=== PATIENT | female | born 1960 | race Caucasian/White ===

== ENCOUNTER 2020-12-27 15:19 | Inpatient (IN) | payer OTHER, SELFPAY ==
--- NOTE | ~2020-12-27 | XR_ITS ---
EXAMINATION: XR UGI water soluble wo kub DATE: 12/29/2020 09:11 INDICATION: Patient status post surgery for perforated gastric ulcer TECHNIQUE: Water-soluble contrast was administered through the nasogastric tube. Conventional supine abdomen radiograph and fluoroscopy of the distal esophagus, stomach, and proximal small bowel were pe rformed. Fluoroscopy exposure time was 2.3 minutes. The DAP for this procedure was 27.77 Gycm2. COMPARISON: None. FINDINGS: The nasogastric tube is in the stomach. No contrast extravasation from the stomach is ident ified. There is a moderate-sized sliding hiatal hernia with associated gastroesophageal reflux. IMPRESSION: 1. No evidence of contrast leak from the stomach. Reviewed, dictated and finalized at location A.
--- NOTE | ~2020-12-27 | CT_ITS ---
EXAMINATION: CT abdomen pelvis w con DATE: 12/27/2020 20:43 INDICATION: Generalized abdominal pain. Vomiting. TECHNIQUE: Computed tomography (CT) of the abdomen and pelvis was performed with 100 mL Omnipaque 350 intravenous contrast. Automated exposure control and iterative reconstruction technique were employe d. The dose-length product was 234.50 mGy-cm. COMPARISON: None. FINDINGS: The visualized portions of the lung bases demonstrate mild atelectasis. No pleural effusion . The heart size is normal. No pericardial effusion. There is a small sliding hiatal hernia. The live r and spleen are normal. The gallbladder is normal in size. There is wall thickening of the body and antrum of the stomach. There is a perforated ulcer of the superior aspect of the gastric antrum. The pancreas, adrenal glands, and kidneys are normal. The appendix is not visualized. There are scattered diverticula in the colon. There are no dilated loops of bowel. There is a moderate volume of ascites . There is a large volume of free intraperitoneal gas in the anterior abdomen. There are changes of a nterior and posterior fusion procedures from L4 to S1. There is moderate lumbar spondylosis. IMPRESSION: 1. Perforated ulcer of the gastric antrum with free intraperitoneal gas and moderate volume of ascite s. I called this result to Dr. Horne. Reviewed, dictated and finalized at location A. IMPRESSION: 1. Perforated ulcer of the gastric antrum with free intraperitoneal gas and mod erate volume of ascites. I called this result to Dr. Horne.
[2020-12-27 15:41] VITALS: BP 121/66; PULSE 102; RESP 20; TEMP 36.5; O2SAT 97
[2020-12-27 16:24] LABS: Basophils Percent Auto 0.3 % (0.2-1.2); Eosinophils Percent Auto 0.1 % (0-4.4); Hematocrit 49.4 % (37.0-47.0); Hemoglobin 16.9 g/dL (12.0-15.0); Immature Granulocyte Absolute 0.06 K/mm3 (0.00-0.031); Immature Granulocyte Percent A 0.5 % (0-0.5); Lymphocytes Absolute Auto 1.94 K/mm3 (0.9-3.2); Lymphocytes Percent Auto 17.1 % (18.3-44.2); Mean Corpuscular HGB Conc 34.2 g/dl (32-36); Mean Corpuscular Hemoglobin 30.7 pg (26-34); Mean Corpuscular Volume 89.7 fl (80-100); Mean Platelet Volume 9.3 fl (7.4-10.4); Monocytes Absolute Auto 0.9 K/mm3 (0.1-0.6); Monocytes Percent Auto 7.5 % (2.6-8.5); Neutrophils Absolute Auto 8.5 K/mm3 (1.3-6.7); Neutrophils Percent Auto 74.5 % (45.5-73.1); Platelet Count Result 383 k/mm3 (150-375); Red Blood Count 5.51 M/mm3 (4.2-5.4); Red Cell Distribution Width 12.2 % (11.5-14.5); White Blood Count 11.4 K/mm3 (4.5-10.0)
[2020-12-27 16:33] LABS: Add Urine Microscopic? YES; Appearance Urine Clear (Clear); Bacteria Urine Trace /hpf; Bilirubin Urine Negative (Negative); Blood Urine 2+ (Negative); Color Urine Yellow (Yellow); Glucose Urine UA Negative (Negative); Ketones Urine 2+ mg/dL (Negative); Leukocyte Esterase Ur 1+ LEU/UL (Negative); Mucus Urine Rare /lpf; Nitrate Urine Negative (Negative); Protein Urine 1+ mg/dL (Negative); Specific Grav Ur 1.026 (1.001-1.035); Squamous Epithelial Cell Urine Few /hpf (Few)
[2020-12-27 16:37] LABS: Potassium 2.6 mmol/L (3.4-5.0)
[2020-12-27 16:38] LABS: Albumin Level 4.9 g/dL (3.5-5.1); Alkaline Phosphatase 119 U/L (38-126); Anion Gap 17 mmol/L (8-16); Aspartate Amino Transferase 45 U/L (14-36); Bilirubin,Total 1.5 mg/dL (0.2-1.3); Blood Urea Nitrogen 29 mg/dL (7-17); Calcium 10.3 mg/dL (8.4-10.2); Carbon Dioxide 25 mmol/L (22-30); Chloride 92 mmol/L (98-107); Estimated CRCL calculation 45 ml/min; Estimated Glomerular Filt Rate > 60; Glucose 176 mg/dL (65-110); Lipase 102 U/L (23-300); Sodium 134 mmol/L (137-145)
[2020-12-27 16:55] LABS: Alanine Aminotransferase 31 U/L (4-35)
[2020-12-27 19:38] VITALS: BP 129/75; PULSE 105; RESP 20; TEMP 36.6; O2SAT 100
--- NOTE | 2020-12-27 19:41 | ED.ABDPAIN ---
HPI - Abdominal Pain General Chief Complaint: Abdominal Pain Stated Complaint: N/V Time Seen by Provider: 12/27/20 19:40 Source: patient Mode of arrival: ambulatory Limitations: no limitations History of Present Illness HPI narrative: Patient is a 58-year-old female complaining abdominal pain, mid abdomen, 8 out of 10, nonradiating, accompanied by nausea that started today. Patient denies any chest pain, shortness of breath, vomiting, diarrhea, fever, chills or urinary symptoms. Related Data Home Medications Medication Instructions Recorded Confirmed acetaminophen 650 mg 650 mg PO BID tablet 09/08/20 09/08/20 tablet,extended release buspirone 7.5 mg tablet 7.5 mg PO BID 09/08/20 09/08/20 dimenhydrinate 50 mg tablet 50 mg PO Q4-6H PRN 09/08/20 09/08/20 diphenhydramine HCl 25 mg capsule 25 mg PO QID PRN 09/08/20 09/08/20 hydroxyzine HCl 50 mg tablet 50 mg PO TID 09/08/20 09/08/20 magnesium 250 mg tablet 250 mg PO DAILY 09/08/20 09/08/20 Allergies Allergy/AdvReac Type Severity Reaction Status Date / Time Penicillins Allergy Mild Unknown Verified 12/27/20 19:44 Sulfa (Sulfonamide Allergy Mild Unknown Verified 12/27/20 19:44 Antibiotics) fluoxetine [From Prozac] Allergy Unknown Unknown Verified 12/27/20 19:44 grapefruit Allergy Unknown Verified 12/27/20 19:44 Review of Systems Review of Systems: All systems reviewed & are unremarkable except as noted in HPI and below Constitutional: Constitutional: Denies body ache(s), Denies chills, Denies excessive sweating, Denies fatigue, Denies fever(s), Denies headache(s), Denies lethargy, Denies malaise, Denies weakness and Denies weight loss Eyes: Eyes: Denies blurry vision, Denies change in vision and Denies loss of vision ENT: Denies dizziness, Denies ear discharge, Denies headache(s), Denies lip swelling, Denies epistaxis, Denies nasal congestion, Denies neck pain, Denies throat swelling and Denies tongue swelling Cardiovascular: Cardiovascular: Denies chest pain, Denies chest pain at rest, Denies chest pain with activity, Denies diaphoresis, Denies rapid heart rate, Denies edema, Denies irregular heart rhythm, Denies lightheadedness, Denies palpitations, Denies dyspnea and Denies dyspnea on exertion Respiratory: Respiratory: Denies chest congestion, Denies cough, Denies hemoptysis, Denies dyspnea and Denies dyspnea on exertion Gastrointestinal: Gastrointestinal: Denies melena, Denies hematochezia, Denies diarrhea, Denies nausea, Denies vomiting and Denies hematemesis Musculoskeletal: Musculoskeletal: Denies abnormal gait, Denies deformity, Denies joint swelling, Denies limited range of motion, Denies neck pain and Denies numbness Neurologic: Denies Abnormal speech present, Denies abnormal gait, Denies confusion, Denies dizziness, Denies headache(s), Denies focal weakness, Denies loss of vision, Denies numbness, Denies Other visual disturbances, Denies Sensory deficit (Neuro) and Denies weakness Psychiatric: Psychiatric: Denies confusion, Denies depression, Denies auditory hallucinations, Denies homicidal ideation and Denies suicidal ideation Endocrine: Endocrine: Denies cold intolerance, Denies excessive sweating, Denies fatigue, Denies heat intolerance and Denies palpitations Hematologic/Lymphatic: Hematologic/Lymphatic: Denies easy bleeding and Denies easy bruising Allergic/Immunologic: Allergic/Immunologic: Denies lip swelling, Denies throat swelling and Denies tongue swelling PMFSH Social History Social History Smoking status: Former smoker Alcohol intake: former Comments Past medical history: Anxiety Family history: Hypertension Social history: Non-smoker no EtOH or drug use Exam Const: General: cooperative, healthy appearing, comfortable, no acute distress, well developed, alert and awake; No confusion Orientation/consciousness: oriented to person, oriented to place, oriented to time, patient oriente
[2020-12-27] MEDS: LACTATED RINGERS 1,000 ML 999 ML IV CONT (20:45)
[2020-12-27] MEDS: MORPHINE SULFATE (*CRX) 2 MG/ML INJ IV PUSH (20:46)
[2020-12-27] MEDS: PROMETHAZINE HCL 25 MG/ML AMPUL 12.5 MG IV PUSH (20:46)
[2020-12-27] MEDS: KCL 20 MEQ/SW 100 ML 100 ML 50 MEQ IVPB (21:28)
--- NOTE | 2020-12-27 21:31 | ECG_ITS ---
Measurements Intervals [place] Rate: 92 P: 77 [place]: 149 QRS: -16 QRSD: 99 T: 68 QT: 383 QTc: 474 Interpretive Statements SINUS RHYTHM RIGHT ATRIAL ENLARGEMENT LEFT ATRIAL ENLARGEMENT INCOMPLETE RIGHT BUNDLE BRANCH BLOCK BORDERLINE ECG Electronically Signed On 12-28-2020 6:28:41 CDT by Drew Gibbs D.O.
--- NOTE | 2020-12-27 21:39 | WPDANESEPP ---
Anes - Eval Pre Procedure Procedure: Exploratory laparotomy with oversewing perfed gastric ulcer Date/Time: 12/27/20 21:39 Surgeon: sarai Preop Diagnosis: perforated gastric ulcer Pre Op Diagnosis: N/V Patient Data Age: 60 Gender: F Height: 1.57 m Weight: 56.7 kg Last Vital Signs Temp 97.9 F 12/27/20 19:38 Pulse 105 H 12/27/20 19:38 Resp 20 12/27/20 19:38 BP 129/75 12/27/20 19:38 Pulse Ox 100 12/27/20 19:38 Allergies Allergy/AdvReac Type Severity Reaction Status Date / Time Penicillins Allergy Mild Unknown Verified 12/27/20 19:44 Sulfa (Sulfonamide Allergy Mild Unknown Verified 12/27/20 19:44 Antibiotics) fluoxetine [From Prozac] Allergy Unknown Unknown Verified 12/27/20 19:44 grapefruit Allergy Unknown Verified 12/27/20 19:44 Home Medications Medication Instructions Recorded Confirmed Type acetaminophen 650 mg 650 mg PO BID tablet 09/08/20 09/08/20 History tablet,extended release buspirone 7.5 mg tablet 7.5 mg PO BID 09/08/20 09/08/20 History dimenhydrinate 50 mg tablet 50 mg PO Q4-6H PRN 09/08/20 09/08/20 History diphenhydramine HCl 25 mg capsule 25 mg PO QID PRN 09/08/20 09/08/20 History hydroxyzine HCl 50 mg tablet 50 mg PO TID 09/08/20 09/08/20 History magnesium 250 mg tablet 250 mg PO DAILY 09/08/20 09/08/20 History sertraline 100 mg tablet See Rx Instructions .ROUTE 09/20/20 Rx .COMPLEX #30 tablet lamotrigine 100 mg tablet See Rx Instructions .ROUTE 10/24/20 Rx .COMPLEX #60 tablet hydrocodone 10 mg-acetaminophen 1 tablet PO Q6H PRN #120 tablet 12/21/20 Rx 325 mg tablet Laboratory Tests 12/27/20 12/27/20 12/27/20 16:07 16:07 16:07 WBC 11.4 K/mm3 H K/mm3 (4.5-10.0) RBC 5.51 M/mm3 H M/mm3 (4.2-5.4) Hgb 16.9 g/dL H g/dL (12.0-15.0) Hct 49.4 % H % (37.0-47.0) MCV 89.7 fl fl (80-100) MCH 30.7 pg pg (26-34) MCHC 34.2 g/dl g/dl (32-36) RDW 12.2 % % (11.5-14.5) Plt Count 383 k/mm3 H k/mm3 (150-375) MPV 9.3 fl fl (7.4-10.4) Immature Gran % (Auto) 0.5 % % (0-0.5) Neut % (Auto) 74.5 % H % (45.5-73.1) Lymph % (Auto) 17.1 % L % (18.3-44.2) Castro % (Auto) 7.5 % % (2.6-8.5) Eos % (Auto) 0.1 % % (0-4.4) Baso % (Auto) 0.3 % % (0.2-1.2) Lymph # (Auto) 1.94 K/mm3 K/mm3 (0.9-3.2) Castro # (Auto) 0.9 K/mm3 H K/mm3 (0.1-0.6) Eos # (Auto) 0.0 K/mm3 K/mm3 (0-0.3) Baso # (Auto) 0.0 K/mm3 K/mm3 (0.0-0.1) Abs Immat Gran (auto) 0.06 K/mm3 H K/mm3 (0.00-0.031) Absolute Neuts (auto) 8.5 K/mm3 H K/mm3 (1.3-6.7) Absolute Nucleated RBC 0.0 K/mm3 K/mm3 (0.0-0.012) Nucleated RBC % 0.0 % % (0.0-0.2) Sodium 134 mmol/L L mmol/L (137-145) Potassium 2.6 mmol/L L* mmol/L (3.4-5.0) Chloride 92 mmol/L L mmol/L (98-107) Carbon Dioxide 25 mmol/L mmol/L (22-30) Anion Gap 17 mmol/L H mmol/L (8-16) BUN 29 mg/dL H mg/dL (7-17) Creatinine 0.90 mg/dL mg/dL (0.7-1.0) Estim Creat Clear Calc 45 ml/min ml/min Estimated GFR > 60 (59 - ) Glucose 176 mg/dL H mg/dL (65-110) Calcium 10.3 mg/dL H mg/dL (8.4-10.2) Total Bilirubin 1.5 mg/dL H mg/dL (0.2-1.3) AST 45 U/L H U/L (14-36) ALT 31 U/L U/L (4-35) Alkaline Phosphatase 119 U/L U/L (38-126) Total Protein 8.0 g/dL g/dL (6.3-8.2) Albumin 4.9 g/dL g/dL (3.5-5.1) Lipase 102 U/L U/L (23-300) Urine Color Yellow (Yellow) Urine Appearance Clear (Clear) Urine pH 6.0 (5.0-9.0) Ur Specific [place] 1.026 (1.001-1.035) Urine Protein 1+ mg/dL H mg/dL (Negative) Urine Glucose (UA) Negative mg/dL mg/dL (Negative) Ur
[2020-12-27] MEDS: ceFAZolin SODIUM 1 GM VIAL 2 GM IV PUSH (22:12)
[2020-12-27] MEDS: HYDROmorphone HCL INJ (*CRX) 1 MG/ML SYR IV PUSH (22:12)
--- NOTE | 2020-12-27 22:13 | PM.IMHP ---
H&P: HPI History of Present Illness Date/Time: 12/27/20 22:13 Chief Complaint: Upper abdominal pain. Narrative: Patient is a 58-year-old White female complaining of abdominal pain, mid abdomen, 8 out of 10, nonradiating, accompanied by nausea that started today after lunch. Patient denies any chest pain, shortness of breath, vomiting, diarrhea, fever, chills or urinary symptoms. Patient states she does not take a lot of NSAIDs. Patient also states she has never heard of H pylori in the past. She states she thinks she has had 1 EGD in the past but can not remember how long ago was and believes that was possibly at [facility] in [place] that it is now called [facility]. Workup in the emergency room revealed fairly normal labs other than low potassium but CT scan showed a large amount of free air and some free fluid in the abdomen. The radiologist states that the wall of the body and pyloric region of the stomach is thick and there was a perforation of the pre-pyloric area of the stomach. Review of Systems Constitutional: Constitutional: Reports as per HPI, Reports anorexia and Denies headache(s) Eyes: Eyes: Denies loss of vision and Denies eye pain ENT: Reports Normal hearing present, Denies change in voice, Denies dizziness and Denies headache(s) Comments: History of a previous tracheostomy at the time of an overdose in her 30s. Cardiovascular: Cardiovascular: Denies chest pain and Denies dyspnea Respiratory: Respiratory: Denies dyspnea and Denies wheezing Comments: Moderate COPD from previous smoking. Gastrointestinal: Gastrointestinal: Reports abdominal pain (Mostly above the umbilical level) Comments: Significant pain in the upper abdomen more left than right. Genitourinary: Genitourinary: Reports no additional female genitourinary complaints Musculoskeletal: Musculoskeletal: Reports no additional musculoskeletal complaints, Denies back pain and Denies arthralgias Comments: History of previous low back surgery with instrumentation in the L1-L2 area. Integumentary/Breasts: Comments: Inspection unremarkable but breast exam not done Neurologic: Reports Normal hearing present, Denies dizziness, Denies headache(s), Denies loss of vision and Denies memory loss Comments: History of seizures currently on Lamictal. Sees Dr. Dr. Casillas for her seizure disorder. Psychiatric: Psychiatric: Denies memory loss and Denies panic attacks Comments: History of depression in the past History of electric shock therapy for depression. Endocrine: Endocrine: Reports no additional endocrine complaints Hematologic/Lymphatic: Hematologic/Lymphatic: Reports no additional hematologic/lymphatic complaints Allergic/Immunologic: Allergic/Immunologic: Denies wheezing PMFSH Past Medical History Medical History (Updated 12/27/20 @ 22:30 by Be Graham MD) Anxiety Anxiety and depression COPD (chronic obstructive pulmonary disease) History of alcoholism History of smoking Perforated gastric ulcer (~12/27/20) Seizures (Unknown) Surgical History Surgical History H/O lumbosacral spine surgery History of appendectomy Hx of tracheostomy Social History Social History Smoking status: Former smoker Alcohol intake: former Meds Home Medications and Allergies Home Medications Medication Instructions Recorded Confirmed Type acetaminophen 650 mg 650 mg PO BID tablet 09/08/20 12/27/20 History tablet,extended release buspirone 7.5 mg tablet 7.5 mg PO BID 09/08/20 12/27/20 History dimenhydrinate 50 mg tablet 50 mg PO Q4-6H PRN 09/08/20 12/27/20 History diphenhydramine HCl 25 mg capsule 25 mg PO QID 09/08/20 12/27/20 History hydroxyzine HCl 50 mg tablet 50 mg PO TID 09/08/20 12/27/20 History magnesium 250 mg tablet 250 mg PO DAILY 09/08/20 12/27/20 History sertraline 100 mg tablet See Rx Instructions .ROUTE 09/20/20 Rx
[2020-12-27 22:19] VITALS: BP 134/81; PULSE 81; RESP 15; O2SAT 95
[2020-12-27] MEDS: LACTATED RINGERS 1,000 ML 30 ML IV CONT ×2 (22:30→23:57)
[2020-12-27 23:57] VITALS: BP 98/38; PULSE 77; RESP 18; TEMP 36.8; O2SAT 100
[2020-12-28] VITALS (23 sets, daily range): BP systolic 90–119; BP diastolic 42–80; PULSE 64–79; RESP 11–20; TEMP 36.4–37.3; O2SAT 94–100; BMI 22.8
--- NOTE | 2020-12-28 00:04 | SUR.OPER ---
all clothing purse phone in belonging bag and with patient in PACU. Dr Graham stated he has number to call when surgery done for person patient informed him to call.
--- NOTE | 2020-12-28 00:18 | W.PM.PROC2 ---
Procedure Note - Detailed Date of Procedure 12/27/20 Pre-op Diagnosis Perforated antral gastric ulcer with peritonitis Post-op Diagnosis same Procedure Performed 1. Exploratory laparotomy with over-sewing of antral gastric ulcer and placement of omental patch. 2. Biopsy of antral gastric ulcer 3. Peritoneal washout (5 L of saline used). Surgeon Be Graham MD Division T[employer] Wire Chief MALLORY Her, OR 1st assist Anesthesia general Indications Patient was worked of the ER for upper abdominal pain. CT scan showed significant free air and free fluid in the abdomen with a Kulwinder suspected antral gastric ulcer perforation. Patient had physical findings suggestive of peritonitis. Findings There was a proximally 8 mm hole in the pre-pyloric stomach anteriorly with lots of brown cloudy fluid in the peritoneum. Description of Procedure Patient was brought from the ED directly to the operating room after evaluation by Anesthesia and obtaining permit from patient. Following this after establishment of general oral endotracheal anesthesia, the patient had a Plascencia catheter and NG tube placed to about 40 cm. Following this the abdomen was prepped and draped in usual sterile fashion. Time-out was performed with the surgery team confirming site of surgery being the abdomen. Following this a standard vertical midline incision was made from just below xiphoid to just above the umbilicus. This was carried down through the subcutaneous tissues to expose the midline fascia. The linea alba was incised and we could see nice normal fat underneath this. I then carefully opened the peritoneum after placing 2 hemostats on the peritoneum close to the fascia on the left side of the incision. We entered the peritoneum under direct vision just to the left of the falciform and then I put my finger in and used cautery to open the peritoneum the length of the incision. We could immediately see the above described hole in the anterior antral stomach there there was cloudy brown fluid within the abdomen and about 8 cc of this was suctioned into a syringe and passed off the field to be sent as fluid for culture and sensitivity and Gram stain. Following this any free intra-abdominal fluid was all suctioned away and I then put my hand in the abdomen and we adjusted the NG tube advancing it to 59 cm and I could feel the NG nicely in the body of the stomach a good 5-6 cm proximal to where the hole was. Following this we carefully explored elsewhere and found no other abnormalities. I did then use four 2-0 silk sutures to close the gastric perforation site vertically after taking an approximate 1 x 2 cm biopsy of the inferior edge of the gastric ulcer including full-thickness of the stomach wall. Once these were all placed I then went back and tied them just to secure the gastric wall together. Prior to placing these I did place a blunt Peon into the stomach proximally and distally confirming that there was a open channel. These sutures were all left long. Following this we carefully irrigated the abdomen in all 4 quadrants with a least a L of fluid. (A total of 5 L of fluid used) After completing this approximately 650 cc more fluid was suctioned out of the abdomen then we had irrigated with. A Pool suction was used to suction all of the fluid away. By the time we finished most of fluid coming out of the abdomen was clear. Following this we came back and carefully mobilized a piece of fatty omentum that was hanging off the inferior edge of the greater curvature of the stomach which was long enough to come up over the ulcer site. One suture was used to tack this to the serosa of the stomach slightly cephalad to the ulcer closure site and then the long ends of the previous 4 sutures were tied over this Ometum to hold it in place. This formed our omental patch. Following this we carefully inspected the rest of the anterior surface of the stomach which appeared normal. There was some generalized reddish h
[2020-12-28] MEDS: fentaNYL CITRATE INJ (*CRX) 100 MCG/2 ML VIAL 25 MCG IV PUSH (00:42)
--- NOTE | 2020-12-28 02:32 | ADMGEN ---
This patient, Gina Gonzalez, was admitted to IMU Room 200-01 at 0124 from pacu. Patient/family oriented to hospital policies and general routines including ID bracelet, bed and alarms, visiting hours, pain management, procedures, bathroom and other care routines, personal items, smoking policy, room service/diet, and visiting hours. Information on how to activate the Rapid Response Team has been discussed. Patient/Family are encouraged to report perceived risks to care and to ask questions if they do not understand what they are told or what they should do.
[2020-12-28] MEDS: SODIUM CHLORIDE 0.9% IV 1,000 ML 100 ML IV CONT ×2 (03:09→15:12)
[2020-12-28 05:18] LABS: Magnesium 1.4 mg/dL (1.6-2.3)
[2020-12-28] MEDS: ceFAZolin 2 GM/D5W 50 ML 2 GM/50 ML BAG IVPB ×3 (05:28→20:37)
[2020-12-28 08:25] LABS: Basophils Percent Auto 1.2 % (0.2-1.2); Hematocrit 49.2 % (37.0-47.0); Immature Granulocyte Absolute 0.01 K/mm3 (0.00-0.031); Immature Granulocyte Percent A 0.3 % (0-0.5); Lymphocytes Absolute Auto 0.37 K/mm3 (0.9-3.2); Lymphocytes Percent Auto 11.5 % (18.3-44.2); Mean Corpuscular HGB Conc 32.5 g/dl (32-36); Mean Corpuscular Hemoglobin 29.8 pg (26-34); Mean Corpuscular Volume 91.6 fl (80-100); Mean Platelet Volume 10.1 fl (7.4-10.4); Monocytes Absolute Auto 0.5 K/mm3 (0.1-0.6); Neutrophils Absolute Auto 2.4 K/mm3 (1.3-6.7); Platelet Count Result 308 k/mm3 (150-375); Red Blood Count 5.37 M/mm3 (4.2-5.4); Red Cell Distribution Width 12.5 % (11.5-14.5); White Blood Count 3.2 K/mm3 (4.5-10.0)
[2020-12-28 08:27] LABS: Prealbumin 17.5 mg/dL (17.6-36.0)
[2020-12-28 09:02] LABS: Anion Gap 8 mmol/L (8-16); Blood Urea Nitrogen 32 mg/dL (7-17); Calcium 8.6 mg/dL (8.4-10.2); Carbon Dioxide 26 mmol/L (22-30); Chloride 99 mmol/L (98-107); Estimated CRCL calculation 57 ml/min; Estimated Glomerular Filt Rate > 60; Glucose 142 mg/dL (65-110); Potassium 2.6 mmol/L (3.4-5.0); Sodium 133 mmol/L (137-145)
[2020-12-28] MEDS: MORPHINE SULFATE (*CRX) 2 MG/ML INJ IV PUSH ×2 (09:55→20:49)
[2020-12-28] MEDS: MAGNESIUM SULFATE 3GM/D5W100ML 3 GM/100 ML BAG IVPB (09:56)
[2020-12-28] MEDS: ENOXAPARIN 40 MG/0.4 ML SYRINGE SUB-Q (09:57)
--- NOTE | 2020-12-28 11:05 | PM.PNGS ---
Progress Note: A&P Assessment and Plan (1) Perforated gastric ulcer: Onset Date: ~12/27/20 Qualifiers: Gastric ulcer chronicity: acute Qualified Code(s): K25.1 - Acute gastric ulcer with perforation Code(s): K25.5 - Chronic or unspecified gastric ulcer with perforation Status: Acute Assessment and Plan: Doing well postop day #1. Will have patient begin using an incentive spirometer and begin to get up with physical therapy and nursing. Will consider possible Gastrografin study through the NG tube tomorrow to check on gastric emptying and whether not there is any residual leak from the repair for her pre-pyloric gastric ulcer. Continue NG suction for now Begin mobilizing Continue IV antibiotics and antifungal until cultures return. (2) Low back pain: Onset Date: Unknown Code(s): M54.5 - Low back pain Status: Acute Assessment and Plan: History of 1 or more surgeries on the low back. Still having some back pain but not complaining of that today. (3) Seizures: Onset Date: Unknown Code(s): R56.9 - Unspecified convulsions Status: Acute Assessment and Plan: Await neurology consult and recommendations. (4) Hypokalemia: Onset Date: ~11/2020 Code(s): E87.6 - Hypokalemia Status: Acute Assessment and Plan: Patient received one rider preop yesterday in the ED and I have ordered another one for now. Appreciate hospitalist's help in deciding how to proceed with replenishment of this per IV fluids. (5) Hypomagnesemia: Onset Date: ~12/28/20 Code(s): E83.42 - Hypomagnesemia Status: Acute Assessment and Plan: Magnesium 1.4 this morning. Will give 1 3 g rider and recheck tomorrow. Subjective Subjective Date/Time Seen: 12/28/20 11:05 Post Op day: 1 ( Making expected progress postop day # 1.) Patient reports: feels better, still having pain ( Including some left lower quadrant discomfort.), no flatus and no bowel movement Interval history: patient made adequate but just barely adequate urine output overnight. She states that she does have some pain with coughing. But pain in general is improved compared to preop. Review of Systems Constitutional: Constitutional: Reports no additional constitutional complaints ENT: Reports other (Mucous Membranes moist.) Cardiovascular: Cardiovascular: Denies palpitations and Denies dyspnea Respiratory: Respiratory: Denies pain on inspiration and Denies dyspnea Gastrointestinal: Gastrointestinal: Reports as per HPI Musculoskeletal: Musculoskeletal: Reports other (No calf swelling or edema) Integumentary/Breasts: Skin/Breast: Reports system reviewed and no additional complaints, except as docu Neurologic: Denies seizure-like activity Psychiatric: Comments: History of depression currently on some meds for that at home. Endocrine: Endocrine: Reports no additional endocrine complaints Exam Const: General: cooperative, no acute distress, alert and awake Orientation/consciousness: patient oriented x3 HENMT: Mouth: Yes moist mucous membranes Teeth and gingiva: poor dentition Neck: Neck: normal visual inspection Other: Transverse scar across the mid neck from previous tracheostomy Chest: Chest palpation & inspection: normal inspection of the chest Resp: Effort & Inspection: normal respiratory effort Auscultation: clear to auscultation bilaterally Cardio: Jugular venous distension: no JVD Rate: regular rate Rhythm: regular rhythm Heart sounds: no murmurs GI: Inspection: incision ( minimal drainage on dressing. Abdominal binder in place.) and scaphoid GI Palp: Yes abdominal tenderness ( appropriate for recent surgery) Auscultation: Hypoactive bowel sounds present Rectal Exam: deferred : OB/external & speculum: Deferred OB/external & speculum exam Urinary Catheter: Urinary Catheter: patent and draining and urine clear Neuro: G
[2020-12-28] MEDS: PANTOPRAZOLE SODIUM IV 40 MG VIAL IV PUSH ×2 (11:47→20:37)
--- NOTE | 2020-12-28 14:57 | PM.IMCN ---
Assessment and Plan Assessment and plan (1) Perforated gastric ulcer: Onset Date: ~12/27/20 Qualifiers: Gastric ulcer chronicity: acute Qualified Code(s): K25.1 - Acute gastric ulcer with perforation Code(s): K25.5 - Chronic or unspecified gastric ulcer with perforation Status: Acute Assessment and Plan: Please see surgical note. Patient has some abdominal dressing that is intact. The patient has NG tube. The patient is NPO at this time. Continue with current pain medication. The patient stated that she is supposed to have an outpatient ultrasound of her abdomen due to a hernia and requested that we do all she is here. I explained that we need to wait until her current surgery is healed before she has an ultrasound. I do not feel that her hernia on ultrasound would be accurate at this time. (2) Hypokalemia: Onset Date: ~11/2020 Code(s): E87.6 - Hypokalemia Status: Acute Assessment and Plan: Supplement as needed (3) Hypomagnesemia: Onset Date: ~12/28/20 Code(s): E83.42 - Hypomagnesemia Status: Acute Assessment and Plan: Supplement as needed (4) Depression: Code(s): F32.9 - Major depressive disorder, single episode, unspecified Status: Chronic Assessment and Plan: The patient is NPO so home medication is on hold at this time. (5) COPD (chronic obstructive pulmonary disease): Code(s): J44.9 - Chronic obstructive pulmonary disease, unspecified Status: Chronic Assessment and Plan: Albuterol HFA. (6) Anxiety and depression: Code(s): F41.9 - Anxiety disorder, unspecified; F32.9 - Major depressive disorder, single episode, unspecified Status: Chronic Assessment and Plan: The patient is NPO at this time. We can do some p.r.n. Ativan (7) History of alcoholism: Code(s): F10.21 - Alcohol dependence, in remission Status: Chronic Assessment and Plan: The patient is a recovering alcoholic. She said she has not drink in 16 years. (8) Seizures: Onset Date: Unknown Code(s): R56.9 - Unspecified convulsions Status: Acute Assessment and Plan: BLANCA POON Data of Consult Consult date: 12/28/20 Requesting Physician: Be Graham MD Primary Care Provider: Chandler Benton MD Consult Narrative Narrative: Gina Gonzalez 12/28/20 14:55 this is a 60-year-old female who came to the emergency room last night with complaints of abdominal pain 8/10 that was nonradiating and was accompanied by nausea. The patient denied any chest pain or shortness of breath or vomiting. Patient stated that she has not taken any NSAIDs. Patient thinks that she has had an EGD in the past her CT scan showed a large amount of free air and some free fluid in the abdomen. The radiologist stated that the wall of the body pyloric region of the stomach is thick and there was perforation of the pre-pyloric area the stomach. Please see operative note procedure performed. Exploratory laparotomy with over-sewing of antral gastric ulcer and placement of omental patch. 2. Biopsy of antral gastric ulcer 3. Peritoneal washout (5 L of saline used) The patient's potassium is found to be 2.6 and magnesium was 1.4. The hospitalist group was consulted for management of electrolyte imbalance. These have been replaced. The patient is being admitted to inpatient services with the surgical team. The date of service for the consult is 12/28/2020. Review of Systems Review of Systems: All systems reviewed & are unremarkable except as noted in HPI and below Constitutional: Constitutional: Reports as per HPI and Reports no additional constitutional complaints Eyes: Eyes: Reports as per HPI and Reports no additional eye complaints ENT: Reports system reviewed and no additional complaints, except as documented and Reports Normal hearing present Cardiovascular: Cardiovascular: Re
[2020-12-28] MEDS: MICAFUNGIN SODIUM 100 MG in SODIUM CHLORIDE 0.9% IV 100 ML IVPB (15:03)
[2020-12-28] MEDS: levETIRAcetam 500MG/NACL 100ML 500 MG/100 ML BAG 400 MG IVPB ×2 (15:59→20:35)
--- NOTE | 2020-12-28 16:33 | WPDNEURCNPN ---
Assessment and Plan Additional Plan considering the history of seizure disorder and considering that she is unable to take the p.o. medication Lamictal has been changed to Keppra 500 mg IV push q.12 hours with seizure precautions Consult date: 12/28/20 Time Seen: 11:30 HPI: Gina Gonzalez is a 60 year old female admitted to the hospital for the complaints of upper abdominal pain 8/10 radiating and accompanied by nausea without associated chest discomfort or difficulties in breathing initial evaluation in the emergency room was negative except the low potassium and CT scan of the abdomen documented large amount of free air and fluid in the abdomen neuro consultation has been obtained because patient carries the diagnosis of seizures. The past she has undergone lumbosacral spine surgery and appendectomy and tracheostomy and she has ongoing history of anxiety with COPD alcoholism smoking perforated gastric ulcer and seizure as mentioned above evaluation up until now included the CT scan of the abdomen pelvis with contrast which documented perforated ulcer of the gastric antrum with free intraperitoneal gas and moderate volume of ascites medications particularly include the lamotrigine 100 mg b.i.d. which they are trying to keep her NPO needs to be changed to different medication Review of Systems Review of Systems: All systems reviewed & are unremarkable except as noted in HPI and below PMFSH Past Medical History Medical History Anxiety Anxiety and depression COPD (chronic obstructive pulmonary disease) Depression History of alcoholism History of smoking Perforated gastric ulcer (~12/27/20) Seizures (Unknown) Surgical History Surgical History H/O lumbosacral spine surgery History of appendectomy Hx of tracheostomy Family History Family History Mother Heart disease Cerebrovascular accident Father Heart disease Other Unknown family medical history Social History Social History Social History: The patient stated that she had 5 children and 1 at . The patient is and she is considered disabled. The patient stated that she is 16 years clean with alcohol and she is recovering alcoholic. The patient stated that she smoked many years ago and no longer smokes. The patient is listed as a full code. And she stated that she does not want any CPR if she has spinal surgery. The patient desires to be a DNR. The patient does not have a durable power helicopter specialist for healthcare. The patient denies any marijuana or illicit drugs. Smoking status: Former smoker Alcohol intake: former Substance use: never Spiritual care concerns: No Meds Home Medications and Allergies Home Medications Medication Instructions Recorded Confirmed Type acetaminophen 650 mg 650 mg PO BID tablet 09/08/20 12/27/20 History tablet,extended release buspirone 7.5 mg tablet 7.5 mg PO BID 09/08/20 12/27/20 History diphenhydramine HCl 25 mg capsule 25 mg PO QID 09/08/20 12/27/20 History magnesium 250 mg tablet 250 mg PO DAILY 09/08/20 12/27/20 History hydrocodone 10 mg-acetaminophen 1 tablet PO Q6H PRN #120 tablet 12/21/20 12/27/20 Rx 325 mg tablet lamotrigine 100 mg PO BID 12/28/20 12/28/20 History Allergies Allergy/AdvReac Type Severity Reaction Status Date / Time Penicillins Allergy Mild Unknown Verified 12/27/20 19:44 Sulfa (Sulfonamide Allergy Mild Unknown Verified 12/27/20 19:44 Antibiotics) fluoxetine [From Prozac] Allergy Unknown Unknown Verified 12/27/20 19:44 grapefruit Allergy Unknown Verified 12/27/20 19:44 Vital Signs Vital Signs - 24 hr 12/27/20 19:38 12/27/20 22:19 12/27/20 23:57 Temperature 36.6 C 36.8 C Pulse Rate 105 H 81 77 Respiratory Rate 20 15 18 Blood Pressure 129/75 134/81 98/38 L
[2020-12-28 16:34] LABS: Anion Gap 5 mmol/L (8-16); Blood Urea Nitrogen 29 mg/dL (7-17); Calcium 8.2 mg/dL (8.4-10.2); Carbon Dioxide 30 mmol/L (22-30); Chloride 99 mmol/L (98-107); Estimated CRCL calculation 57 ml/min; Estimated Glomerular Filt Rate > 60; Glucose 134 mg/dL (65-110); Magnesium 2.7 mg/dL (1.6-2.3); Potassium 3.3 mmol/L (3.4-5.0); Sodium 134 mmol/L (137-145)
[2020-12-28] MEDS: MAG HYDROX/AL HYDROX/SIMETH 30 ML UDC FEED TUBE ×2 (20:35→23:19)
[2020-12-29] VITALS (17 sets, daily range): BP systolic 91–132; BP diastolic 50–70; PULSE 62–83; RESP 16–20; TEMP 36.4–37.1; O2SAT 94–100
[2020-12-29] MEDS: SODIUM CHLORIDE 0.9% IV 1,000 ML 100 ML IV CONT ×2 (01:46→18:45)
[2020-12-29] MEDS: MORPHINE SULFATE (*CRX) 2 MG/ML INJ IV PUSH ×3 (05:16→17:27)
[2020-12-29] MEDS: ceFAZolin 2 GM/D5W 50 ML 2 GM/50 ML BAG IVPB (05:17)
[2020-12-29] MEDS: MAG HYDROX/AL HYDROX/SIMETH 30 ML UDC FEED TUBE ×2 (05:17→11:18)
[2020-12-29 05:29] LABS: Hematocrit 41.4 % (37.0-47.0); Hemoglobin 13.1 g/dL (12.0-15.0); Mean Corpuscular HGB Conc 31.6 g/dl (32-36); Mean Corpuscular Hemoglobin 30.5 pg (26-34); Mean Corpuscular Volume 96.3 fl (80-100); Mean Platelet Volume 10.2 fl (7.4-10.4); Platelet Count Result 192 k/mm3 (150-375); Red Cell Distribution Width 12.8 % (11.5-14.5); White Blood Count 8.1 K/mm3 (4.5-10.0)
[2020-12-29 05:44] LABS: Anion Gap 8 mmol/L (8-16); Blood Urea Nitrogen 18 mg/dL (7-17); Calcium 8.1 mg/dL (8.4-10.2); Carbon Dioxide 27 mmol/L (22-30); Chloride 101 mmol/L (98-107); Estimated CRCL calculation 57 ml/min; Estimated Glomerular Filt Rate > 60; Glucose 83 mg/dL (65-110); Magnesium 3.2 mg/dL (1.6-2.3); Potassium 3.5 mmol/L (3.4-5.0); Sodium 136 mmol/L (137-145)
[2020-12-29] MEDS: MICAFUNGIN SODIUM 100 MG in SODIUM CHLORIDE 0.9% IV 100 ML IVPB (10:55)
[2020-12-29] MEDS: levETIRAcetam 500MG/NACL 100ML 500 MG/100 ML BAG 100 MG IVPB ×2 (11:04→20:35)
[2020-12-29] MEDS: PANTOPRAZOLE SODIUM IV 40 MG VIAL IV PUSH ×2 (11:04→20:35)
[2020-12-29] MEDS: ENOXAPARIN 40 MG/0.4 ML SYRINGE SUB-Q (11:04)
--- NOTE | 2020-12-29 11:24 | PM.IMPN ---
Progress Note: A&P Assessment and Plan (1) Perforated gastric ulcer: Onset Date: ~12/27/20 Qualifiers: Gastric ulcer chronicity: acute Qualified Code(s): K25.1 - Acute gastric ulcer with perforation Code(s): K25.5 - Chronic or unspecified gastric ulcer with perforation Status: Acute Assessment and Plan: She is s/p exploratory laparotomy with over-sewing of antral gastric ulcer and omental patch placement performed by Dr. Graham on 12/28/2020. She tolerated the procedure well and her pain is well controlled at this time. Management per General surgery Continue with NG tube and NPO diet at this time. (2) Hypokalemia: Onset Date: ~11/2020 Code(s): E87.6 - Hypokalemia Status: Acute Assessment and Plan: Likely related to NPO status. Potassium improved today with supplementation. 3.5 this morning Monitor BMP (3) Hypomagnesemia: Onset Date: ~12/28/20 Code(s): E83.42 - Hypomagnesemia Status: Acute Assessment and Plan: Mag was low on presentation and she received 3 g IV Mag sulfate. Magnesium now slightly elevated at 3.2. Avoid further magnesium supplementation Will stop scheduled Mylanta. Discussed with [facility] general surgery H[employer] BRA[employer]ER. Recheck mag levels tomorrow (4) Depression: Code(s): F32.9 - Major depressive disorder, single episode, unspecified Status: Chronic Assessment and Plan: Mood is stable at this time Resume Buspar when no longer NPO (5) COPD (chronic obstructive pulmonary disease): Code(s): J44.9 - Chronic obstructive pulmonary disease, unspecified Status: Chronic Assessment and Plan: Not in acute exacerbation. She reports she is on 2 L supplemental O2 at night related to her COPD but is not established with pulmonology. Currently requiring 2 L supplemental O2, though sats are 98% and this can be weaned. No wheezing on exam. Albuterol inhaler p.r.n. Wean supplemental O2 during the daytime. Goal saturation 90% or above. Continue with home regimen of 2 L oxygen at night (6) Seizures: Onset Date: Unknown Code(s): R56.9 - Unspecified convulsions Status: Acute Assessment and Plan: Reports last seizure was over 1 year ago. She is established with neurologist Dr. Casillas. Continue with IV Keppra while NPO Lamotrigine on hold due to NPO status Appreciate Neurology recommendations Subjective Date/time seen: 12/29/20 11:24 Interval history: Date of service: 12/29/2020 Gina Gonzalez is a 60-year-old female with history of COPD on 2 L supplemental O2 at night, tobacco abuse, alcohol abuse, anxiety, depression, and seizure disorder who is hospitalized for a perforated gastric ulcer now s/p exploratory laparotomy with over-sewing of antral gastric ulcer with omental patch who is being seen in consultation for medical management. She is feeling much better today. She still endorses epigastric discomfort that she describes as a stretching sensation. Denies gnawing, sharp or stabbing pain. She has been belching today. She feels very thirsty in her mouth is dry. She wants to have some coffee as soon as possible. She is not passing any flatus today and has not had a bowel movement. No issues with her Plascencia catheter. Denies nausea, vomiting, fever, or chills. She felt just slightly lightheaded today upon standing. Denies dizziness or weakness. Denies shortness breath, cough, or chest pain. She has no additional concerns at this time. At the patient's request, I spoke with her daughter, Flor, via phone to provide updates and answer questions. Review of Systems Review of Systems: All systems reviewed & are unremarkable except as noted in HPI and below Exam Narrative: Ms. Gonzalez is a thin, well-appearing 60-year-old female who is lying supine in bed. She appears comfortable and is in NARD. Neuro: awake, alert and oriented x4,
--- NOTE | 2020-12-29 14:13 | PC.NURSE ---
On 12/29/20, the student, [Vanessa ], provided care and completed [facility] documentation on this patient. I have reviewed the student's documentation and agree with the findings.
--- NOTE | 2020-12-29 14:19 | PC.NURSE ---
On 12/29/20, the student, [Lynette], provided care and completed [facility] documentation on this patient. I have reviewed the student's documentation and agree with the findings.
--- NOTE | 2020-12-29 16:55 | PM.PNGS ---
Progress Note: A&P Assessment and Plan (1) Perforated gastric ulcer: Onset Date: ~12/27/20 Qualifiers: Gastric ulcer chronicity: acute Qualified Code(s): K25.1 - Acute gastric ulcer with perforation Code(s): K25.5 - Chronic or unspecified gastric ulcer with perforation Status: Acute Assessment and Plan: Doing well postop day #2. Will have patient continue using an incentive spirometer and begin to get up with physical therapy and nursing. the Gastrografin study through the NG tube today showed that there perhaps was some narrowing at the pylorus but otherwise no leak and good flow of liquid dye into the duodenum without significant delay. Therefore, we will pull her NG and start her on clear liquids today. Begin mobilizing more with nursing and PT Continue IV antibiotics and antifungal until cultures return. (preliminary report reports coagulase-negative staph. They will not do sensitivities on this. So on Jesus Alberto's antibiogram this is usually covered 100% of the time by either Vanco or Levaquin. I would want to avoid vanco in view of her kidneys and some dehydration therefore will start her on once a day 500 mg of Levaquin. (2) Low back pain: Onset Date: Unknown Code(s): M54.5 - Low back pain Status: Acute Assessment and Plan: History of 1 or more surgeries on the low back. Still having some back pain but not complaining of that today. (3) Seizures: Onset Date: Unknown Code(s): R56.9 - Unspecified convulsions Status: Acute Assessment and Plan: Appreciate neurology consult and recommendations. Would continue to give the patient's IV seizure medication for least another 24 hours but then if tolerating full liquids tomorrow this could be changed to p.o.. (4) Hypokalemia: Onset Date: ~11/2020 Code(s): E87.6 - Hypokalemia Status: Acute Assessment and Plan: potassium of to the normal range now. Appreciate hospitalist's help in deciding how to proceed with replenishment of this per IV fluids. (5) Hypomagnesemia: Onset Date: ~12/28/20 Code(s): E83.42 - Hypomagnesemia Status: Acute Assessment and Plan: Magnesium actually high this morning. I agree with plan by the hospitalist service. Subjective Subjective Date/Time Seen: 12/29/20 16:55 Post Op day: 2 ( Improving postop day #2) Patient reports: no new complaints, no flatus, bowel movement ( starting at about noon today has had several loose stools.) and afebrile Interval history: The patient still has some oxygen on. She states she still has some pain at the incision site if she tries to cough or move significantly but she is sitting up and getting to the bathroom with help. Review of Systems Constitutional: Constitutional: Reports as per HPI, Reports no additional constitutional complaints, Reports anorexia and Denies headache(s) Eyes: Eyes: Denies loss of vision and Denies eye pain ENT: Reports Normal hearing present, Denies change in voice, Denies dizziness, Denies headache(s) and Reports other (Mucous Membranes moist.) Cardiovascular: Cardiovascular: Denies chest pain, Denies palpitations and Denies dyspnea Respiratory: Respiratory: Denies pain on inspiration, Denies dyspnea and Denies wheezing Gastrointestinal: Gastrointestinal: Reports as per HPI and Reports abdominal pain (Mostly above the umbilical level) Genitourinary: Genitourinary: Reports no additional female genitourinary complaints Musculoskeletal: Musculoskeletal: Reports no additional musculoskeletal complaints, Denies back pain, Denies arthralgias and Reports other (No calf swelling or edema) Integumentary/Breasts: Skin/Breast: Reports system reviewed and no additional complaints, except as docu Neurologic: Reports Normal hearing present, Denies dizziness, Denies headache(s), Denies loss of vision, Denies memory loss and Denies seizu
[2020-12-29] MEDS: levoFLOXacin 500 MG/D5W 100 ML 500 MG/100 ML BAG 100 MG IVPB (17:32)
[2020-12-29] MEDS: HYDROcodone/acetaminophen (*CRX) 5-325 MG TABLET 1 TAB PO (20:35)
--- NOTE | 2020-12-29 22:33 | PC.NURSE ---
This patient, Gina Gonzalez, was transferred to [facility] on 12/29/20 at 2230. Personal belongings sent with patient. Report given to Vanessa TEJADA. Appropriate documentation sent with patient.
[2020-12-29] MEDS: LORazepam INJ (*CRX) 2 MG/ML VIAL 0.5 MG IV PUSH (22:43)
[2020-12-30] VITALS (10 sets, daily range): BP systolic 109–131; BP diastolic 52–69; PULSE 65–85; RESP 14–19; TEMP 36.1–37.1; O2SAT 91–100
[2020-12-30 06:05] LABS: Hematocrit 35.8 % (37.0-47.0); Hemoglobin 11.5 g/dL (12.0-15.0); Mean Corpuscular HGB Conc 32.1 g/dl (32-36); Mean Corpuscular Hemoglobin 30.8 pg (26-34); Mean Platelet Volume 9.7 fl (7.4-10.4); Platelet Count Result 216 k/mm3 (150-375); Red Blood Count 3.73 M/mm3 (4.2-5.4); Red Cell Distribution Width 12.5 % (11.5-14.5); White Blood Count 7.6 K/mm3 (4.5-10.0)
[2020-12-30 06:30] LABS: Anion Gap 6 mmol/L (8-16); Blood Urea Nitrogen 11 mg/dL (7-17); Calcium 8.1 mg/dL (8.4-10.2); Carbon Dioxide 26 mmol/L (22-30); Chloride 103 mmol/L (98-107); Estimated CRCL calculation 65 ml/min; Estimated Glomerular Filt Rate > 60; Glucose 71 mg/dL (65-110); Magnesium 2.2 mg/dL (1.6-2.3); Potassium 2.6 mmol/L (3.4-5.0); Sodium 135 mmol/L (137-145)
[2020-12-30] MEDS: levETIRAcetam 500MG/NACL 100ML 500 MG/100 ML BAG 100 MG IVPB (08:05)
[2020-12-30] MEDS: PANTOPRAZOLE SODIUM IV 40 MG VIAL IV PUSH (08:10)
[2020-12-30] MEDS: ENOXAPARIN 40 MG/0.4 ML SYRINGE SUB-Q (08:10)
--- NOTE | 2020-12-30 08:51 | PM.PNGS ---
Progress Note: A&P Assessment and Plan (1) Perforated gastric ulcer: Onset Date: ~12/27/20 Qualifiers: Gastric ulcer chronicity: acute Qualified Code(s): K25.1 - Acute gastric ulcer with perforation Code(s): K25.5 - Chronic or unspecified gastric ulcer with perforation Status: Acute Assessment and Plan: Doing well postop day #3. Will have patient continue using an incentive spirometer and begin to get up with physical therapy and nursing. The Gastrografin study through the NG tube on 12/29 showed that there was perhaps was some narrowing at the pylorus but otherwise no leak and good flow of liquid dye into the duodenum without significant delay. Therefore, her NG is out and she is tolerating a liquid diet today. Begin mobilizing more with nursing and PT Continue IV antibiotics and antifungal until cultures return. (preliminary report reports coagulase-negative staph. They will not do sensitivities on this. So on Jesus Alberto's antibiogram this is usually is covered 100% of the time by either Vanco or Levaquin. I would want to avoid Vanco in view of her kidneys and some dehydration therefore will start her on once a day 500 mg of Levaquin. No yeast showing up on the culture but once its final will stop the antifungal altogether or if there is use consider sending her home on several days more of a oral antifungal. (2) Low back pain: Onset Date: Unknown Code(s): M54.5 - Low back pain Status: Acute Assessment and Plan: History of 1 or more surgeries on the low back. Still having some back pain but not complaining of that today. (3) Seizures: Onset Date: Unknown Code(s): R56.9 - Unspecified convulsions Status: Acute Assessment and Plan: Appreciate neurology consult and recommendations. Would continue to give the patient's IV seizure medication until neurology is comfortable changing her to p.o.. (4) Hypokalemia: Onset Date: ~11/2020 Code(s): E87.6 - Hypokalemia Status: Acute Assessment and Plan: The potassium down again now. Appreciate hospitalist's help in deciding how to proceed with replenishment of this per IV fluids or po. (5) Hypomagnesemia: Onset Date: ~12/28/20 Code(s): E83.42 - Hypomagnesemia Status: Acute Assessment and Plan: Magnesium actually normal again this morning. I agree with plan by the hospitalist service. (6) GERD without esophagitis: Code(s): K21.9 - Gastro-esophageal reflux disease without esophagitis Status: Acute Assessment and Plan: The Gastrografin study on 2020 did show reflux during the study which improved with putting the patient in the standing position. Therefore, would recommend long-term PPI just once a day after she has had a follow-up EGD for evaluation of the stomach and duodenum about 6 weeks after the surgery. Subjective Subjective Date/Time Seen: 12/30/20 08:51 Post Op day: 3 (Continuing to improve postop day # 3.) Patient reports: no new complaints, bowel movement ( Several loose ones last 24 hours.) and afebrile Interval history: patient is sitting up in bed trying a full liquid diet when I walked in the room. Reports several loose stools. States that the pain is controlled at this time. Review of Systems Constitutional: Constitutional: Reports as per HPI, Reports no additional constitutional complaints, Reports anorexia and Denies headache(s) Eyes: Eyes: Denies loss of vision and Denies eye pain ENT: Reports Normal hearing present, Denies change in voice, Denies dizziness, Denies headache(s) and Reports other (Mucous Membranes moist.) Cardiovascular: Cardiovascular: Denies chest pain, Denies palpitations and Denies dyspnea Respiratory: Respiratory: Denies pain on inspiration, Denies dyspnea and Denies wheezing Gastrointestinal: Gastrointestinal: Reports as per HPI and Reports abdomina
[2020-12-30] MEDS: POTASSIUM CHLORIDE 20 MEQ TABLET PO (10:14)
[2020-12-30] MEDS: HYDROcodone/acetaminophen (*CRX) 5-325 MG TABLET 1 TAB PO ×3 (10:15→23:26)
--- NOTE | 2020-12-30 10:55 | PM.IMPN ---
Progress Note: A&P Assessment and Plan (1) Perforated gastric ulcer: Onset Date: ~12/27/20 Qualifiers: Gastric ulcer chronicity: acute Qualified Code(s): K25.1 - Acute gastric ulcer with perforation Code(s): K25.5 - Chronic or unspecified gastric ulcer with perforation Status: Acute Assessment and Plan: She is s/p exploratory laparotomy with over-sewing of antral gastric ulcer and omental patch placement performed by Dr. Graham on 12/28/2020. She tolerated the procedure well and her pain is well controlled at this time. Management per General surgery Diet has been advanced to full liquids Continue with micafungin and Levaquin per General surgery (2) Hypokalemia: Onset Date: ~11/2020 Code(s): E87.6 - Hypokalemia Status: Acute Assessment and Plan: Likely related to NPO status as well as loose stools. Potassium 2.6 today. Administer 40 mEq IV KCl and additional 20 mEq p.o. KCl Recheck potassium this evening and further supplemented as needed (3) Hypomagnesemia: Onset Date: ~12/28/20 Code(s): E83.42 - Hypomagnesemia Status: Acute Assessment and Plan: Mag was low on presentation and she received 3 g IV Mag sulfate. Magnesium increased up to 3.2, therefore scheduled Mylanta was discontinued. Potassium is 2.2 today. Monitor magnesium levels Will plan to likely resume her home magnesium supplement 250 mg daily tomorrow after reviewing morning labs (4) Depression: Code(s): F32.9 - Major depressive disorder, single episode, unspecified Status: Chronic Assessment and Plan: Mood is stable at this time Resume Buspar (5) COPD (chronic obstructive pulmonary disease): Code(s): J44.9 - Chronic obstructive pulmonary disease, unspecified Status: Chronic Assessment and Plan: Not in acute exacerbation, no wheezing on exam. She reports she is on 2 L supplemental O2 at night related to her COPD but is not established with pulmonology. She is maintaining adequate oxygenation on room air at this time. Albuterol inhaler p.r.n. Continue with home regimen of 2 L oxygen at night (6) Seizures: Onset Date: Unknown Code(s): R56.9 - Unspecified convulsions Status: Acute Assessment and Plan: Reports last seizure was over 1 year ago. She is established with neurologist Dr. Casillas. She has been on IV Keppra while NPO. Received a dose this morning Will resume her lamotrigine for this evening. Continue with 100 mg b.i.d. Appreciate Neurology recommendations Subjective Date/time seen: 12/30/20 10:55 Interval history: Date of service: 12/30/2020 Gina Gonzalez is a 60-year-old female with history of COPD on 2 L supplemental O2 at night, tobacco abuse, alcohol abuse, anxiety, depression, and seizure disorder who is hospitalized for a perforated gastric ulcer now s/p exploratory laparotomy with over-sewing of antral gastric ulcer with omental patch who is being seen in consultation for medical management. She is feeling okay today. She is having a bit more nausea today after eating her breakfast which consisted of Jello and oatmeal. She says though meal just did not go down well and has had more nausea since. No vomiting. She rates her epigastric pain as 6.5/10, which is improved from yesterday. She had 2 incontinent watery stools last night, but today she was able to make it to the bathroom. Stool was loose this morning. She denies urinary symptoms. She is able to get up and walk to the bathroom, though admits she feels somewhat unsteady on her feet. She denies dizziness or lightheadedness. Denies shortness breath, cough, chest pain, or palpitations. Review of Systems Review of Systems: All systems reviewed & are unremarkable except as noted in HPI and below Exam Narrative: Ms. Gonzalez is a thin, well-appearing 60-year-old female who is lying supine in
--- NOTE | 2020-12-30 11:31 | WPDNEUROPN ---
Progress Note: A&P Additional Plan Neurologically treatment will be continued as such patient has no evidence of any recurrence of seizure or any neurological deficit. Review of Systems Review of Systems: All systems reviewed & are unremarkable except as noted in HPI and below Exam Narrative: remains awake alert cooperative in no obvious acute distress, head normocephalic with no cranial bruit, ear nose throat examination normal, neck is supple with no cervical bruit no thyromegaly no lymphadenopathy, heart regular with no murmur, lungs clear to auscultation with no rhonchi or crepitations, abdomen soft post surgical, neurological examination revealed her to be awake alert oriented x3, his speech nor dysphasic no dysarthric no dysphonic, the cranial nerve examination normal, motor and sensory examination normal and nonfocal, reflexes symmetrical, plantars are downgoing, there is no evidence of cerebellar dysfunction. Objective Data Vital Signs Vital Signs: Vital Signs - 24 hr 12/29/20 11:45 12/29/20 12:00 12/29/20 14:00 Temperature 37.1 C Pulse Rate 78 70 75 Respiratory Rate 18 18 Blood Pressure 132/70 Pulse Oximetry 98 98 12/29/20 16:00 12/29/20 18:00 12/29/20 19:57 Temperature 37.0 C 36.8 C Pulse Rate 78 81 83 Respiratory Rate 18 20 Blood Pressure 128/62 114/61 Pulse Oximetry 99 94 12/29/20 20:00 12/29/20 22:00 12/30/20 00:00 Temperature 36.6 C Pulse Rate 83 79 81 Respiratory Rate 16 Blood Pressure 109/52 L Pulse Oximetry 94 91 12/30/20 04:00 12/30/20 06:00 12/30/20 10:11 Temperature 36.5 C 36.5 C 36.4 C Pulse Rate 74 74 68 Respiratory Rate 19 19 14 Blood Pressure 113/59 L 113/59 L 127/67 Pulse Oximetry 97 97 98 Intake/Output Intake/Output: Intake & Output 12/27/20 12/28/20 12/29/20 12/30/20 23:59 23:59 23:59 23:59 Intake Total 1100 2900 3940 360 Output Total 350 1725 500 Balance 1100 2550 2215 -140 Meds/Results Medications: Active Medications Generic Name Dose Route Start Last Admin Trade Name Freq PRN Reason Stop Dose Admin Hydrocodone Bitart/Acetaminophen 1 tab 12/28/20 01:20 12/30/20 10:15 Hydrocodone/Acetaminophen (*Crx) 5-325 Mg Tablet PO 1 tab Q6H PRN Administration Pain Rated 4-6 Albuterol 2 puff 12/28/20 15:12 Albuterol Sulfate (*Sp) Aerosol 1 Puff INHALATION Q6HRT PRN Shortness Of Breath Buspirone HCl 2.5 mg 12/30/20 21:00 Buspirone Hcl 2.5 Mg Tablet PO Q12HR UBALDO Buspirone HCl 5 mg 12/30/20 21:00 Buspirone Hcl 5 Mg Tablet PO Q12HR UBALDO Enoxaparin Sodium 40 mg 12/28/20 09:00 12/30/20 08:10 Enoxaparin 40 Mg/0.4 Ml Syringe SUB-Q 40 mg DAILY UBALDO Administration Micafungin Sodium 100 mg/ 100 mls @ 100 mls/hr 12/28/20 09:00 12/29/20 10:55 Sodium Chloride IVPB 100 mls/hr DAILY UBALDO Administration Levofloxacin/Dextrose 500 mg in 100 mls @ 100 mls/hr 12/29/20 18:00 12/29/20 22:40 Levaquin 500 Mg/D5w 100 Ml IVPB Infused QPM UBALDO Infusion Lamotrigine 100 mg 12/30/20 17:00 Lamotrigine 100 Mg Tablet PO BID UBALDO Lorazepam 0.5 mg 12/28/20 15:11 12/29/20 22:43 Lorazepam Inj (*Crx) 2 Mg/Ml Vial IV PUSH 0.5 mg Q6H PRN Administration Anxiety Naloxone HCl 0.1 mg 12/28/20 01:20 Naloxone Hcl 0.4 Mg/Ml Vial IV PUSH Q2M PRN Opiate Reversal Pantoprazole Sodium 40 mg 12/30/20 21:00 Pantoprazole 40 Mg Tablet PO Q12HR UBALDO Prochlorperazine 25 mg 12/29/20 17:09 Prochlorperazine 25 Mg Supp.Rect RECTAL Q12H PRN Nausea Radiology Results: ITS Impressions Abdomen/Pelvis CT 12/27/20 20:46 IMPRESSION: 1. Perforated ulcer of the gastric antrum with free intraperitoneal gas and moderate volume of ascites. I called this result to Dr. Horne. Upper GI Series 12/29/20 09:41 IMPRESSION: 1. No evidence of contrast leak from the stomach. Labs Labs: Laboratory Results - last 24 hr 12/30/20 12/30/20
[2020-12-30] MEDS: MICAFUNGIN SODIUM 100 MG in SODIUM CHLORIDE 0.9% IV 100 ML IVPB (13:05)
[2020-12-30 14:20] LABS: Potassium 3.7 mmol/L (3.4-5.0)
[2020-12-30] MEDS: levoFLOXacin 500 MG/D5W 100 ML 500 MG/100 ML BAG 100 MG IVPB (16:58)
[2020-12-30] MEDS: lamoTRIgine 100 MG TABLET PO (16:58)
[2020-12-30] MEDS: LORazepam INJ (*CRX) 2 MG/ML VIAL 0.5 MG IV PUSH (19:55)
[2020-12-30] MEDS: busPIRone HCL 5 MG TABLET PO (19:59)
[2020-12-30] MEDS: PANTOPRAZOLE 40 MG TABLET PO (19:59)
[2020-12-30] MEDS: busPIRone HCL 2.5 MG TABLET PO (19:59)
[2020-12-31 00:03] VITALS: BP 132/64; PULSE 77; RESP 20; TEMP 36.3; O2SAT 93
[2020-12-31 04:57] VITALS: BP 137/67; PULSE 69; RESP 20; TEMP 36.3; O2SAT 94
[2020-12-31 06:48] LABS: Hematocrit 34.7 % (37.0-47.0); Hemoglobin 11.3 g/dL (12.0-15.0); Mean Corpuscular HGB Conc 32.6 g/dl (32-36); Mean Corpuscular Hemoglobin 30.1 pg (26-34); Mean Corpuscular Volume 92.3 fl (80-100); Mean Platelet Volume 9.4 fl (7.4-10.4); Platelet Count Result 255 k/mm3 (150-375); Red Blood Count 3.76 M/mm3 (4.2-5.4); Red Cell Distribution Width 12.4 % (11.5-14.5); White Blood Count 5.4 K/mm3 (4.5-10.0)
[2020-12-31 06:52] LABS: Mean Platelet Volume 9.6 fl (7.4-10.4); Platelet Count Result 246 k/mm3 (150-375)
[2020-12-31 07:13] LABS: Anion Gap 4 mmol/L (8-16); Blood Urea Nitrogen 7 mg/dL (7-17); Calcium 8.6 mg/dL (8.4-10.2); Carbon Dioxide 27 mmol/L (22-30); Chloride 104 mmol/L (98-107); Estimated CRCL calculation 77 ml/min; Estimated Glomerular Filt Rate > 60; Glucose 93 mg/dL (65-110); Potassium 2.9 mmol/L (3.4-5.0); Sodium 135 mmol/L (137-145)
[2020-12-31 07:16] LABS: Magnesium 1.8 mg/dL (1.6-2.3)
[2020-12-31] MEDS: busPIRone HCL 2.5 MG TABLET PO ×2 (08:38→20:18)
[2020-12-31] MEDS: ENOXAPARIN 40 MG/0.4 ML SYRINGE SUB-Q (08:38)
[2020-12-31] MEDS: busPIRone HCL 5 MG TABLET PO ×2 (08:38→20:18)
[2020-12-31] MEDS: lamoTRIgine 100 MG TABLET PO ×2 (08:38→17:26)
[2020-12-31] MEDS: PANTOPRAZOLE 40 MG TABLET PO ×2 (08:38→20:18)
[2020-12-31] MEDS: MICAFUNGIN SODIUM 100 MG in SODIUM CHLORIDE 0.9% IV 100 ML IVPB (08:38)
[2020-12-31] MEDS: HYDROcodone/acetaminophen (*CRX) 5-325 MG TABLET 1 TAB PO ×2 (09:01→20:17)
[2020-12-31 10:00] VITALS: BP 133/72; PULSE 58; RESP 20; TEMP 37.2; O2SAT 100
--- NOTE | 2020-12-31 10:38 | PM.PNGS ---
Progress Note: A&P Assessment and Plan (1) Perforated gastric ulcer: Onset Date: ~12/27/20 Qualifiers: Gastric ulcer chronicity: acute Qualified Code(s): K25.1 - Acute gastric ulcer with perforation Code(s): K25.5 - Chronic or unspecified gastric ulcer with perforation Status: Acute Assessment and Plan: Advance to soft regular diet today Increase activity Possibly home tomorrow if continuing to improve (2) Hypokalemia: Onset Date: ~11/2020 Code(s): E87.6 - Hypokalemia Status: Acute Assessment and Plan: Replaced by Hospitalist (3) COPD (chronic obstructive pulmonary disease): Code(s): J44.9 - Chronic obstructive pulmonary disease, unspecified Status: Chronic Subjective Subjective Date/Time Seen: 12/31/20 10:38 Interval history: Pain controlled. No nausea or vomiting. Hasn't tried solid food yet. Exam GI: Inspection: incision (intact with luis) GI Palp: Yes Tenderness to palpation present (GI) (incisional) and No Guarding due to palpation present (GI) Auscultation: normal bowel sounds Objective Data Vital Signs Vital Signs: Vital Signs - 24 hr 12/30/20 12:00 12/30/20 14:11 12/30/20 16:00 Temperature 37.1 C Pulse Rate 66 74 67 Respiratory Rate 16 Blood Pressure 115/66 Pulse Oximetry 98 12/30/20 17:56 12/30/20 20:47 12/31/20 00:03 Temperature 36.4 C 36.1 C L 36.3 C L Pulse Rate 69 65 77 Respiratory Rate 14 18 20 Blood Pressure 126/68 131/69 132/64 Pulse Oximetry 100 96 93 12/31/20 04:57 12/31/20 10:00 Temperature 36.3 C L 37.2 C Pulse Rate 69 58 L Respiratory Rate 20 20 Blood Pressure 137/67 133/72 Pulse Oximetry 94 100 Intake/Output Intake/Output: Intake & Output 12/28/20 12/29/20 12/30/20 12/31/20 23:59 23:59 23:59 23:59 Intake Total 2900 4040 2780 730 Output Total 350 1725 1250 Balance 2550 2315 1530 730 Meds/Results Medications: Active Medications Generic Name Dose Route Start Last Admin Trade Name Freq PRN Reason Stop Dose Admin Hydrocodone Bitart/Acetaminophen 1 tab 12/28/20 01:20 12/31/20 09:01 Hydrocodone/Acetaminophen (*Crx) 5-325 Mg Tablet PO 1 tab Q6H PRN Administration Pain Rated 4-6 Albuterol 2 puff 12/28/20 15:12 Albuterol Sulfate (*Sp) Aerosol 1 Puff INHALATION Q6HRT PRN Shortness Of Breath Buspirone HCl 2.5 mg 12/30/20 21:00 12/31/20 08:38 Buspirone Hcl 2.5 Mg Tablet PO 2.5 mg Q12HR UBALDO Administration Buspirone HCl 5 mg 12/30/20 21:00 12/31/20 08:38 Buspirone Hcl 5 Mg Tablet PO 5 mg Q12HR UBALDO Administration Enoxaparin Sodium 40 mg 12/28/20 09:00 12/31/20 08:38 Enoxaparin 40 Mg/0.4 Ml Syringe SUB-Q 40 mg DAILY UBALDO Administration Micafungin Sodium 100 mg/ 100 mls @ 100 mls/hr 12/28/20 09:00 12/31/20 08:38 Sodium Chloride IVPB 100 mls/hr DAILY UBALDO Administration Potassium Chloride 500 mls @ 125 mls/hr 12/31/20 09:06 Kcl 40 Meq/D5w 500 Ml Peripheral IVPB 12/31/20 13:05 ONCE ONE Lamotrigine 100 mg 12/30/20 17:00 12/31/20 08:38 Lamotrigine 100 Mg Tablet PO 100 mg BID UBALDO Administration Levofloxacin 500 mg 12/31/20 15:00 Levofloxacin 500 Mg Tablet PO DAILY UBALDO Lorazepam 0.5 mg 12/28/20 15:11 12/30/20 19:55 Lorazepam Inj (*Crx) 2 Mg/Ml Vial IV PUSH 0.5 mg Q6H PRN Administration Anxiety Magnesium Oxide 200 mg 12/31/20 12:00 Magnesium Oxide 200 Mg Tablet PO DAILY@1200 UBALDO Naloxone HCl 0.1 mg 12/28/20 01:20 Naloxone Hcl 0.4 Mg/Ml Vial IV PUSH Q2M PRN Opiate Reversal Pantoprazole Sodium 40 mg 12/30/20 21:00 12/31/20 08:38 Pantoprazole 40 Mg Tablet PO 40 mg Q12HR UBALDO Administration Potassium Chloride 20 meq 12/31/20 17:00 Potassium Chloride 20 Meq Tablet.Er PO BIDWM UBALDO Prochlorperazine 25 mg 12/29/20 17:09 Prochlorperazine 25 Mg Supp.Rect RECTAL Q12H PRN Nausea Radio
[2020-12-31] MEDS: MAGNESIUM OXIDE 200 MG TABLET PO (10:46)
[2020-12-31] MEDS: LORazepam INJ (*CRX) 2 MG/ML VIAL 0.5 MG IV PUSH (11:03)
--- NOTE | 2020-12-31 12:22 | PM.IMPN ---
Progress Note: A&P Assessment and Plan (1) Perforated gastric ulcer: Onset Date: ~12/27/20 Qualifiers: Gastric ulcer chronicity: acute Qualified Code(s): K25.1 - Acute gastric ulcer with perforation Code(s): K25.5 - Chronic or unspecified gastric ulcer with perforation Status: Acute Assessment and Plan: She is s/p exploratory laparotomy with over-sewing of antral gastric ulcer and omental patch placement performed by Dr. Graham on 12/28/2020. She tolerated the procedure well and her pain is well controlled at this time. Management per General surgery Diet has been advanced to low-fiber Continue with micafungin and Levaquin per General surgery (2) Hypokalemia: Onset Date: ~11/2020 Code(s): E87.6 - Hypokalemia Status: Acute Assessment and Plan: Likely related to loose stools. Potassium 2.9 today. Administer 40 mEq IV KCl Will proceed with scheduled p.o. KCL 20 mEq b.i.d. Continue to monitor potassium levels (3) Hypomagnesemia: Onset Date: ~12/28/20 Code(s): E83.42 - Hypomagnesemia Status: Acute Assessment and Plan: Mag was low on presentation and she received 3 g IV Mag sulfate. Magnesium increased up to 3.2, therefore scheduled Mylanta was discontinued and her home magnesium supplement was held. Potassium levels normalized and now is 1.8. Continue with magnesium oxide 200 mg daily Monitor magnesium levels (4) Depression: Code(s): F32.9 - Major depressive disorder, single episode, unspecified Status: Chronic Assessment and Plan: Mood is stable at this time Continue Buspar (5) COPD (chronic obstructive pulmonary disease): Code(s): J44.9 - Chronic obstructive pulmonary disease, unspecified Status: Chronic Assessment and Plan: Not in acute exacerbation, no wheezing on exam. She reports she is on 2 L supplemental O2 at night related to her COPD but is not established with pulmonology. She is maintaining adequate oxygenation on room air at this time. Albuterol inhaler p.r.n. Continue with home regimen of 2 L oxygen at night (6) Seizures: Onset Date: Unknown Code(s): R56.9 - Unspecified convulsions Status: Acute Assessment and Plan: Reports last seizure was over 1 year ago. She is established with neurologist Dr. Casillas. Continue home lamotrigine Subjective Date/time seen: 12/31/20 12:22 Interval history: Date of service: 12/31/2020 Gina Gonzalez is a 60-year-old female with history of COPD on 2 L supplemental O2 at night, tobacco abuse, alcohol abuse, anxiety, depression, and seizure disorder who is hospitalized for a perforated gastric ulcer now s/p exploratory laparotomy with over-sewing of antral gastric ulcer with omental patch who is being seen in consultation for medical management. She is doing pretty well today. Her pain has been better controlled ranging from 3-5/10. She describes her pain as a stretching sensation and is worse when she coughs or leans forward. She tolerated full liquids today without any issues. Denies nausea or vomiting. She does complain of belching and feels that she has maybe the sensation of acid reflux. She had a liquid stool this morning. She is passing flatus. She endorses mild lightheadedness upon standing and feels a bit unsteady when walking but is able to ambulate independently. She denies shortness of breath, chest pain, or palpitations. Reports occasional dry cough. No urinary symptoms. No headaches, body aches, fevers, or chills. She has no additional concerns and is in good spirits. Review of Systems Review of Systems: All systems reviewed & are unremarkable except as noted in HPI and below Exam Narrative: Ms. Gonzalez is a thin, well-appearing 60-year-old female who is lying supine in bed. She appears comfortable and is in NARD. Neuro: awake, alert and oriented x4, speec
[2020-12-31 14:00] VITALS: BP 128/68; PULSE 63; RESP 20; TEMP 37.2; O2SAT 96
[2020-12-31] MEDS: levoFLOXacin 500 MG TABLET PO (15:50)
[2020-12-31] MEDS: POTASSIUM CHLORIDE 20 MEQ TABLET.ER PO (17:26)
[2020-12-31 18:00] VITALS: BP 130/64; PULSE 62; RESP 20; TEMP 37; O2SAT 100
[2020-12-31 20:51] VITALS: BP 141/79; PULSE 72; RESP 22; TEMP 36.1; O2SAT 99
[2021-01-01 01:02] VITALS: BP 127/73; PULSE 97; RESP 18; TEMP 36.1; O2SAT 97
[2021-01-01] MEDS: HYDROcodone/acetaminophen (*CRX) 5-325 MG TABLET 1 TAB PO ×3 (01:51→15:16)
[2021-01-01 05:29] VITALS: BP 121/75; PULSE 66; RESP 16; TEMP 36.4; O2SAT 97
[2021-01-01 05:56] LABS: Hematocrit 35.5 % (37.0-47.0); Hemoglobin 11.7 g/dL (12.0-15.0)
[2021-01-01 06:13] LABS: Anion Gap 2 mmol/L (8-16); Blood Urea Nitrogen 5 mg/dL (7-17); Calcium 8.9 mg/dL (8.4-10.2); Carbon Dioxide 28 mmol/L (22-30); Chloride 104 mmol/L (98-107); Estimated CRCL calculation 86 ml/min; Estimated Glomerular Filt Rate > 60; Glucose 95 mg/dL (65-110); Magnesium 1.8 mg/dL (1.6-2.3); Potassium 4.1 mmol/L (3.4-5.0); Sodium 134 mmol/L (137-145)
[2021-01-01] MEDS: POTASSIUM CHLORIDE 20 MEQ TABLET.ER PO (08:57)
[2021-01-01] MEDS: busPIRone HCL 5 MG TABLET PO ×2 (08:57→20:34)
[2021-01-01] MEDS: busPIRone HCL 2.5 MG TABLET PO ×2 (08:58→20:34)
[2021-01-01] MEDS: levoFLOXacin 500 MG TABLET PO (08:58)
[2021-01-01] MEDS: lamoTRIgine 100 MG TABLET PO ×2 (08:58→18:33)
[2021-01-01] MEDS: PANTOPRAZOLE 40 MG TABLET PO ×2 (08:58→20:34)
[2021-01-01] MEDS: ENOXAPARIN 40 MG/0.4 ML SYRINGE SUB-Q (08:58)
[2021-01-01] MEDS: MICAFUNGIN SODIUM 100 MG in SODIUM CHLORIDE 0.9% IV 100 ML IVPB (09:05)
--- NOTE | 2021-01-01 09:22 | PM.PNGS ---
Progress Note: A&P Assessment and Plan (1) Perforated gastric ulcer: Onset Date: ~12/27/20 Qualifiers: Gastric ulcer chronicity: acute Qualified Code(s): K25.1 - Acute gastric ulcer with perforation Code(s): K25.5 - Chronic or unspecified gastric ulcer with perforation Status: Acute Assessment and Plan: Continue Protonix BID and antibiotics Pain was a little worse when diet advanced, will continue to monitor patient today, probably able to be discharged tomorrow. (2) Hypokalemia: Onset Date: ~11/2020 Code(s): E87.6 - Hypokalemia Status: Acute Assessment and Plan: Replaced by Hospitalist (3) COPD (chronic obstructive pulmonary disease): Code(s): J44.9 - Chronic obstructive pulmonary disease, unspecified Status: Chronic Subjective Subjective Date/Time Seen: 01/01/21 09:22 Interval history: Had worsening pain with eating. Feeling a little better this AM. +Flatus. No more diarrhea. No fevers. Exam GI: Inspection: incision (intact with luis) GI Palp: Yes Tenderness to palpation present (GI) (incisional) and No Guarding due to palpation present (GI) Auscultation: normal bowel sounds Objective Data Vital Signs Vital Signs: Vital Signs - 24 hr 12/31/20 10:00 12/31/20 14:00 12/31/20 18:00 Temperature 37.2 C 37.2 C 37.0 C Pulse Rate 58 L 63 62 Respiratory Rate 20 20 20 Blood Pressure 133/72 128/68 130/64 Pulse Oximetry 100 96 100 12/31/20 20:51 01/01/21 01:02 01/01/21 05:29 Temperature 36.1 C L 36.1 C L 36.4 C Pulse Rate 72 97 66 Respiratory Rate 22 H 18 16 Blood Pressure 141/79 H 127/73 121/75 Pulse Oximetry 99 97 97 Intake/Output Intake/Output: Intake & Output 12/29/20 12/30/20 12/31/20 01/01/21 23:59 23:59 23:59 23:59 Intake Total 4040 2780 2000 600 Output Total 1725 1250 1700 1600 Balance 2315 1530 300 -1000 Meds/Results Medications: Active Medications Generic Name Dose Route Start Last Admin Trade Name Freq PRN Reason Stop Dose Admin Hydrocodone Bitart/Acetaminophen 1 tab 12/28/20 01:20 01/01/21 08:56 Hydrocodone/Acetaminophen (*Crx) 5-325 Mg Tablet PO 1 tab Q6H PRN Administration Pain Rated 4-6 Albuterol 2 puff 12/28/20 15:12 Albuterol Sulfate (*Sp) Aerosol 1 Puff INHALATION Q6HRT PRN Shortness Of Breath Buspirone HCl 2.5 mg 12/30/20 21:00 01/01/21 08:58 Buspirone Hcl 2.5 Mg Tablet PO 2.5 mg Q12HR UBALDO Administration Buspirone HCl 5 mg 12/30/20 21:00 01/01/21 08:57 Buspirone Hcl 5 Mg Tablet PO 5 mg Q12HR UBALDO Administration Enoxaparin Sodium 40 mg 12/28/20 09:00 01/01/21 08:58 Enoxaparin 40 Mg/0.4 Ml Syringe SUB-Q 40 mg DAILY UBALDO Administration Micafungin Sodium 100 mg/ 100 mls @ 100 mls/hr 12/28/20 09:00 01/01/21 09:05 Sodium Chloride IVPB 100 mls/hr DAILY UBALDO Administration Lamotrigine 100 mg 12/30/20 17:00 01/01/21 08:58 Lamotrigine 100 Mg Tablet PO 100 mg BID UBALDO Administration Levofloxacin 500 mg 12/31/20 15:00 01/01/21 08:58 Levofloxacin 500 Mg Tablet PO 500 mg DAILY UBALDO Administration Lorazepam 0.5 mg 12/28/20 15:11 12/31/20 11:03 Lorazepam Inj (*Crx) 2 Mg/Ml Vial IV PUSH 0.5 mg Q6H PRN Administration Anxiety Magnesium Oxide 200 mg 12/31/20 12:00 12/31/20 10:46 Magnesium Oxide 200 Mg Tablet PO 200 mg DAILY@1200 UBALDO Administration Naloxone HCl 0.1 mg 12/28/20 01:20 Naloxone Hcl 0.4 Mg/Ml Vial IV PUSH Q2M PRN Opiate Reversal Pantoprazole Sodium 40 mg 12/30/20 21:00 01/01/21 08:58 Pantoprazole 40 Mg Tablet PO 40 mg Q12HR UBALDO Administration Potassium Chloride 20 meq 12/31/20 17:00 01/01/21 08:57 Potassium Chloride 20 Meq Tablet.Er PO 20 meq BIDWM UBALDO Administration Prochlorperazine 25 mg 12/29/20 17:09 Prochlorperazine 25 Mg Supp.Rect RECTAL Q12H PRN Nausea Radiology Results: ITS Impressions Abdomen/Pelv
[2021-01-01 10:00] VITALS: BP 128/52; PULSE 67; RESP 16; TEMP 36.3; O2SAT 98
[2021-01-01] MEDS: MAGNESIUM OXIDE 200 MG TABLET PO (13:45)
--- NOTE | 2021-01-01 13:53 | PM.IMPN ---
Progress Note: A&P Assessment and Plan (1) Perforated gastric ulcer: Onset Date: ~12/27/20 Qualifiers: Gastric ulcer chronicity: acute Qualified Code(s): K25.1 - Acute gastric ulcer with perforation Code(s): K25.5 - Chronic or unspecified gastric ulcer with perforation Status: Acute Assessment and Plan: She is s/p exploratory laparotomy with over-sewing of antral gastric ulcer and omental patch placement performed by Dr. Graham on 12/28/2020. She tolerated the procedure well and her pain is well controlled at this time. Management per General surgery Diet has been advanced to low-fiber Continue with micafungin and Levaquin per General surgery (2) Hypokalemia: Onset Date: ~11/2020 Code(s): E87.6 - Hypokalemia Status: Acute Assessment and Plan: Likely related to loose stools. Improved, potassium 4.1 today Continue with scheduled p.o. KCL 20 mEq daily Continue to monitor potassium levels (3) Hypomagnesemia: Onset Date: ~12/28/20 Code(s): E83.42 - Hypomagnesemia Status: Acute Assessment and Plan: Mag was low on presentation and she received 3 g IV Mag sulfate. Magnesium increased up to 3.2, therefore scheduled Mylanta was discontinued and her home magnesium supplement was held. Potassium levels normalized and now is 1.8. Continue with magnesium oxide 200 mg daily Monitor magnesium levels (4) Depression: Code(s): F32.9 - Major depressive disorder, single episode, unspecified Status: Chronic Assessment and Plan: Mood is stable at this time Continue Buspar (5) COPD (chronic obstructive pulmonary disease): Code(s): J44.9 - Chronic obstructive pulmonary disease, unspecified Status: Chronic Assessment and Plan: Not in acute exacerbation, no wheezing on exam. She reports she is on 2 L supplemental O2 at night related to her COPD but is not established with pulmonology. She is maintaining adequate oxygenation on room air at this time. Albuterol inhaler p.r.n. Continue with home regimen of 2 L oxygen at night (6) Seizures: Onset Date: Unknown Code(s): R56.9 - Unspecified convulsions Status: Acute Assessment and Plan: Reports last seizure was over 1 year ago. She is established with neurologist Dr. Naseer. Continue home lamotrigine Subjective Date/time seen: 01/01/21 13:53 Interval history: Date of service: 01/01/2021 Gina Gonzalez is a 60-year-old female with history of COPD on 2 L supplemental O2 at night, tobacco abuse, alcohol abuse, anxiety, depression, and seizure disorder who is hospitalized for a perforated gastric ulcer now s/p exploratory laparotomy with over-sewing of antral gastric ulcer with omental patch who is being seen in consultation for medical management. She is doing well today. Her pain is well controlled at this time. She has been tolerating her diet. No nausea or vomiting today. Reports no bowel movements today but is passing flatus. Also notes belching. No shortness breath or chest pain. She has occasional cough and notes that this causes abdominal discomfort. Otherwise doing well and hoping to go home tomorrow. Review of Systems Review of Systems: All systems reviewed & are unremarkable except as noted in HPI and below Exam Narrative: Ms. Gonzalez is a thin, well-appearing 60-year-old female who is lying supine in bed. She appears comfortable and is in NARD. Neuro: awake, alert and oriented x4, speech clear, no focal neuro deficits noted HEENMT: normocephalic, atraumatic, EOMI, sclerae anicteric, moist oral mucosa Neck: supple, no lymphadenopathy Respiratory: clear to auscultation bilaterally, nonlabored breathing Cardio: regular rate, regular rhythm with S1-S2 Abdomen: wearing abdominal binder, nondistended, normoactive bowel sounds, soft, tender to palpation in epigastric region, no rigidity or g
[2021-01-01 14:00] VITALS: BP 130/73; PULSE 62; RESP 16; TEMP 36.2; O2SAT 99
[2021-01-01 18:00] VITALS: BP 130/70; PULSE 63; RESP 16; TEMP 36.3; O2SAT 98
[2021-01-01] MEDS: LORazepam INJ (*CRX) 2 MG/ML VIAL 0.5 MG IV PUSH (20:33)
[2021-01-01 21:59] VITALS: BP 136/71; PULSE 64; RESP 16; TEMP 36.4; O2SAT 99
[2021-01-02] MEDS: HYDROcodone/acetaminophen (*CRX) 5-325 MG TABLET 1 TAB PO ×2 (00:53→08:03)
[2021-01-02 01:37] VITALS: BP 150/75; PULSE 72; RESP 20; TEMP 37.1; O2SAT 99
[2021-01-02 05:28] VITALS: BP 135/61; PULSE 69; RESP 18; TEMP 36.6; O2SAT 97
[2021-01-02 06:05] LABS: Hematocrit 36.1 % (37.0-47.0); Hemoglobin 11.9 g/dL (12.0-15.0)
[2021-01-02 06:23] LABS: Anion Gap 5 mmol/L (8-16); Blood Urea Nitrogen 8 mg/dL (7-17); Carbon Dioxide 26 mmol/L (22-30); Chloride 104 mmol/L (98-107); Estimated CRCL calculation 77 ml/min; Estimated Glomerular Filt Rate > 60; Glucose 105 mg/dL (65-110); Potassium 3.7 mmol/L (3.4-5.0); Sodium 135 mmol/L (137-145)
[2021-01-02 07:21] LABS: Mean Platelet Volume 9.5 fl (7.4-10.4); Platelet Count Result 325 k/mm3 (150-375)
[2021-01-02] MEDS: busPIRone HCL 5 MG TABLET PO (08:04)
[2021-01-02] MEDS: POTASSIUM CHLORIDE 20 MEQ TABLET.ER PO (08:04)
[2021-01-02] MEDS: PANTOPRAZOLE 40 MG TABLET PO (08:05)
[2021-01-02] MEDS: lamoTRIgine 100 MG TABLET PO (08:05)
[2021-01-02] MEDS: levoFLOXacin 500 MG TABLET PO (08:05)
[2021-01-02] MEDS: ENOXAPARIN 40 MG/0.4 ML SYRINGE SUB-Q (08:06)
--- NOTE | 2021-01-02 09:34 | PM.IMPN ---
Progress Note: A&P Assessment and Plan (1) Perforated gastric ulcer: Onset Date: ~12/27/20 Qualifiers: Gastric ulcer chronicity: acute Qualified Code(s): K25.1 - Acute gastric ulcer with perforation Code(s): K25.5 - Chronic or unspecified gastric ulcer with perforation Status: Acute Assessment and Plan: She is s/p exploratory laparotomy with over-sewing of antral gastric ulcer and omental patch placement performed by Dr. Graham on 12/28/2020. She tolerated the procedure well and her pain is well controlled at this time. Management per General surgery Diet has been advanced to low-fiber Continue with micafungin and Levaquin per General surgery (2) Hypokalemia: Onset Date: ~11/2020 Code(s): E87.6 - Hypokalemia Status: Acute Assessment and Plan: Improved, potassium 3.7 today (3) Hypomagnesemia: Onset Date: ~12/28/20 Code(s): E83.42 - Hypomagnesemia Status: Acute Assessment and Plan: Mag was low on presentation and she received 3 g IV Mag sulfate. Magnesium increased up to 3.2, therefore scheduled Mylanta was discontinued and her home magnesium supplement was held. Potassium levels normalized and now is 2.0. Continue with magnesium oxide 200 mg daily Monitor magnesium levels (4) Depression: Code(s): F32.9 - Major depressive disorder, single episode, unspecified Status: Chronic Assessment and Plan: Mood is stable at this time Continue Buspar (5) COPD (chronic obstructive pulmonary disease): Code(s): J44.9 - Chronic obstructive pulmonary disease, unspecified Status: Chronic Assessment and Plan: Not in acute exacerbation, no wheezing on exam. She reports she is on 2 L supplemental O2 at night related to her COPD but is not established with pulmonology. She is maintaining adequate oxygenation on room air at this time. Albuterol inhaler p.r.n. Continue with home regimen of 2 L oxygen at night (6) Seizures: Onset Date: Unknown Code(s): R56.9 - Unspecified convulsions Status: Acute Assessment and Plan: Reports last seizure was over 1 year ago. She is established with neurologist Dr. Casillas. Continue home lamotrigine Additional Plan Planning for discharge home today. Thank you for allowing me to participate in this patients care. Subjective Date/time seen: 01/02/21 09:34 Interval history: Date of service: 01/02/2021 Gina Gonzalez is a 60-year-old female with history of COPD on 2 L supplemental O2 at night, tobacco abuse, alcohol abuse, anxiety, depression, and seizure disorder who is hospitalized for a perforated gastric ulcer now s/p exploratory laparotomy with over-sewing of antral gastric ulcer with omental patch who is being seen in consultation for medical management. She is doing well today. Her pain is well controlled and she currently rates her epigastric pain at 3/10. Denies nausea or vomiting. She is tolerating her diet. No BM today but she is passing flatus. She is ambulating independently. She denies chest pain, shortness of breath, or cough. She denies urinary symptoms. No fevers, chills, dizziness, lightheadedness. Review of Systems Review of Systems: All systems reviewed & are unremarkable except as noted in HPI and below Exam Narrative: Ms. Gonzalez is a thin, well-appearing 60-year-old female who is lying supine in bed. She appears comfortable and is in NARD. Neuro: awake, alert and oriented x4, speech clear, no focal neuro deficits noted HEENMT: normocephalic, atraumatic, EOMI, sclerae anicteric, moist oral mucosa Neck: supple, no lymphadenopathy Respiratory: clear to auscultation bilaterally, nonlabored breathing Cardio: regular rate, regular rhythm with S1-S2 Abdomen: wearing abdominal binder, nondistended, normoactive bowel sounds, soft, tender to palpation in epigastric region, no rigidity or guarding Extr
[2021-01-02] MEDS: MICAFUNGIN SODIUM 100 MG in SODIUM CHLORIDE 0.9% IV 100 ML IVPB (09:58)
[2021-01-02 10:00] VITALS: BP 153/67; PULSE 61; RESP 16; TEMP 36.6; O2SAT 100
[2021-01-02] MEDS: busPIRone HCL 2.5 MG TABLET PO (10:42)
[2021-01-02] MEDS: MAGNESIUM OXIDE 200 MG TABLET PO (11:53)
--- NOTE | 2021-01-02 12:28 | PM.DS ---
DS: Admitting Diagnosis Admitting Diagnosis Perforated gastric ulcer DS: Discharge Diagnosis Discharge Diagnosis (1) Perforated gastric ulcer: Onset Date: ~12/27/20 Qualifiers: Gastric ulcer chronicity: acute Qualified Code(s): K25.1 - Acute gastric ulcer with perforation Code(s): K25.5 - Chronic or unspecified gastric ulcer with perforation Status: Acute (2) GERD without esophagitis: Code(s): K21.9 - Gastro-esophageal reflux disease without esophagitis Status: Acute (3) History of alcoholism: Code(s): F10.21 - Alcohol dependence, in remission Status: Chronic (4) Low back pain: Onset Date: Unknown Code(s): M54.5 - Low back pain Status: Acute (5) Seizures: Onset Date: Unknown Code(s): R56.9 - Unspecified convulsions Status: Acute DS: Summary Hospital Course Reason for hospitalization: perforated gastric ulcer Hospital Course: this is a 60-year-old woman who presented to the emergency department on 12/27/2020 with complaints of upper abdominal pain. She was found to have evidence of a perforated gastric ulcer and was taken emergently for surgery. Repair of the perforated gastric ulcer with omental Nicholas patch was performed by Dr. Graham. She was admitted to the IMU postoperatively and hospitalist was consulted for medical management. She was placed on Protonix 40 mg IV b.i.d.. A Gastrografin upper GI was performed on postop day 2 and this showed no evidence of contrast extravasation. Her NG tube was removed and she was placed on clear liquid diet. IV antibiotics were continued and physical therapy was ordered to help with activity. Her diet was gradually advanced over the next couple days. She remained hemodynamically stable and afebrile. She was advanced to a solid diet on 12/31/2020. She was still having some pain issues and was slowly increasing her oral intake on 01/01/2021. She was also hypokalemic and required IV and oral supplementation. On 01/02/2021 she was tolerating her regular diet and her potassium levels were remaining stable. She was discharged on 01/02/2021. Status at Discharge Overall status at discharge: patient is progressing back to baseline Time Spent with Patient Time attestation: Total time spent providing and/or coordinating discharge services: Time spent: Less than 30 minutes Exam Const: General: cooperative and no acute distress Orientation/consciousness: patient oriented x3 Resp: Effort & Inspection: normal respiratory effort Auscultation: clear to auscultation bilaterally Cardio: Rate: regular rate Rhythm: regular rhythm Heart sounds: S1 normal heart sound present and S2 normal heart sound present GI: Inspection: normal to inspection and incision ( Intact with luis) GI Palp: Yes Soft to palpation, No Tenderness to palpation present (GI) and No Guarding due to palpation present (GI) DS: Data Data Completed and Pending Completed studies during hospitalization: Pending at discharge 12/27/20 23:09 Surgical [PTH] Routine Labs on day of discharge: Labs from last 24 hours 01/02/21 01/02/21 01/02/21 05:26 05:26 05:26 Hgb 11.9 L Hct 36.1 L Plt Count 325 MPV 9.5 Sodium 135 L Potassium 3.7 Chloride 104 Carbon Dioxide 26 Anion Gap 5 L BUN 8 Creatinine 0.50 L Estim Creat Clear Calc 77 Estimated GFR > 60 Glucose 105 Calcium 9.0 Magnesium 2.0 Preliminary micro results at discharge 12/27/20 23:04 Anaerobic Culture - Preliminary Abdominal Fluid Discharge Plan Discharge Attending physician on discharge: Be Graham Consulting providers: Christine Rendon ; Donovan Casillas Christophe Discharging Clinician: Doni Lovett Anticipated Discharge Date/Time: 01/01/21 12:50 Patient Disposition: Home, Self-Care Activity: may shower Diet: other - see discharge instructions Discharge
[2021-01-02 14:00] VITALS: BP 143/79; PULSE 65; RESP 16; TEMP 36.3; O2SAT 97
== END 2021-01-02 16:09 | disposition home or self-care (01) | DRG 222 ==
LOC: ANHED 21:34 → ANHSURGERY 21:42 → ANHIMU 12-29 07:13 → ANH2MED 12-30 13:06 → ANHIMU 01-05 12:40
PROVIDERS: Emergency Medicine; Nurse Practitioner; Physician Assistant; Admitting Provider Surgery; Emergency Provider Emergency Medicine; PCP Family Medicine; Visit Provider Surgery
PROC: 0DQ70ZZ Repair Stomach, Pylorus, Open Approach (ICD-10-PCS; CPT 49000; principal; 2020-12-27 22:45)
DX: K25.1 Acute gastric ulcer with perforation (principal); G40.909 Epilepsy, unspecified, not intractable, without status epilepticus; K21.9 Gastro-esophageal reflux disease without esophagitis; M54.5 Low back pain; E87.6 Hypokalemia; E83.42 Hypomagnesemia; J44.9 Chronic obstructive pulmonary disease, unspecified; F10.21 Alcohol dependence, in remission; F32.9 Major depressive disorder, single episode, unspecified; F41.9 Anxiety disorder, unspecified; Z66 Do not resuscitate; Z79.899 Other long term (current) drug therapy; Z87.891 Personal history of nicotine dependence; Z88.0 Allergy status to penicillin; Z88.2 Allergy status to sulfonamides
CPT/HCPCS: 36415; 74177; 74240; 80048; 80053; 81001; 83690; 83735; 84132; 84134; 85014; 85018; 85025; 85027; 85049; 87070; 87075; 87077; 87086; 87088; 87205; 88305; 88342; 93005; 96361; 96365; 96366; 96374; 96375; 97110; 97116; 97161; 97530; 99285; A9270; C9113; J0131; J0690; J1100; J1170; J1650; J1953; J1956; J2060; J2248; J2270; J2405; J2550; J2704; J2710; J3010; J3475; J3480; J7030; J7060; J7120; Q9967

== ENCOUNTER 2021-02-14 13:39 | Outpatient (CLI) | payer OTHER, SELFPAY ==
[2021-02-19 20:24] LABS: H pylori Ag Stool Not Detected (Not Detected)
== END 2021-02-14 13:40 | disposition home or self-care (01) ==
LOC: ANHLAB 13:41
PROVIDERS: PCP Family Medicine; Visit Provider Surgery
DX: K25.1 Acute gastric ulcer with perforation (principal)
CPT/HCPCS: 87338

== ENCOUNTER → 2021-02-18 02:02 | Outpatient (CLI) | payer OTHER, SELFPAY ==
[2021-02-18 18:07] LABS: SARS-CoV-2 RNA PCR Negative
== END ==
PROVIDERS: PCP Family Medicine; Visit Provider Surgery
DX: Z01.812 Encounter for preprocedural laboratory examination (principal); Z20.822 Contact with and (suspected) exposure to COVID-19
CPT/HCPCS: C9803; U0003; U0005

== ENCOUNTER 2021-02-21 00:11 | Day surgery (SDC) | payer OTHER, SELFPAY ==
[2021-02-02 12:07] VITALS: BMI 22.3
[2021-02-21 12:01] VITALS: BP 137/68; PULSE 67; RESP 16; TEMP 36.2; O2SAT 98
[2021-02-21] MEDS: LACTATED RINGERS 1,000 ML 150 ML IV CONT (12:08)
--- NOTE | 2021-02-21 12:12 | PM.HPGS ---
History of Present Illness History of Present Illness Consent: Risks, benefits, and alternatives of an EGD for evaluation stomach lining have been discussed and questions answered. Patient agrees to proceed with procedure. Chief complaint: gastric ulcer Narrative: Gina Gonzalez is a 60 year old female who returned to the office after recent exploratory laparotomy with over-sewing of antral gastric ulcer and placement of omental patch, biopsy of antral gastric ulcer, peritoneal washout on 12/27/20. Pathology showed benign acute ulcer consistent with peptic ulcer. INC stain for h pylori equivocal for organisms. Patient reports she is feeling well post operatively. She reports she is wobbly and is using a cane now, she reports she was not using this prior to surgery. She reports she did vomit last week after eating a big spinach salad. She denies having fevers. Reports she is having on average one BM daily. Review of Systems Constitutional: Constitutional: Reports increased appetite Eyes: Eyes: Denies change in vision and Denies loss of vision ENT: Reports Normal hearing present, Denies change in voice, Denies dizziness, Denies hoarseness and Denies sore throat Cardiovascular: Cardiovascular: Denies chest pain, Denies leg edema and Denies dyspnea Respiratory: Respiratory: Denies cough, Denies dyspnea and Denies wheezing Gastrointestinal: Gastrointestinal: Denies hematochezia, Denies change in bowel habits and Denies heartburn Comments: history of recent perforation of the stomach status post Nicholas patch and over-sewing Genitourinary: Genitourinary: Denies urinary frequency and Denies urinary incontinence Neurologic: Reports Normal hearing present, Denies confusion, Denies dizziness, Denies loss of vision, Denies memory loss and Denies seizure-like activity Psychiatric: Psychiatric: Denies confusion, Denies depression and Denies memory loss Endocrine: Endocrine: Denies cold intolerance and Reports fatigue Hematologic/Lymphatic: Hematologic/Lymphatic: Denies easy bleeding and Denies easy bruising Allergic/Immunologic: Allergic/Immunologic: Denies wheezing PMFSH Past Medical History Medical History Anxiety Anxiety and depression COPD (chronic obstructive pulmonary disease) Depression GERD without esophagitis History of alcoholism History of smoking Perforated gastric ulcer (~12/27/20) Seizures (Unknown) Surgical History Surgical History H/O lumbosacral spine surgery History of appendectomy History of gastric ulcer Exploratory laparotomy with over-sewing of antral gastric ulcer and placement of omental patch, biopsy of antral gastric ulcer, peritoneal washout - 12/28/2020 Hx of tracheostomy Family History Family History Mother Heart disease Cerebrovascular accident Father Heart disease Other Unknown family medical history Social History Social History Social History: The patient stated that she had 5 children and 1 at . The patient is and she is considered disabled. The patient stated that she is 16 years clean with alcohol and she is recovering alcoholic. The patient stated that she smoked many years ago and no longer smokes. The patient is listed as a full code. And she stated that she does not want any CPR if she has spinal surgery. The patient desires to be a DNR. The patient does not have a durable power research attorney for healthcare. The patient denies any marijuana or illicit drugs. Smoking packs per day: 1.5 Smoking cigarettes per day: 30.0 Smoking status: Former smoker Tobacco type: cigarettes Alcohol intake: former Alcohol use details: RECOVERING , NONE 15 YRS Substance use: never Substance use type: does not use Living arrangements: with f
--- NOTE | 2021-02-21 12:32 | WPDANESEPPF ---
Anes - Initial Pre Proc Eval Procedure: Operation Date: 02/21/21 13:30 Proposed Procedures p Esophagogastroduodenoscopy - Be Graham MD Date/Time: 02/21/21 12:32 Surgeon: Be Graham MD Pre Op Diagnosis: gastric ulcer Patient Data Age: 60 Gender: F Height: 1.57 m Weight: 56.2 kg Last Vital Signs Temp 36.2 C L 02/21/21 12:01 Pulse 67 02/21/21 12:01 Resp 16 02/21/21 12:01 BP 137/68 02/21/21 12:01 Pulse Ox 98 02/21/21 12:01 Allergies Allergy/AdvReac Type Severity Reaction Status Date / Time Penicillins Allergy Mild Unknown Verified 02/21/21 12:00 Sulfa (Sulfonamide Allergy Mild Unknown Verified 02/21/21 12:00 Antibiotics) grapefruit Allergy Unknown Verified 02/21/21 12:00 Home Medications Medication Instructions Recorded Confirmed Type acetaminophen 650 mg 650 mg PO BID tablet 09/08/20 02/02/21 History tablet,extended release buspirone 7.5 mg tablet 7.5 mg PO BID 09/08/20 02/02/21 History diphenhydramine HCl 25 mg capsule 25 mg PO BID 09/08/20 02/02/21 History magnesium 250 mg tablet 250 mg PO DAILY 09/08/20 02/02/21 History lamotrigine 100 mg PO BID 12/28/20 02/02/21 History albuterol sulfate 1 inh INHALATION QID PRN #6.7 g 01/02/21 02/02/21 Rx pantoprazole 40 mg tablet,delayed 40 mg PO QAM #30 tablet 01/16/21 02/02/21 Rx release hydrocodone 10 mg-acetaminophen 1 tablet PO Q6H PRN #120 tablet 02/17/21 02/21/21 Rx 325 mg tablet Patient hx anesthesia problems: none Family hx anesthesia problems: none Results Review: All pre-operative results and documents have been reviewed as part of the pre-operative evaluation. [facility] Past Medical History Medical History Anxiety Anxiety and depression COPD (chronic obstructive pulmonary disease) Depression GERD without esophagitis History of alcoholism History of smoking Perforated gastric ulcer (~12/27/20) Seizures (Unknown) Surgical History Surgical History H/O lumbosacral spine surgery History of appendectomy History of gastric ulcer Exploratory laparotomy with over-sewing of antral gastric ulcer and placement of omental patch, biopsy of antral gastric ulcer, peritoneal washout - 12/28/2020 Hx of tracheostomy Family History Family History Mother Heart disease Cerebrovascular accident Father Heart disease Other Unknown family medical history Social History Social History Social History: The patient stated that she had 5 children and 1 at . The patient is and she is considered disabled. The patient stated that she is 16 years clean with alcohol and she is recovering alcoholic. The patient stated that she smoked many years ago and no longer smokes. The patient is listed as a full code. And she stated that she does not want any CPR if she has spinal surgery. The patient desires to be a DNR. The patient does not have a durable power transactional attorney for healthcare. The patient denies any marijuana or illicit drugs. Smoking packs per day: 1.5 Smoking cigarettes per day: 30.0 Smoking status: Former smoker Tobacco type: cigarettes Alcohol intake: former Alcohol use details: RECOVERING , NONE 15 YRS Substance use: never Substance use type: does not use Living arrangements: with family Additional living arrangements comments: LIVES WITH DAUGHTER JOJO Spiritual care concerns: No Anes - Eval Final PreProcedure Day of Procedure 02/21/21 12:32 Patient weight: normal Heart: regular rate and rhythm Lungs: clear to auscultation and normal air movement Airway: Mallampati scale class II Neurological: alert and oriented Last oral intake: >/= 8 hours ASA classification: III Emergent: no Anesthetic plan: proceed Anesthesia type and mo
[2021-02-21] MEDS: BENZOCAINE (*SP) 60 ML SPRAY CAN (HURRICAINE) 1 SPRAY MUCOUS MEM (12:54)
[2021-02-21 13:18] VITALS: BP 130/72; PULSE 72; RESP 19; O2SAT 94
[2021-02-21 13:28] VITALS: BP 131/84; PULSE 71; RESP 20; O2SAT 94
[2021-02-21 13:38] VITALS: BP 130/72; PULSE 72; RESP 19; O2SAT 94
== END 2021-02-21 13:58 | disposition home or self-care (01) ==
PROVIDERS: PCP Family Medicine; Visit Provider Surgery
PROC: 0DJ08ZZ Inspection of Upper Intestinal Tract, Via Natural or Artificial Opening Endoscopic (ICD-10-PCS; CPT 43235; principal; 2021-02-21 13:30)
DX: Z09 Encounter for follow-up examination after completed treatment for conditions other than malignant neoplasm (principal); K21.9 Gastro-esophageal reflux disease without esophagitis; Z87.11 Personal history of peptic ulcer disease; Z98.84 Bariatric surgery status; F10.21 Alcohol dependence, in remission; J44.9 Chronic obstructive pulmonary disease, unspecified; F41.8 Other specified anxiety disorders; Z87.891 Personal history of nicotine dependence; Z79.51 Long term (current) use of inhaled steroids
CPT/HCPCS: 43239; 87081; J2704; J7120

== ENCOUNTER 2021-05-12 09:06 | Outpatient (CLI) | payer OTHER, SELFPAY ==
--- NOTE | ~2021-05-12 | XR_ITS ---
EXAMINATION: XR hip RT min 2V DATE: 05/12/2021 09:46 INDICATION: Right hip pain. TECHNIQUE: 2 views of right hip were obtained. COMPARISON: None. FINDINGS: Bone alignment is normal. No fracture. There is severe right hip osteoarthritis. Osteitis p ubis is noted. There are changes of posterior fusion procedure in lumbosacral spine. IMPRESSION: 1. Severe right hip osteoarthritis. Reviewed, dictated and finalized at location B. WINDER MACHINE OPERATOR
--- NOTE | ~2021-05-12 | XR_ITS ---
EXAMINATION: XR femur RT min 2V DATE: 05/12/2021 09:46 INDICATION: Right leg and hip pain. TECHNIQUE: 2 views of right femur on 4 radiographs were obtained. COMPARISON: None. FINDINGS: Bone alignment is normal. No fracture. There is severe right hip osteoarthritis. Right knee joint spaces are normal. No knee joint effusion. IMPRESSION: 1. Severe right hip osteoarthritis. Reviewed, dictated and finalized at location B. BAG ASSEMBLER
[2021-05-12 10:06] LABS: Basophils Absolute Auto 0.1 K/mm3 (0.0-0.1); Basophils Percent Auto 1.8 % (0.2-1.2); Eosinophils Absolute Auto 0.2 K/mm3 (0-0.3); Eosinophils Percent Auto 4.1 % (0-4.4); Hematocrit 42.7 % (37.0-47.0); Hemoglobin 13.7 g/dL (12.0-15.0); Lymphocytes Absolute Auto 1.65 K/mm3 (0.9-3.2); Lymphocytes Percent Auto 41.9 % (18.3-44.2); Mean Corpuscular HGB Conc 32.1 g/dl (32-36); Mean Corpuscular Hemoglobin 30.5 pg (26-34); Mean Corpuscular Volume 95.1 fl (80-100); Monocytes Absolute Auto 0.3 K/mm3 (0.1-0.6); Monocytes Percent Auto 8.6 % (2.6-8.5); Neutrophils Absolute Auto 1.7 K/mm3 (1.3-6.7); Neutrophils Percent Auto 43.6 % (45.5-73.1); Platelet Count Result 278 k/mm3 (150-375); Red Blood Count 4.49 M/mm3 (4.2-5.4); Red Cell Distribution Width 13.8 % (11.5-14.5); White Blood Count 3.9 K/mm3 (4.5-10.0)
[2021-05-12 11:01] LABS: Creatinine Urine 195.7 mg/dL
[2021-05-12 11:02] LABS: Free T4 Free Thyroxine 1.04 ng/mL (0.78-2.19); Vitamin D 25 Hydroxy 23.2 ng/mL
[2021-05-12 11:05] LABS: MALB Creatinine Ratio 7.9 mg/g (0-30); Microalbumin Urine Random 15.4 mg/L (0-16.7)
[2021-05-12 12:51] LABS: Alanine Aminotransferase 16 U/L (4-35); Albumin Level 4.6 g/dL (3.5-5.1); Alkaline Phosphatase 85 U/L (38-126); Anion Gap 11 mmol/L (8-16); Aspartate Amino Transferase 31 U/L (14-36); Bilirubin,Total 0.6 mg/dL (0.2-1.3); Blood Urea Nitrogen 14 mg/dL (7-17); Calcium 9.4 mg/dL (8.4-10.2); Carbon Dioxide 23 mmol/L (22-30); Chloride 106 mmol/L (98-107); Cholesterol 228 mg/dL (0-200); Estimated Glomerular Filt Rate > 60; Glucose 97 mg/dL (65-110); HDL Direct 92 mg/dL; Potassium 3.8 mmol/L (3.4-5.0); Sodium 140 mmol/L (137-145); Triglycerides 56 mg/dL (<150)
[2021-05-12 13:00] LABS: LDL Cholesterol Direct 104 mg/dL
[2021-05-12 13:22] LABS: Total Triiodothyronine (T3) 1.09 NG/ML (0.97-1.69)
== END 2021-05-12 09:07 | disposition home or self-care (01) ==
PROVIDERS: PCP Family Medicine; Visit Provider Nurse Practitioner Family
DX: E55.9 Vitamin D deficiency, unspecified (principal); R80.9 Proteinuria, unspecified; Z13.0 Encounter for screening for diseases of the blood and blood-forming organs and certain disorders involving the immune mechanism; Z13.6 Encounter for screening for cardiovascular disorders; Z13.220 Encounter for screening for lipoid disorders; Z13.29 Encounter for screening for other suspected endocrine disorder; M16.11 Unilateral primary osteoarthritis, right hip
CPT/HCPCS: 36415; 73502; 73552; 80053; 80061; 82043; 82306; 84439; 84443; 84480; 85025

== ENCOUNTER 2021-05-25 10:09 | Outpatient (CLI) | payer OTHER, SELFPAY ==
--- NOTE | ~2021-05-25 | MM_ITS ---
EXAMINATION: MM screening elissa BI w letty HISTORY: Screening mammogram TECHNIQUE: Craniocaudal and mediolateral oblique 3-D tomosynthesis images were obtained and synthetic 2-D images were generated. CAD analysis was submitted and interpreted. COMPARISON: No prior mammogram is available for comparison at this institution. BREAST PARENCHYMAL COMPOSITION: There are scattered areas of fibroglandular density. FINDINGS: RIGHT BREAST: A 4 mm mass is present in the posterior third of the outer breast best appreciated 8 cm from the nipple on the craniocaudal view. LEFT BREAST: There are asymmetries in the subareolar aspect of the breast on the craniocaudal view an d in the middle third of the slightly lower breast on the mediolateral oblique view. IMPRESSION: 1. Bilateral breast findings as described above which may represent the patient's baseline however no comparison is currently available. 2. Comparison with prior mammograms is necessary. BI-RADS Category 0: Incomplete: Needs comparison with prior mammograms. Reviewed, dictated and finalized at location A. MAKER IMPRESSION: 1. Bilateral breast findings as described above which may represent the patient 's baseline however no comparison is currently available. 2. Comparison with prior mammograms is necessary. BI-RADS Category 0: Incomplete: Needs comparison with prior mammograms.
== END 2021-05-25 10:10 | disposition home or self-care (01) ==
LOC: ANHIMG 10:12
PROVIDERS: PCP Family Medicine; Visit Provider Nurse Practitioner Family
DX: Z12.31 Encounter for screening mammogram for malignant neoplasm of breast (principal); R92.8 Other abnormal and inconclusive findings on diagnostic imaging of breast
CPT/HCPCS: 77063; 77067

== ENCOUNTER 2022-05-18 11:48 | Outpatient (CLI) | payer OTHER, SELFPAY ==
--- NOTE | ~2022-05-18 | MR_ITS ---
EXAMINATION: MR cervical spine wo con DATE: 05/18/2022 13:05 INDICATION: Weakness and neck pain radiating to the left shoulder. Frequent falls. TECHNIQUE: Magnetic resonance imaging (MRI) of the cervical spine was performed without intravenous c ontrast. Sequences included sagittal T2-weighted FSE, sagittal T2-weighted FS FSE, sagittal T1-weight ed FSE, axial MERGE and axial T2-weighted FSE. COMPARISON: None FINDINGS: 1-2 mm anterolisthesis C4 on C5 and C7 on T1. Vertebral body heights are normal. Bone marrow signal intensity is normal. Moderate to severe disc height loss at C6-C7, moderate disc height loss at C5-C6 and mild disc height loss at C3-C4 and C4-C5. Cord signal intensity is normal. Cervical soft tissues are unremarkable. The following disc levels are specifically discussed: C2-C3: Disc is bulging. There is mild left and moderate right uncovertebral joint osteoarthritis. The re is moderate to severe bilateral facet joint osteoarthritis. There is mild bilateral neural foramin al stenosis. There is mild central canal stenosis. C3-C4: Disc is bulging. There is severe bilateral right uncovertebral joint osteoarthritis. There is moderate left and severe right facet joint osteoarthritis. There is mild to moderate bilateral neural foraminal stenosis. There is mild central canal stenosis with mild flattening of the ventral surface of the cord. C4-C5: Disc is mildly bulging. There is mild right and moderate left uncovertebral joint osteoarthrit is. There is severe bilateral facet joint osteoarthritis. There is moderate bilateral neural foramina l stenosis. There is mild central canal stenosis with mild flattening of the ventral surface of the c ord. C5-C6: Disc is bulging. There is severe bilateral uncovertebral joint osteoarthritis. There is severe bilateral facet joint osteoarthritis. There is moderate bilateral neural foraminal stenosis. There i s mild central canal stenosis with flattening of the ventral surface of the cord. C6-C7: Disc is bulging. There is severe bilateral uncovertebral joint osteoarthritis. There is modera te right and severe left facet joint osteoarthritis. There is mild to moderate left neural foraminal stenosis. There is mild central canal stenosis. C7-T1: Disc is mildly bulging. There is mild bilateral uncovertebral joint osteoarthritis. There is m oderate bilateral facet joint osteoarthritis. There is mild bilateral neural foraminal stenosis. Ther e is no central canal stenosis. IMPRESSION: 1. Moderate to severe cervical spondylosis. Reviewed, dictated and finalized at location A. R BAG MAKING MACHINIST
== END 2022-05-18 11:49 | disposition home or self-care (01) ==
PROVIDERS: PCP Family Medicine; Visit Provider Psychiatry & Neurology Neurology
DX: M47.892 Other spondylosis, cervical region (principal)
CPT/HCPCS: 72141

== ENCOUNTER 2022-09-07 09:48 | Outpatient (CLI) | payer OTHER, SELFPAY ==
--- NOTE | 2022-09-07 11:00 | NEURO_ITS ---
Impression: Patient reports a history of pain from lower back to both extremities, more on the right. # Normal nerve conduction study of upper and lower extremities. # Chronic neurogenic changes in right anterior tibialis, right fibularis longus and right extensor digitorum brevis. # This finding could be seen in the setting of right lower lumbosacral radiculopathy. # Clinical correlation recommended. Nerve Conduction Studies Anti Sensory Summary Table Stim Site NR Peak (ms) P-T Amp (?V) Site1 Site2 Delta-P (ms) Dist (cm) Froilan (m/s) Left Median Anti Sensory (2-3nd Digit) Wrist 3.6 32.5 Wrist 2-3nd Digit 3.6 14.0 39 Wrist 3.5 57.1 Wrist 2-3nd Digit 3.6 14.0 39 Right Median Anti Sensory (2-3nd Digit) Wrist 3.3 31.4 Wrist 2-3nd Digit 3.3 14.0 42 Wrist 3.3 34.4 Wrist 2-3nd Digit 3.3 14.0 42 Left Radial Anti Sensory (Base 1st Digit) Wrist 2.1 28.1 Wrist Base 1st Digit 2.1 0.0 Right Radial Anti Sensory (Base 1st Digit) Wrist 2.2 11.9 Wrist Base 1st Digit 2.2 0.0 Left Sup Fibular Anti Sensory (Ant Lat Mall) 14 cm 3.3 9.0 14 cm Ant Lat Mall 3.3 16.0 48 Right Sup Fibular Anti Sensory (Ant Lat Mall) 14 cm 3.3 11.4 14 cm Ant Lat Mall 3.3 16.0 48 Left Sural Anti Sensory (Lat Mall) Calf 3.6 9.7 Calf Lat Mall 3.6 16.0 44 Right Sural Anti Sensory (Lat Mall) Calf 3.4 12.5 Calf Lat Mall 3.4 16.0 47 Left Ulnar Anti Sensory (5th Digit) Wrist 3.0 65.3 Wrist 5th Digit 3.0 14.0 47 Right Ulnar Anti Sensory (5th Digit) Wrist 3.1 45.7 Wrist 5th Digit 3.1 14.0 45 Motor Summary Table Stim Site NR Onset (ms) O-P Amp (mV) Site1 Site2 Delta-0 (ms) Dist (cm) Froilan (m/s) Left Median Motor (Abd Poll Brev) Wrist 3.0 7.4 Elbow Wrist 4.0 20.0 50 Elbow 7.0 5.6 Right Median Motor (Abd Poll Brev) Wrist 3.0 6.4 Elbow Wrist 4.1 23.0 56 Elbow 7.1 4.3 Left Peroneal Motor (Vastus Med) Ankle 4.1 1.9 Popit Ankle 9.9 44.0 44 Popit 14.0 2.1 B Fib Ankle 7.4 34.0 46 B Fib 11.5 1.4 Right Peroneal Motor (Vastus Med) Ankle 4.2 2.4 Popit Ankle 9.1 43.0 47 Popit 13.3 2.5 B Fib Ankle 6.5 31.0 48 B Fib 10.7 2.1 Left Tibial Motor (Abd Jorgensen Brev) Ankle 4.2 10.2 Knee Ankle 9.0 42.0 47 Knee 13.2 5.3 Right Tibial Motor (Abd Jorgensen Brev) Ankle 4.0 10.2 Knee Ankle 8.1 39.0 48 Knee 12.1 6.1 Left Ulnar Motor (Abd Dig Minimi) Wrist 2.9 5.3 A Elbow Wrist 5.1 27.0 53 A Elbow 8.0 5.4 B Elbow Wrist 3.5 18.0 51 B Elbow 6.4 5.4 Right Ulnar Motor (Abd Dig Minimi) Wrist 2.8 6.3 A Elbow Wrist 5.4 28.0 52 A Elbow 8.2 5.1 B Elbow Wrist 3.9 18.0 46 B Elbow 6.7 4.9 F Wave Studies NR F-Lat (ms) L-R F-Lat (ms) Left Median (Mrkrs) (Abd Poll Brev) 26.38 0.99 Right Median (Mrkrs) (Abd Poll Brev) 25.38 0.99 Left Peroneal (Mrkrs) (EDB) 48.86 0.26 Right Peroneal (Mrkrs) (EDB) 48.59 0.26 Left Tibial (Mrkrs) (Abd Hallucis) 48.33 0.39 Right Tibial (Mrkrs) (Abd Hallucis) 48.72 0.39 Left Ulnar (Mrkrs) (Abd Dig Min) 26.14 1.05 Right Ulnar (Mrkrs) (Abd Dig Min) 25.09 1.05 EMG Side Muscle Nerve Root Ins Act Fibs Amp Dur Recrt Comment Right 1stDorInt Ulnar C8-T1 Nml Nml Nml Nml Nml
== END 2022-09-07 09:49 | disposition home or self-care (01) ==
LOC: ANHNEURO 09:49
PROVIDERS: PCP Family Medicine; Visit Provider Psychiatry & Neurology Neurology
DX: G95.9 Disease of spinal cord, unspecified (principal)
CPT/HCPCS: 95886; 95913

== ENCOUNTER 2022-09-28 13:47 | Outpatient (CLI) | payer OTHER, SELFPAY ==
--- NOTE | ~2022-09-28 | MM_ITS ---
EXAMINATION: MM screening elissa BI w letty HISTORY: Screening mammogram TECHNIQUE: Craniocaudal and mediolateral oblique 3-D tomosynthesis images were obtained and synthetic 2-D images were generated. CAD analysis was submitted and interpreted. COMPARISON: Serial screening mammograms dating back to 10/21/2017 BREAST PARENCHYMAL COMPOSITION: The breasts are heterogeneously dense, which may obscure small masses . FINDINGS: Several benign calcifications are noted, including small probable calcified fibroadenoma up per mid left breast lateral to mid sagittal plane.. There is an approximately 3.5 mm opacity at the very posterior margin of the inner right breast on CC projection. Diagnostic right mammogram and right breast ultrasound examination are recommended for f urther evaluation. Otherwise there is no evidence of suspicious mass, calcification, or architectural distortion to sugg est malignancy in either breast. There has been no other suspicious interval change. IMPRESSION: 1. 3.5 mm mass at posterior inner right breast on CC projection 2. Diagnostic right mammogram and right breast ultrasound are recommended BI-RADS Category 0: Incomplete: Needs additional imaging evaluation. Reviewed, dictated and finalized at location A.
== END 2022-09-28 13:48 | disposition home or self-care (01) ==
LOC: ANHIMG 13:49
PROVIDERS: PCP Family Medicine; Visit Provider Family Medicine
DX: Z12.31 Encounter for screening mammogram for malignant neoplasm of breast (principal); R92.8 Other abnormal and inconclusive findings on diagnostic imaging of breast
CPT/HCPCS: 77063; 77067

== ENCOUNTER 2022-11-02 11:46 | Outpatient (CLI) | payer OTHER, SELFPAY ==
--- NOTE | ~2022-11-02 | MMUS_ITS ---
EXAMINATION: MM diagnostic elissa RT w letty, US breast RT limited HISTORY: Right breast asymmetry on screening mammogram TECHNIQUE: Additional 3-D tomosynthesis images of the right breast were performed and synthetic 2-D i mages were generated. CAD analysis was submitted and interpreted. High resolution limited right breas t ultrasound was performed. COMPARISON: 09/28/2022, 05/25/2021, 10/21/2017 BREAST PARENCHYMAL COMPOSITION: There are scattered areas of fibroglandular density. FINDINGS: MAMMOGRAPHIC FINDINGS: There is a 5 mm x 2 mm irregular, equal density asymmetry projecting in the far posterior third of th e lower inner breast on the craniocaudal view 9 cm from the nipple. Finding projects in the first few slices of the tomosynthesis stack although no skin lesion is reportedly identified. ULTRASOUND: There is an 11 mm x 4 mm oval, circumscribed, parallel, hypoechoic mass at the 6:00 location 1 cm fro m the nipple with no posterior features or internal vascularity. IMPRESSION: 1. Probably benign right breast asymmetry and right breast mass. 2. Recommend 6 month follow-up right diagnostic mammogram and ultrasound. BI-RADS category 3, probably benign findings. Reviewed, dictated and finalized at location A. IMPRESSION: 1. Probably benign right breast asymmetry and right breast mass. 2. Recommend 6 month follow-up right diagnostic mammogram and ultrasound. BI-RADS category 3, probably benign findings.
== END 2022-11-02 11:47 | disposition home or self-care (01) ==
PROVIDERS: PCP Family Medicine; Visit Provider Nurse Practitioner Adult Health
DX: R92.8 Other abnormal and inconclusive findings on diagnostic imaging of breast (principal); N63.10 Unspecified lump in the right breast, unspecified quadrant
CPT/HCPCS: 76642; 77061; 77065; G0279

== ENCOUNTER 2023-01-10 09:52 | Outpatient (CLI) | payer OTHER, SELFPAY ==
--- NOTE | ~2023-01-10 | XR_ITS ---
EXAMINATION: XR lumbar spine 6V w bending DATE: 01/10/2023 10:26 INDICATION: Postlaminectomy syndrome TECHNIQUE: Anteroposterior, lateral in neutral, flexion and extension, and bilateral oblique views of the lumbar spine were obtained. COMPARISON: CT, 12/27/2020 FINDINGS: There are changes of anterior and posterior fusion and laminectomy from L4 through S1. Ther e are 5 mm of anterolisthesis of L4 on L5, new since the comparison examination. No hypermobility is present with flexion or extension. Vertebral body alignment is otherwise normal. The vertebral body h eights are maintained. There is moderate loss of intervertebral disc space height at L2-3 and L3-4. T here is no lumbar spine fracture. There has been interval development of a T12 compression fracture s jose the comparison CT. There is moderate osteoarthritis of the hips. IMPRESSION: 1. Surgical changes from L4 through S1 with interval development of grade 1 anterolisthesis of L4 on L5. 2. Interval T12 compression fracture. 3. Moderate lumbar spondylosis. Reviewed, dictated and finalized at location F. IMPRESSION: 1. Surgical changes from L4 through S1 with interval development of grade 1 ant erolisthesis of L4 on L5. 2. Interval T12 compression fracture. 3. Moderate lumbar spondylosis.
--- NOTE | ~2023-01-10 | XR_ITS ---
AP and oblique views of the bilateral SI joints CLINICAL HISTORY: Sacroiliitis FINDINGS: Bilateral SI joints are unremarkable. No erosive, sclerotic, or degenerative change seen. T here is moderate osteoporosis arthritis of the right hip joint, with joint space narrowing and osteop hyte formation. Left hip joint space is preserved. There is lumbosacral spinal fixation hardware exte nding from L4 to L5. Soft tissues are unremarkable. IMPRESSION: Unremarkable SI joints. Moderate right hip joint osteophytosis. Lumbosacral spinal fixation hardware. Reviewed, dictated and finalized at location M.
--- NOTE | ~2023-01-10 | XR_ITS ---
AP view of the pelvis and AP and lateral views of the bilateral hips Clinical history: Pain Findings: No acute fracture or dislocation is seen. Osseous alignment is anatomic. There is moderate right hip joint osteoarthritis, joint space narrowing and osteophyte formation. Left hip joint space is intact. Lumbosacral spinal fixation hardware is present. Soft tissues are unremarkable. Impression: Moderate right hip joint osteoarthritis. Left hip joint unremarkable. Reviewed, dictated and finalized at location M. Impression: Moderate right hip joint osteoarthritis. Left hip joint unremarkable.
== END 2023-01-10 09:53 | disposition home or self-care (01) ==
PROVIDERS: PCP Family Medicine; Visit Provider Anesthesiology Pain Medicine
DX: M46.1 Sacroiliitis, not elsewhere classified (principal); M96.1 Postlaminectomy syndrome, not elsewhere classified; M47.896 Other spondylosis, lumbar region; M16.11 Unilateral primary osteoarthritis, right hip
CPT/HCPCS: 72114; 72202; 73521

== ENCOUNTER 2023-01-28 14:00 | Outpatient (RCR) | payer OTHER, SELFPAY ==
--- NOTE | 2023-01-15 14:53 | PTOPEVAL1 ---
Assessment and note entered by Debbie Valle, PT, DPT Evaluation Information Assessment Status Evaluation Diagnosis chronic pain, R hip OA, dorsalgia Onset chronic Subjective Information Pt states she has arthritis in her R hip and has had multiple back surgeries. She states her whole R side is all F'ed up and now her chest, shoulder, neck, head, and hands all hurt all the time. She states 24/7 her L foot is asleep. She states the gets a stabbing pain in her back, she states she does not now if it is actually there, or if its in her head from her prior surgeries, or in her head from prior shock treatments . Pt reports her current pain as a 7/10 and a 20/10 at the worst in the last week. Pt states 100% of activity makes her pain worse. Reported Pain Level Pain Score 7: Self Report Assessment PT Clinical Summary Gina presents to therapy today for her initial evaluation with a diagnosis of R hip pain with a history complicated by multiple lumbar surgeries. Today she demonstrates significant R hip ROM when compared to her L hip. She demonstrates decreased hip strength globally with decreased functional mobility as well. Her 5xSTS and [address] her at an increased risk for falls. Skilled therapy services are indicated to improve ROM and strength, to improve gait, to manage pain, to improve safety, and to return to PLOF. Plan of Care Interventions Electrical Stimulation,Gait Training,Hot Pack/Cold Pack,Manual Therapy,Neuro Re-education,Patient/ Caregiver Educati,Therapeutic Activities, Therapeutic Exercise PT Services Indicated Yes Treatment Frequency and 2x/wk for 8 visits Duration These treatments will address the objective and functional deficits as defined above. The patient will be advanced safely and appropriately in order for the patient to progress towards his/her prior level of function. Additional exercises will be introduced and as well as a comprehensive home exercise program upon discharge, if needed, ?to ensure carryover of functional gains achieved in the clinic. This treatment plan has been reviewed and agreement upon by the patient.
--- NOTE | 2023-01-15 14:58 | OPREHPOC ---
Outpatient Therapy Plan of Care This is a Multidisciplinary Plan of Care that may contain components documented by all disciplines (PT, OT, and ST.) PT Problem 1 PT Problem #1 Knowledge Deficit PT Goal 1 Goal Pt to be IND with issued HEP Target Visit 8 PT Problem 2 PT Problem #2 Pain PT Goal 1 Goal Pt to report R hip pain no greater than 5/10 in the last week Target Visit 8 PT Goal 2 Goal Pt to report 75% improvement in overall symptoms Target Visit 8 PT Problem 3 PT Problem #3 Impaired Range of Motion PT Goal 1 Goal Pt to improve passive hip flexion to 110 deg Target Visit 8 PT Goal 2 Goal pt to improve passive hip extension to 0 deg PT Problem 4 PT Problem #4 Impaired Gait PT Goal 1 Goal Pt to ambulate 100ft without deviations and without stepping outside her TYRONE Target Visit 8 PT Goal 2 Goal pt to improve her 2min walk distance from 215ft to 300ft PT Problem 5 PT Problem #5 Impaired Strength PT Goal 1 Goal Pt to improve her R hip strength to grossly 4/5 Target Visit 8 PT Goal 2 Goal Pt to be able to lift and carry 20lb from ground level Target Visit 8
--- NOTE | 2023-01-24 12:36 | PCPTNOTE ---
Patient called and cancelled appointment today. Pt. reported she was unable to make it to appointment due to construction.
--- NOTE | 2023-02-01 14:57 | PCPTNOTE ---
Pt. cancelled today's appointment reporting she was unable to make it to the appointment due to construction.
--- NOTE | 2023-02-06 14:38 | PCPTNOTE ---
Pt. did not show for 02/06/23 appointment.
--- NOTE | 2023-02-11 13:23 | PTOPDC ---
Assessment and note entered by Adams Reynoso, PT Discharge Information Assessment Status Discharge - Pt Not Presen Diagnosis chronic pain, R hip OA, dorsalgia Onset chronic Subjective Information Pt states she has arthritis in her R hip and has had multiple back surgeries. She states her whole R side is all F'ed up and now her chest, shoulder, neck, head, and hands all hurt all the time. She states 24/7 her L foot is asleep. She states the gets a stabbing pain in her back, she states she does not now if it is actually there, or if its in her head from her prior surgeries, or in her head from prior shock treatments . Pt reports her current pain as a 7/10 and a 20/10 at the worst in the last week. Pt states 100% of activity makes her pain worse. Assessment PT Clinical Summary Patient was No Show for today's appointment. Patient has at least 4 consecutive cancellations or No Shows at this time and will be discharged per policy. Please refer to last treatment note for discharge status. Plan of Care PT Services Indicated Yes
== END 2023-02-11 14:07 | disposition home or self-care (01) ==
LOC: ANHPT 14:00
PROVIDERS: PCP Family Medicine; Visit Provider Anesthesiology Pain Medicine
DX: M16.9 Osteoarthritis of hip, unspecified (principal); G89.4 Chronic pain syndrome; M54.9 Dorsalgia, unspecified; M46.1 Sacroiliitis, not elsewhere classified; Z98.1 Arthrodesis status
CPT/HCPCS: 97110; 97161; 99199

== ENCOUNTER 2023-04-16 01:33 | Day surgery (SDC) | payer OTHER, SELFPAY ==
--- NOTE | 2023-04-11 09:53 | PC.NURSE ---
Report to the Outpatient Waiting Room, entrance under the green pavilion located off [facility], at time ____1130_(per patient states planning to come 15 min early) on date ___04/16____. Planned Procedure Time: ___1245 . Time changes happen often and if your time is changed the preop area will call you the afternoon before. - You and your visitor will be asked to self-screen and do not enter if you have any COVID symptoms. - A mask is optional within the hospital at this time. - No food as of 1045am light breakfas ok Take the following medications with a SIP of water the morning of surgery: take all medicine as normal DO NOT STOP ANY OF YOUR OTHER PRESCRIPTION MEDICATIONS PRIOR TO SURGERY ?EXCEPT THE FOLLOWING Medications to discontinue per physician per patient office instructions do not include stopping anything prior Date to take last dose___NA__ Please no make-up, nail welsh, hairspray, perfume, deodorant, or body powder the day of surgery. No jewelry (including any body piercings) or valuables the day of surgery, leave them at home. Please take a shower or bath the night before, or the morning of, surgery with an antibacterial soap. Wear comfortable, loose fitting clothing. Children are encouraged to wear pajamas. - Jewelry must be removed prior to entering the operating room. Rings and piercings that are not removed may be cut off. - The hospital will not accept responsibility for valuables. - Please leave all valuables, including medications, at home the day of surgery. - You can drive after procedure- per patient plans to have a coach tour driver Follow any additional instructions given to you from your surgeon. If you or anyone in your household have experienced Covid symptoms in the past week, please notify your surgeon or the nurse liaison at the phone number below for possible testing. Telephone instructions given to Gina and asked if any additional questions and then verbalized understanding. Patient advised to call Dr Kuo office or pre surgery nurse liaison [phone] if any additional questions.
[2023-04-11 10:15] VITALS: BMI 20.1
--- NOTE | ~2023-04-16 | XR_ITS ---
EXAMINATION: XR fluoroscopy no charge INDICATION: Sacroiliac joint injection TECHNIQUE: A single intraoperative fluoroscopic image is submitted for review. Total fluoroscopic azeem e was 42.7 seconds. COMPARISON: None available FINDINGS: Fluoroscopic image demonstrates sacroiliac joint injection. Please refer to procedure note for full details. IMPRESSION: 1. Please refer to procedure note for full details. Reviewed, dictated and finalized at location L. LOPMENT ARCHITECT
--- NOTE | 2023-04-16 06:29 | PM.HPGS ---
History of Present Illness History of Present Illness Consent: Risks, benefits, and alternatives have been discussed and questions answered. Patient agrees to proceed with procedure. Chief complaint: sacroiliitis, dorsalgia Narrative: Gina Gonzalez is a 63 year old female with chronic pain and depression who presents for left sacroiliac joint steroid injection under fluoroscopy and local anesthesia for treatment of chronic, recalcitrant and disabling right low back/buttock pain secondary to sacroiliitis. Review of Systems Review of Systems: All systems reviewed & are unremarkable except as noted in HPI and below PMFSH Past Medical History Medical History Anxiety Anxiety and depression COPD (chronic obstructive pulmonary disease) Depression GERD without esophagitis History of alcoholism History of smoking Perforated gastric ulcer (~12/27/20) Seizures (Unknown) Surgical History Surgical History H/O lumbosacral spine surgery History of appendectomy History of gastric ulcer Exploratory laparotomy with over-sewing of antral gastric ulcer and placement of omental patch, biopsy of antral gastric ulcer, peritoneal washout - 12/28/2020 Hx of tracheostomy Family History Family History Mother Heart disease Cerebrovascular accident Father Heart disease Other Unknown family medical history Social History Social History (Updated 08/22/22 @ 14:28 by Luz Stovall MA) Social History: The patient stated that she had 5 children and 1 at . The patient is and she is considered disabled. The patient stated that she is 16 years clean with alcohol and she is recovering alcoholic. The patient stated that she smoked many years ago and no longer smokes. The patient is listed as a full code. And she stated that she does not want any CPR if she has spinal surgery. The patient desires to be a DNR. The patient does not have a durable power spray gun sizer for healthcare. Smoking status: Never smoker Tobacco type: cigarettes Alcohol intake: former Alcohol use details: RECOVERING , NONE 15 YRS Substance use: never Substance use type: does not use Other substance usage details: edibles - Marijuana Lack of Transportation: No Lack of Food: Never True Current Housing: I Have Housing Concerned About Future Housing: Decline to Answer Difficulty Paying Gas/Electric Bills: No Difficulty Paying for Meds: No Currently Unemployed: No Education: Grade School Difficulty w/ Childcare or Family Care: No Living arrangements: with family Additional living arrangements comments: LIVES WITH DAUGHTER JOJO Occupation/Education: retired Gender identity (if verbalized by the patient): Female Sexual Orientation (if Verbalized by the Patient): Straight or Heterosexual Spiritual care concerns: No Agree to blood products: Yes Meds Home Medications and Allergies Home Medications Medication Instructions Recorded Confirmed Type acetaminophen 650 mg 650 mg PO BID 09/08/20 04/11/23 History tablet,extended release (Arthritis Pain Relief (acetaminophen) ER) buspirone 7.5 mg tablet 7.5 mg PO BID 09/08/20 04/11/23 History diphenhydramine HCl 25 mg capsule 25 mg PO BID 09/08/20 04/11/23 History (Allergy Relief (diphenhydramine)) albuterol sulfate 90 mcg/actuation 1 inh inhalation QID PRN shortness 01/02/21 04/11/23 Rx aerosol inhaler of breath or wheezing #6.7 grams pantoprazole 40 mg tablet,delayed 40 mg PO QAM #30 tabs 01/16/21 04/11/23 Rx release hydrocodone 10 mg-acetaminophen 1 tablet PO Q6H PRN pain (scale 03/15/21 04/11/23 Rx 325 mg tablet score 7-10) #120 tabs lamotrigine 200 mg tablet 200 mg PO BID #60 tabs 07/17/22 04/11/23 Rx Allergies Allergy/AdvReac Type Severity Reaction Status Date / Time Penicillin
--- NOTE | 2023-04-16 06:35 | WPDHPUPDATE1 ---
History and Physical Update Update Date/Time: 04/16/23 06:35 History and Physical has been reviewed, including an updated exam of the patient. There are NO changes in the patient's condition. Risks, benefits, and alternatives have been discussed and questions answered. Patient agrees to proceed with procedure.
[2023-04-16 12:10] VITALS: BP 110/73; PULSE 57; RESP 16; TEMP 37.1; O2SAT 100
[2023-04-16 12:16] VITALS: BP 110/73; PULSE 57; RESP 16; TEMP 37.1; O2SAT 100
[2023-04-16 12:26] VITALS: BP 130/62; PULSE 61; RESP 18; O2SAT 99
[2023-04-16 12:36] VITALS: BP 122/61; PULSE 59; RESP 18; O2SAT 99
[2023-04-16] MEDS: LIDOCAINE HCL 2% PF INJ 5 ML VIAL 4 ML INFILTRATE (12:40)
[2023-04-16] MEDS: TRIAMCINOLONE ACET INJ 40 MG/ML VIAL IM (12:42)
[2023-04-16 12:43] VITALS: BP 127/73; PULSE 62; RESP 18; O2SAT 98
[2023-04-16 12:53] VITALS: BP 132/61; PULSE 55; RESP 16; O2SAT 100
--- NOTE | 2023-04-16 12:54 | W.PM.PROC2 ---
Procedure Note - Detailed Date of Procedure 04/16/23 Pre-op Diagnosis sacroiliitis, dorsalgia Post-op Diagnosis Same Procedure Performed Left intra-articular SI joint steroid injection under fluoroscopic guidance. Surgeon Duran Kuo MD Anesthesia Local Description of Procedure INFORMED CONSENT: Risks, benefits and alternatives to the procedure were discussed in detail with the patient who expressed explicit understanding and consent to proceed. Patient was informed verbally and in written form regarding the risks associated with the procedure including the low risk of serious infection, bleeding/bruising, allergic reaction, nerve or organ injury, paralysis, procedural site pain or discomfort, worsening pain and/or mobility, failure to treat and/or disfigurement. The patient expressed explicit understanding and consent to proceed. All materials required for the procedure were available prior to procedure start. Site and side were marked prior to procedure and confirmed in the presence of the patient. PROCEDURE IN DETAIL: The patient was brought to the procedural suite and placed in the prone position. Patient was made comfortable with use of pillows under the head/chest, hips and ankles. Skin overlying the injection site on the affected side(s) was prepared broadly with ChloraPrep applicator and draped in a sterile manner. Aseptic technique was used throughout. The SI joint was identified in the AP view and contralateral oblique angulation with caudal tilt was utilized to optimize visualization of the inferior and medial joint line representing the posterior portion of the joint. Local anesthesia was established by infiltration with approximately 5 mL of 2% lidocaine via a 1-1/2 inch 27-gauge needle. A 22-gauge 3.5 inch Quincke spinal needle was advanced until the needle entered the inferior third of the joint space approximately 1cm cephalad from its most inferior point. In the AP view, 0.5 mL of Omnipaque 300 contrast medium was injected after negative aspiration for CSF, blood or other bodily fluid, showing appropriate intra-articular spread of contrast without evidence of intravascular, perineural or intrathecal placement. A 2.0 mL solution containing 40 mg of triamcinolone in to% preservative-free lidocaine was injected after repeat negative aspiration. Appropriate spread of the injectate was confirmed with washout of previous injected contrast. No parasthesias were elicited. Needle was removed completely intact without difficulty. Images were saved and documented in the patient chart. Patient's skin was cleansed and sterile bandage applied. The patient tolerated the procedure well. The patient was transported to the recovery area in stable condition where they were observed for an appropriate amount of time prior to discharge, without evidence of complication. The patient was instructed to avoid excessive activity for the next 48 hours, including climbing and frequent use of stairs. Showers only for 48 hours. They were instructed not to drive or operate heavy machinery for 24 hours. They are to monitor for severe headaches, fevers, chills, night sweats, erythema/swelling at the site or any other signs of infection, bleeding/bruising, bowel or bladder changes as well as new pain, weakness or numbness in the upper or lower extremity. Should they notice these changes, they are instructed to call our office immediately or report directly to the nearest Emergency Department if no answer or if after posted office hours. COMPLICATIONS: None COMMENTS: None CONTRAST WASTED: 29.5mL Omnipaque 300. Complications None Condition Stable Disposition Same day [facility] Billing Surgery - Charge Forward: Surgery Billing
== END 2023-04-16 13:14 | disposition home or self-care (01) ==
PROVIDERS: PCP Family Medicine; Visit Provider Anesthesiology Pain Medicine
PROC: (CPT 27096; principal; 2023-04-16 12:45)
DX: M46.1 Sacroiliitis, not elsewhere classified (principal); G89.29 Other chronic pain; F41.8 Other specified anxiety disorders; J44.9 Chronic obstructive pulmonary disease, unspecified; K21.9 Gastro-esophageal reflux disease without esophagitis; G40.909 Epilepsy, unspecified, not intractable, without status epilepticus; F10.21 Alcohol dependence, in remission; Z87.11 Personal history of peptic ulcer disease; Z79.51 Long term (current) use of inhaled steroids; Z79.891 Long term (current) use of opiate analgesic
CPT/HCPCS: 27096; 99199; J3301

== ENCOUNTER 2023-05-09 12:47 | Outpatient (CLI) | payer OTHER, SELFPAY ==
[2023-05-09 17:28] LABS: Basophils Absolute Auto 0.1 K/mm3 (0.0-0.1); Basophils Percent Auto 1.3 % (0.2-1.2); Eosinophils Absolute Auto 0.2 K/mm3 (0-0.3); Eosinophils Percent Auto 2.9 % (0-4.4); Hematocrit 43.1 % (37.0-47.0); Hemoglobin 13.9 g/dL (12.0-15.0); Immature Granulocyte Absolute 0.01 K/mm3 (0.00-0.031); Immature Granulocyte Percent A 0.2 % (0-0.5); Lymphocytes Absolute Auto 1.98 K/mm3 (0.9-3.2); Lymphocytes Percent Auto 31.4 % (18.3-44.2); Mean Corpuscular HGB Conc 32.3 g/dl (32-36); Mean Corpuscular Hemoglobin 30.9 pg (26-34); Mean Corpuscular Volume 95.8 fl (80-100); Mean Platelet Volume 9.7 fl (7.4-10.4); Monocytes Absolute Auto 0.5 K/mm3 (0.1-0.6); Monocytes Percent Auto 7.1 % (2.6-8.5); Neutrophils Absolute Auto 3.6 K/mm3 (1.3-6.7); Neutrophils Percent Auto 57.1 % (45.5-73.1); Platelet Count Result 276 k/mm3 (150-375); Red Cell Distribution Width 11.9 % (11.5-14.5); White Blood Count 6.3 K/mm3 (4.5-10.0)
[2023-05-09 17:45] LABS: Alanine Aminotransferase 30 U/L (6-35); Albumin Level 4.5 g/dL (3.5-5.1); Alkaline Phosphatase 109 U/L (38-126); Anion Gap 6 mmol/L (8-16); Aspartate Amino Transferase 75 U/L (14-36); Bilirubin,Total 0.8 mg/dL (0.2-1.3); Blood Urea Nitrogen 20 mg/dL (7-17); Calcium 9.8 mg/dL (8.4-10.2); Carbon Dioxide 33 mmol/L (22-30); Chloride 98 mmol/L (98-107); Cholesterol 175 mg/dL (0-200); Estimated Glomerular Filt Rate > 60; Glucose 81 mg/dL (65-110); HDL Direct 101 mg/dL; Potassium 4.3 mmol/L (3.4-5.0); Sodium 137 mmol/L (137-145); Triglycerides 52 mg/dL (<150)
[2023-05-09 17:56] LABS: LDL Cholesterol Direct 54 mg/dL
[2023-05-11 19:52] LABS: Amphetamines NEGATIVE ng/mL (<500); Barbiturates NEGATIVE ng/mL (<300); Benzodiazepines POSITIVE ng/mL (<100); Cocaine Metabolite NEGATIVE ng/mL (<150); Marijuana Metabolite POSITIVE ng/mL (<20); Methadone Metabolite NEGATIVE ng/mL (<100); Opiates POSITIVE ng/mL (<100); Oxidant NEGATIVE mcg/mL (<200); pH 6.2 (4.5-9.0)
== END 2023-05-09 12:48 | disposition home or self-care (01) ==
LOC: ANHWCLAB 12:55
PROVIDERS: PCP Family Medicine
DX: E78.5 Hyperlipidemia, unspecified (principal); Z02.83 Encounter for blood-alcohol and blood-drug test
CPT/HCPCS: 36415; 80053; 80061; 80307; 85025

== ENCOUNTER 2023-05-09 13:30 | Outpatient (RCR) | payer OTHER, SELFPAY ==
--- NOTE | 2023-03-13 14:29 | OPREHPOC ---
Outpatient Therapy Plan of Care This is a Multidisciplinary Plan of Care that may contain components documented by all disciplines (PT, OT, and ST.) PT Problem 1 PT Problem #1 Knowledge Deficit PT Goal 1 Goal 1* indep with HEP PT Problem 2 PT Problem #2 Pain PT Goal 1 Goal 1* pt report pain in back, worst rating of 8/10 2* self assessment Oswestry score of 42% limitation in activity level 3* radicular pain to R and L lateral hips at worst PT Problem 3 PT Problem #3 Impaired Strength PT Goal 1 Goal 1* pt perform supine R LE exercises x 20 reps 2* pt perform supine L LE exercises x 20 reps 3* 2 minute walking test distance of 225' 4* pt static stand, stable position x 60 seconds
--- NOTE | 2023-03-13 14:29 | PTOPEVAL1 ---
Assessment and note entered by Anitha Quigley, PT Evaluation Information Assessment Status Evaluation Diagnosis neck pain, back pain, unspecified OA Onset over 1 year Subjective Information gradual increase in pain, no recent injury or trauma to neck or back. Back bothers her more-- wants treatment for her back; saw pain management dr--going to get back injections, not scheduled yet x ray of back: T 12 compression fracture, moderate lumbar spondylosis, L 4-5 and L 5-S1 fusion Had 1 PT session for eval only in Dec, then had transportation issues, so stopped therapy. 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 Her history includes back surgery and extensive abdominal surgery for perforated hernia. She reports decreased walking standing and activity due to pain in back and weakness. Self assessment Oswestry score of 50% limitation; With the evaluation: she chino
--- NOTE | 2023-04-09 14:29 | PCPTNOTE ---
Patient no show for today's appointment.
--- NOTE | 2023-04-17 12:42 | PCPTNOTE ---
Ed Carlos contacted the clinic to reschedule her appointment on this date.
--- NOTE | 2023-05-09 14:48 | PTOPDC ---
Assessment and note entered by Adams Reynoso, PT Evaluation Information Assessment Status Discharge Diagnosis neck pain, back pain, unspecified OA Onset over 1 year Subjective Information Reports that she had a lumbar injection but unsure of the date. Reports that she feels that helped a lot. Reports that a lot of her issue right now is between her shoulder blades and lower neck. Does not feel she needs therapy on her low back right now because she is doing so well. Wants to work on upper back and neck. She has been using heat to help with pain. Reported Pain Level Pain Score 7: Self Report Assessment PT Clinical Summary Patient has met majority of goals for therapy at this time in relation to her low back. Having some pain in upper back and cervical spine. She has had trouble making therapy appointments with multiple cancellations and reschedules. Was instructed in HEP to perform at home and will be discharged at this time. Plan of Care PT Services Indicated D/C to HEP
--- NOTE | 2023-05-09 14:49 | OPREHPOC ---
Outpatient Therapy Plan of Care This is a Multidisciplinary Plan of Care that may contain components documented by all disciplines (PT, OT, and ST.) PT Problem 1 PT Problem #1 Knowledge Deficit PT Goal 1 Goal 1* indep with HEP Progress Met PT Problem 2 PT Problem #2 Pain PT Goal 1 Goal 1* pt report pain in back, worst rating of 8/10 2* self assessment Oswestry score of 42% limitation in activity level 3* radicular pain to R and L lateral hips at worst Progress Met PT Problem 3 PT Problem #3 Impaired Strength PT Goal 1 Goal 1* pt perform supine R LE exercises x 20 reps 2* pt perform supine L LE exercises x 20 reps 3* 2 minute walking test distance of 225' 4* pt static stand, stable position x 60 seconds Progress Met
== END 2023-05-27 09:26 | disposition home or self-care (01) ==
LOC: ANHPT 13:30
PROVIDERS: PCP Family Medicine; Visit Provider Nurse Practitioner Adult Health
DX: M47.22 Other spondylosis with radiculopathy, cervical region (principal); M54.50 Low back pain, unspecified; M19.90 Unspecified osteoarthritis, unspecified site
CPT/HCPCS: 36415; 80053; 80061; 80307; 85025; 97014; 97110; 97140; 97161; 99199; G0283

== ENCOUNTER 2023-06-11 10:51 | Outpatient (CLI) | payer OTHER, SELFPAY ==
--- NOTE | ~2023-06-11 | MMUS_ITS ---
EXAMINATION: MM diagnostic elissa RT w letty, US breast RT limited HISTORY: Six-month follow-up for probably benign right breast asymmetry and right breast mass TECHNIQUE: Craniocaudal, mediolateral, and mediolateral oblique 3-D tomosynthesis images of the right breast were performed and synthetic 2-D images were generated. CAD analysis was submitted and interp reted. High resolution limited right breast ultrasound was performed. COMPARISON: 11/02/2022, 09/28/2022, 05/25/2021, 10/21/2017 BREAST PARENCHYMAL COMPOSITION: There are scattered areas of fibroglandular density. FINDINGS: MAMMOGRAPHIC FINDINGS: Again seen is a stable there has been no suspicious interval change. Approximately 5 mm x 2 mm focal asymmetry in the far posterior third of the lower inner breast approximately 9 cm from the nipple. ULTRASOUND: There is a 1.3 x 0.4 cm oval, circumscribed, parallel, hypoechoic mass with no posterior features or internal vascularity at the 6:00 location near the nipple which is not significantly changed. No sono graphic correlate is identified for the focal asymmetry of the lower inner breast. IMPRESSION: 1. Probably benign right breast mass and focal asymmetry. 2. Recommend 6 month follow-up bilateral diagnostic mammogram and right breast ultrasound. BI-RADS category 3, probably benign findings. Reviewed, dictated and finalized at location A. YSIS NURSE IMPRESSION: 1. Probably benign right breast mass and focal asymmetry. 2. Recommend 6 month follow-up bilateral diagnostic mammogram and right breast ultrasound. BI-RADS category 3, probably benign findings.
== END 2023-06-11 10:52 | disposition home or self-care (01) ==
PROVIDERS: PCP Family Medicine; Visit Provider Nurse Practitioner Adult Health
DX: N63.10 Unspecified lump in the right breast, unspecified quadrant (principal); R92.8 Other abnormal and inconclusive findings on diagnostic imaging of breast
CPT/HCPCS: 76642; 77061; 77065; G0279

== ENCOUNTER 2023-12-10 10:56 | Outpatient (CLI) | payer OTHER, SELFPAY ==
--- NOTE | ~2023-12-10 | MMUS_ITS ---
EXAMINATION: MM diagnostic elissa BI w letty, US breast RT limited HISTORY: Follow-up breast mass TECHNIQUE: Additional 3-D tomosynthesis images of the breasts were performed and synthetic 2-D images were generated. CAD analysis was submitted and interpreted. High resolution Limited right breast ult rasound was performed. COMPARISON: Comparison to multiple prior studies sequentially, with oldest reviewed study dated 01/09. BREAST PARENCHYMAL COMPOSITION: Not dense: There are scattered areas of fibroglandular density. FINDINGS: MAMMOGRAPHIC FINDINGS: There are no suspicious masses, calcifications or architectural distortion in either breast to sugges t malignancy. The breasts are stable. ULTRASOUND: Limited right breast ultrasound: At 6:00, 1 cm from the nipple there is an oval hypoechoic mass witho ut internal vascularity or posterior features measuring 11 x 9 x 4 mm without significant change dati ng back to 11/02/2022, likely benign. IMPRESSION: 1. Stable likely benign right breast mass. 2. Given one year of interval stability, recommend 12 month followup Limited right breast ultrasound and bilateral screening mammogram. BI-RADS category 3, probably benign findings. Reviewed, dictated and finalized at location B. IMPRESSION: 1. Stable likely benign right breast mass. 2. Given one year of interval stability, recommend 12 month followup Limited ri ght breast ultrasound and bilateral screening mammogram. BI-RADS category 3, probably benign findings.
== END 2023-12-10 10:57 | disposition home or self-care (01) ==
LOC: ANHIMG 10:57
PROVIDERS: PCP Family Medicine; Visit Provider Registered Nurse
DX: N63.10 Unspecified lump in the right breast, unspecified quadrant (principal); R92.8 Other abnormal and inconclusive findings on diagnostic imaging of breast
CPT/HCPCS: 76642; 77062; 77066; G0279

== ENCOUNTER 2024-01-30 19:58 | Inpatient (IN) | payer OTHER, SELFPAY ==
--- NOTE | ~2024-01-30 | MR_ITS ---
EXAMINATION: MR lumbar spine wo con DATE: 02/02/2024 13:24 INDICATION: Heaviness in the legs TECHNIQUE: Magnetic resonance imaging (MRI) of the lumbar spine was performed without intravenous con trast. Sequences included sagittal T2-weighted FSE, sagittal T2-weighted FS FSE, sagittal T1-weighted FSE, and axial T2-weighted FSE. COMPARISON: None FINDINGS: L4-S1 anterior and posterior spinal fusion with bilateral vertical jessica and pedicle screw fixation. L5 is fused to S1 with approximately 5 mm anterolisthesis. There are L4 and L5 laminectomies. 2 mm retr olisthesis L1 on L2 and L3 on L4, 3 mm retrolisthesis L2 on L3. Lumbar vertebral body heights are nor mal with Schmorl's node along the superior endplates of L1 and L3. Chronic T12 burst fracture with 60 % anterior vertebral body height loss and 3 mm retropulsion which along the remainder of the thoracic spine is discussed in further detail on separate thoracic spine MRI performed at the same time. Nor mal marrow signal. Mild disc height loss at L2-L3 and L3-L4. The conus medullaris terminates at L1-L2 . There is normal signal in the caudal spinal cord. There is fatty atrophy of the posterior paraspina l musculature at the lower lumbar spine. The following disc levels are specifically discussed: T12-L1: Disc is bulging. There is mild right and moderate left facet joint osteoarthritis. There is m ild left neural foraminal stenosis. There is mild central canal stenosis. L1-L2: Disc is mildly bulging. There is mild bilateral facet joint osteoarthritis. There is minimal b ilateral neural foraminal stenosis. There is minimal central canal stenosis. L2-L3: Disc is bulging. There is moderate bilateral facet joint osteoarthritis. There is mild to mode rate bilateral neural foraminal stenosis. There is mild central canal stenosis. L3-L4: Disc is mildly bulging. There is severe bilateral facet joint osteoarthritis. There is moderat e right and mild left neural foraminal stenosis. There is minimal central canal stenosis. L4-L5: Anterior and posterior spinal fusion procedure with posterior decompression. There is no neura l foraminal stenosis. There is no central canal stenosis. L5-S1: Anterior and posterior spinal fusion procedure with posterior decompression. There is no neura l foraminal stenosis. There is no central canal stenosis. IMPRESSION: 1. Mild lumbar spondylosis with 4 and L5 laminectomies and L4-S1 anterior and instrumented posterior spinal fusion. 2. Chronic T12 burst fracture. Reviewed, dictated and finalized at location A. IMPRESSION: 1. Mild lumbar spondylosis with 4 and L5 laminectomies and L4-S1 anterior and i nstrumented posterior spinal fusion. 2. Chronic T12 burst fracture.
--- NOTE | ~2024-01-30 | CT_ITS ---
EXAMINATION: CT brain wo con DATE: 02/02/2024 11:34 INDICATION: Weakness TECHNIQUE: Computed tomography (CT) of the head was performed without intravenous contrast. Sagittal and coronal reconstructions were performed. The mA was adjusted according to patient size. Iterative reconstruction technique was employed. The dose-length product was 605.33 mGy-cm. COMPARISON: head CT dated 01/30/2024 FINDINGS: No acute intracranial hemorrhage, acute infarction or abnormal extra axial fluid collection. Ventricl es are normal and symmetric. No mass/mass effect. Changes of bilateral intraocular lens replacement. The orbits, paranasal sinuses and mastoid air cells are normal. IMPRESSION: 1. Normal head CT. Reviewed, dictated and finalized at location A. IMPRESSION: 1. Normal head CT.
--- NOTE | ~2024-01-30 | MR_ITS ---
EXAMINATION: MR thoracic spine wo con DATE: 02/02/2024 13:24 INDICATION: Weakness. The venous in the legs. TECHNIQUE: Magnetic resonance imaging (MRI) of the thoracic spine was performed without intravenous c ontrast. Sagittal localizer T1-weighted FSE of the cervicothoracic spine was obtained. Thoracic spine sequences included sagittal T2-weighted FSE, sagittal T1-weighted SE, Sagittal T2-weighted FS FSE, a nd axial T2-weighted FSE. COMPARISON: None FINDINGS: 11 degree thoracic dextroscoliosis. There is focal kyphosis associated with a chronic T12 burst fract ure with 60% anterior vertebral body height loss and 3 mm retropulsion. 9 mm T1 hypointense lesion i n the T9 vertebral body. Marrow signal is otherwise unremarkable.Mild left-sided predominant disc hei ght loss at T5-T6and T6-T7. There is mild central canal stenosis resulting from the retropulsion at t he superior posterior endplate of T12. Mild disc bulge at T12-L1 additional mild central canal stenos is. No other central canal stenosis. There is linear fluid signal intensity measuring up to <1.5 mm i n maximal diameter the central aspect of the cord extending 4 cm cranial caudally from T5 to C7 which remains within normal limits for a normal central canal. Otherwise normal spinal cord signal. The co nus terminates at L1-L2. There is multilevel mild thoracic facet osteoarthritis. No significant neura l foraminal stenosis. IMPRESSION: 1. 11 degrees thoracic dextroscoliosis with mild spondylosis. 2. Chronic T12 compression fracture with 60% anterior vertebral body height loss and 3 mm retropulsio n resulting in mild central canal stenosis. 3. 9 mm T1 hyperintense lesion in the T9 vertebral body which is nonspecific with differential includ ing benign etiology such as red marrow expansion or atypical hemangioma but could not exclude a malig nant/metastatic lesion. Consider further evaluation with either bone scan or pre and postcontrast MRI . Reviewed, dictated and finalized at location A. IMPRESSION: 1. 11 degrees thoracic dextroscoliosis with mild spondylosis. 2. Chronic T12 compression fracture with 60% anterior vertebral body height los s and 3 mm retropulsion resulting in mild central canal stenosis. 3. 9 mm T1 hyperintense lesion in the T9 vertebral body which is nonspecific wi th differential including benign etiology such as red marrow expansion or atypi barby hemangioma but could not exclude a malignant/metastatic lesion. Consider fu rther evaluation with either bone scan or pre and postcontrast MRI.
--- NOTE | ~2024-01-30 | XR_ITS ---
EXAMINATION: XR hip BI 2V w AP pelvis DATE: 01/30/2024 22:02 INDICATION: Bilateral hip pain. Fall. TECHNIQUE: An anteroposterior view of the pelvis and 2 views of each hip were obtained. COMPARISON: Pelvis and hip radiographs 01/10/2023 FINDINGS: Alignment is normal. No fracture. There are changes of posterior fusion procedure in the magaly mbosacral spine. There is severe right hip osteoarthritis and moderate left hip osteoarthritis. Ostei tis pubis is noted. IMPRESSION: 1. Severe right hip osteoarthritis and moderate left hip osteoarthritis. Reviewed, dictated and finalized at location A.
--- NOTE | ~2024-01-30 | CT_ITS ---
CT hip RT wo con Ordering provider: Louie Toledo MD History: . trauma, right hip pain . Comparison: December 092020 Technique: CT pelvis without oral and IV contrast. . Automated exposure control and iterative recons truction technique were employed. The dose-length product was 131.78 mGy-cm. Findings: BONES: No hip dislocation. Fracture of the right sacral alar is noted.. . Severe osteoarthritic neal es of the right hip are noted. Cystic area seen in the anterior acetabulum most likely degenerative. Lucency is is also seen in the right iliac bone which may be degenerative and appear unchanged from p revious examination. Postoperative changes in the spine. SUPERFICIAL SOFT TISSUES: Normal. PELVIC ORGANS: The bladder shows markedly thickened wall. Evaluation for cystitis or infiltrative pro cess is advised. VISUALIZED BOWEL AND MESENTERY: Normal. No free air or free fluid. No lymphadenopathy. RETROPERITONEUM: Mild atheromatous disease. IMPRESSION: Fracture of the right sacral alar. No other definite fractures seen. Severe osteoarthritic changes of the right hip. Markedly thickened wall of the urinary bladder. Further evaluation advised. Reviewed, dictated and finalized at location A.
--- NOTE | ~2024-01-30 | CT_ITS ---
EXAMINATION: CT brain wo con DATE: 01/30/2024 20:27 INDICATION: Loss of consciousness. Fall. TECHNIQUE: Computed tomography (CT) of the head was performed without intravenous contrast. The mA wa s adjusted according to patient size. Iterative reconstruction technique was employed. The dose-lengt h product was 681.00 mGy-cm. COMPARISON: Head CT 04/10/2010 FINDINGS: There are scattered areas of low attenuation in the cerebral white matter, which is within normal limits for the patient's age. There is no intracranial hemorrhage, acute infarction, or abnorm al intracranial mass lesion. The ventricles are normal in size. There is mild mucosal thickening in t he paranasal sinuses. There are likely changes of ocular lens replacement surgeries. The mastoid air cells are normal. IMPRESSION: 1. Normal aging brain. Reviewed, dictated and finalized at location A. IMPRESSION: 1. Normal aging brain.
--- NOTE | ~2024-01-30 | XR_ITS ---
EXAMINATION: XR elbow LT min 3V DATE: 01/31/2024 13:59 INDICATION: Left elbow pain. Fall. TECHNIQUE: 4 views of left elbow were obtained. COMPARISON: None. FINDINGS: Alignment is normal. No fracture. There is mild elbow joint osteoarthritis. There is an elb ow joint effusion. IMPRESSION: 1. Elbow joint effusion. No fracture identified. 2. Mild elbow joint osteoarthritis. Reviewed, dictated and finalized at location A.
--- NOTE | ~2024-01-30 | US_ITS ---
EXAMINATION: US carotid duplex BI DATE: 01/31/2024 14:01 INDICATION: Syncope TECHNIQUE: Grayscale, color Doppler, and pulsed Doppler images of the cervical carotid arteries were obtained. The degree of vessel stenosis is placed in one of the following categories: normal, <50%, 5 0-69%, >=70% but less than near-occlusion, near-occlusion, or total occlusion. Note that percent sten osis relative to normal distal artery lumen diameter is indirectly measured from velocity measurement s as described by Woody, et al. Radiology 2003; 229:340-346. Notes: Normal: Peak systolic velocity <125 centimeters/sec and no plaque <50%. Peak systolic velocity <125 ( EDV <40; ICA/CCA PSV ratio <2.0; used these factors only a tandem lesions or low cardiac output or co ntralateral disease) 50-69 %: PSV 125-230 (EDV 40-100; ratio 2-4) >= 70% but less than near occlusion: PSV greater than 230 (EDV > 100; ratio> 4.0) Near Occlusion: PSV that is variable; markedly narrowed lumen Occlusion: Absent flow on color/spectral Doppler and no lumen on mackay scale. COMPARISON: None. FINDINGS: RIGHT: The right common carotid artery (CCA) peak systolic velocity (PSV) is 96 cm/s. The right internal car otid artery (ICA) PSV is 148 cm/s. The right ICA end-diastolic velocity (EDV) is 45 cm/s. The right I CA/CCA PSV ratio is 1.5. The external carotid artery (ECA) PSV is 111 cm/s. There is antegrade flow i n the right vertebral artery. LEFT: The left CCA PSV is 118 cm/s. The left ICA PSV is 99 cm/s. The left ICA EDV is 35 cm/s. The left ICA/ CCA PSV ratio is 0.8. The ECA PSV is 116 cm/s. There is antegrade flow in the left vertebral artery. IMPRESSION: 1. 50-69% stenosis in the right internal carotid artery by sonographic criteria. 2. Less than 50% stenosis in the left internal carotid artery by sonographic criteria. Reviewed, dictated and finalized at location B. IMPRESSION: 1. 50-69% stenosis in the right internal carotid artery by sonographic criteria . 2. Less than 50% stenosis in the left internal carotid artery by sonographic cr iteria.
--- NOTE | ~2024-01-30 | CT_ITS ---
EXAMINATION: CT lumbar spine wo con DATE: 01/30/2024 22:07 INDICATION: Low back pain. Fall. TECHNIQUE: Computed tomography (CT) of the lumbar spine was performed without intravenous contrast. A utomated exposure control and iterative reconstruction technique were employed. The dose-length produ ct was 198.97 mGy-cm. COMPARISON: None FINDINGS: There is 3 degrees dextrocurvature of thoracolumbar spine. There are changes of anterior po sterior fusion procedures from L4 to S1 with healed interbody bone graft and pedicle screws. There is a chronic burst fracture of T12 with 3/5 loss of height, retropulsion of bone 3 mm into central spin al canal, and focal kyphosis. There is severely decreased disc height at L2-L3 and L3-L4. There are a cute fractures of the bilateral sacral ala and S2 body. The following disc levels are specifically di scussed: L1-L2: The disc does not extend beyond the endplate margin. There is mild bilateral facet joint osteo arthritis. There is no neural foraminal stenosis. There is no central canal stenosis. L2-L3: The disc is bulging. There is mild bilateral facet joint osteoarthritis. There is mild bilater al neural foraminal stenosis. There is mild central canal stenosis. L3-L4: The disc is bulging. There is severe bilateral facet joint osteoarthritis. There is mild bilat eral neural foraminal stenosis. There is mild central canal stenosis. L4-L5: There is no facet joint hypertrophy. There is no neural foraminal stenosis. There is no centra l canal stenosis. There is posterior decompression. L5-S1: There is no facet joint hypertrophy. There is no neural foraminal stenosis. There is no centra l canal stenosis. There is posterior decompression. IMPRESSION: 1. Acute sacral insufficiency fractures. 2. Severe lumbar spondylosis. 3. Anterior and posterior fusion procedures from L4 to S1. Reviewed, dictated and finalized at location A.
[2024-01-30 19:59] VITALS: BP 136/74; PULSE 74; RESP 15; TEMP 36.6; O2SAT 97
--- NOTE | 2024-01-30 20:09 | ECG_ITS ---
Test Date: 2024-01-30 20:46:57 Measurements Intervals Mobile Rate: 69 P: 73 FL: 175 QRS: 37 QRSD: 89 T: 82 QT: 410 QTc: 439 Interpretive Statements SINUS RHYTHM POSSIBLE LEFT ATRIAL ENLARGEMENT [-0.1mV P WAVE IN V1/V2] POSSIBLE RIGHT VENTRICULAR CONDUCTION DELAY [RSR (QR) IN V1/V2] No previous ECG available for comparison Electronically Signed On 01-31-2024 10:38:23 CDT by Ernesto Andrews M.D.
--- NOTE | 2024-01-30 20:31 | ED_ITS ---
HPI - Fall General Chief Complaint: Fall Stated Complaint: fall Time Seen by Provider: 01/30/24 20:06 Source: patient Mode of arrival: ambulatory Limitations: no limitations History of Present Illness HPI Narrative: This is a 63-year-old female with PMH of anxiety, COPD, alcoholism who presents to the ED via EMS for chief complaint ground level fall that occurred while at home. Patient reports that she was walking through the hallway after using the bathroom when she suddenly dropped to the ground. She is unsure of what caused this fall. She does not feel that she loss consciousness but cannot tell me why she fell. She is complaining of bilateral lower extremity pain. Denies head injury. States that she has been taking her seizure medication but she is not sure what it is called. Per EMS, patient was face down on the carpeted floor when they arrived was complaining of buttock pain. Related Data Home Medications Medication Instructions Recorded Confirmed acetaminophen 650 mg 650 mg PO BID PRN Pain (Scale 09/08/20 01/31/24 tablet,extended release (Arthritis Score 1-3) Pain Relief (acetaminophen) ER) buspirone 7.5 mg tablet 7.5 mg PO BID 09/08/20 01/31/24 diphenhydramine HCl 25 mg capsule 25 mg PO BID 09/08/20 01/31/24 (Allergy Relief (diphenhydramine)) hydrocodone 5 mg-acetaminophen 325 1 tablet PO QID 01/31/24 01/31/24 mg tablet hydroxyzine HCl 50 mg tablet 50 mg PO TID 01/31/24 01/31/24 lamotrigine 200 mg tablet 200 mg PO BID 01/31/24 01/31/24 lorazepam 0.5 mg tablet 0.5 mg PO HS 01/31/24 01/31/24 sertraline 100 mg tablet 100 mg PO DAILY 01/31/24 01/31/24 Allergies Allergy/AdvReac Type Severity Reaction Status Date / Time Penicillins Allergy Mild Unknown Verified 01/31/24 01:38 Sulfa (Sulfonamide Allergy Mild Unknown Verified 01/31/24 01:38 Antibiotics) grapefruit Allergy Unknown Verified 01/31/24 01:38 fluoxetine [From Prozac] AdvReac Severe Agitated Verified 01/31/24 01:38 Review of Systems Review of Systems: All systems as dictated in HPI [facility] Past Medical History Medical History Anxiety Anxiety and depression COPD (chronic obstructive pulmonary disease) Depression GERD without esophagitis History of alcoholism History of smoking Perforated gastric ulcer (~12/27/20) Seizures (Unknown) Surgical History Surgical History H/O lumbosacral spine surgery History of appendectomy History of gastric ulcer Exploratory laparotomy with over-sewing of antral gastric ulcer and placement of omental patch, biopsy of antral gastric ulcer, peritoneal washout - 12/28/2020 Hx of tracheostomy Family History Family History Mother Heart disease Cerebrovascular accident Father Heart disease Other Unknown family medical history Social History Social History (Updated 07/09/23 @ 13:59 by MIKALA Henson) Social History: The patient stated that she had 5 children and 1 at . The patient is and she is considered disabled. The patient stated that she is 16 years clean with alcohol and she is recovering alcoholic. The patient stated that she smoked many years ago and no longer smokes. The patient is listed as a full code. And she stated that she does not want any CPR if she has spinal surgery. The patient desires to be a DNR. The patient does not have a durable power claims attorney for healthcare. Smoking status: Former smoker Tobacco type: cigarettes Alcohol intake: former Alcohol use details: RECOVERING , NONE 15 YRS Substance use: current Substance use type: marijuana Other substance usage details: edibles - Marijuana Do You Feel Safe in your Home?: Yes Lack of Transportation: No Lack of Food: Never True Current Housing: I Have Housing Concerned About Future Housing: No Difficulty Paying Gas/Electric Bills: No Difficulty Paying for Meds: No Currently Unemployed: No Education: Grade School Difficulty w/ Childcare or Family Care: No Living arrangements: with family Additional living arrangements comments: LIVES WITH DAUGHTER JOJO Occupation/Education: retired Gender identity (if verbalized by the patient): Female Sexual Orientation (if Verbalized by the Patient): Straight or Heterosexual Spiritual care concerns: No Agree to blood products: Yes Exam Narrative: GENERAL: Well-appearing, well-nourished, and in no acute distress. HEAD: Normocephalic, atraumatic. EYES: PERRLA and EOMI. ENT: Nares clear, no rhinorrhea or epistaxis. Mucous membranes moist. Oropharynx without tonsillar hypertrophy exudate or other lesions. NECK: Supple. No adenopathy or masses. CHEST: No respiratory distress. Clear to auscultation. No wheezes rales or rhonchi HEART: Regular rate and rhythm. No murmur heard. Normal peripheral pulses. ABDOMEN: Soft, nontender, nondistended, normal active bowel sounds. MSK: Normal range of motion. No edema. SKIN: Warm, dry, no rash. NEURO: Alert and oriented x4. No focal deficits. PSYCH: Normal mood and affect. Course Vital Signs Vital signs: Vital Signs Temperature 97.8 F 01/30/24 19:59 Pulse Rate 74 01/30/24 19:59 Respiratory Rate 15 01/30/24 19:59 Blood Pressure 136/74 01/30/24 19:59 Pulse Oximetry 97 01/30/24 19:59 Oxygen Delivery Room Air 01/30/24 19:59 Temperature 97.7 F 01/31/24 01:10 Pulse Rate 69 01/31/24 01:21 Respiratory Rate 16 01/31/24 01:21 Blood Pressure 139/75 01/31/24 01:10 Pulse Oximetry 99 01/31/24 01:21 Oxygen Delivery Room Air 01/31/24 01:21 MDM - Fall MDM Narrative Medical decision making narrative: This is a 63 yo female who presents to the ED for chief complaint of fall occurring at home today. Vitals are normal. Exam shows significant difficulty with range of motion of the hips and low back due to pain. She is not ambulatory. EKG shows sinus rhythm with no acute ischemic findings. Lab work overall back relatively unremarkable. Slight elevation white count 7 this shows kidney which has was baseline. CK slightly elevated to 999 indicating rhabdomyolysis. Urinalysis shows 2+ ketones which is consistent with dehydration that is seen on physical exam. Urine drug screen positive for opiates but no other substance. Alcohol negative. X-rays of the bilateral hips and pelvis: IMPRESSION: 1. Severe right hip osteoarthritis and moderate left hip osteoarthritis. Lumbar spine CT: IMPRESSION: 1. Acute sacral insufficiency fractures. 2. Severe lumbar spondylosis. 3. Anterior and posterior fusion procedures from L4 to S1. Head CT: IMPRESSION: 1. Normal aging brain. Patient having continued pain with the sacral fractures.. Difficult to achieve any meaningful attempt at ambulation. Discussed with the patient the possible plan for pain control and physical therapy eval in the hospital. She is agreeable with this. Discussed this plan with hospitalist, Dr. Garcia who agrees to admit the patient to medical floor. Lab Data 01/30/24 20:44 01/30/24 20:44 Labs: Lab Results 01/30/24 01/30/24 Range/Units 20:44 20:47 WBC 10.7 H (4.5-10.0) K/mm3 RBC 4.51 (4.2-5.4) M/mm3 Hgb 13.7 (12.0-15.0) g/dL Hct 41.0 (37.0-47.0) % MCV 90.9 (80-100) fl MCH 30.4 (26-34) pg MCHC 33.4 (32-36) g/dl RDW 12.8 (11.5-14.5) % Plt Count 387 H (150-375) k/mm3 MPV 8.9 (7.4-10.4) fl Immature Gran % (Auto) 0.4 (0-0.5) % Neut % (Auto) 88.2 H (45.5-73.1) % Lymph % (Auto) 5.8 L (18.3-44.2) % Kidder % (Auto) 4.9 (2.6-8.5) % Eos % (Auto) 0.2 (0-4.4) % Baso % (Auto) 0.5 (0.2-1.2) % Lymph # (Auto) 0.62 L (0.9-3.2) K/mm3 Kidder # (Auto) 0.5 (0.1-0.6) K/mm3 Eos # (Auto) 0.0 (0-0.3) K/mm3 Baso # (Auto) 0.1 (0.0-0.1) K/mm3 Abs Immat Gran (auto) 0.04 H (0.00-0.031) K/mm3 Absolute Neuts (auto) 9.5 H (1.3-6.7) K/mm3 Absolute Nucleated RBC 0.000 (0.0-0.012) K/mm3 Nucleated RBC % 0.0 (0.0-0.2) % PT 14.3 (11.1-14.7) Seconds INR 1.1 APTT 26.5 (22.3-36.8) Seconds Sodium 136 L (137-145) mmol/L Potassium 3.9 (3.4-5.0) mmol/L Chloride 98 (98-107) mmol/L Carbon Dioxide 25 (22-30) mmol/L Anion Gap 13 H (4-12) mmol/L BUN 16 (7-17) mg/dL Creatinine 0.60 L (0.7-1.0) mg/dL Estim Creat Clear Calc 63 ml/min Estimated GFR > 60 (59 - ) Glucose 98 (65-110) mg/dL Lactic Acid 0.9 (0.7-2.0) mmol/L Calcium 10.1 (8.4-10.2) mg/dL Phosphorus 3.6 (2.5-4.5) mg/dL Magnesium 2.0 (1.6-2.3) mg/dL Total Bilirubin 1.2 (0.2-1.3) mg/dL AST 40 H (14-36) U/L ALT 16 (6-35) U/L Alkaline Phosphatase 180 H (38-126) U/L Total Creatine Kinase 299 H (30-135) U/L Total Protein 8.0 (6.3-8.2) g/dL Albumin 4.6 (3.5-5.1) g/dL Urine Color Yellow (Yellow) Urine Appearance Clear (Clear) Urine pH 6.0 (5.0-9.0) Ur Specific [place] 1.010 (1.001-1.035) Urine Protein Negative (Negative) mg/dL Urine Glucose (UA) Negative (Negative) mg/dL Urine Ketones 2+ H (Negative) mg/dL Ur Blood (Man) Negative (Negative) Urine Nitrate Negative (Negative) Urine Bilirubin Negative (Negative) Urine Urobilinogen 0.2 (<2.0) mg/dL Leukocyte Esterase Rfl Negative (Negative) RICCI/UL Urine Opiates Screen Positive A (Negative) Urine Methadone Screen Negative (Negative) Ur Barbiturates Screen Negative (Negative) Ur Phencyclidine Scrn Negative (Negative) Ur Amphetamine Screen Negative (Negative) U Benzodiazepines Scrn Negative (Negative) Urine Cocaine Screen Negative (Negative) U Cannabinoids Screen Negative (Negative) Ethyl Alcohol < 10 (<10) mg/dL ECG Data EKG #1: ECG completion date: 01/30/24 ECG completion time: 20:46 Prior ECG tracings: not available for review Interpretation: Sinus rhythm Rate 69 Normal QRS Normal QTC No acute ischemic findings Discharge Plan Discharge Clinical Impression: Bilateral sacral insufficiency fracture, Fall Patient Disposition: Still a Patient Condition: Stable
[2024-01-30 20:59] LABS: Basophils Absolute Auto 0.1 K/mm3 (0.0-0.1); Basophils Percent Auto 0.5 % (0.2-1.2); Eosinophils Percent Auto 0.2 % (0-4.4); Hemoglobin 13.7 g/dL (12.0-15.0); Immature Granulocyte Absolute 0.04 K/mm3 (0.00-0.031); Immature Granulocyte Percent A 0.4 % (0-0.5); Lymphocytes Absolute Auto 0.62 K/mm3 (0.9-3.2); Lymphocytes Percent Auto 5.8 % (18.3-44.2); Mean Corpuscular HGB Conc 33.4 g/dl (32-36); Mean Corpuscular Hemoglobin 30.4 pg (26-34); Mean Corpuscular Volume 90.9 fl (80-100); Mean Platelet Volume 8.9 fl (7.4-10.4); Monocytes Absolute Auto 0.5 K/mm3 (0.1-0.6); Monocytes Percent Auto 4.9 % (2.6-8.5); Neutrophils Absolute Auto 9.5 K/mm3 (1.3-6.7); Neutrophils Percent Auto 88.2 % (45.5-73.1); Platelet Count Result 387 k/mm3 (150-375); Red Blood Count 4.51 M/mm3 (4.2-5.4); Red Cell Distribution Width 12.8 % (11.5-14.5); White Blood Count 10.7 K/mm3 (4.5-10.0)
[2024-01-30 21:02] LABS: Add Urine Microscopic? NO; Appearance Urine Clear (Clear); Bilirubin Urine Negative (Negative); Blood Urine Negative (Negative); Color Urine Yellow (Yellow); Glucose Urine UA Negative (Negative); Ketones Urine 2+ mg/dL (Negative); Leukocyte Esterase Ur Negative LEU/UL (Negative); Nitrate Urine Negative (Negative); Protein Urine Negative (Negative); Urobilinogen Urine 0.2 mg/dL (<2.0)
[2024-01-30 21:09] LABS: Creatine Kinase 299 U/L (30-135); Lactic Acid Reflex 0.9 mmol/L (0.7-2.0); Phosphorus 3.6 mg/dL (2.5-4.5)
[2024-01-30 21:11] LABS: INR 1.1; Prothrombin Time 14.3 Seconds (11.1-14.7)
[2024-01-30 21:12] LABS: Partial Thromboplastin Time 26.5 Seconds (22.3-36.8)
[2024-01-30 21:13] LABS: Alanine Aminotransferase 16 U/L (6-35); Albumin Level 4.6 g/dL (3.5-5.1); Alkaline Phosphatase 180 U/L (38-126); Anion Gap 13 mmol/L (4-12); Aspartate Amino Transferase 40 U/L (14-36); Bilirubin,Total 1.2 mg/dL (0.2-1.3); Blood Urea Nitrogen 16 mg/dL (7-17); Calcium 10.1 mg/dL (8.4-10.2); Carbon Dioxide 25 mmol/L (22-30); Chloride 98 mmol/L (98-107); Estimated CRCL calculation 63 ml/min; Estimated Glomerular Filt Rate > 60; Glucose 98 mg/dL (65-110); Potassium 3.9 mmol/L (3.4-5.0); Sodium 136 mmol/L (137-145)
[2024-01-30 21:14] LABS: Ethanol < 10 mg/dL (<10)
[2024-01-30] MEDS: SODIUM CHLORIDE 0.9% IV 1,000 ML 999 ML IV CONT (21:14)
[2024-01-30 21:21] LABS: Amphetamine Screen Urine Negative (Negative); Barbiturate Screen Urine Negative (Negative); Benzodiazepines Screen Urine Negative (Negative); Cannabinoid Screen Urine Negative (Negative); Cocaine Screen Urine Negative (Negative); Methadone Screen Urine Negative (Negative); Opiate Screen Urine Positive (Negative); Phencyclidine Screen Urine Negative (Negative)
[2024-01-30] MEDS: ONDANSETRON INJ 4 MG/2 ML VIAL IV PUSH (22:38)
[2024-01-30] MEDS: MORPHINE SULFATE (*CRX) 4 MG/ML INJ IV PUSH (22:38)
[2024-01-30 22:40] VITALS: BP 120/66; PULSE 65; RESP 15; O2SAT 97
[2024-01-31] VITALS (8 sets, daily range): BP systolic 101–139; BP diastolic 44–75; PULSE 68–84; RESP 16; TEMP 36.5–36.7; O2SAT 95–99; BMI 19.9
--- NOTE | 2024-01-31 | ECHO_ITS ---
Patient Info Name: Gina Gonzalez Age: 63 years : 1960 Gender: Female Ht: 62 in Wt: 108 lbs BSA: 1.46 m2 HR: 68 bpm BP: 110 / 59 mmHg Heart Rhythm: Sinus Rhythm Technical Quality: Fair Exam Date: 01/31/2024 10:15 AM Exam Location: Echo Lab Patient Status: Inpatient Admit Date: 01/31/2024 Staff Ordering Physician: Jocelyne Carney APRN [employer]itor: Nori Mcgregor RDCS Attending Provider: Jocelyne Carney APRN Referring Physician: Rommel GONZÁLES; Exam Type: CA echo dop bubble study w con Study Info Indications R55 - Syncope and collapse Complete two-dimentional, color flow and Doppler transthoracic echocardiogram is performed with agitated saline and with contrast to opacify the left ventricle and to improve the delineation of the left ventricle endocardial borders. Contrast/Agitated Saline Contrast/Ag. Saline: Definity Amount: 2.00 ml Administered By: Nori Mcgregor RDCS Existing IV Access: Yes IV Access Condition: patent with no signs of infiltration Contrast/Ag. Saline: Agitated Saline Amount: 20.00 ml Administered By: Ele Woodard RN Existing IV Access: Yes IV Access Condition: patent with no signs of infiltration Summary 1. Definity contrast administered improved wall motion interpretation. 2. Left ventricular chamber dimension is normal. 3. Circumscribed mass measuring 1.6 cm2 attached to mid septal wall suggestive of LV myxoma. Consider JESUS if clinically indicated. 4. Left ventricular systolic function is hyperdynamic, estimated at >70%. 5. The left ventricular diastolic function is normal. 6. E/e' 6 is not elevated. 7. Agitated saline injection with and without valsalva maneuver opacified right side cardiac chambers with shunt to left side cardiac chambers suggestive of patent foramen ovale. 8. No pulmonary hypertension, estimated pulmonary arterial systolic pressure is 26 mmHg. Left Ventricle Definity contrast administered improved wall motion interpretation. E/e' 6 is not elevated. Circumscribed mass measuring 1.6 cm2 attached to mid septal wall suggestive of LV myxoma. Consider JESUS if clinically indicated. Left ventricular chamber dimension is normal. Left ventricular systolic function is hyperdynamic, estimated at >70%. The left ventricular diastolic function is normal. Right Ventricle Right ventricular chamber dimension is normal. Right ventricular systolic function is normal. Left Atria Left atrial chamber dimension is normal. Right Atria Right atrial chamber dimension is normal. Atrial Septum Agitated saline injection with and without valsalva maneuver opacified right side cardiac chambers with shunt to left side cardiac chambers suggestive of patent foramen ovale. Interatrial septum not well visualized by 2D and agitated saline imaging. Aortic Valve The aortic valve is not well visualized. Cannot determine number of aortic valve leaflets. There is no aortic valve stenosis. There is no aortic valve regurgitation. Pulmonic Valve There is no pulmonic regurgitation. Mitral Valve There is no mitral valve stenosis. There is no mitral valve regurgitation. Tricuspid Valve There is no tricuspid valve regurgitation. No pulmonary hypertension, estimated pulmonary arterial systolic pressure is 26 mmHg. Pericardium/Pleural There is no pericardial effusion. Inferior Vena Cava Normal inferior vena cava with >50% collapse upon inspiration consistent with normal right atrial pressure, 5 mmHg. Aorta The aortic root size at the sinus of Valsalva is normal. Left Ventricular Outflow Tract Name Value Normal LVOT 2D LVOT Diameter 1.9 cm LVOT Doppler LVOT Peak Gradient 5 mmHg LVOT Mean Gradient 3 mmHg LVOT VTI 23 cm LVOT VTI/AV VTI Ratio 0.8 LVOT Stroke Volume 67 ml LVOT CO 4.6 l/min LVOT CI 3.2 l/min/m2 Pulmonic Valve Name Value Normal RVOT Doppler RVOT Peak Gradient 2 mmHg PV Doppler PV Peak Gradient 6 mmHg Mitral Valve Name Value Normal MV Doppler MV Decel Kleberg 230 cm/s2 MV PHT 87 ms MV Area (PHT) 2.5 cm2 4.0-5.0 MV Diastolic Function MV E Peak Velocity 69 cm/s MV A Peak Velocity 75 cm/s MV E/A 0.9 MV Decel Time 301 ms MV Annular TDI MV E/e' (Septal) 7.2 <=8.0 MV E/e' (Lateral) 6.7 <=8.0 MV E/e' (Average) 7.0 Tricuspid Valve Name Value Normal TV Regurgitation Doppler TR Peak Velocity 227 cm/s TR Peak Gradient 21 mmHg Estimated PAP/RSVP RA Pressure 5 mmHg <=5 PA Systolic Pressure 26 mmHg <36 RV Systolic Pressure 26 mmHg <36 Aortic Valve Name Value Normal AV Doppler AV Peak Velocity 171 cm/s AV Peak Gradient 12 mmHg AV Mean Gradient 5 mmHg AV VTI 29 cm AV Area (Cont Eq VTI) 2.3 cm2 >=3.0 AV Area (Cont Eq Froilan) 1.9 cm2 AV Regurgitation 2D LVOT Area 2.8 cm2 Ventricles Name Value Normal LV Dimensions 2D/MM IVS Diastolic Thickness (2D) 0.8 cm 0.6-1.0 LVID Diastole (2D) 3.8 cm 3.8-5.2 LVIW Diastolic Thickness (2D) 0.8 cm 0.6-0.9 LVID Systole (2D) 2.0 cm 2.2-3.5 LVOT Diameter 1.9 cm LV Mass (2D Cubed) 86.48 g 67.00-162.00 LV Mass Index (2D Cubed) 59 g/m2 43-95 Relative Wall Thickness (2D) 0.44 LV Fractional Shortening/Ejection Fraction 2D/MM LV Fractional Shortening (2D) 46 % 27-45 LV EF (2D Teicholz) 78 % 54-74 LV Diastolic Volume (4C MOD) 52 ml LV EF (4C MOD) 80 % LV Diastolic Volume (2C MOD) 41 ml LV EF (2C MOD) 74 % LV Diastolic Volume (BP MOD) 48 ml 46-106 LV Diastolic Volume Index (BP MOD) 33 ml/m2 29-61 LV Systolic Volume (BP MOD) 10 ml 14-42 LV Systolic Volume Index (BP MOD) 7 ml/m2 8-24 LV EF (BP MOD) 79 % 54-74 LV Diastolic Length (4C) 7.8 cm LV Systolic Length (4C) 5.2 cm LV Stroke Volume (4C MOD) 42 ml Atria Name Value Normal LA Dimensions LA Volume (4C A-L) 30 ml LA Volume (BP A-L) 31 ml RA Dimensions RA Area (4C) 13.0 cm2 <=18.0 Report Signatures
--- NOTE | 2024-01-31 00:15 | P.HP_ITS ---
H&P: HPI History of Present Illness Date/Time: 01/31/24 00:15 Chief Complaint: fall Narrative: This is a 63-year-old female with past medical history significant for alcoholism, tobacco dependence, patient has been sober for a number of years, quit tobacco products as well, COPD, chronic pain, osteopenia. patient was brought to the emergency room via EMS After having a fall, patient is a poor historian can not really give detail but she was found face down by EMS. Patient with significant pain in her lower back. Was found to have acute insufficiency fracture of the sacral bone. Placed in observation for further evaluation management and treatment. EXAMINATION: CT lumbar spine wo con DATE: 01/30/2024 22:07 INDICATION: Low back pain. Fall. TECHNIQUE: Computed tomography (CT) of the lumbar spine was performed without intravenous contrast. Automated exposure control and iterative reconstruction technique were employed. The dose-length product was 198.97 mGy-cm. COMPARISON: None FINDINGS: There is 3 degrees dextrocurvature of thoracolumbar spine. There are changes of anterior posterior fusion procedures from L4 to S1 with healed interbody bone graft and pedicle screws. There is a chronic burst fracture of T12 with 3/5 loss of height, retropulsion of bone 3 mm into central spinal canal, and focal kyphosis. There is severely decreased disc height at L2-L3 and L3-L4. There are acute fractures of the bilateral sacral ala and S2 body. The following disc levels are specifically discussed: L1-L2: The disc does not extend beyond the endplate margin. There is mild bilateral facet joint osteoarthritis. There is no neural foraminal stenosis. There is no central canal stenosis. L2-L3: The disc is bulging. There is mild bilateral facet joint osteoarthritis. There is mild bilateral neural foraminal stenosis. There is mild central canal stenosis. L3-L4: The disc is bulging. There is severe bilateral facet joint osteoarthritis. There is mild bilateral neural foraminal stenosis. There is mild central canal stenosis. L4-L5: There is no facet joint hypertrophy. There is no neural foraminal stenosis. There is no central canal stenosis. There is posterior decompression. L5-S1: There is no facet joint hypertrophy. There is no neural foraminal stenosis. There is no central canal stenosis. There is posterior decompression. IMPRESSION: 1. Acute sacral insufficiency fractures. 2. Severe lumbar spondylosis. 3. Anterior and posterior fusion procedures from L4 to S1. EXAMINATION: CT brain wo con DATE: 01/30/2024 20:27 INDICATION: Loss of consciousness. Fall. TECHNIQUE: Computed tomography (CT) of the head was performed without intravenous contrast. The mA was adjusted according to patient size. Iterative reconstruction technique was employed. The dose-length product was 681.00 mGy- cm. COMPARISON: Head CT 04/10/2010 FINDINGS: There are scattered areas of low attenuation in the cerebral white matter, which is within normal limits for the patient's age. There is no intracranial hemorrhage, acute infarction, or abnormal intracranial mass lesion. The ventricles are normal in size. There is mild mucosal thickening in the paranasal sinuses. There are likely changes of ocular lens replacement surgeries. The mastoid air cells are normal. IMPRESSION: 1. Normal aging brain. EXAMINATION: XR hip BI 2V w AP pelvis DATE: 01/30/2024 22:02 INDICATION: Bilateral hip pain. Fall. TECHNIQUE: An anteroposterior view of the pelvis and 2 views of each hip were obtained. COMPARISON: Pelvis and hip radiographs 01/10/2023 FINDINGS: Alignment is normal. No fracture. There are changes of posterior fusion procedure in the lumbosacral spine. There is severe right hip osteoarthritis and moderate left hip osteoarthritis. Osteitis pubis is noted. IMPRESSION: 1. Severe right hip osteoarthritis and moderate left hip osteoarthritis. [facility] Past Medical History Medical History Anxiety Anxiety and depression COPD (chronic obstructive pulmonary disease) Depression GERD without esophagitis History of alcoholism History of smoking Perforated gastric ulcer (~12/27/20) Seizures (Unknown) Surgical History Surgical History H/O lumbosacral spine surgery History of appendectomy History of gastric ulcer Exploratory laparotomy with over-sewing of antral gastric ulcer and placement of omental patch, biopsy of antral gastric ulcer, peritoneal washout - 12/28/2020 Hx of tracheostomy Family History Family History Mother Heart disease Cerebrovascular accident Father Heart disease Other Unknown family medical history Social History Social History (Updated 07/09/23 @ 13:59 by Brad Cesar, [facility]) Social History: The patient stated that she had 5 children and 1 at . The patient is and she is considered disabled. The patient stated that she is 16 years clean with alcohol and she is recovering alcoholic. The patient stated that she smoked many years ago and no longer smokes. The patient is listed as a full code. And she stated that she does not want any CPR if she has spinal surgery. The patient desires to be a DNR. The patient does not have a durable power brush trimming machine setter for healthcare. Smoking status: Former smoker Tobacco type: cigarettes Alcohol intake: former Alcohol use details: RECOVERING , NONE 15 YRS Substance use: current Substance use type: marijuana Other substance usage details: edibles - Marijuana Do You Feel Safe in your Home?: Yes Lack of Transportation: No Lack of Food: Never True Current Housing: I Have Housing Concerned About Future Housing: No Difficulty Paying Gas/Electric Bills: No Difficulty Paying for Meds: No Currently Unemployed: No Education: Grade School Difficulty w/ Childcare or Family Care: No Living arrangements: with family Additional living arrangements comments: LIVES WITH DAUGHTER JOJO Occupation/Education: retired Gender identity (if verbalized by the patient): Female Sexual Orientation (if Verbalized by the Patient): Straight or Heterosexual Spiritual care concerns: No Agree to blood products: Yes Meds Home Medications and Allergies Home Medications Medication Instructions Recorded Confirmed Type acetaminophen 650 mg 650 mg PO BID PRN Pain (Scale 09/08/20 01/31/24 History tablet,extended release (Arthritis Score 1-3) Pain Relief (acetaminophen) ER) buspirone 7.5 mg tablet 7.5 mg PO BID 09/08/20 01/31/24 History diphenhydramine HCl 25 mg capsule 25 mg PO BID 09/08/20 01/31/24 History (Allergy Relief (diphenhydramine)) albuterol sulfate 90 mcg/actuation 1 inh inhalation QID PRN shortness 01/02/21 01/31/24 Rx aerosol inhaler of breath or wheezing #6.7 grams hydrocodone 5 mg-acetaminophen 325 1 tablet PO QID 01/31/24 01/31/24 History mg tablet hydroxyzine HCl 50 mg tablet 50 mg PO TID 01/31/24 01/31/24 History lamotrigine 200 mg tablet 200 mg PO BID 01/31/24 01/31/24 History lorazepam 0.5 mg tablet 0.5 mg PO HS 01/31/24 01/31/24 History sertraline 100 mg tablet 100 mg PO DAILY 01/31/24 01/31/24 History Allergies Allergy/AdvReac Type Severity Reaction Status Date / Time Penicillins Allergy Mild Unknown Verified 01/31/24 01:38 Sulfa (Sulfonamide Allergy Mild Unknown Verified 01/31/24 01:38 Antibiotics) grapefruit Allergy Unknown Verified 01/31/24 01:38 fluoxetine [From Prozac] AdvReac Severe Agitated Verified 01/31/24 01:38 Vital Signs Vital Signs - 24 hr 01/30/24 19:59 01/30/24 22:40 Temperature 97.8 F Pulse Rate 74 65 Respiratory Rate 15 15 Blood Pressure 136/74 120/66 Pulse Oximetry 97 97 Oxygen Delivery Room Air Exam Narrative: patient is laying in a stretcher Const: General: comfortable, no acute distress, well developed, alert, awake, ill appearing chronically and underweight Nutritional Appearance: underweight Orientation/consciousness: patient oriented x3 Other: patient looks older than stated age HENMT: Head: normal to inspection, normocephalic and atraumatic Ears: hearing grossly normal bilaterally Face/Nose/Sinus: normal facial exam Face and sinus: normal facial exam Eyes: General: appearance normal, both eyes and all related structures Pupils: Equal, round and reactive pupils present EOM: EOMs intact bilaterally Neck: Neck: full ROM, no lymphadenopathy and no JVD Thyroid: thyroid normal Lymphatic: no lymphadenopathy noted Resp: Effort & Inspection: normal respiratory effort and able to speak in complete sentences Auscultation: clear to auscultation bilaterally Cardio: Jugular venous distension: no JVD Rate: regular rate Rhythm: regular rhythm Heart sounds: S1 normal heart sound present and S2 normal heart sound present GI: GI Palp: Yes Soft to palpation and Yes No hepatosplenomegaly present : General: Yes deferred Skin: Rashes: no rashes Wounds: no wounds Neuro: General: patient oriented x3 and CN's II-XI intact bilaterally Cranial nerves: Yes CN's II-XII intact bilaterally and Yes Equal, round and reactive pupils present Cognition (Neuro): normal cognition Speech: normal speech Gait exam (Neuro): Unable to assess gait Motor exam (neuro): 5/5 motor strength present throughout Extrem: General: normal to inspection, full ROM, no joint enlargement and no pedal edema H&P: Results Labs Labs: Short CBC 01/30/24 Range/Units 20:44 WBC 10.7 H (4.5-10.0) K/mm3 Hgb 13.7 (12.0-15.0) g/dL Hct 41.0 (37.0-47.0) % Plt Count 387 H (150-375) k/mm3 BMP 01/30/24 20:44 Sodium 136 L Potassium 3.9 Chloride 98 Carbon Dioxide 25 BUN 16 Creatinine 0.60 L Glucose 98 Calcium 10.1 Cardiac Enzymes 01/30/24 Range/Units 20:44 Total Creatine Kinase 299 H (30-135) U/L Liver Function 01/30/24 Range/Units 20:44 Total Bilirubin 1.2 (0.2-1.3) mg/dL AST 40 H (14-36) U/L ALT 16 (6-35) U/L Alkaline Phosphatase 180 H (38-126) U/L Albumin 4.6 (3.5-5.1) g/dL Urine 01/30/24 Range/Units 20:47 Urine Color Yellow (Yellow) Urine Appearance Clear (Clear) Urine pH 6.0 (5.0-9.0) Ur Specific [place] 1.010 (1.001-1.035) Urine Protein Negative (Negative) mg/dL Urine Glucose (UA) Negative (Negative) mg/dL Assessment and Plan Assessment and plan (1) Fall: Code(s): W19.XXXA - Unspecified fall, initial encounter Status: Acute Assessment and Plan: Placed in observation PT OT, consult fall precautions (2) Sacral insufficiency fracture: Code(s): M84.48XA - Pathological fracture, other site, initial encounter for fracture Status: Acute Assessment and Plan: pain control (3) Chronic pain associated with significant psychosocial dysfunction: Code(s): G89.4 - Chronic pain syndrome Status: Acute Assessment and Plan: continue home med (4) Low back pain: Onset Date: Unknown Code(s): M54.5 - Low back pain Status: Acute Assessment and Plan: pain control (5) GERD without esophagitis: Code(s): K21.9 - Gastro-esophageal reflux disease without esophagitis Status: Acute Assessment and Plan: PPI (6) COPD (chronic obstructive pulmonary disease): Code(s): J44.9 - Chronic obstructive pulmonary disease, unspecified Status: Chronic Assessment and Plan: breathing treatments p.r.n. not actively with (7) History of alcoholism: Code(s): F10.21 - Alcohol dependence, in remission Status: Chronic Assessment and Plan: has been sober Hospitalist MIPS Advance Care Plan I have confirmed that the patient's Advanced Care Plan is present, code status is documented, or surrogate decision maker is listed in patient medical record.: Yes Medication Reconciliation I have utilized all available resources to obtain, update and review the patients current medications (includes all prescriptions, OTC, herbals, cannabis, and nutritional supplements).: Yes
--- NOTE | 2024-01-31 01:12 | ADMGEN ---
This patient, Gina Gonzalez, was admitted to Medical Room 255-01. Patient/family oriented to hospital policies and general routines including ID bracelet, bed and alarms, visiting hours, pain management, procedures, bathroom and other care routines, personal items, smoking policy, room service/diet, and visiting hours. Information on how to activate the Rapid Response Team has been discussed. Patient/Family are encouraged to report perceived risks to care and to ask questions if they do not understand what they are told or what they should do.
[2024-01-31] MEDS: SODIUM CHLORIDE 0.9% IV 1,000 ML 125 ML IV CONT ×2 (01:19→11:02)
[2024-01-31] MEDS: HYDROmorphone HCL INJ (*CRX) 1 MG/ML SYR 0.5 MG IV PUSH (02:21)
--- NOTE | 2024-01-31 08:36 | PM.IMPN ---
Progress Note: A&P Assessment and Plan (1) Fall: Code(s): W19.XXXA - Unspecified fall, initial encounter Status: Acute Assessment and Plan: Unwitnessed fall at home. Patient does not remember falling or any precipitating factors. CT head was negative, hip/pelvis x-ray shows severe right hip osteoarthritis and moderate left hip osteoarthritis, and CT lumbar spine shows acute sacral insufficiency fractures with severe spondylosis, and anterior and posterior fusion procedures from L4-S1. Patient has a history of seizure disorder. She has been complaint with her lamotrigine. EEG ordered to rule out possible break through seizure. Possible syncopal episode? Carotid Doppler and ECHO pending. Orthostatic blood pressure ordered. UDS showed opiates which she is chronically taking for back pain. Follows with pain management. Mechanical fall? Patient does have a history of low back pain and radiculopathy. Neuropathy contributing to fall? PT/OT consulted, recs appreciated (2) Sacral insufficiency fracture: Code(s): M84.48XA - Pathological fracture, other site, initial encounter for fracture Status: Acute Assessment and Plan: CT pelvis shows insufficiency sacral fracture Pain control with home regimen norco 5 mg-325 mg OR norco 10 mg-325 mg every four hours for moderate to severe pain Dilaudid for breakthrough pain Scheduled ibuprofen every 8 hours Senna for bowel regimen given immobility, fracture, and pain medications. Subjective Date/time seen: 01/31/24 08:36 Interval history: No acute events overnight. The patient is a poor historian. She is unable to tell me exactly what happened when she fell. She is unsure if she tripped over her night gown or if she passed out. She does know that she fell and hit her buttocks and then was able to crawl to her bed however she was unable to pull herself up. She then called 911. On exam today she denies headache, dizziness, chest pain, shortness of breath, fever, chills, abdominal pain, nausea, vomiting, diarrhea or constipation. She says that she is compliant with her medications. She does complain of pain and tenderness to her left elbow. She also has severe pain to her sacrum when she tries to reposition in bed or raise her legs. The patient states she has 2 sets of 8 stairs to get into her apartment. Review of Systems Review of Systems: All systems reviewed & are unremarkable except as noted in HPI and below Exam Narrative: General: appears comfortable, thin, frail, in no acute distress Respiratory: breathing is unlabored with even chest rise/fall, lungs are clear without wheezing, rhonchi, and crackles Cardiovascular: Rate and rhythm regular, normal s1s2, no murmur Abdomen: Soft, round, non-tender, active bowel sounds Extremities: No cyanosis, clubbing. Pulses 2/2. Left elbow with erythema, edema, and warmth. Neuro: A&O x 4 but poor historian Skin: Warm, dry, intact. Generalized bruising. Thin, frail skin. Objective Data Vital Signs Vital Signs: Vital Signs - 24 hr 01/30/24 19:59 01/30/24 22:40 01/31/24 01:21 Temperature 97.8 F Pulse Rate 74 65 69 Respiratory Rate 15 15 16 Blood Pressure 136/74 120/66 Pulse Oximetry 97 97 99 Oxygen Delivery Room Air Room Air 01/31/24 01:10 01/31/24 04:01 Temperature 97.7 F 97.7 F Pulse Rate 69 68 Respiratory Rate 16 16 Blood Pressure 139/75 110/59 L Pulse Oximetry 99 95 Oxygen Delivery Intake/Output Intake/Output: Intake & Output 01/28/24 01/29/24 01/30/24 01/31/24 23:59 23:59 23:59 23:59 Intake Total 1000 390 Balance 1000 390 Meds/Results Medications: Active Medications Generic Name Dose Route Start Last Admin Trade Name Freq PRN Reason Stop Dose Admin Hydrocodone Bitart/Acetaminophen 1 tab 01/31/24 00:16 Hydrocodone/Acetaminophen (*Crx) 5-325 Mg Tablet PO Q4H PRN Pain Rated 4-6 Hydrocodone Bitart/Acetaminophen 1 tab 01/31/24 02:19 Hydrocodone/Acetaminophen (*Crx) 5-325 Mg Tablet PO Q6H PRN Pain Rated 4-6 Albuterol 2 puff 01/31/24 01:55 Albuterol Sulfate (*Sp) Aerosol 1 Puff INHALATION QID PRN shortness of breath or wheezing Buspirone HCl 5 mg 01/31/24 09:00 Buspirone Hcl 5 Mg Tablet PO Q12HR UBALDO Buspirone HCl 2.5 mg 01/31/24 09:00 Buspirone Hcl 2.5 Mg Tablet PO Q12HR UBALDO Hydromorphone HCl 0.5 mg 01/31/24 00:16 01/31/24 02:21 Hydromorphone Hcl Inj (*Crx) 1 Mg/Ml Syr IV PUSH 0.5 mg Q4H PRN Administration Pain Rated 7-10 Hydroxyzine HCl 50 mg 01/31/24 09:00 Hydroxyzine Hcl 25 Mg Tablet PO TID [facility] Sodium Chloride 1,000 mls @ 125 mls/hr 01/31/24 00:20 01/31/24 01:19 Normal Saline Iv IV CONT 125 mls/hr .Q8H UBALDO Administration Lamotrigine 200 mg 01/31/24 09:00 Lamotrigine 100 Mg Tablet PO Q12HR UBALDO Lorazepam 0.5 mg 01/31/24 21:00 Lorazepam (*Crx) 0.5 Mg Tablet PO HS UBALDO Ondansetron HCl 4 mg 01/31/24 00:16 Ondansetron Inj 4 Mg/2 Ml Vial IV PUSH Q4H PRN Nausea Sertraline HCl 100 mg 01/31/24 09:00 Sertraline Hcl 50 Mg Tablet PO DAILY [facility] Radiology Results: ITS Impressions Head CT 01/30/24 20:38 IMPRESSION: 1. Normal aging brain. Hip/Pelvis X-Ray 01/30/24 22:09 IMPRESSION: 1. Severe right hip osteoarthritis and moderate left hip osteoarthritis. Lumbar Spine CT 01/30/24 22:10 IMPRESSION: 1. Acute sacral insufficiency fractures. 2. Severe lumbar spondylosis. 3. Anterior and posterior fusion procedures from L4 to S1. Labs Labs: Laboratory Results - last 24 hr 01/30/24 01/30/24 20:44 20:47 WBC 10.7 H RBC 4.51 Hgb 13.7 Hct 41.0 MCV 90.9 MCH 30.4 MCHC 33.4 RDW 12.8 Plt Count 387 H MPV 8.9 Immature Gran % (Auto) 0.4 Neut % (Auto) 88.2 H Lymph % (Auto) 5.8 L [place] % (Auto) 4.9 Eos % (Auto) 0.2 Baso % (Auto) 0.5 Lymph # (Auto) 0.62 L [place] # (Auto) 0.5 Eos # (Auto) 0.0 Baso # (Auto) 0.1 Abs Immat Gran (auto) 0.04 H Absolute Neuts (auto) 9.5 H Absolute Nucleated RBC 0.000 Nucleated RBC % 0.0 PT 14.3 INR 1.1 APTT 26.5 Sodium 136 L Potassium 3.9 Chloride 98 Carbon Dioxide 25 Anion Gap 13 H BUN 16 Creatinine 0.60 L Estim Creat Clear Calc 63 Estimated GFR > 60 Glucose 98 Lactic Acid 0.9 Calcium 10.1 Phosphorus 3.6 Magnesium 2.0 Total Bilirubin 1.2 AST 40 H ALT 16 Alkaline Phosphatase 180 H Total Creatine Kinase 299 H Total Protein 8.0 Albumin 4.6 Urine Color Yellow Urine Appearance Clear Urine pH 6.0 Ur Specific [place] 1.010 Urine Protein Negative Urine Glucose (UA) Negative Urine Ketones 2+ H Ur Blood (Man) Negative Urine Nitrate Negative Urine Bilirubin Negative Urine Urobilinogen 0.2 Leukocyte Esterase Rfl Negative Urine Opiates Screen Positive A Urine Methadone Screen Negative Ur Barbiturates Screen Negative Ur Phencyclidine Scrn Negative Ur Amphetamine Screen Negative U Benzodiazepines Scrn Negative Urine Cocaine Screen Negative U Cannabinoids Screen Negative Ethyl Alcohol < 10
[2024-01-31] MEDS: HYDROcodone/acetaminophen (*CRX) 5-325 MG TABLET 1 TAB PO ×2 (08:53→21:42)
[2024-01-31] MEDS: busPIRone HCL 5 MG TABLET PO ×2 (08:54→21:44)
[2024-01-31] MEDS: busPIRone HCL 2.5 MG TABLET PO ×2 (08:54→21:44)
[2024-01-31] MEDS: lamoTRIgine 100 MG TABLET 200 MG PO ×2 (08:54→21:44)
[2024-01-31] MEDS: hydrOXYzine HCL 25 MG TABLET 50 MG PO ×3 (08:55→16:23)
[2024-01-31] MEDS: SERTRALINE HCL 50 MG TABLET 100 MG PO (08:55)
[2024-01-31] MEDS: PERFLUTREN LIPID MICROSPHERES 1.5 ML VIAL DILUTED TO 10 ML TOTAL VOLUME IV PUSH (10:50)
[2024-01-31] MEDS: IBUPROFEN 600 MG TABLET PO ×2 (11:02→16:23)
--- NOTE | 2024-01-31 12:43 | IVDEFINITY ---
Prior to administration of IV Definity the patient was educated on the risks and benefits of the imaging enhancing agent including potential adverse side effects. The patient verbalized understanding. Allergies were verified. No exclusion criteria were identified and at least one of the following inclusion criteria were met: 1) physician request, 2) patient technically difficult to image (per the [place] [employer] guidelines of two or more segments not discernable within the apical view), or 3) questionable left ventricular function. ?
--- NOTE | 2024-01-31 13:53 | PCPTNOTE ---
SKETCH LINER would like to hold on therapy evaluation pending new x-ray results.
[2024-01-31] MEDS: HYDROcodone/acetaminophen (*CRX) 10-325 MG TABLET 1 TAB PO (14:32)
[2024-01-31] MEDS: LORazepam (*CRX) 0.5 MG TABLET PO (21:44)
[2024-01-31] MEDS: SODIUM CHLORIDE 0.9% IV 1,000 ML 50 ML IV CONT (21:45)
[2024-02-01 04:03] VITALS: BP 112/61; PULSE 58; RESP 18; TEMP 36.5; O2SAT 97
[2024-02-01 05:17] LABS: Hematocrit 39.6 % (37.0-47.0); Hemoglobin 12.8 g/dL (12.0-15.0); Mean Corpuscular HGB Conc 32.3 g/dl (32-36); Mean Corpuscular Hemoglobin 30.8 pg (26-34); Mean Corpuscular Volume 95.2 fl (80-100); Mean Platelet Volume 8.9 fl (7.4-10.4); Platelet Count Result 349 k/mm3 (150-375); Red Blood Count 4.16 M/mm3 (4.2-5.4); Red Cell Distribution Width 13.1 % (11.5-14.5); White Blood Count 4.5 K/mm3 (4.5-10.0)
[2024-02-01 05:26] LABS: Alanine Aminotransferase 16 U/L (6-35); Albumin Level 3.8 g/dL (3.5-5.1); Alkaline Phosphatase 146 U/L (38-126); Anion Gap 5 mmol/L (4-12); Aspartate Amino Transferase 41 U/L (14-36); Bilirubin,Total 0.5 mg/dL (0.2-1.3); Blood Urea Nitrogen 11 mg/dL (7-17); Calcium 9.1 mg/dL (8.4-10.2); Carbon Dioxide 31 mmol/L (22-30); Chloride 104 mmol/L (98-107); Creatine Kinase 542 U/L (30-135); Estimated CRCL calculation 62 ml/min; Estimated Glomerular Filt Rate > 60; Glucose 83 mg/dL (65-110); Potassium 4.6 mmol/L (3.4-5.0); Sodium 140 mmol/L (137-145)
--- NOTE | 2024-02-01 07:16 | P.PNIM_ITS ---
Progress Note: A&P Assessment and Plan (1) Fall: Code(s): W19.XXXA - Unspecified fall, initial encounter Status: Acute Assessment and Plan: Unwitnessed fall at home. Patient does not remember falling or any precipitating factors. CT head was negative, hip/pelvis x-ray shows severe right hip osteoarthritis and moderate left hip osteoarthritis, and CT lumbar spine shows acute sacral insufficiency fractures with severe spondylosis, and anterior and posterior fusion procedures from L4-S1. * Patient has a history of seizure disorder. She has been complaint with her lamotrigine. EEG ordered to rule out possible break through seizure. * Possible syncopal episode? Carotid doppler shows 50-69% stenosis in the right internal carotid, less than 50% stenosis in the left ICA. ECHO shows LV mass measuring 1.6 cm as well as patent foramen ovale. LV function is estimated at >70%. * Cardiology was consulted given LV mass. Possible JESUS warranted? * Blood cultures ordered. She had a slight leukocytosis on arrival but may have been reactive vs elevation from dehydration. WBC improved with fluids and without antibiotics. Afebrile. However, since findings of LV mass will ensure blood cultures are negative. She denies IV drug use. She does have poor dentition. * UDS showed opiates which she is chronically taking for back pain. Follows with pain management. * Mechanical fall? Patient does have a history of low back pain and radiculopathy. Neuropathy contributing to fall? PT/OT consulted, recs appreciated * Left elbow with pain, erythema, and edema. XR negative for fracture but does show elbow joint effusion. Mild osteoarthritis. (2) Sacral insufficiency fracture: Code(s): M84.48XA - Pathological fracture, other site, initial encounter for fracture Status: Acute Assessment and Plan: CT pelvis shows insufficiency sacral fracture * Pain control with home regimen norco 5 mg-325 mg OR norco 10 mg-325 mg every four hours for moderate to severe pain * Dilaudid for breakthrough pain * Scheduled ibuprofen every 8 hours * Senna for bowel regimen given immobility, fracture, and pain medications. Subjective Date/time seen: 02/01/24 07:16 Interval history: No acute events overnight. Her biggest complaint is pain. She can bend her knees but she has critical day with raising her legs off the bed due to pain in her sacrum. She is going to work with therapy today. I discussed with her findings on her echo and she does say that she has been having chest pressure and shortness of breath at home but she contributed to her asthma or her anxiety. She states her asthma inhalers were not working for her symptoms. She states she has never been told about a left ventricular mass. Review of Systems Review of Systems: All systems reviewed & are unremarkable except as noted in HPI and below Exam Narrative: General: appears comfortable, thin, frail, in no acute distress Respiratory: breathing is unlabored with even chest rise/fall, lungs are clear without wheezing, rhonchi, and crackles Cardiovascular: Rate and rhythm regular, normal s1s2, no murmur Abdomen: Soft, round, non-tender, active bowel sounds Extremities: No cyanosis, clubbing. Pulses 2/2. Left elbow with erythema, edema, and warmth. Neuro: A&O x 4 but poor historian Skin: Warm, dry, intact. Generalized bruising. Thin, frail skin. Objective Data Vital Signs Vital Signs: Vital Signs - 24 hr 01/31/24 16:01 01/31/24 19:56 01/31/24 20:08 Temperature 97.8 F 98.1 F 98.1 F Pulse Rate 74 73 73 Respiratory Rate 16 16 16 Blood Pressure 108/65 101/44 L 101/44 L Pulse Oximetry 97 95 95 Oxygen Delivery 01/31/24 19:59 01/31/24 20:04 01/31/24 21:35 Temperature 98.1 F 98.1 F Pulse Rate 84 84 Respiratory Rate 16 16 Blood Pressure 104/72 113/65 Pulse Oximetry 96 99 Oxygen Delivery Room Air 02/01/24 04:03 Temperature 97.7 F Pulse Rate 58 L Respiratory Rate 18 Blood Pressure 112/61 Pulse Oximetry 97 Oxygen Delivery Intake/Output Intake/Output: Intake & Output 01/29/24 01/30/24 01/31/24 02/01/24 23:59 23:59 23:59 23:59 Intake Total 1000 3240.0 240 Output Total 850 400 Balance 1000 2390.0 -160 Meds/Results Medications: Active Medications Generic Name Dose Route Start Last Admin Trade Name Freq PRN Reason Stop Dose Admin Hydrocodone Bitart/Acetaminophen 1 tab 01/31/24 00:16 01/31/24 21:42 Hydrocodone/Acetaminophen (*Crx) 5-325 Mg Tablet PO 1 tab Q4H PRN Administration Pain Rated 4-6 Hydrocodone Bitart/Acetaminophen 1 tab 01/31/24 09:12 01/31/24 14:32 Hydrocodone/Acetaminophen (*Crx) 10-325 Mg Tablet PO 1 tab Q4H PRN Administration Pain Rated 7-10 Albuterol 2 puff 01/31/24 01:55 Albuterol Sulfate (*Sp) Aerosol 1 Puff INHALATION QID PRN shortness of breath or wheezing Buspirone HCl 5 mg 01/31/24 09:00 01/31/24 21:44 Buspirone Hcl 5 Mg Tablet PO 5 mg Q12HR UBALDO Administration Buspirone HCl 2.5 mg 01/31/24 09:00 01/31/24 21:44 Buspirone Hcl 2.5 Mg Tablet PO 2.5 mg Q12HR UBALDO Administration Enoxaparin Sodium 40 mg 02/01/24 21:00 Enoxaparin 40 Mg/0.4 Ml Syringe SUB-Q DAILY UBALDO Hydromorphone HCl 0.5 mg 01/31/24 09:14 Hydromorphone Hcl Inj (*Crx) 1 Mg/Ml Syr IV PUSH Q4H PRN Breakthrough Pain Hydroxyzine HCl 50 mg 01/31/24 09:00 01/31/24 16:23 Hydroxyzine Hcl 25 Mg Tablet PO 50 mg TID UBALDO Administration Sodium Chloride 1,000 mls @ 50 mls/hr 01/31/24 00:20 01/31/24 21:45 Normal Saline Iv IV CONT 50 mls/hr .Q20H UBALDO Administration Ibuprofen 600 mg 01/31/24 09:15 02/01/24 01:57 Ibuprofen 600 Mg Tablet PO Not Given Q8H UBALDO Lamotrigine 200 mg 01/31/24 09:00 01/31/24 21:44 Lamotrigine 100 Mg Tablet PO 200 mg Q12HR UBALDO Administration Lorazepam 0.5 mg 01/31/24 21:00 01/31/24 21:44 Lorazepam (*Crx) 0.5 Mg Tablet PO 0.5 mg HS UBALDO Administration Ondansetron HCl 4 mg 01/31/24 00:16 Ondansetron Inj 4 Mg/2 Ml Vial IV PUSH Q4H PRN Nausea Senna/Docusate Sodium 1 tab 01/31/24 21:00 01/31/24 21:46 Senna/Docusate Sodium Tablet PO Not Given HS UBALDO Sertraline HCl 100 mg 01/31/24 09:00 01/31/24 08:55 Sertraline Hcl 50 Mg Tablet PO 100 mg DAILY UBALDO Administration Radiology Results: ITS Impressions Head CT 01/30/24 20:38 IMPRESSION: 1. Normal aging brain. Hip/Pelvis X-Ray 01/30/24 22:09 IMPRESSION: 1. Severe right hip osteoarthritis and moderate left hip osteoarthritis. Lumbar Spine CT 01/30/24 22:10 IMPRESSION: 1. Acute sacral insufficiency fractures. 2. Severe lumbar spondylosis. 3. Anterior and posterior fusion procedures from L4 to S1. Carotid Doppler Study 01/31/24 15:06 IMPRESSION: 1. 50-69% stenosis in the right internal carotid artery by sonographic criteria. 2. Less than 50% stenosis in the left internal carotid artery by sonographic criteria. Elbow X-Ray 01/31/24 15:10 IMPRESSION: 1. Elbow joint effusion. No fracture identified. 2. Mild elbow joint osteoarthritis. Labs Labs: Laboratory Results - last 24 hr 02/01/24 04:58 WBC 4.5 RBC 4.16 L Hgb 12.8 Hct 39.6 MCV 95.2 MCH 30.8 MCHC 32.3 RDW 13.1 Plt Count 349 MPV 8.9 Sodium 140 Potassium 4.6 Chloride 104 Carbon Dioxide 31 H Anion Gap 5 BUN 11 D Creatinine 0.60 L Estim Creat Clear Calc 62 Estimated GFR > 60 Glucose 83 Calcium 9.1 Total Bilirubin 0.5 AST 41 H ALT 16 Alkaline Phosphatase 146 H Total Creatine Kinase 542 H Total Protein 7.0 Albumin 3.8
[2024-02-01 08:00] VITALS: BP 125/62; PULSE 56
[2024-02-01] MEDS: HYDROcodone/acetaminophen (*CRX) 5-325 MG TABLET 1 TAB PO (08:11)
[2024-02-01] MEDS: busPIRone HCL 2.5 MG TABLET PO ×2 (08:12→20:38)
[2024-02-01] MEDS: SERTRALINE HCL 50 MG TABLET 100 MG PO (08:12)
[2024-02-01] MEDS: IBUPROFEN 600 MG TABLET PO ×2 (08:12→16:43)
[2024-02-01] MEDS: lamoTRIgine 100 MG TABLET 200 MG PO ×2 (08:12→20:37)
[2024-02-01] MEDS: busPIRone HCL 5 MG TABLET PO ×2 (08:12→20:38)
[2024-02-01] MEDS: hydrOXYzine HCL 25 MG TABLET 50 MG PO ×3 (08:12→16:42)
[2024-02-01] MEDS: HYDROmorphone HCL INJ (*CRX) 1 MG/ML SYR 0.5 MG IV PUSH (10:30)
[2024-02-01] MEDS: HYDROcodone/acetaminophen (*CRX) 10-325 MG TABLET 1 TAB PO ×3 (11:46→20:38)
[2024-02-01 14:00] VITALS: BP 120/57; PULSE 65; RESP 18; TEMP 36.8; O2SAT 97
--- NOTE | 2024-02-01 14:10 | P.CONCA_ITS ---
Assessment and Plan Assessment and plan (1) Fall: Code(s): W19.XXXA - Unspecified fall, initial encounter Status: Acute Plan Abnormal echocardiogram. I personally reviewed the echocardiogram and image quality is poor, it is not certain if the patient has the ventricular mass. Patent Dickson ovale Fall likely mechanical Plan Transesophageal echocardiogram on Saturday PT OT evaluation and management History of Present Illness History of Present Illness Consult date/time: 02/01/24 14:10 Reason For Visit: fall Narrative: 63-year-old female patient presents to the hospital status post fall. Patient has been having recurrent episodes of fall. She had a fall before admission secondary to generalized weakness and lack of balance. She denied any loss of consciousness. After a fall she has been complaining of pain in her tailbone. She has difficulty sitting and moving in the bed. She was noted to have fracture and sacral bone. She was admitted for observation. She had an echocardiogram and echocardiogram showed point possible patent Dickson ovale and possible mass in the septum. [facility] Past Medical History Medical History Anxiety Anxiety and depression COPD (chronic obstructive pulmonary disease) Depression GERD without esophagitis History of alcoholism History of smoking Perforated gastric ulcer (~12/27/20) Seizures (Unknown) Surgical History Surgical History H/O lumbosacral spine surgery History of appendectomy History of gastric ulcer Exploratory laparotomy with over-sewing of antral gastric ulcer and placement of omental patch, biopsy of antral gastric ulcer, peritoneal washout - 12/28/2020 Hx of tracheostomy Family History Family History Mother Heart disease Cerebrovascular accident Father Heart disease Other Unknown family medical history Social History Social History (Updated 07/09/23 @ 13:59 by MIKALA Henson) Social History: The patient stated that she had 5 children and 1 at . The patient is and she is considered disabled. The patient stated that she is 16 years clean with alcohol and she is recovering alcoholic. The patient stated that she smoked many years ago and no longer smokes. The patient is listed as a full code. And she stated that she does not want any CPR if she has spinal surgery. The patient desires to be a DNR. The patient does not have a durable power artificial flower maker for healthcare. Smoking status: Former smoker Tobacco type: cigarettes Alcohol intake: former Alcohol use details: RECOVERING , NONE 15 YRS Substance use: current Substance use type: marijuana Other substance usage details: edibles - Marijuana Do You Feel Safe in your Home?: Yes Lack of Transportation: No Lack of Food: Never True Current Housing: I Have Housing Concerned About Future Housing: No Difficulty Paying Gas/Electric Bills: No Difficulty Paying for Meds: No Currently Unemployed: No Education: Grade School Difficulty w/ Childcare or Family Care: No Living arrangements: with family Additional living arrangements comments: LIVES WITH DAUGHTER JOJO Occupation/Education: retired Gender identity (if verbalized by the patient): Female Sexual Orientation (if Verbalized by the Patient): Straight or Heterosexual Spiritual care concerns: No Agree to blood products: Yes Meds Home Medications and Allergies Home Medications Medication Instructions Recorded Confirmed Type acetaminophen 650 mg 650 mg PO BID PRN Pain (Scale 09/08/20 01/31/24 History tablet,extended release (Arthritis Score 1-3) Pain Relief (acetaminophen) ER) buspirone 7.5 mg tablet 7.5 mg PO BID 09/08/20 01/31/24 History diphenhydramine HCl 25 mg capsule 25 mg PO BID 09/08/20 01/31/24 History (Allergy Relief (diphenhydramine)) albuterol sulfate 90 mcg/actuation 1 inh inhalation QID PRN shortness 01/02/21 01/31/24 Rx aerosol inhaler of breath or wheezing #6.7 grams hydrocodone 5 mg-acetaminophen 325 1 tablet PO QID 01/31/24 01/31/24 History mg tablet hydroxyzine HCl 50 mg tablet 50 mg PO TID 01/31/24 01/31/24 History lamotrigine 200 mg tablet 200 mg PO BID 01/31/24 01/31/24 History lorazepam 0.5 mg tablet 0.5 mg PO HS 01/31/24 01/31/24 History sertraline 100 mg tablet 100 mg PO DAILY 01/31/24 01/31/24 History Allergies Allergy/AdvReac Type Severity Reaction Status Date / Time Penicillins Allergy Mild Unknown Verified 01/31/24 01:38 Sulfa (Sulfonamide Allergy Mild Unknown Verified 01/31/24 01:38 Antibiotics) grapefruit Allergy Unknown Verified 01/31/24 01:38 fluoxetine [From Prozac] AdvReac Severe Agitated Verified 01/31/24 01:38 Vital Signs Vital Signs - 24 hr 01/31/24 16:01 01/31/24 19:56 01/31/24 20:08 Temperature 36.6 C 36.7 C 36.7 C Pulse Rate 74 73 73 Respiratory Rate 16 16 16 Blood Pressure 108/65 101/44 L 101/44 L Pulse Oximetry 97 95 95 Oxygen Delivery 01/31/24 19:59 01/31/24 20:04 01/31/24 21:35 Temperature 36.7 C 36.7 C Pulse Rate 84 84 Respiratory Rate 16 16 Blood Pressure 104/72 113/65 Pulse Oximetry 96 99 Oxygen Delivery Room Air 02/01/24 04:03 02/01/24 08:00 02/01/24 11:10 Temperature 36.5 C Pulse Rate 58 L 56 L Respiratory Rate 18 Blood Pressure 112/61 125/62 Pulse Oximetry 97 Oxygen Delivery Room Air 02/01/24 14:00 Temperature 36.8 C Pulse Rate 65 Respiratory Rate 18 Blood Pressure 120/57 L Pulse Oximetry 97 Oxygen Delivery Exam Const: General: comfortable and no acute distress Other: Able to lie flat HENMT: Face/Nose/Sinus: Normal nares present and no epistaxis Mouth: Yes moist mucous membranes Eyes: Sclera: sclerae normal Pupils: Equal, round and reactive pupils p resent Neck: Neck: supple and no JVD Carotids: no bruits Resp: Auscultation: clear to auscultation bilaterally and lung sounds not diminished Other: No chest wall tenderness Cardio: Rate: regular rate Rhythm: regular rhythm Heart sounds: no gallops, no murmurs and no rubs GI: GI Palp: Yes Soft to palpation and No Tenderness to palpation present (GI) Auscultation: normal bowel sounds Skin: General skin exam: normal color, rashes and/or lesions noted and no erythema Other: Warm Neuro: Cranial nerves: Yes Equal, round and reactive pupils present Speech: normal speech Other: No obvious focal deficit or facial asymmetry Extrem: General: no edema Other: Normal capillary refills Intact distal pulses. Results Labs and Meds 02/01/24 04:58 02/01/24 04:58 Lab results: Cardiac Enzymes 02/01/24 Range/Units 04:58 AST 41 H (14-36) U/L CBC 02/01/24 Range/Units 04:58 WBC 4.5 (4.5-10.0) K/mm3 RBC 4.16 L (4.2-5.4) M/mm3 Hgb 12.8 (12.0-15.0) g/dL Hct 39.6 (37.0-47.0) % Plt Count 349 (150-375) k/mm3 Comprehensive Metabolic Panel 02/01/24 Range/Units 04:58 Sodium 140 (137-145) mmol/L Potassium 4.6 (3.4-5.0) mmol/L Chloride 104 (98-107) mmol/L Carbon Dioxide 31 H (22-30) mmol/L BUN 11 D (7-17) mg/dL Creatinine 0.60 L (0.7-1.0) mg/dL Glucose 83 (65-110) mg/dL Calcium 9.1 (8.4-10.2) mg/dL AST 41 H (14-36) U/L ALT 16 (6-35) U/L Alkaline Phosphatase 146 H (38-126) U/L Total Protein 7.0 (6.3-8.2) g/dL Albumin 3.8 (3.5-5.1) g/dL Intake and Output 01/31/24 02/01/24 02/01/24 23:59 07:59 15:59 Intake Total 1490.0 240 360 Output Total 850 400 Balance 640.0 -160 360 Intake: IV 1000.0 Sodium Chloride 0.9% IV 1,000 1000.0 ml @ 50 mls/hr IV CONT .Q20H [facility] Rx#:[id number] Oral 490 240 360 Output: Catheter Urine 850 400 External/Condom 850 400
--- NOTE | 2024-02-01 15:13 | WPDNEUROLOGY ---
Neurology EEG Report General Information Date of Study: 01/31/24 TEST eeg DIAGNOSIS Possible seizures CONDITION OF RECORDING awake drowsy and sleep. EEG NUMBER [id number] CLINICAL HISTORY Patient has been admitted to the hospital and EEG has been ordered for the possibility of seizure. EEG DESCRIPTION Basic resting occipital frequency consists of low to medium voltage 9 to 11 hertz per 2nd alpha admixed with low-voltage 15 to 18 hertz per 2nd beta. Good anterior to posterior gradient is noted in addition to the multiple movement artifacts. Normal wakeful EEG evolves into low voltage beta alpha and theta activity during drowsiness with subsequent bilateral symmetrical sleep spindles and sleep activity hyperventilation not done. Photic stimulation not done. Non paroxysmal. Nonfocal. Nonlateralizing. IMPRESSION No significant abnormality noted in this tracing ,clinical correlation recommend, a normal EEG does not rule out the possibility of clinical seizures.
[2024-02-01 20:00] VITALS: BP 131/60; PULSE 65; RESP 18; TEMP 37; O2SAT 96
[2024-02-01 20:29] VITALS: BP 131/60; PULSE 65; RESP 18; TEMP 37; O2SAT 96
[2024-02-01] MEDS: ENOXAPARIN 40 MG/0.4 ML SYRINGE SUB-Q (20:38)
[2024-02-01] MEDS: LORazepam (*CRX) 0.5 MG TABLET PO (20:38)
[2024-02-01] MEDS: SENNA/DOCUSATE SODIUM TABLET 1 TAB PO (20:38)
[2024-02-02] MEDS: IBUPROFEN 600 MG TABLET PO ×3 (00:54→16:41)
[2024-02-02] MEDS: SODIUM CHLORIDE 0.9% IV 1,000 ML 50 ML IV CONT (00:55)
[2024-02-02 05:40] VITALS: BP 112/59; PULSE 58; RESP 16; TEMP 36.6; O2SAT 98
--- NOTE | 2024-02-02 07:23 | P.PNIM_ITS ---
Progress Note: A&P Assessment and Plan (1) Fall: Code(s): W19.XXXA - Unspecified fall, initial encounter Status: Acute Assessment and Plan: Unwitnessed fall at home. Patient does not remember falling or any precipitating factors. CT head was negative, hip/pelvis x-ray shows severe right hip osteoarthritis and moderate left hip osteoarthritis, and CT lumbar spine shows acute sacral insufficiency fractures with severe spondylosis, and anterior and posterior fusion procedures from L4-S1. * Patient has a history of seizure disorder. She has been complaint with her lamotrigine. EEG ordered to rule out possible break through seizure. * Possible syncopal episode? Carotid Doppler shows 50-69% stenosis in the right internal carotid, less than 50% stenosis in the left ICA. ECHO shows LV mass measuring 1.6 cm as well as patent foramen ovale. LV function is estimated at >70%. * Cardiology was consulted given LV mass. Recommended JESUS Saturday. NPO at midnight for testing. * Blood cultures ordered. She had a slight leukocytosis on arrival but may have been reactive vs elevation from dehydration. WBC improved with fluids and without antibiotics. Afebrile. However, since findings of LV mass will ensure blood cultures are negative. She denies IV drug use. She does have poor dentition. * UDS showed opiates which she is chronically taking for back pain. Follows with pain management. * Mechanical fall? Patient does have a history of low back pain and radiculopathy. Neuropathy contributing to fall? PT/OT consulted, recs appreciated * Left elbow with pain, erythema, and edema. XR negative for fracture but does show elbow joint effusion. Mild osteoarthritis. * PT/OT are recommending SNF given her poor mobility and pain. She lives at home with her daughter and son-in-law who are not present all of the time. She has 16 stairs to enter her apartment. (2) Sacral insufficiency fracture: Code(s): M84.48XA - Pathological fracture, other site, initial encounter for fracture Status: Acute Assessment and Plan: CT pelvis shows insufficiency sacral fracture * Pain control with home regimen [place] 5 mg-325 mg OR [place] 10 mg-325 mg every four hours for moderate to severe pain * Dilaudid for breakthrough pain * Scheduled ibuprofen every 8 hours * Senna for bowel regimen given immobility, fracture, and pain medications. (3) Right leg weakness: Code(s): R29.898 - Other symptoms and signs involving the musculoskeletal system Status: Acute Assessment and Plan: Patient with sudden numbness and loss of muscle strength to right posterior thigh. Symptoms started this morning. Yesterday she was able to lift both legs off of the bed with pain to her sacrum. She was able to dorsiflex and plantarflex with 4/5 strength. Today she has no response to painful stimuli to her right posterior thigh, with decreased sensation to right posterior calf, and poor effort with plantar and dorsiflexion. * CT head wo/con stat * NIH 4 for decreased sensation and limb ataxia * Thoracic, Lumbar spine MRI wo/con ordered as she has a history of spinal fusion with recent sacral fracture * Consulted and spoke with Neurosurgery who recommends Lumbar-thoracic spine MRI now. Will discuss findings when available. May end up needing ortho consult versus transfer to higher level of care depending on findings. Subjective Date/time seen: 02/02/24 07:23 Interval history: Nursing contacted me this morning saying that the patient was having some difficulty moving her right leg. On exam Gina reports that suddenly she has decreased feeling in the back of her right leg and is unable to lift her leg off of the bed. Yesterday when I saw her she was able to lift both legs off of the bed, resulting in pain to her sacrum. She was also able to bend her knees up towards her chest. Today she is unable to lift her right leg off of the bed more than approximately 0.5 inches and cannot sustain the hold longer than 1-2 seconds. She cannot lift her leg against resistance at all. Review of Systems Review of Systems: All systems reviewed & are unremarkable except as noted in HPI and below Exam Narrative: General: appears comfortable, thin, frail, in no acute distress Respiratory: breathing is unlabored with even chest rise/fall, lungs are clear without wheezing, rhonchi, and crackles Cardiovascular: Rate and rhythm regular, normal s1s2, no murmur Abdomen: Soft, round, non-tender, active bowel sounds Extremities: No cyanosis, clubbing. Pulses 2/2. Left elbow with erythema, edema, and warmth. Upper extremity strength 5/5, left lower extremity 4/5, right lower extremity 3-/5. Neuro: A&O x 4 but poor historian. NIH of 4 today scoring for decreased sensation and mobility to right lower leg. Skin: Warm, dry, intact. Generalized bruising. Thin, frail skin. Objective Data Vital Signs Vital Signs: Vital Signs - 24 hr 02/01/24 08:00 02/01/24 11:10 02/01/24 14:00 Temperature 98.2 F Pulse Rate 56 L 65 Respiratory Rate 18 Blood Pressure 125/62 120/57 L Pulse Oximetry 97 Oxygen Delivery Room Air 02/01/24 20:29 02/01/24 20:00 02/01/24 20:00 Temperature 98.6 F 98.6 F Pulse Rate 65 65 Respiratory Rate 18 18 Blood Pressure 131/60 131/60 Pulse Oximetry 96 96 Oxygen Delivery Room Air 02/02/24 05:40 Temperature 97.8 F Pulse Rate 58 L Respiratory Rate 16 Blood Pressure 112/59 L Pulse Oximetry 98 Oxygen Delivery Intake/Output Intake/Output: Intake & Output 01/30/24 01/31/24 02/01/24 02/02/24 23:59 23:59 23:59 23:59 Intake Total 1000 3240.0 1624 500 Output Total 850 2650 300 Balance 1000 2390.0 -1026 200 Meds/Results Medications: Active Medications Generic Name Dose Route Start Last Admin Trade Name Freq PRN Reason Stop Dose Admin Hydrocodone Bitart/Acetaminophen 1 tab 01/31/24 00:16 02/01/24 08:11 Hydrocodone/Acetaminophen (*Crx) 5-325 Mg Tablet PO 1 tab Q4H PRN Administration Pain Rated 4-6 Hydrocodone Bitart/Acetaminophen 1 tab 01/31/24 09:12 02/01/24 20:38 Hydrocodone/Acetaminophen (*Crx) 10-325 Mg Tablet PO 1 tab Q4H PRN Administration Pain Rated 7-10 Albuterol 2 puff 01/31/24 01:55 Albuterol Sulfate (*Sp) Aerosol 1 Puff INHALATION QID PRN shortness of breath or wheezing Buspirone HCl 5 mg 01/31/24 09:00 02/01/24 20:38 Buspirone Hcl 5 Mg Tablet PO 5 mg Q12HR UBALDO Administration Buspirone HCl 2.5 mg 01/31/24 09:00 02/01/24 20:38 Buspirone Hcl 2.5 Mg Tablet PO 2.5 mg Q12HR UBALDO Administration Enoxaparin Sodium 40 mg 02/01/24 21:00 02/01/24 20:38 Enoxaparin 40 Mg/0.4 Ml Syringe SUB-Q 40 mg DAILY UBALDO Administration Hydromorphone HCl 0.5 mg 01/31/24 09:14 02/01/24 10:30 Hydromorphone Hcl Inj (*Crx) 1 Mg/Ml Syr IV PUSH 0.5 mg Q4H PRN Administration Breakthrough Pain Hydroxyzine HCl 50 mg 01/31/24 09:00 02/01/24 16:42 Hydroxyzine Hcl 25 Mg Tablet PO 50 mg TID UBALDO Administration Sodium Chloride 1,000 mls @ 50 mls/hr 01/31/24 00:20 02/02/24 00:55 Normal Saline Iv IV CONT 50 mls/hr .Q20H UBALDO Administration Ibuprofen 600 mg 01/31/24 09:15 02/02/24 00:54 Ibuprofen 600 Mg Tablet PO 600 mg Q8H UBALDO Administration Lamotrigine 200 mg 01/31/24 09:00 02/01/24 20:37 Lamotrigine 100 Mg Tablet PO 200 mg Q12HR UBALDO Administration Lorazepam 0.5 mg 01/31/24 21:00 02/01/24 20:38 Lorazepam (*Crx) 0.5 Mg Tablet PO 0.5 mg HS UBALDO Administration Ondansetron HCl 4 mg 01/31/24 00:16 Ondansetron Inj 4 Mg/2 Ml Vial IV PUSH Q4H PRN Nausea Senna/Docusate Sodium 1 tab 01/31/24 21:00 02/01/24 20:38 Senna/Docusate Sodium Tablet PO 1 tab HS UBALDO Administration Sertraline HCl 100 mg 01/31/24 09:00 02/01/24 08:12 Sertraline Hcl 50 Mg Tablet PO 100 mg DAILY UBALDO Administration Radiology Results: ITS Impressions Head CT 01/30/24 20:38 IMPRESSION: 1. Normal aging brain. Hip/Pelvis X-Ray 01/30/24 22:09 IMPRESSION: 1. Severe right hip osteoarthritis and moderate left hip osteoarthritis. Lumbar Spine CT 01/30/24 22:10 IMPRESSION: 1. Acute sacral insufficiency fractures. 2. Severe lumbar spondylosis. 3. Anterior and posterior fusion procedures from L4 to S1. Carotid Doppler Study 01/31/24 15:06 IMPRESSION: 1. 50-69% stenosis in the right internal carotid artery by sonographic criteria. 2. Less than 50% stenosis in the left internal carotid artery by sonographic criteria. Elbow X-Ray 01/31/24 15:10 IMPRESSION: 1. Elbow joint effusion. No fracture identified. 2. Mild elbow joint osteoarthritis.
[2024-02-02] MEDS: busPIRone HCL 2.5 MG TABLET PO ×2 (08:50→20:34)
[2024-02-02] MEDS: busPIRone HCL 5 MG TABLET PO ×2 (08:50→20:34)
[2024-02-02] MEDS: lamoTRIgine 100 MG TABLET 200 MG PO ×2 (08:51→20:33)
[2024-02-02] MEDS: ENOXAPARIN 40 MG/0.4 ML SYRINGE SUB-Q (08:51)
[2024-02-02] MEDS: hydrOXYzine HCL 25 MG TABLET 50 MG PO ×3 (08:51→16:41)
[2024-02-02] MEDS: SERTRALINE HCL 50 MG TABLET 100 MG PO (08:51)
[2024-02-02] MEDS: HYDROcodone/acetaminophen (*CRX) 10-325 MG TABLET 1 TAB PO ×3 (08:52→20:34)
[2024-02-02] MEDS: ONDANSETRON INJ 4 MG/2 ML VIAL IV PUSH (11:51)
[2024-02-02 12:22] LABS: CRP 0.9 mg/dL (<1.0)
[2024-02-02 12:55] LABS: Erythrocyte Sedimentation Rate 19 mm/hr (0-20)
[2024-02-02 14:00] VITALS: BP 131/64; PULSE 69; RESP 16; TEMP 36.6; O2SAT 97
[2024-02-02 20:00] VITALS: PULSE 66; RESP 17; O2SAT 98
[2024-02-02] MEDS: LORazepam (*CRX) 0.5 MG TABLET PO (20:34)
[2024-02-02] MEDS: SENNA/DOCUSATE SODIUM TABLET 1 TAB PO (20:34)
[2024-02-02 20:53] VITALS: BP 126/68; PULSE 64; RESP 14; TEMP 36.6; O2SAT 97
[2024-02-03] VITALS (12 sets, daily range): BP systolic 111–139; BP diastolic 59–91; PULSE 56–69; RESP 12–25; TEMP 36.1–36.6; O2SAT 93–100
--- NOTE | 2024-02-03 | ECHO_ITS ---
Patient Info Name: Gina Gonzalez Age: 63 years : 1960 Gender: Female Ht: 62 in Wt: 108 lbs BSA: 1.46 m2 Heart Rhythm: Sinus Rhythm Exam Date: 02/03/2024 11:28 AM Exam Location: Echo Lab Patient Status: Inpatient Admit Date: 01/31/2024 Staff Ordering Physician: Toya Magdaleno [employer] Instructor: Jacinda Castillo RDCS Attending Provider: Jocelyne Carney APRN Referring Physician: Sharla LEDEZMA; Exam Type: CA echo transesophageal Study Info Indications - POSSIBLE LV MASS Complete two-dimensional, color flow and Doppler transesophageal study is performed. Summary 1. Transesophageal echocardiogram demonstrates no evidence of intracardiac mass. 2. Suspected mass in the interventricular septum on the transthoracic study is not confirmed. Left Ventricle Left ventricular chamber dimension is normal. Left ventricular systolic function is normal with an ejection fraction by Biplane Method of Discs of Empty. There is no mass visualized in the left ventricle. Right Ventricle Right ventricular chamber dimension is normal. Left Atria Left atrial chamber dimension is normal. Right Atria Right atrial chamber dimension is normal. Aortic Valve The aortic valve is normal. Pulmonic Valve The pulmonic valve is normal. Mitral Valve The mitral valve has normal leaflets. There is mild mitral valve regurgitation. Tricuspid Valve The tricuspid valve leaflets are normal. Pericardium/Pleural The pericardium appears normal. Inferior Vena Cava Not well visualized inferior vena cava with Empty collapse upon inspiration consistent with Empty right atrial pressure, Empty. Aorta The aortic root size at the sinus of Valsalva is normal. Report Signatures
[2024-02-03] MEDS: IBUPROFEN 600 MG TABLET PO ×2 (00:36→16:42)
[2024-02-03] MEDS: SODIUM CHLORIDE 0.9% IV 1,000 ML 50 ML IV CONT (00:38)
[2024-02-03 06:24] LABS: Basophils Absolute Auto 0.1 K/mm3 (0.0-0.1); Basophils Percent Auto 1.4 % (0.2-1.2); Eosinophils Absolute Auto 0.3 K/mm3 (0-0.3); Hematocrit 40.5 % (37.0-47.0); Hemoglobin 12.9 g/dL (12.0-15.0); Immature Granulocyte Absolute 0.01 K/mm3 (0.00-0.031); Immature Granulocyte Percent A 0.3 % (0-0.5); Lymphocytes Absolute Auto 1.44 K/mm3 (0.9-3.2); Lymphocytes Percent Auto 40.1 % (18.3-44.2); Mean Corpuscular HGB Conc 31.9 g/dl (32-36); Mean Corpuscular Hemoglobin 30.1 pg (26-34); Mean Corpuscular Volume 94.6 fl (80-100); Monocytes Absolute Auto 0.3 K/mm3 (0.1-0.6); Monocytes Percent Auto 8.6 % (2.6-8.5); Neutrophils Absolute Auto 1.5 K/mm3 (1.3-6.7); Neutrophils Percent Auto 42.6 % (45.5-73.1); Platelet Count Result 357 k/mm3 (150-375); Red Blood Count 4.28 M/mm3 (4.2-5.4); White Blood Count 3.6 K/mm3 (4.5-10.0)
[2024-02-03 06:46] LABS: Alanine Aminotransferase 13 U/L (6-35); Albumin Level 3.6 g/dL (3.5-5.1); Alkaline Phosphatase 136 U/L (38-126); Anion Gap 5 mmol/L (4-12); Aspartate Amino Transferase 32 U/L (14-36); Bilirubin,Total 0.4 mg/dL (0.2-1.3); Blood Urea Nitrogen 5 mg/dL (7-17); Carbon Dioxide 33 mmol/L (22-30); Chloride 98 mmol/L (98-107); Estimated CRCL calculation 62 ml/min; Estimated Glomerular Filt Rate > 60; Glucose 71 mg/dL (65-110); Potassium 3.7 mmol/L (3.4-5.0); Sodium 136 mmol/L (137-145)
--- NOTE | 2024-02-03 07:41 | P.PNIM_ITS ---
Progress Note: A&P Assessment and Plan (1) Fall: Code(s): W19.XXXA - Unspecified fall, initial encounter Status: Acute Assessment and Plan: Unwitnessed fall at home. Patient does not remember falling or any precipitating factors. CT head was negative, hip/pelvis x-ray shows severe right hip osteoarthritis and moderate left hip osteoarthritis, and CT lumbar spine shows acute sacral insufficiency fractures with severe spondylosis, and anterior and posterior fusion procedures from L4-S1. * Patient has a history of seizure disorder. She has been complaint with her lamotrigine. EEG ordered to rule out possible break through seizure. * Possible syncopal episode? Carotid Doppler shows 50-69% stenosis in the right internal carotid, less than 50% stenosis in the left ICA. ECHO shows LV mass measuring 1.6 cm as well as patent foramen ovale. LV function is estimated at >70%. * Cardiology was consulted given LV mass. JESUS completed Saturday was negative. Cards signed off. * Blood cultures ordered. She had a slight leukocytosis on arrival but may have been reactive vs elevation from dehydration. WBC improved with fluids and without antibiotics. Afebrile. However, since findings of LV mass will ensure blood cultures are negative. She denies IV drug use. She does have poor dentition. * UDS showed opiates which she is chronically taking for back pain. Follows with pain management. * Mechanical fall? Patient does have a history of low back pain and radiculopathy. Neuropathy contributing to fall? PT/OT consulted, recs appreciated. Started on gabapentin. * Left elbow with pain, erythema, and edema. XR negative for fracture but does show elbow joint effusion. Mild osteoarthritis. * PT/OT are recommending SNF given her poor mobility and pain. She lives at home with her daughter and son-in-law who are not present all of the time. She has 16 stairs to enter her apartment. She is excited about going to [facility]; placement pending. (2) Sacral insufficiency fracture: Code(s): M84.48XA - Pathological fracture, other site, initial encounter for fracture Status: Acute Assessment and Plan: CT pelvis shows insufficiency sacral fracture * Pain control with home regimen [place] 5 mg-325 mg OR [place] 10 mg-325 mg every four hours for moderate to severe pain * Dilaudid for breakthrough pain * Scheduled ibuprofen every 8 hours * Senna for bowel regimen given immobility, fracture, and pain medications. * Having radiculopathy with numbness to posterior right thigh and calf. * Ortho recommended medrol-dose melvin and further rec's from neurosurgery. * Thoracic/lumbar spine MRI show chronic T 12 compression fracture with 60% anterior vertebral body height loss and mild central canal stenosis. 9 mm hyperintense lesion in T9. * Appreciate recommendations from neurosurgery. (3) Right leg weakness: Code(s): R29.898 - Other symptoms and signs involving the musculoskeletal system Status: Acute Assessment and Plan: Patient with sudden numbness and loss of muscle strength to right posterior thigh. Symptoms started this morning. Yesterday she was able to lift both legs off of the bed with pain to her sacrum. She was able to dorsiflex and plantarflex with 4/5 strength. Today she has no response to painful stimuli to her right posterior thigh, with decreased sensation to right posterior calf, and poor effort with plantar and dorsiflexion. * CT head wo/con stat * NIH 4 for decreased sensation and limb ataxia * Thoracic, Lumbar spine MRI wo/con ordered as she has a history of spinal fusion with recent sacral fracture * Consulted and spoke with Neurosurgery who recommends Lumbar-thoracic spine MRI now. Discussed results of MRI findings with Dr Rosen. He recommends ortho consult. * Consulted Dr Toledo and discussed her case. He is happy to consult. The patient does have severe osteoarthritis to her right hip but he does not feel the numbness to her posterior thigh is related. He recommends consultation with neurology. * Consulted neurology * Patient had a nerve conduction study completed on 09/07/22. Findings are below # Normal nerve conduction study of upper and lower extremities. # Chronic neurogenic changes in right anterior tibialis, right fibularis longus and right extensor digitorum brevis. # This finding could be seen in the setting of right lower lumbosacral radiculopathy. # Clinical correlation recommended. Subjective Date/time seen: 02/03/24 07:41 Interval history: No acute events overnight. She is seen after her JESUS. She has improved movement to her right leg. She is able to lift it off of the bed and sustain the hold longer than a few seconds. She has persistent numbness to the right posterior thigh and calf. Otherwise she is feeling fairly well. She is happy to be going to [facility] at discharge. Review of Systems Review of Systems: All systems reviewed & are unremarkable except as noted in HPI and below Exam Narrative: General: appears comfortable, thin, frail, in no acute distress Respiratory: breathing is unlabored with even chest rise/fall, lungs are clear without wheezing, rhonchi, and crackles Cardiovascular: Rate and rhythm regular, normal s1s2, no murmur Abdomen: Soft, round, non-tender, active bowel sounds Extremities: No cyanosis, clubbing. Pulses 2/2. Left elbow with erythema, edema, and warmth. Upper extremity strength 5/5, left lower extremity 4/5, right lower extremity 3/5. Neuro: A&O x 4 but poor historian. NIH of 4 today scoring for decreased sensation and mobility to right lower leg. Skin: Warm, dry, intact. Generalized bruising. Thin, frail skin. Objective Data Vital Signs Vital Signs: Vital Signs - 24 hr 02/02/24 08:50 02/02/24 14:00 02/02/24 20:00 Temperature 97.8 F Pulse Rate 69 66 Respiratory Rate 16 17 Blood Pressure 131/64 Pulse Oximetry 97 98 Oxygen Delivery Room Air Room Air 02/02/24 20:53 02/03/24 06:00 Temperature 98 F 97.8 F Pulse Rate 64 69 Respiratory Rate 14 14 Blood Pressure 126/68 111/69 Pulse Oximetry 97 96 Oxygen Delivery Intake/Output Intake/Output: Intake & Output 01/31/24 02/01/24 02/02/24 02/03/24 23:59 23:59 23:59 23:59 Intake Total 3240.0 1624 1615 350 Output Total 850 2650 2550 1200 Balance 2390.0 -1026 -935 -850 Meds/Results Medications: Active Medications Generic Name Dose Route Start Last Admin Trade Name Freq PRN Reason Stop Dose Admin Hydrocodone Bitart/Acetaminophen 1 tab 01/31/24 00:16 02/01/24 08:11 Hydrocodone/Acetaminophen (*Crx) 5-325 Mg Tablet PO 1 tab Q4H PRN Administration Pain Rated 4-6 Hydrocodone Bitart/Acetaminophen 1 tab 01/31/24 09:12 02/02/24 20:34 Hydrocodone/Acetaminophen (*Crx) 10-325 Mg Tablet PO 1 tab Q4H PRN Administration Pain Rated 7-10 Albuterol 2 puff 01/31/24 01:55 Albuterol Sulfate (*Sp) Aerosol 1 Puff INHALATION QID PRN shortness of breath or wheezing Buspirone HCl 5 mg 01/31/24 09:00 02/02/24 20:34 Buspirone Hcl 5 Mg Tablet PO 5 mg Q12HR UBALDO Administration Buspirone HCl 2.5 mg 01/31/24 09:00 02/02/24 20:34 Buspirone Hcl 2.5 Mg Tablet PO 2.5 mg Q12HR UBALDO Administration Hydromorphone HCl 0.5 mg 01/31/24 09:14 02/01/24 10:30 Hydromorphone Hcl Inj (*Crx) 1 Mg/Ml Syr IV PUSH 0.5 mg Q4H PRN Administration Breakthrough Pain Hydroxyzine HCl 50 mg 01/31/24 09:00 02/02/24 16:41 Hydroxyzine Hcl 25 Mg Tablet PO 50 mg TID UBALDO Administration Sodium Chloride 1,000 mls @ 50 mls/hr 01/31/24 00:20 02/03/24 00:38 Normal Saline Iv IV CONT 50 mls/hr .Q20H UBALDO Administration Ibuprofen 600 mg 01/31/24 09:15 02/03/24 00:36 Ibuprofen 600 Mg Tablet PO 600 mg Q8H UBALDO Administration Lamotrigine 200 mg 01/31/24 09:00 02/02/24 20:33 Lamotrigine 100 Mg Tablet PO 200 mg Q12HR UBALDO Administration Lorazepam 0.5 mg 01/31/24 21:00 02/02/24 20:34 Lorazepam (*Crx) 0.5 Mg Tablet PO 0.5 mg HS UBALDO Administration Ondansetron HCl 4 mg 01/31/24 00:16 02/02/24 11:51 Ondansetron Inj 4 Mg/2 Ml Vial IV PUSH 4 mg Q4H PRN Administration Nausea Senna/Docusate Sodium 1 tab 01/31/24 21:00 02/02/24 20:34 Senna/Docusate Sodium Tablet PO 1 tab HS UBALDO Administration Sertraline HCl 100 mg 01/31/24 09:00 02/02/24 08:51 Sertraline Hcl 50 Mg Tablet PO 100 mg DAILY UBALDO Administration Radiology Results: ITS Impressions Hip/Pelvis X-Ray 01/30/24 22:09 IMPRESSION: 1. Severe right hip osteoarthritis and moderate left hip osteoarthritis. Lumbar Spine CT 01/30/24 22:10 IMPRESSION: 1. Acute sacral insufficiency fractures. 2. Severe lumbar spondylosis. 3. Anterior and posterior fusion procedures from L4 to S1. Carotid Doppler Study 01/31/24 15:06 IMPRESSION: 1. 50-69% stenosis in the right internal carotid artery by sonographic criteria. 2. Less than 50% stenosis in the left internal carotid artery by sonographic criteria. Elbow X-Ray 01/31/24 15:10 IMPRESSION: 1. Elbow joint effusion. No fracture identified. 2. Mild elbow joint osteoarthritis. Head CT 02/02/24 11:35 IMPRESSION: 1. Normal head CT. Thoracic Spine MRI 02/02/24 14:37 IMPRESSION: 1. 11 degrees thoracic dextroscoliosis with mild spondylosis. 2. Chronic T12 compression fracture with 60% anterior vertebral body height loss and 3 mm retropulsion resulting in mild central canal stenosis. 3. 9 mm T1 hyperintense lesion in the T9 vertebral body which is nonspecific with differential including benign etiology such as red marrow expansion or atypical hemangioma but could not exclude a malignant/metastatic lesion. Consider further evaluation with either bone scan or pre and postcontrast MRI. Lumbar Spine MRI 02/02/24 15:05 IMPRESSION: 1. Mild lumbar spondylosis with 4 and L5 laminectomies and L4-S1 anterior and instrumented posterior spinal fusion. 2. Chronic T12 burst fracture. Labs Labs: Laboratory Results - last 24 hr 02/02/24 02/03/24 11:49 05:51 WBC 3.6 L RBC 4.28 Hgb 12.9 Hct 40.5 MCV 94.6 MCH 30.1 MCHC 31.9 L RDW 13.0 Plt Count 357 MPV 9.0 Immature Gran % (Auto) 0.3 Neut % (Auto) 42.6 L Lymph % (Auto) 40.1 [place] % (Auto) 8.6 H Eos % (Auto) 7.0 H Baso % (Auto) 1.4 H Lymph # (Auto) 1.44 [place] # (Auto) 0.3 Eos # (Auto) 0.3 Baso # (Auto) 0.1 Abs Immat Gran (auto) 0.01 Absolute Neuts (auto) 1.5 Absolute Nucleated RBC 0.000 Nucleated RBC % 0.0 ESR 19 Sodium 136 L Potassium 3.7 Chloride 98 Carbon Dioxide 33 H Anion Gap 5 BUN 5 L D Creatinine 0.60 L Estim Creat Clear Calc 62 Estimated GFR > 60 Glucose 71 Calcium 9.0 Total Bilirubin 0.4 AST 32 ALT 13 Alkaline Phosphatase 136 H C-Reactive Protein 0.9 Total Protein 7.0 Albumin 3.6 Quality VTE Prophylaxis VTE prophylaxis: mechanical ordered
[2024-02-03] MEDS: lamoTRIgine 100 MG TABLET 200 MG PO ×2 (09:09→21:06)
[2024-02-03] MEDS: hydrOXYzine HCL 25 MG TABLET 50 MG PO ×3 (09:09→16:43)
[2024-02-03] MEDS: busPIRone HCL 2.5 MG TABLET PO ×2 (09:10→21:07)
[2024-02-03] MEDS: busPIRone HCL 5 MG TABLET PO ×2 (09:10→21:07)
[2024-02-03] MEDS: SERTRALINE HCL 50 MG TABLET 100 MG PO (09:10)
[2024-02-03] MEDS: HYDROcodone/acetaminophen (*CRX) 10-325 MG TABLET 1 TAB PO ×2 (10:21→21:06)
--- NOTE | 2024-02-03 10:46 | WPDNEURCNPN ---
Assessment and Plan Assessment and plan (1) Lumbosacral radiculopathy at S1: Code(s): M54.17 - Radiculopathy, lumbosacral region Status: Acute Assessment and Plan: This appears the predominant issue. She has a positive straight leg raising test On right side. Sensory examination did not reveal any sensory loss and hence the pain appears to predominant issue. MRI of the lumbosacral spine was performed this morning shows mild lumbar spondylosis with L4 and L5 laminectomy and L4 vented posterior spinal fusion. Chronic T12 burst fracture. I would suggest neurosurgical evaluation in view of the trauma leading to exacerbation of symptoms. (2) Fall: Qualifiers: Encounter type: initial encounter Qualified Code(s): W19.XXXA - Unspecified fall, initial encounter Code(s): W19.XXXA - Unspecified fall, initial encounter Status: Acute Assessment and Plan: (3) History of lumbar fusion: Code(s): Z98.1 - Arthrodesis status Status: Acute (4) History of alcoholism: Code(s): F10.21 - Alcohol dependence, in remission Status: Chronic Assessment and Plan: However she has been sober for a long time (5) Seizures: Onset Date: Unknown Code(s): R56.9 - Unspecified convulsions Status: Acute Assessment and Plan: the patient is on lamotrigine 200 mg twice a day. An EEG has been ordered. there is also prior history of alcoholism. Seizures have been controlled. (6) Low back pain: Onset Date: Unknown Qualifiers: Chronicity: chronic Sciatica laterality: sciatica of right side Code(s): M54.5 - Low back pain Status: Acute Assessment and Plan: although the patient has history of chronic lower back pain and has been under pain management and history of surgeon lumbar spine, she has a a new onset of a radicular symptom the right lower limb And right S1 root distribution. (7) Bilateral sacral insufficiency fracture: Code(s): M84.48XA - Pathological fracture, other site, initial encounter for fracture Status: Acute (8) Mass of left cardiac ventricle: Code(s): I51.89 - Other ill-defined heart diseases Status: Acute (9) Atrial septal defect: Code(s): Q21.10 - Atrial septal defect, unspecified Status: Acute Plan We should clear within neurosurgeon before starting physical therapy We can Neurontin 300 mg 3 times a day and Flexeril 5 mg 3 times a day hold if drowsy. I noted that she already have prescribed her ibuprofen 600 mg p.r.n. q.6 hours. I shall wait to hear from the neurosurgeons evaluation. Consult date: 02/03/24 HPI: Gina Gonzalez is a 63 year old female with history of fall who presented to the hospital on 01/30/2024. She was found to have an insufficiency fracture of the sacrum. The patient is a awaiting consultation from Neurosurgery and Orthopedics. The patient lives with her daughter and son-in-law. She also history of seizure disorder and is on lamotrigine 400 mg a day. These are under control. There is history of alcohol drinking but she has been sober for quite some time. She suffer from chronic lower back pain. In addition she also has been found to have mass in left ventricle and a patent atrial septal defect. Neurosurgery has requested an MRI of the lumbosacral spine and she waiting to get that done. There is also history of chronic obstructive room pulmonary disease but now she does not smoke. CT scan of the head was performed did not show any significant abnormalities. Carotid Doppler study shows less than 70% narrowing of the right and less than 50% narrowing of the left internal carotid artery. At this time she is complaining of pain and weakness and right lower limb. No bladder or bowel disturbance. Review of Systems Review of Systems: All systems reviewed & are unremarkable except as noted in HPI and below PMFSH Past Medical History Medical History (Updated 02/03/24 @ 10:57 by Wander Lima MD) Anxiety Anxiety and depression Atrial septal defect COPD (chronic obstructive pulmonary disease) Depression GERD without esophagitis History of alcoholism History of smoking Lumbosacral radiculopathy at S1 Mass of left cardiac ventricle Perforated gastric ulcer (~12/27/20) Seizures (Unknown) Surgical History Surgical History H/O lumbosacral spine surgery History of appendectomy History of gastric ulcer Exploratory laparotomy with over-sewing of antral gastric ulcer and placement of omental patch, biopsy of antral gastric ulcer, peritoneal washout - 12/28/2020 Hx of tracheostomy Family History Family History Mother Heart disease Cerebrovascular accident Father Heart disease Other Unknown family medical history Social History Social History (Updated 07/09/23 @ 13:59 by MIKALA Henson) Social History: The patient stated that she had 5 children and 1 at . The patient is and she is considered disabled. The patient stated that she is 16 years clean with alcohol and she is recovering alcoholic. The patient stated that she smoked many years ago and no longer smokes. The patient is listed as a full code. And she stated that she does not want any CPR if she has spinal surgery. The patient desires to be a DNR. The patient does not have a durable power trust and estates attorney for healthcare. Smoking status: Former smoker Tobacco type: cigarettes Alcohol intake: former Alcohol use details: RECOVERING , NONE 15 YRS Substance use: current Substance use type: marijuana Other substance usage details: edibles - Marijuana Do You Feel Safe in your Home?: Yes Lack of Transportation: No Lack of Food: Never True Current Housing: I Have Housing Concerned About Future Housing: No Difficulty Paying Gas/Electric Bills: No Difficulty Paying for Meds: No Currently Unemployed: No Education: Grade School Difficulty w/ Childcare or Family Care: No Living arrangements: with family Additional living arrangements comments: LIVES WITH DAUGHTER JOJO Occupation/Education: retired Gender identity (if verbalized by the patient): Female Sexual Orientation (if Verbalized by the Patient): Straight or Heterosexual Spiritual care concerns: No Agree to blood products: Yes Meds Home Medications and Allergies Home Medications Medication Instructions Recorded Confirmed Type acetaminophen 650 mg 650 mg PO BID PRN Pain (Scale 09/08/20 01/31/24 History tablet,extended release (Arthritis Score 1-3) Pain Relief (acetaminophen) ER) buspirone 7.5 mg tablet 7.5 mg PO BID 09/08/20 01/31/24 History diphenhydramine HCl 25 mg capsule 25 mg PO BID 09/08/20 01/31/24 History (Allergy Relief (diphenhydramine)) albuterol sulfate 90 mcg/actuation 1 inh inhalation QID PRN shortness 01/02/21 01/31/24 Rx aerosol inhaler of breath or wheezing #6.7 grams hydrocodone 5 mg-acetaminophen 325 1 tablet PO QID 01/31/24 01/31/24 History mg tablet hydroxyzine HCl 50 mg tablet 50 mg PO TID 01/31/24 01/31/24 History lamotrigine 200 mg tablet 200 mg PO BID 01/31/24 01/31/24 History lorazepam 0.5 mg tablet 0.5 mg PO HS 01/31/24 01/31/24 History sertraline 100 mg tablet 100 mg PO DAILY 01/31/24 01/31/24 History Allergies Allergy/AdvReac Type Severity Reaction Status Date / Time Penicillins Allergy Mild Unknown Verified 01/31/24 01:38 Sulfa (Sulfonamide Allergy Mild Unknown Verified 01/31/24 01:38 Antibiotics) grapefruit Allergy Unknown Verified 01/31/24 01:38 fluoxetine [From Prozac] AdvReac Severe Agitated Verified 01/31/24 01:38 Vital Signs Vital Signs - 24 hr 02/02/24 14:00 02/02/24 20:00 02/02/24 20:53 Temperature 97.8 F 98 F Pulse Rate 69 66 64 Respiratory Rate 16 17 14 Blood Pressure 131/64 126/68 Pulse Oximetry 97 98 97 Oxygen Delivery Room Air 02/03/24 06:00 Temperature 97.8 F Pulse Rate 69 Respiratory Rate 14 Blood Pressure 111/69 Pulse Oximetry 96 Oxygen Delivery Exam Narrative: Fully conscious alert oriented to self time place and person. No aphasia or dysarthria. His head and neck shows no evidence of external trauma. No nuchal rigidity bruit. Cranial nerves pupils were equal reactive light. Visual de la cruz and extraocular movements are intact. There is no facial asymmetry. Facial sensation intact. Other cranial nerves normal limits. Motor system shows normal power in both upper and left lower limb. Difficult to evaluate right lower limb reliably however she has good strength in dorsiflexion and plantar flexion of the toes. Hip flexion and extension and knee flexion extension were rather difficult evaluate in view of the radicular pain. Straight leg raising test was strongly positive at the approximately 20-30 degrees on the right leg and normal on the left side. I deep tendon reflexes generally decreased at both ankles and 1/4 at knees. Sensory examination intact to touch, temperature and vibration. no involuntary movements are seen. Results Labs 02/03/24 05:51 02/03/24 05:51 Labs: Short CBC 02/03/24 Range/Units 05:51 WBC 3.6 L (4.5-10.0) K/mm3 Hgb 12.9 (12.0-15.0) g/dL Hct 40.5 (37.0-47.0) % Plt Count 357 (150-375) k/mm3 BMP 02/03/24 05:51 Sodium 136 L Potassium 3.7 Chloride 98 Carbon Dioxide 33 H BUN 5 L D Creatinine 0.60 L Glucose 71 Calcium 9.0 Liver Function 02/03/24 Range/Units 05:51 Total Bilirubin 0.4 (0.2-1.3) mg/dL AST 32 (14-36) U/L ALT 13 (6-35) U/L Alkaline Phosphatase 136 H (38-126) U/L Albumin 3.6 (3.5-5.1) g/dL
--- NOTE | 2024-02-03 11:15 | PC.NURSE ---
To chest pain center for [facility]US via stretcher.
--- NOTE | 2024-02-03 11:45 | P.PCNCC_ITS ---
Cardiac Cath Procedure Note Date of procedure:: 02/03/24 Performing physician:: Elier Quijano MD Indication:: Concern regarding intracardiac mass Brief clinical history:: This is a 63-year-old woman who was admitted to the hospital after sustaining a fall. An echocardiogram was interpreted by another plug sorter as being suspicious for a left ventricular septal myxoma. For this reason transesophageal echocardiogram has been requested. Procedure Procedure performed:: Transesophageal echocardiogram Sedation/Medication given:: IV propofol 40 mg Access site:: Left antecubital Estimated blood loss:: None Procedure note:: Patient was brought to the cardiac catheterization lab holding area in the postabsorptive state. She was placed in the supine position and received or pharyngeal benzocaine for topical anesthesia. The bite block was then placed in position she was sedated with propofol 1 dose of 40 mg IV push was used which provided excellent sedation. Following this the KILLIAN probe was placed into the hypopharynx and advanced easily into the esophagus. Multiplane are killian with Doppler imaging was carried out and agitated saline contrast was injected in the four-chamber view as well. Following this the probe was rotated posteriorly the descending aorta and aortic arch were then reviewed and examined upon withdrawal of the probe. Procedure was well tolerated and uncomplicated Findings:: The left atrium appears to be normal in size. The mitral valve leaflets are n ormal in appearance there is a trivial jet of MR seen on color Doppler. The left ventricle appears to be of normal dimension and thickness and contract well in all segments ejection fraction is visually estimated to be 60-70%. There was no evidence of an intraventricular mass. The ventricle was inspected carefully especially the septum which was the matter of concern according to the chart there is no evidence of a mass arising from the septum. There was a prominent trabeculation in the apex and might have created this concern. The aortic valve is trileaflet thin and pliable and normal in appearance aortic root aortic arch and descending thoracic aorta looked normal. The right-sided chambers are unremarkable in appearance the interatrial septum does not have any visible discontinuity. Agitated saline contrast in the KILLIAN procedure did not show any evidence of shunt. The tricuspid and pulmonic valves look normal. Conclusion:: Transesophageal echocardiogram demonstrating no evidence of a intracardiac thrombus or mass. Specific concern regarding a left ventricular septal myxoma appears to be ruled out based on these images. No convincing evidence of intracardiac shunt or PFO based on this exam Elier Quijano MD [facility]
--- NOTE | 2024-02-03 11:49 | P.PNCA_ITS ---
Progress Note: A&P Assessment and Plan (1) Mass of left cardiac ventricle: Code(s): I51.89 - Other ill-defined heart diseases Status: Acute Plan 63-year-old lady admitted to the hospital with a fall. No apparent cardiac problem. Echocardiogram was done interpreted by breeder service technician as suspicious for left ventricular myxoma. Left ventricular septal myxomas are exceedingly rare. Transesophageal echocardiogram today rules this out. No additional cardiac recommendations to make at this time and we will sign off of his case at this moment. Please call me if you have additional cardiovascular questions. Elier Quijano MD [facility] Subjective Date/time seen: Date of service: 02/03/24 11:49 Interval history: Follow-up visit in this 63-year-old lady with: Concern regarding all left ventricular myxoma/mass based on interpretation of echocardiogram. Transesophageal echocardiogram done today rules this out. Exam Const: General: comfortable and no acute distress Other: Elderly frail woman appears older than stated age HENMT: Mouth: Yes moist mucous membranes Eyes: Sclera: sclerae normal Neck: Neck: supple and no JVD Resp: Effort & Inspection: normal respiratory effort Cardio: Rate: regular rate Rhythm: regular rhythm GI: GI Palp: Yes Soft to palpation Auscultation: normal bowel sounds Skin: General skin exam: normal color Neuro: Other: Alert and oriented x3 Extrem: Other: Good perfusion, no edema Objective Data Vital Signs Vital Signs: Vital Signs - 24 hr 02/02/24 14:00 02/02/24 20:00 02/02/24 20:53 Temperature 36.6 C 36.6 C Pulse Rate 69 66 64 Respiratory Rate 16 17 14 Blood Pressure 131/64 126/68 Pulse Oximetry 97 98 97 Oxygen Delivery Room Air Oxygen Flow Rate 02/03/24 06:00 02/03/24 09:10 02/03/24 11:24 Temperature 36.6 C Pulse Rate 69 64 Respiratory Rate 14 16 18 Blood Pressure 111/69 135/91 H Pulse Oximetry 96 96 100 Oxygen Delivery Room Air Nasal Cannula Oxygen Flow Rate 3 02/03/24 11:35 02/03/24 11:40 02/03/24 11:45 Temperature Pulse Rate 67 58 L 56 L Respiratory Rate 25 H 13 15 Blood Pressure 139/75 135/70 125/64 Pulse Oximetry 100 99 100 Oxygen Delivery Nasal Cannula Nasal Cannula Nasal Cannula Oxygen Flow Rate 3 3 3 Intake/Output Intake/Output: Intake & Output 01/31/24 02/01/24 02/02/24 02/03/24 23:59 23:59 23:59 23:59 Intake Total 3240.0 1624 1615 869.2 Output Total 850 2650 2550 1200 Balance 2390.0 -1026 -935 -330.8 Meds/Results Medications: Active Medications Generic Name Dose Route Start Last Admin Trade Name Freq PRN Reason Stop Dose Admin Hydrocodone Bitart/Acetaminophen 1 tab 01/31/24 00:16 02/01/24 08:11 Hydrocodone/Acetaminophen (*Crx) 5-325 Mg Tablet PO 1 tab Q4H PRN Administration Pain Rated 4-6 Hydrocodone Bitart/Acetaminophen 1 tab 01/31/24 09:12 02/03/24 10:21 Hydrocodone/Acetaminophen (*Crx) 10-325 Mg Tablet PO 1 tab Q4H PRN Administration Pain Rated 7-10 Albuterol 2 puff 01/31/24 01:55 Albuterol Sulfate (*Sp) Aerosol 1 Puff INHALATION QID PRN shortness of breath or wheezing Buspirone HCl 5 mg 01/31/24 09:00 02/03/24 09:10 Buspirone Hcl 5 Mg Tablet PO 5 mg Q12HR UBALDO Administration Buspirone HCl 2.5 mg 01/31/24 09:00 02/03/24 09:10 Buspirone Hcl 2.5 Mg Tablet PO 2.5 mg Q12HR UBALDO Administration Hydromorphone HCl 0.5 mg 01/31/24 09:14 02/01/24 10:30 Hydromorphone Hcl Inj (*Crx) 1 Mg/Ml Syr IV PUSH 0.5 mg Q4H PRN Administration Breakthrough Pain Hydroxyzine HCl 50 mg 01/31/24 09:00 02/03/24 09:09 Hydroxyzine Hcl 25 Mg Tablet PO 50 mg TID UBALDO Administration Sodium Chloride 1,000 mls @ 50 mls/hr 01/31/24 00:20 02/03/24 11:01 Normal Saline Iv IV CONT 0 mls/hr .Q20H UBALDO Infusion Ibuprofen 600 mg 01/31/24 09:15 02/03/24 09:10 Ibuprofen 600 Mg Tablet PO Not Given Q8H UBALDO Lamotrigine 200 mg 01/31/24 09:00 02/03/24 09:09 Lamotrigine 100 Mg Tablet PO 200 mg Q12HR UBALDO Administration Lorazepam 0.5 mg 01/31/24 21:00 02/02/24 20:34 Lorazepam (*Crx) 0.5 Mg Tablet PO 0.5 mg HS UBALDO Administration Ondansetron HCl 4 mg 01/31/24 00:16 02/02/24 11:51 Ondansetron Inj 4 Mg/2 Ml Vial IV PUSH 4 mg Q4H PRN Administration Nausea Senna/Docusate Sodium 1 tab 01/31/24 21:00 02/02/24 20:34 Senna/Docusate Sodium Tablet PO 1 tab HS UBALDO Administration Sertraline HCl 100 mg 01/31/24 09:00 02/03/24 09:10 Sertraline Hcl 50 Mg Tablet PO 100 mg DAILY UBALDO Administration Radiology Results: ITS Impressions Hip/Pelvis X-Ray 01/30/24 22:09 IMPRESSION: 1. Severe right hip osteoarthritis and moderate left hip osteoarthritis. Lumbar Spine CT 01/30/24 22:10 IMPRESSION: 1. Acute sacral insufficiency fractures. 2. Severe lumbar spondylosis. 3. Anterior and posterior fusion procedures from L4 to S1. Carotid Doppler Study 01/31/24 15:06 IMPRESSION: 1. 50-69% stenosis in the right internal carotid artery by sonographic criteria. 2. Less than 50% stenosis in the left internal carotid artery by sonographic criteria. Elbow X-Ray 01/31/24 15:10 IMPRESSION: 1. Elbow joint effusion. No fracture identified. 2. Mild elbow joint osteoarthritis. Head CT 02/02/24 11:35 IMPRESSION: 1. Normal head CT. Thoracic Spine MRI 02/02/24 14:37 IMPRESSION: 1. 11 degrees thoracic dextroscoliosis with mild spondylosis. 2. Chronic T12 compression fracture with 60% anterior vertebral body height loss and 3 mm retropulsion resulting in mild central canal stenosis. 3. 9 mm T1 hyperintense lesion in the T9 vertebral body which is nonspecific with differential including benign etiology such as red marrow expansion or atypical hemangioma but could not exclude a malignant/metastatic lesion. Consider further evaluation with either bone scan or pre and postcontrast MRI. Lumbar Spine MRI 02/02/24 15:05 IMPRESSION: 1. Mild lumbar spondylosis with 4 and L5 laminectomies and L4-S1 anterior and instrumented posterior spinal fusion. 2. Chronic T12 burst fracture. Labs Labs: Laboratory Results - last 24 hr 02/02/24 02/03/24 11:49 05:51 WBC 3.6 L RBC 4.28 Hgb 12.9 Hct 40.5 MCV 94.6 MCH 30.1 MCHC 31.9 L RDW 13.0 Plt Count 357 MPV 9.0 Immature Gran % (Auto) 0.3 Neut % (Auto) 42.6 L Lymph % (Auto) 40.1 [place] % (Auto) 8.6 H Eos % (Auto) 7.0 H Baso % (Auto) 1.4 H Lymph # (Auto) 1.44 [place] # (Auto) 0.3 Eos # (Auto) 0.3 Baso # (Auto) 0.1 Abs Immat Gran (auto) 0.01 Absolute Neuts (auto) 1.5 Absolute Nucleated RBC 0.000 Nucleated RBC % 0.0 ESR 19 Sodium 136 L Potassium 3.7 Chloride 98 Carbon Dioxide 33 H Anion Gap 5 BUN 5 L D Creatinine 0.60 L Estim Creat Clear Calc 62 Estimated GFR > 60 Glucose 71 Calcium 9.0 Total Bilirubin 0.4 AST 32 ALT 13 Alkaline Phosphatase 136 H C-Reactive Protein 0.9 Total Protein 7.0 Albumin 3.6
--- NOTE | 2024-02-03 12:25 | PC.NURSE ---
Returned from chest pain center via stretcher.
--- NOTE | 2024-02-03 12:58 | P.CONOP_ITS ---
Assessment and Plan Assessment and plan (1) Osteoarthritis of right hip: Qualifiers: Osteoarthritis type: primary Qualified Code(s): M16.11 - Unilateral primary osteoarthritis, right hip Code(s): M16.11 - Unilateral primary osteoarthritis, right hip Status: Acute (2) Radicular pain of right lower extremity: Code(s): M54.10 - Radiculopathy, site unspecified Status: Acute History of Present Illness HPI Consult date: 02/03/24 Chief complaint: fall Narrative: Patient is a 63-year-old female who was admitted after a fall onto her buttocks and CT scan demonstrated right sided sacral ala insufficiency fracture at the S2 level. I am asked to see her because of numbness in the posterior thigh and upper calf as well as difficulty with active straight leg raise. The symptoms are new since her trauma. The x-rays of her right hip show at least moderate type to longstanding osteoarthritis of the right hip. Physical examination: On exam today she is a very pleasant female in no acute distress. She is alert and oriented. Her BMI is only 19.9 at 49.4 kg. She is able do a straight leg raise lifting her leg a couple of inches above the bed but is unable to raise it higher than that because of diffuse posterior thigh pain. With straight leg raise to 30? she complains of excruciating posterior thigh and calf pain. With her leg in extension at the knee and elevated only 10? above the bed she was more comfortable but with passive dorsiflexion of her ankle she complained of severe pain in the posterior calf and thigh. On light touch testing she reported dense numbness in the posterior thigh and the posterior calf down to the level of about 3 in proximal to the posterior heel. The plantar foot had intact sensation. She had 2+ pedal pulses. Rotation of her right hip internally cause pain in the medial thigh and externally cause pain lateral thigh and lateral hip. MRI scan of thoracic spine an MRI scan of lumbar spine reviewed. She has a hold severe compression fracture with slight burst component in the lower thoracic spine and history of L4-5 and S1 fusion with instrumentation and decompression. No high-grade central canal stenosis noted or acute fracture in the thoracic or lumbar spine. Assessment plan: 1. Patient has numbness in a radicular distribution down the posterior thigh and posterior calf with severe pain on sciatic nerve stretch test. Differential diagnosis would include injury to posterior femoral cutaneous nerve which can occur with a severe trauma to the buttock for example but that would not cause n umbness distal to the posterior knee. I think the most likely etiology for her numbness and sciatica type pain is injury to the S2 nerve root relating to her sacral insufficiency fracture at S2. I have prescribed a Medrol Dosepak to see if this will give her some symptomatic relief and I am going to consult the neuro surgeons for their recommendations. 2. At least moderate osteoarthritis of right hip. She is able to actively elevate her leg a couple of inches off the bed which usually a patient cannot do if they have an occult fracture but she is thin enough that I would recommend obtaining a CT scan to rule out occult fracture. Fracture is ruled out treatment would be symptomatic treatment of her osteoarthritis which if this remained significantly symptomatic following healing of her sacral fracture, she might be a candidate for hip replacement surgery if that were deemed necessary. [facility] Past Medical History Medical History (Updated 02/03/24 @ 13:09 by Louie Toledo MD) Anxiety Anxiety and depression Atrial septal defect COPD (chronic obstructive pulmonary disease) Depression GERD without esophagitis History of alcoholism History of smoking Lumbosacral radiculopathy at S1 Mass of left cardiac ventricle Perforated gastric ulcer (~12/27/20) Seizures (Unknown) Surgical History Surgical History H/O lumbosacral spine surgery History of appendectomy History of gastric ulcer Exploratory laparotomy with over-sewing of antral gastric ulcer and placement of omental patch, biopsy of antral gastric ulcer, peritoneal washout - 12/28/2020 Hx of tracheostomy Family History Family History Mother Heart disease Cerebrovascular accident Father Heart disease Other Unknown family medical history Social History Social History (Updated 07/09/23 @ 13:59 by MIKALA Henson) Social History: The patient stated that she had 5 children and 1 at . The patient is and she is considered disabled. The patient stated that she is 16 years clean with alcohol and she is recovering alcoholic. The patient stated that she smoked many years ago and no longer smokes. The patient is listed as a full code. And she stated that she does not want any CPR if she has spinal surgery. The patient desires to be a DNR. The patient does not have a durable power [place] attorney for healthcare. Smoking status: Former smoker Tobacco type: cigarettes Alcohol intake: former Alcohol use details: RECOVERING , NONE 15 YRS Substance use: current Substance use type: marijuana Other substance usage details: edibles - Marijuana Do You Feel Safe in your Home?: Yes Lack of Transportation: No Lack of Food: Never True Current Housing: I Have Housing Concerned About Future Housing: No Difficulty Paying Gas/Electric Bills: No Difficulty Paying for Meds: No Currently Unemployed: No Education: Grade School Difficulty w/ Childcare or Family Care: No Living arrangements: with family Additional living arrangements comments: LIVES WITH DAUGHTER JOJO Occupation/Education: retired Gender identity (if verbalized by the patient): Female Sexual Orientation (if Verbalized by the Patient): Straight or Heterosexual Spiritual care concerns: No Agree to blood products: Yes Meds Home Medications and Allergies Home Medications Medication Instructions Recorded Confirmed Type acetaminophen 650 mg 650 mg PO BID PRN Pain (Scale 09/08/20 01/31/24 History tablet,extended release (Arthritis Score 1-3) Pain Relief (acetaminophen) ER) buspirone 7.5 mg tablet 7.5 mg PO BID 09/08/20 01/31/24 History diphenhydramine HCl 25 mg capsule 25 mg PO BID 09/08/20 01/31/24 History (Allergy Relief (diphenhydramine)) albuterol sulfate 90 mcg/actuation 1 inh inhalation QID PRN shortness 01/02/21 01/31/24 Rx aerosol inhaler of breath or wheezing #6.7 grams hydrocodone 5 mg-acetaminophen 325 1 tablet PO QID 01/31/24 01/31/24 History mg tablet hydroxyzine HCl 50 mg tablet 50 mg PO TID 01/31/24 01/31/24 History lamotrigine 200 mg tablet 200 mg PO BID 01/31/24 01/31/24 History lorazepam 0.5 mg tablet 0.5 mg PO HS 01/31/24 01/31/24 History sertraline 100 mg tablet 100 mg PO DAILY 01/31/24 01/31/24 History Allergies Allergy/AdvReac Type Severity Reaction Status Date / Time Penicillins Allergy Mild Unknown Verified 01/31/24 01:38 Sulfa (Sulfonamide Allergy Mild Unknown Verified 01/31/24 01:38 Antibiotics) grapefruit Allergy Unknown Verified 01/31/24 01:38 fluoxetine [From Prozac] AdvReac Severe Agitated Verified 01/31/24 01:38 Vital Signs Vital Signs - 24 hr 02/02/24 14:00 02/02/24 20:00 02/02/24 20:53 Temperature 36.6 C 36.6 C Pulse Rate 69 66 64 Respiratory Rate 16 17 14 Blood Pressure 131/64 126/68 Pulse Oximetry 97 98 97 Oxygen Delivery Room Air Oxygen Flow Rate 02/03/24 06:00 02/03/24 09:10 02/03/24 11:24 Temperature 36.6 C Pulse Rate 69 64 Respiratory Rate 14 16 18 Blood Pressure 111/69 135/91 H Pulse Oximetry 96 96 100 Oxygen Delivery Room Air Nasal Cannula Oxygen Flow Rate 3 02/03/24 11:35 02/03/24 11:40 02/03/24 11:45 Temperature Pulse Rate 67 58 L 56 L Respiratory Rate 25 H 13 15 Blood Pressure 139/75 135/70 125/64 Pulse Oximetry 100 99 100 Oxygen Delivery Nasal Cannula Nasal Cannula Nasal Cannula Oxygen Flow Rate 3 3 3 02/03/24 12:00 02/03/24 12:15 02/03/24 12:33 Temperature 36.6 C Pulse Rate 57 L 56 L 60 Respiratory Rate 16 16 17 Blood Pressure 128/63 114/64 131/59 L Pulse Oximetry 98 93 99 Oxygen Delivery Room Air Room Air Oxygen Flow Rate Results Labs 02/03/24 05:51 02/03/24 05:51 Labs: Abnormal lab results 02/03/24 Range/Units 05:51 WBC 3.6 L (4.5-10.0) K/mm3 MCHC 31.9 L (32-36) g/dl Neut % (Auto) 42.6 L (45.5-73.1) % Baker % (Auto) 8.6 H (2.6-8.5) % Eos % (Auto) 7.0 H (0-4.4) % Baso % (Auto) 1.4 H (0.2-1.2) % Sodium 136 L (137-145) mmol/L Carbon Dioxide 33 H (22-30) mmol/L BUN 5 L D (7-17) mg/dL Creatinine 0.60 L (0.7-1.0) mg/dL Alkaline Phosphatase 136 H (38-126) U/L H & H 01/30/24 02/01/24 02/03/24 Range/Units 20:44 04:58 05:51 Hgb 13.7 12.8 12.9 (12.0-15.0) g/dL Hct 41.0 39.6 40.5 (37.0-47.0) % Coagulation 01/30/24 Range/Units 20:44 INR 1.1 All other labs normal.
--- NOTE | 2024-02-03 13:00 | PCOTNOTE ---
Pt currently on bedrest orders while awaiting neurosurgery consultation. Will continue to follow.
[2024-02-03] MEDS: methylPREDNISolone (MEDROL) DOSEPACK 4 MG TABLETS PO ×4 (14:05→21:07)
--- NOTE | 2024-02-03 14:42 | WPDNEUROSGCN ---
Assessment and Plan Assessment and plan (1) Bilateral sacral insufficiency fracture: Code(s): M84.48XA - Pathological fracture, other site, initial encounter for fracture Status: Acute Plan This is a 63-year-old female presents after a fall found to have sacral insufficiency fractures pain in the right posterior superior iliac spine upon palpation and progressive right lower extremity weakness. It is not clear if this weakness is primarily pain based or if she has compression of her S2 nerve. I do not see any direct compression on the MRI. I do not see any course for acute neurosurgical intervention. I did explain to Dr. Ramos that I do not manage sacral insufficiency fractures and therefore I would defer to Orthopedic Surgery regarding activity levels and further management. In regards to her T12 compression fracture this is chronic in nature and does not need acute neurosurgical intervention nor is it likely to explain her right lower extremity weakness. She would then benefit from physical therapy, pain control, and bone health management to maximize her spine health. A total of 55 minutes was spent on this encounter including various conversations with the hospitalist team, review of imaging, review of consult notes, review medical record, physical exam, discussion with the patient during this admission. Consult date: 02/03/24 Reason for consult: Evaluation of right leg weakness in the setting of sacral insufficiency fractures HPI: Gina Gonzalez is a 63 year old female with a history of prior alcohol abuse, seizure disorder, malnutrition with a BMI of 19, L4-S1 spinal fusion and decompression 20 years ago who presents after a fall onto her buttocks found to have sacral insufficiency fractures. When she initially presented she was able to move her legs well without any focal neurologic deficit however on Saturday was noted that she had weakness of her right leg with pain down the back of her right leg. Dr. Ramos consulted me for evaluation. I explained to her that I do not manage sacral insufficiency fractures. At that time she only had a CT scan of her lumbar spine with no MRI of the thoracic or lumbar spine. Based off of her CT scan results she did have a chronic T12 compression fracture that has not changed. However she did not have an MRI of her thoracic or lumbar spine and I recommended that she get an MRI of the thoracic and lumbar spine to rule out any other pathology that might be explaining her weakness. This MRI was performed which showed a wide open spinal canal and both the thoracic and lumbar spine without any evidence of spinal cord or cauda equina compression. At this point I recommended an orthopedic surgery consult for evaluation of sacral insufficiency fractures given no acute spinal cord or cauda equina compression noted. Currently the patient complains of right leg pain primarily in her buttock and hip area and tailbone. She notes some pain along the back of her leg and notes that it is very painful for her to move her right leg off the bed. She denies any focal numbness or tingling in her groin or loss of bowel bladder function. Review of Systems Review of Systems: Full review of systems was performed and was negative other than what is listed in history of presenting illness. [facility] Past Medical History Medical History (Updated 02/03/24 @ 13:09 by Louie Toledo MD) Anxiety Anxiety and depression Atrial septal defect COPD (chronic obstructive pulmonary disease) Depression GERD without esophagitis History of alcoholism History of smoking Lumbosacral radiculopathy at S1 Mass of left cardiac ventricle Perforated gastric ulcer (~12/27/20) Seizures (Unknown) Surgical History Surgical History H/O lumbosacral spine surgery History of appendectomy History of gastric ulcer Exploratory laparotomy with over-sewing of antral gastric ulcer and placement of omental patch, biopsy of antral gastric ulcer, peritoneal washout - 12/28/2020 Hx of tracheostomy Family History Family History Mother Heart disease Cerebrovascular accident Father Heart disease Other Unknown family medical history Social History Social History (Updated 07/09/23 @ 13:59 by MIKALA Henson) Social History: The patient stated that she had 5 children and 1 at . The patient is and she is considered disabled. The patient stated that she is 16 years clean with alcohol and she is recovering alcoholic. The patient stated that she smoked many years ago and no longer smokes. The patient is listed as a full code. And she stated that she does not want any CPR if she has spinal surgery. The patient desires to be a DNR. The patient does not have a durable power managing attorney for healthcare. Smoking status: Former smoker Tobacco type: cigarettes Alcohol intake: former Alcohol use details: RECOVERING , NONE 15 YRS Substance use: current Substance use type: marijuana Other substance usage details: edibles - Marijuana Do You Feel Safe in your Home?: Yes Lack of Transportation: No Lack of Food: Never True Current Housing: I Have Housing Concerned About Future Housing: No Difficulty Paying Gas/Electric Bills: No Difficulty Paying for Meds: No Currently Unemployed: No Education: Grade School Difficulty w/ Childcare or Family Care: No Living arrangements: with family Additional living arrangements comments: LIVES WITH DAUGHTER JOJO Occupation/Education: retired Gender identity (if verbalized by the patient): Female Sexual Orientation (if Verbalized by the Patient): Straight or Heterosexual Spiritual care concerns: No Agree to blood products: Yes Meds Home Medications and Allergies Home Medications Medication Instructions Recorded Confirmed Type acetaminophen 650 mg 650 mg PO BID PRN Pain (Scale 09/08/20 01/31/24 History tablet,extended release (Arthritis Score 1-3) Pain Relief (acetaminophen) ER) buspirone 7.5 mg tablet 7.5 mg PO BID 09/08/20 01/31/24 History diphenhydramine HCl 25 mg capsule 25 mg PO BID 09/08/20 01/31/24 History (Allergy Relief (diphenhydramine)) albuterol sulfate 90 mcg/actuation 1 inh inhalation QID PRN shortness 01/02/21 01/31/24 Rx aerosol inhaler of breath or wheezing #6.7 grams hydrocodone 5 mg-acetaminophen 325 1 tablet PO QID 01/31/24 01/31/24 History mg tablet hydroxyzine HCl 50 mg tablet 50 mg PO TID 01/31/24 01/31/24 History lamotrigine 200 mg tablet 200 mg PO BID 01/31/24 01/31/24 History lorazepam 0.5 mg tablet 0.5 mg PO HS 01/31/24 01/31/24 History sertraline 100 mg tablet 100 mg PO DAILY 01/31/24 01/31/24 History Allergies Allergy/AdvReac Type Severity Reaction Status Date / Time Penicillins Allergy Mild Unknown Verified 01/31/24 01:38 Sulfa (Sulfonamide Allergy Mild Unknown Verified 01/31/24 01:38 Antibiotics) grapefruit Allergy Unknown Verified 01/31/24 01:38 fluoxetine [From Prozac] AdvReac Severe Agitated Verified 01/31/24 01:38 Vital Signs Vital Signs - 24 hr 02/02/24 20:00 02/02/24 20:53 02/03/24 06:00 Temperature 98 F 97.8 F Pulse Rate 66 64 69 Respiratory Rate 17 14 14 Blood Pressure 126/68 111/69 Pulse Oximetry 98 97 96 Oxygen Delivery Room Air Oxygen Flow Rate 02/03/24 09:10 02/03/24 11:24 02/03/24 11:35 Temperature Pulse Rate 64 67 Respiratory Rate 16 18 25 H Blood Pressure 135/91 H 139/75 Pulse Oximetry 96 100 100 Oxygen Delivery Room Air Nasal Cannula Nasal Cannula Oxygen Flow Rate 3 3 02/03/24 11:40 02/03/24 11:45 02/03/24 12:00 Temperature Pulse Rate 58 L 56 L 57 L Respiratory Rate 13 15 16 Blood Pressure 135/70 125/64 128/63 Pulse Oximetry 99 100 98 Oxygen Delivery Nasal Cannula Nasal Cannula Room Air Oxygen Flow Rate 3 3 02/03/24 12:15 02/03/24 12:33 02/03/24 13:25 Temperature 97.9 F 97.9 F Pulse Rate 56 L 60 65 Respiratory Rate 16 17 16 Blood Pressure 114/64 131/59 L 131/61 Pulse Oximetry 93 99 95 Oxygen Delivery Room Air Oxygen Flow Rate Exam Neuro: Other: She is very pleasant in no acute distress she moves all extremities well with exception of her right lower extremity. Her right lower extremity is somewhat pain limited due to the pain that she has in her right hip/tailbone area. She is able to move her right iliopsoas 3/5, right quadriceps 3/5 dorsiflexion 4+ out of 5 plantar flexion 4/5. She has no notable clonus. She does have pain upon palpation of the right PSIS. I reviewed her CT scan of her lumbar spine MRI scan including her lumbar and thoracic regions which indicated central canal stenosis to indicate spinal cord with cauda equina compression she does have sacral insufficiency fractures as far as I can tell these do not pass into the sacral foramina. Results Labs 02/03/24 05:51 02/03/24 05:51 Labs: Short CBC 02/03/24 Range/Units 05:51 WBC 3.6 L (4.5-10.0) K/mm3 Hgb 12.9 (12.0-15.0) g/dL Hct 40.5 (37.0-47.0) % Plt Count 357 (150-375) k/mm3 BMP 02/03/24 05:51 Sodium 136 L Potassium 3.7 Chloride 98 Carbon Dioxide 33 H BUN 5 L D Creatinine 0.60 L Glucose 71 Calcium 9.0 Liver Function 02/03/24 Range/Units 05:51 Total Bilirubin 0.4 (0.2-1.3) mg/dL AST 32 (14-36) U/L ALT 13 (6-35) U/L Alkaline Phosphatase 136 H (38-126) U/L Albumin 3.6 (3.5-5.1) g/dL
[2024-02-03] MEDS: GABAPENTIN 300 MG CAPSULE PO (16:43)
[2024-02-03] MEDS: CYCLOBENZAPRINE HCL 5 MG TABLET PO (21:06)
[2024-02-03] MEDS: SENNA/DOCUSATE SODIUM TABLET 1 TAB PO (21:06)
[2024-02-03] MEDS: LORazepam (*CRX) 0.5 MG TABLET PO (21:06)
[2024-02-04] VITALS (9 sets, daily range): BP systolic 124–142; BP diastolic 67–99; PULSE 60–100; RESP 12–20; TEMP 36.2–37.3; O2SAT 95–96
[2024-02-04] MEDS: methylPREDNISolone (MEDROL) DOSEPACK 4 MG TABLETS PO ×4 (05:27→20:35)
[2024-02-04 06:11] LABS: Basophils Percent Auto 0.3 % (0.2-1.2); Hematocrit 39.7 % (37.0-47.0); Immature Granulocyte Absolute 0.01 K/mm3 (0.00-0.031); Immature Granulocyte Percent A 0.3 % (0-0.5); Lymphocytes Absolute Auto 0.63 K/mm3 (0.9-3.2); Lymphocytes Percent Auto 16.9 % (18.3-44.2); Mean Corpuscular HGB Conc 32.7 g/dl (32-36); Mean Corpuscular Hemoglobin 30.5 pg (26-34); Mean Corpuscular Volume 93.2 fl (80-100); Mean Platelet Volume 8.8 fl (7.4-10.4); Monocytes Absolute Auto 0.1 K/mm3 (0.1-0.6); Monocytes Percent Auto 2.7 % (2.6-8.5); Neutrophils Percent Auto 79.8 % (45.5-73.1); Platelet Count Result 401 k/mm3 (150-375); Red Blood Count 4.26 M/mm3 (4.2-5.4); Red Cell Distribution Width 12.7 % (11.5-14.5); White Blood Count 3.7 K/mm3 (4.5-10.0)
[2024-02-04 06:24] LABS: Alanine Aminotransferase 16 U/L (6-35); Alkaline Phosphatase 172 U/L (38-126); Anion Gap 6 mmol/L (4-12); Aspartate Amino Transferase 32 U/L (14-36); Bilirubin,Total 0.6 mg/dL (0.2-1.3); Blood Urea Nitrogen 9 mg/dL (7-17); Calcium 9.9 mg/dL (8.4-10.2); Carbon Dioxide 32 mmol/L (22-30); Chloride 96 mmol/L (98-107); Estimated CRCL calculation 62 ml/min; Estimated Glomerular Filt Rate > 60; Glucose 166 mg/dL (65-110); Potassium 4.7 mmol/L (3.4-5.0); Sodium 134 mmol/L (137-145)
--- NOTE | 2024-02-04 09:06 | P.PNIM_ITS ---
Progress Note: A&P Assessment and Plan (1) Fall: Qualifiers: Encounter type: initial encounter Qualified Code(s): W19.XXXA - Unspecified fall, initial encounter Code(s): W19.XXXA - Unspecified fall, initial encounter Status: Acute Assessment and Plan: Unwitnessed fall at home. Patient does not remember falling or any precipitating factors. CT head was negative, hip/pelvis x-ray shows severe right hip osteoarthritis and moderate left hip osteoarthritis, and CT lumbar spine shows acute sacral insufficiency fractures with severe spondylosis, and anterior and posterior fusion procedures from L4-S1. * Patient has a history of seizure disorder. She has been complaint with her lamotrigine. EEG ordered to rule out possible break through seizure. * Possible syncopal episode? Carotid Doppler shows 50-69% stenosis in the right internal carotid, less than 50% stenosis in the left ICA. ECHO shows LV mass measuring 1.6 cm as well as patent foramen ovale. LV function is estimated at >70%. * Cardiology was consulted given LV mass. JESUS completed Saturday was negative. Cards signed off. * Blood cultures ordered. She had a slight leukocytosis on arrival but may have been reactive vs elevation from dehydration. WBC improved with fluids and without antibiotics. Afebrile. However, since findings of LV mass will ensure blood cultures are negative. She denies IV drug use. She does have poor dentition. * UDS showed opiates which she is chronically taking for back pain. Follows with pain management. * Mechanical fall? Patient does have a history of low back pain and radiculopathy. Neuropathy contributing to fall? PT/OT consulted, recs appreciated. Started on gabapentin. * Left elbow with pain, erythema, and edema. XR negative for fracture but does show elbow joint effusion. Mild osteoarthritis. * PT/OT are recommending SNF given her poor mobility and pain. She lives at home with her daughter and son-in-law who are not present all of the time. She has 16 stairs to enter her apartment. She is excited about going to [facility]; placement pending. (2) Sacral insufficiency fracture: Code(s): M84.48XA - Pathological fracture, other site, initial encounter for fracture Status: Acute Assessment and Plan: CT pelvis shows insufficiency sacral fracture * Pain control with home regimen Bates 5 mg-325 mg OR Bates 10 mg-325 mg every four hours for moderate to severe pain * Dilaudid for breakthrough pain * Scheduled ibuprofen every 8 hours * Senna for bowel regimen given immobility, fracture, and pain medications. * Having radiculopathy with numbness to posterior right thigh and calf. * Ortho recommended medrol-dose melvin * Thoracic/lumbar spine MRI show chronic T 12 compression fracture with 60% anterior vertebral body height loss and mild central canal stenosis. 9 mm hyperintense lesion in T9. * Neurosurgery is unsure if the pain/numbness is related to compression of her S2 nerve. They do not feel there is any course of acute neurosurgical intervention warranted. Neurosurgery has deferred management of the sacral insufficiency fracture to orthopedic surgery. In regards to her chronic T12 compression fracture there is no neurosurgical intervention necessary. They recommend physical therapy, pain control, and bone health management. * I called and spoke with Dr. Jacob, orthopedic surgeon [facility] and discussed her radiculopathy and increased muscle weakness to the right lower extremity. Because of her weakness it would be recommended for her to transfer to higher level of care for an evaluation and possible surgical intervention to repair her sacral fracture. She has been accepted for orthopedic transfer. I have spoke with Dr. Chaidez, hospitalist at [facility] who has accepted the patient for transfer awaiting bed placement. (3) Right leg weakness: Code(s): R29.898 - Other symptoms and signs involving the musculoskeletal system Status: Acute Assessment and Plan: Patient with sudden numbness and loss of muscle strength to right posterior thigh. Symptoms started this morning. Yesterday she was able to lift both legs off of the bed with pain to her sacrum. She was able to dorsiflex and plantarflex with 4/5 strength. Today she has no response to painful stimuli to her right posterior thigh, with decreased sensation to right posterior calf, and poor effort with plantar and dorsiflexion. * CT head wo/con stat * NIH 4 for decreased sensation and limb ataxia * Thoracic, Lumbar spine MRI wo/con ordered as she has a history of spinal fusion with recent sacral fracture * Ortho recommended CT of right hip to rule out occult fracture. CT shows fracture of right sacral alar with no other definite fracture seen. Severe osteoarthritic changes of the right hip in markedly thickened wall of the urinary bladder. * Consulted neurology--neurology recommended pain control with gabapentin 300 mg t.i.d. and Flexeril 5 mg t.i.d. p.r.n. Plan Patient is awaiting transfer to [facility] for evaluation of her sacral insufficiency fracture. Subjective Date/time seen: 02/04/24 09:06 Interval history: No acute events overnight. She is seen after her JESUS. She has improved movement to her right leg. She is able to lift it off of the bed and sustain the hold longer than a few seconds. She has persistent numbness to the right posterior thigh and calf. Otherwise she is feeling fairly well. She is happy to be going to [facility] at discharge. Review of Systems Review of Systems: All systems reviewed & are unremarkable except as noted in HPI and below Exam Narrative: General: appears comfortable, thin, frail, in no acute distress Respiratory: breathing is unlabored with even chest rise/fall, lungs are clear without wheezing, rhonchi, and crackles Cardiovascular: Rate and rhythm regular, normal s1s2, no murmur Abdomen: Soft, round, non-tender, active bowel sounds Extremities: No cyanosis, clubbing. Pulses 2/2. Left elbow with erythema, edema, and warmth. Upper extremity strength 5/5, left lower extremity 4/5, right lower extremity 3/5. Neuro: A&O x 4 but poor historian. NIH of 4 today scoring for decreased sensation and mobility to right lower leg. Skin: Warm, dry, intact. Generalized bruising. Thin, frail skin. Objective Data Vital Signs Vital Signs: Vital Signs - 24 hr 02/03/24 09:10 02/03/24 11:24 02/03/24 11:35 Temperature Pulse Rate 64 67 Respiratory Rate 16 18 25 H Blood Pressure 135/91 H 139/75 Pulse Oximetry 96 100 100 Oxygen Delivery Room Air Nasal Cannula Nasal Cannula Oxygen Flow Rate 3 3 02/03/24 11:40 02/03/24 11:45 02/03/24 12:00 Temperature Pulse Rate 58 L 56 L 57 L Respiratory Rate 13 15 16 Blood Pressure 135/70 125/64 128/63 Pulse Oximetry 99 100 98 Oxygen Delivery Nasal Cannula Nasal Cannula Room Air Oxygen Flow Rate 3 3 02/03/24 12:15 02/03/24 12:33 02/03/24 13:25 Temperature 97.9 F 97.9 F Pulse Rate 56 L 60 65 Respiratory Rate 16 17 16 Blood Pressure 114/64 131/59 L 131/61 Pulse Oximetry 93 99 95 Oxygen Delivery Room Air Oxygen Flow Rate 02/03/24 22:00 02/03/24 20:00 02/04/24 06:00 Temperature 97.0 F L 97.8 F Pulse Rate 65 65 60 Respiratory Rate 12 12 12 Blood Pressure 134/72 128/80 Pulse Oximetry 96 96 96 Oxygen Delivery Room Air Oxygen Flow Rate Intake/Output Intake/Output: Intake & Output 02/01/24 02/02/24 02/03/24 02/04/24 23:59 23:59 23:59 23:59 Intake Total 1624 1615 1699.2 250 Output Total 2650 2550 2800 2450 [facility]1026 [phone] [phone] Meds/Results Medications: Active Medications Generic Name Dose Route Start Last Admin Trade Name Freq PRN Reason Stop Dose Admin Hydrocodone Bitart/Acetaminophen 1 tab 01/31/24 00:16 02/01/24 08:11 Hydrocodone/Acetaminophen (*Crx) 5-325 Mg Tablet PO 1 tab Q4H PRN Administration Pain Rated 4-6 Hydrocodone Bitart/Acetaminophen 1 tab 01/31/24 09:12 02/03/24 21:06 Hydrocodone/Acetaminophen (*Crx) 10-325 Mg Tablet PO 1 tab Q4H PRN Administration Pain Rated 7-10 Albuterol 2 puff 01/31/24 01:55 Albuterol Sulfate (*Sp) Aerosol 1 Puff INHALATION QID PRN shortness of breath or wheezing Buspirone HCl 5 mg 01/31/24 09:00 02/03/24 21:07 Buspirone Hcl 5 Mg Tablet PO 5 mg Q12HR UBALDO Administration Buspirone HCl 2.5 mg 01/31/24 09:00 02/03/24 21:07 Buspirone Hcl 2.5 Mg Tablet PO 2.5 mg Q12HR UBALDO Administration Cyclobenzaprine HCl 5 mg 02/03/24 15:07 02/03/24 21:06 Cyclobenzaprine Hcl 5 Mg Tablet PO 5 mg Q8H PRN Administration Muscle Spasm Gabapentin 300 mg 02/03/24 17:00 02/03/24 16:43 Gabapentin 300 Mg Capsule PO 300 mg TID UBALDO Administration Hydromorphone HCl 0.5 mg 01/31/24 09:14 02/01/24 10:30 Hydromorphone Hcl Inj (*Crx) 1 Mg/Ml Syr IV PUSH 0.5 mg Q4H PRN Administration Breakthrough Pain Hydroxyzine HCl 50 mg 01/31/24 09:00 02/03/24 16:43 Hydroxyzine Hcl 25 Mg Tablet PO 50 mg TID UBALDO Administration Ibuprofen 600 mg 01/31/24 09:15 02/04/24 00:44 Ibuprofen 600 Mg Tablet PO Not Given Q8H UBALDO Lamotrigine 200 mg 01/31/24 09:00 02/03/24 21:06 Lamotrigine 100 Mg Tablet PO 200 mg Q12HR UBALDO Administration Lorazepam 0.5 mg 01/31/24 21:00 02/03/24 21:06 Lorazepam (*Crx) 0.5 Mg Tablet PO 0.5 mg HS UBALDO Administration Methylprednisolone 4 mg 02/03/24 06:30 02/04/24 05:27 Methylprednisolone (Medrol) Dosepack 4 Mg Tablets PO 02/08/24 07:29 4 mg 0630,1200,1700 UBALDO Administration Taper Ondansetron HCl 4 mg 01/31/24 00:16 02/02/24 11:51 Ondansetron Inj 4 Mg/2 Ml Vial IV PUSH 4 mg Q4H PRN Administration Nausea Senna/Docusate Sodium 1 tab 01/31/24 21:00 02/03/24 21:06 Senna/Docusate Sodium Tablet PO 1 tab HS UBALDO Administration Sertraline HCl 100 mg 01/31/24 09:00 02/03/24 09:10 Sertraline Hcl 50 Mg Tablet PO 100 mg DAILY UBALDO Administration Radiology Results: ITS Impressions Hip/Pelvis X-Ray 01/30/24 22:09 IMPRESSION: 1. Severe right hip osteoarthritis and moderate left hip osteoarthritis. Lumbar Spine CT 01/30/24 22:10 IMPRESSION: 1. Acute sacral insufficiency fractures. 2. Severe lumbar spondylosis. 3. Anterior and posterior fusion procedures from L4 to S1. Carotid Doppler Study 01/31/24 15:06 IMPRESSION: 1. 50-69% stenosis in the right internal carotid artery by sonographic criteria. 2. Less than 50% stenosis in the left internal carotid artery by sonographic criteria. Elbow X-Ray 01/31/24 15:10 IMPRESSION: 1. Elbow joint effusion. No fracture identified. 2. Mild elbow joint osteoarthritis. Head CT 02/02/24 11:35 IMPRESSION: 1. Normal head CT. Thoracic Spine MRI 02/02/24 14:37 IMPRESSION: 1. 11 degrees thoracic dextroscoliosis with mild spondylosis. 2. Chronic T12 compression fracture with 60% anterior vertebral body height loss and 3 mm retropulsion resulting in mild central canal stenosis. 3. 9 mm T1 hyperintense lesion in the T9 vertebral body which is nonspecific with differential including benign etiology such as red marrow expansion or atypical hemangioma but could not exclude a malignant/metastatic lesion. Consider further evaluation with either bone scan or pre and postcontrast MRI. Lumbar Spine MRI 02/02/24 15:05 IMPRESSION: 1. Mild lumbar spondylosis with 4 and L5 laminectomies and L4-S1 anterior and instrumented posterior spinal fusion. 2. Chronic T12 burst fracture. Hip CT 02/03/24 18:00 IMPRESSION: Fracture of the right sacral alar. No other definite fractures seen. Severe osteoarthritic changes of the right hip. Markedly thickened wall of the urinary bladder. Further evaluation advised. Labs Labs: Laboratory Results - last 24 hr 02/04/24 05:58 WBC 3.7 L RBC 4.26 Hgb 13.0 Hct 39.7 MCV 93.2 MCH 30.5 MCHC 32.7 RDW 12.7 Plt Count 401 H MPV 8.8 Immature Gran % (Auto) 0.3 Neut % (Auto) 79.8 H Lymph % (Auto) 16.9 L Hinds % (Auto) 2.7 Eos % (Auto) 0.0 Baso % (Auto) 0.3 Lymph # (Auto) 0.63 L Hinds # (Auto) 0.1 Eos # (Auto) 0.0 Baso # (Auto) 0.0 Abs Immat Gran (auto) 0.01 Absolute Neuts (auto) 3.0 Absolute Nucleated RBC 0.000 Nucleated RBC % 0.0 Sodium 134 L Potassium 4.7 Chloride 96 L Carbon Dioxide 32 H Anion Gap 6 BUN 9 Creatinine 0.60 L Estim Creat Clear Calc 62 Estimated GFR > 60 Glucose 166 H Calcium 9.9 Total Bilirubin 0.6 AST 32 ALT 16 Alkaline Phosphatase 172 H Total Protein 7.0 Albumin 4.0 Quality VTE Prophylaxis VTE prophylaxis: mechanical ordered
[2024-02-04] MEDS: GABAPENTIN 300 MG CAPSULE PO ×3 (09:26→16:43)
[2024-02-04] MEDS: SERTRALINE HCL 50 MG TABLET 100 MG PO (09:26)
[2024-02-04] MEDS: IBUPROFEN 600 MG TABLET PO ×2 (09:26→16:44)
[2024-02-04] MEDS: lamoTRIgine 100 MG TABLET 200 MG PO ×2 (09:26→20:33)
[2024-02-04] MEDS: busPIRone HCL 5 MG TABLET PO ×2 (09:26→20:33)
[2024-02-04] MEDS: hydrOXYzine HCL 25 MG TABLET 50 MG PO ×3 (09:27→16:44)
[2024-02-04] MEDS: busPIRone HCL 2.5 MG TABLET PO ×2 (09:27→20:33)
[2024-02-04] MEDS: HYDROcodone/acetaminophen (*CRX) 10-325 MG TABLET 1 TAB PO ×2 (10:34→20:32)
--- NOTE | 2024-02-04 12:54 | P.PNOP_ITS ---
Progress Note: A&P Assessment and Plan (1) Radicular pain of right lower extremity: Code(s): M54.10 - Radiculopathy, site unspecified Status: Acute Assessment and Plan: I reviewed the consultation Dr. Lucian Rosen. He did not mention any complaint numbness in the posterior right thigh and calf by this patient. I asked the patient about this and she states she did not know she was supposed to tell him about that. I called the radiologist Dr. Hollingsworth and discuss this case with him. He reviewed the CT scan images from 3 days ago which shows the right sided sacral fracture at S2 which does extend into the right S2 neuroforamen. He states there is no displacement into the neuroforamen. He stated he would put an addendum on the report stating that. CT scan of the right hip performed yesterday demonstrates that the osteoarthritis the right hip is indeed severe and is [id number] anteriorly. No evidence of fracture noted. I examined her again today. She is not the best historian. She complains of severe pain in the right thigh medially and laterally with rotation of the right hip. On pinprick sensation she had absent or severely diminished pinprick sensation in the posterior thigh and in the posterior calf medial to the midline and in the plantar arch of the right foot medial to the midline. She reported normal pinprick sensation symmetric with the other side in all other areas and this was suggest and S2 dermatomal pattern of numbness. She again has severe pain with straight leg raise at 30? the travels down the posterior thigh and down the posterior calf stopping just above the ankle. She had no swelling in the right lower extremity today. Her laboratory study show that she does have elevated platelet count at [id number]. She was able to ambulate today toe-touch weight-bearing on the right with a walker. She states and did fairly well with that. She is on her 2nd day of the Medrol Dosepak and her pain is definitely less today. I called Dr. Rosen on the phone in discussed my conversation with the radiologist regarding the S to right sacral fracture extending into the S2 neural foramen and I explained her S2 pattern of numbness to him. He had information technology assistant with this type of problem and recommended referral to a higher level of care for evaluation. My concern is that that as she forms callus which may be hypertrophic callus which may encroach further into the neuroforamen, her problem may worsen and I think she should be followed by a physician with experience dealing with this problem. Generally these sacral fractures are treated non surgically. There is some risk of nonunion and occasionally they require internal fixation or in cases of severe osteoporosis, sacroplasty with methylmethacrylate sometimes utilized and these procedures are out of my area of expertise. I have discussed with her again that when her sacral fracture is healed, if she is continuing to have pain in the thigh with movement of the right hip, she may be a candidate for total hip replacement. I think that DVT prophylaxis should be considered. Of the options, the risk of bleeding is probably lowest with a baby aspirin every 12 hours. She does have a history of perforated gastric ulcer that was 3 years ago. She is no longer on any treatment for that. Enteric coated baby aspirin every 12 hours has a low risk of causing peptic ulcer disease problems but it would be reasonable to place her on gastritis prophylaxis with Pepcid. Because of her low weight I would recommend 10 mg twice daily and I have ordered this. I would plan to use this prophylaxis for 4 weeks. I am concerned that she will spend most of her time in bed and is therefore at some increased risk for DVT complications particularly with her mildly elevated platelet count and baby aspirin twice daily should reduce this risk. 60 minutes were spent total care this patient more than half this time spent in [id number] care. Subjective Subjective Date/Time Seen: 02/04/24 12:54 Objective Data Vital Signs Vital Signs: Vital Signs - 24 hr 02/03/24 13:25 02/03/24 22:00 02/03/24 20:00 Temperature 36.6 C 36.1 C L Pulse Rate 65 65 65 Respiratory Rate 16 12 12 Blood Pressure 131/61 134/72 Pulse Oximetry 95 96 96 Oxygen Delivery Room Air 02/04/24 06:00 02/04/24 09:27 02/04/24 09:45 Temperature 36.6 C Pulse Rate 60 64 Respiratory Rate 12 16 Blood Pressure 128/80 136/72 Pulse Oximetry 96 96 Oxygen Delivery Room Air 02/04/24 09:45 02/04/24 09:45 02/04/24 10:13 Temperature 36.2 C L Pulse Rate 75 79 100 Respiratory Rate 20 Blood Pressure 132/75 124/68 128/99 H Pulse Oximetry 96 Oxygen Delivery Intake/Output Intake/Output: Intake & Output 02/01/24 02/02/24 02/03/24 02/04/24 23:59 23:59 23:59 23:59 Intake Total 1624 1615 1699.2 1040 Output Total 2650 2550 2800 2450 [facility]1026 [phone] [phone] Meds/Results Medications: Active Medications Generic Name Dose Route Start Last Admin Trade Name Freq PRN Reason Stop Dose Admin Hydrocodone Bitart/Acetaminophen 1 tab 01/31/24 00:16 02/01/24 08:11 Hydrocodone/Acetaminophen (*Crx) 5-325 Mg Tablet PO 1 tab Q4H PRN Administration Pain Rated 4-6 Hydrocodone Bitart/Acetaminophen 1 tab 01/31/24 09:12 02/04/24 10:34 Hydrocodone/Acetaminophen (*Crx) 10-325 Mg Tablet PO 1 tab Q4H PRN Administration Pain Rated 7-10 Albuterol 2 puff 01/31/24 01:55 Albuterol Sulfate (*Sp) Aerosol 1 Puff INHALATION QID PRN shortness of breath or wheezing Aspirin 81 mg 02/04/24 17:00 Aspirin 81 Mg Enteric Tablet PO BID UBALDO Buspirone HCl 5 mg 01/31/24 09:00 02/04/24 09:26 Buspirone Hcl 5 Mg Tablet PO 5 mg Q12HR UBALDO Administration Buspirone HCl 2.5 mg 01/31/24 09:00 02/04/24 09:27 Buspirone Hcl 2.5 Mg Tablet PO 2.5 mg Q12HR UBALDO Administration Cyclobenzaprine HCl 5 mg 02/03/24 15:07 02/03/24 21:06 Cyclobenzaprine Hcl 5 Mg Tablet PO 5 mg Q8H PRN Administration Muscle Spasm Famotidine 10 mg 02/04/24 12:50 Famotidine 10 Mg Tablet PO Q12HR UBALDO Gabapentin 300 mg 02/03/24 17:00 02/04/24 12:17 Gabapentin 300 Mg Capsule PO 300 mg TID UBALDO Administration Hydromorphone HCl 0.5 mg 01/31/24 09:14 02/01/24 10:30 Hydromorphone Hcl Inj (*Crx) 1 Mg/Ml Syr IV PUSH 0.5 mg Q4H PRN Administration Breakthrough Pain Hydroxyzine HCl 50 mg 01/31/24 09:00 10/08/24 12:17 Hydroxyzine Hcl 25 Mg Tablet PO 50 mg TID UBALDO Administration Ibuprofen 600 mg 01/31/24 09:15 02/04/24 09:26 Ibuprofen 600 Mg Tablet PO 600 mg Q8H UBALDO Administration Lamotrigine 200 mg 01/31/24 09:00 02/04/24 09:26 Lamotrigine 100 Mg Tablet PO 200 mg Q12HR UBALDO Administration Lorazepam 0.5 mg 01/31/24 21:00 02/03/24 21:06 Lorazepam (*Crx) 0.5 Mg Tablet PO 0.5 mg HS UBALDO Administration Methylprednisolone 4 mg 02/03/24 06:30 02/04/24 11:52 Methylprednisolone (Medrol) Dosepack 4 Mg Tablets PO 02/08/24 07:29 4 mg 0630,1200,1700 UBALDO Administration Taper Ondansetron HCl 4 mg 01/31/24 00:16 02/02/24 11:51 Ondansetron Inj 4 Mg/2 Ml Vial IV PUSH 4 mg Q4H PRN Administration Nausea Senna/Docusate Sodium 1 tab 01/31/24 21:00 02/03/24 21:06 Senna/Docusate Sodium Tablet PO 1 tab HS UBALDO Administration Sertraline HCl 100 mg 01/31/24 09:00 02/04/24 09:26 Sertraline Hcl 50 Mg Tablet PO 100 mg DAILY UBALDO Administration Radiology Results: ITS Impressions Hip/Pelvis X-Ray 01/30/24 22:09 IMPRESSION: 1. Severe right hip osteoarthritis and moderate left hip osteoarthritis. Lumbar Spine CT 01/30/24 22:10 IMPRESSION: 1. Acute sacral insufficiency fractures. 2. Severe lumbar spondylosis. 3. Anterior and posterior fusion procedures from L4 to S1. ADDENDUM: 02/04/24 1220 The sacral insufficiency fractures involve the storey of the right S1, S2, and S3 neural foramina without displacement of bone at the margins of the neural foramina. Carotid Doppler Study 01/31/24 15:06 IMPRESSION: 1. 50-69% stenosis in the right internal carotid artery by sonographic criteria. 2. Less than 50% stenosis in the left internal carotid artery by sonographic criteria. Elbow X-Ray 01/31/24 15:10 IMPRESSION: 1. Elbow joint effusion. No fracture identified. 2. Mild elbow joint osteoarthritis. Head CT 02/02/24 11:35 IMPRESSION: 1. Normal head CT. Thoracic Spine MRI 02/02/24 14:37 IMPRESSION: 1. 11 degrees thoracic dextroscoliosis with mild spondylosis. 2. Chronic T12 compression fracture with 60% anterior vertebral body height loss and 3 mm retropulsion resulting in mild central canal stenosis. 3. 9 mm T1 hyperintense lesion in the T9 vertebral body which is nonspecific with differential including benign etiology such as red marrow expansion or atypical hemangioma but could not exclude a malignant/metastatic lesion. Consider further evaluation with either bone scan or pre and postcontrast MRI. Lumbar Spine MRI 02/02/24 15:05 IMPRESSION: 1. Mild lumbar spondylosis with 4 and L5 laminectomies and L4-S1 anterior and instrumented posterior spinal fusion. 2. Chronic T12 burst fracture. Hip CT 02/03/24 18:00 IMPRESSION: Fracture of the right sacral alar. No other definite fractures seen. Severe osteoarthritic changes of the right hip. Markedly thickened wall of the urinary bladder. Further evaluation advised. Labs Labs: Laboratory Results - last 24 hr 02/04/24 05:58 WBC 3.7 L RBC 4.26 Hgb 13.0 Hct 39.7 MCV 93.2 MCH 30.5 MCHC 32.7 RDW 12.7 Plt Count 401 H MPV 8.8 Immature Gran % (Auto) 0.3 Neut % (Auto) 79.8 H Lymph % (Auto) 16.9 L Taney % (Auto) 2.7 Eos % (Auto) 0.0 Baso % (Auto) 0.3 Lymph # (Auto) 0.63 L Taney # (Auto) 0.1 Eos # (Auto) 0.0 Baso # (Auto) 0.0 Abs Immat Gran (auto) 0.01 Absolute Neuts (auto) 3.0 Absolute Nucleated RBC 0.000 Nucleated RBC % 0.0 Sodium 134 L Potassium 4.7 Chloride 96 L Carbon Dioxide 32 H Anion Gap 6 BUN 9 Creatinine 0.60 L Estim Creat Clear Calc 62 Estimated GFR > 60 Glucose 166 H Calcium 9.9 Total Bilirubin 0.6 AST 32 ALT 16 Alkaline Phosphatase 172 H Total Protein 7.0 Albumin 4.0
[2024-02-04] MEDS: FAMOTIDINE 10 MG TABLET PO ×2 (13:43→20:33)
[2024-02-04 14:00] LABS: Vitamin D 25 Hydroxy 16.9 ng/mL
[2024-02-04] MEDS: ASPIRIN 81 MG ENTERIC TABLET PO (16:45)
[2024-02-04] MEDS: CYCLOBENZAPRINE HCL 5 MG TABLET PO (20:32)
[2024-02-04] MEDS: LORazepam (*CRX) 0.5 MG TABLET PO (20:34)
[2024-02-04] MEDS: SENNA/DOCUSATE SODIUM TABLET 1 TAB PO (20:34)
[2024-02-05] VITALS (8 sets, daily range): BP systolic 121–149; BP diastolic 57–97; PULSE 60–108; RESP 14–22; TEMP 36.6–37.2; O2SAT 94–99
[2024-02-05] MEDS: methylPREDNISolone (MEDROL) DOSEPACK 4 MG TABLETS PO ×4 (05:10→21:16)
[2024-02-05 06:08] LABS: Basophils Percent Auto 0.6 % (0.2-1.2); Eosinophils Percent Auto 0.6 % (0-4.4); Hematocrit 39.3 % (37.0-47.0); Hemoglobin 12.9 g/dL (12.0-15.0); Immature Granulocyte Absolute 0.02 K/mm3 (0.00-0.031); Immature Granulocyte Percent A 0.4 % (0-0.5); Lymphocytes Absolute Auto 0.94 K/mm3 (0.9-3.2); Lymphocytes Percent Auto 17.6 % (18.3-44.2); Mean Corpuscular HGB Conc 32.8 g/dl (32-36); Mean Corpuscular Hemoglobin 30.8 pg (26-34); Mean Corpuscular Volume 93.8 fl (80-100); Mean Platelet Volume 8.9 fl (7.4-10.4); Monocytes Absolute Auto 0.3 K/mm3 (0.1-0.6); Monocytes Percent Auto 6.2 % (2.6-8.5); Neutrophils Percent Auto 74.6 % (45.5-73.1); Platelet Count Result 366 k/mm3 (150-375); Red Blood Count 4.19 M/mm3 (4.2-5.4); Red Cell Distribution Width 13.1 % (11.5-14.5); White Blood Count 5.3 K/mm3 (4.5-10.0)
[2024-02-05 06:16] LABS: Alanine Aminotransferase 16 U/L (6-35); Alkaline Phosphatase 186 U/L (38-126); Anion Gap 7 mmol/L (4-12); Aspartate Amino Transferase 29 U/L (14-36); Bilirubin,Total 0.5 mg/dL (0.2-1.3); Blood Urea Nitrogen 15 mg/dL (7-17); Calcium 9.2 mg/dL (8.4-10.2); Carbon Dioxide 31 mmol/L (22-30); Chloride 99 mmol/L (98-107); Estimated CRCL calculation 62 ml/min; Estimated Glomerular Filt Rate > 60; Glucose 108 mg/dL (65-110); Potassium 4.4 mmol/L (3.4-5.0); Sodium 137 mmol/L (137-145)
[2024-02-05] MEDS: HYDROcodone/acetaminophen (*CRX) 10-325 MG TABLET 1 TAB PO ×2 (09:18→19:48)
[2024-02-05] MEDS: lamoTRIgine 100 MG TABLET 200 MG PO ×2 (09:20→20:10)
[2024-02-05] MEDS: busPIRone HCL 5 MG TABLET PO ×2 (09:20→20:12)
[2024-02-05] MEDS: busPIRone HCL 2.5 MG TABLET PO ×2 (09:20→20:10)
[2024-02-05] MEDS: SERTRALINE HCL 50 MG TABLET 100 MG PO (09:20)
[2024-02-05] MEDS: ASPIRIN 81 MG ENTERIC TABLET PO ×2 (09:20→17:20)
[2024-02-05] MEDS: hydrOXYzine HCL 25 MG TABLET 50 MG PO ×3 (09:20→17:20)
[2024-02-05] MEDS: IBUPROFEN 600 MG TABLET PO ×2 (09:20→17:20)
[2024-02-05] MEDS: GABAPENTIN 300 MG CAPSULE PO ×3 (09:21→17:20)
[2024-02-05] MEDS: FAMOTIDINE 10 MG TABLET PO ×2 (09:21→20:10)
--- NOTE | 2024-02-05 12:14 | P.PNIM_ITS ---
Progress Note: A&P Assessment and Plan (1) Fall: Qualifiers: Encounter type: initial encounter Qualified Code(s): W19.XXXA - Unspecified fall, initial encounter Code(s): W19.XXXA - Unspecified fall, initial encounter Status: Acute Assessment and Plan: Unwitnessed fall at home. Patient does not remember falling or any precipitating factors. CT head was negative, hip/pelvis x-ray shows severe right hip osteoarthritis and moderate left hip osteoarthritis, and CT lumbar spine shows acute sacral insufficiency fractures with severe spondylosis, and anterior and posterior fusion procedures from L4-S1. * Patient has a history of seizure disorder. She has been complaint with her lamotrigine. EEG ordered to rule out possible break through seizure. * Possible syncopal episode? Carotid Doppler shows 50-69% stenosis in the right internal carotid, less than 50% stenosis in the left ICA. ECHO shows LV mass measuring 1.6 cm as well as patent foramen ovale. LV function is estimated at >70%. * Cardiology was consulted given LV mass. JESUS completed Saturday was negative. Cards signed off. * Blood cultures ordered. She had a slight leukocytosis on arrival but may have been reactive vs elevation from dehydration. WBC improved with fluids and without antibiotics. Afebrile. However, since findings of LV mass will ensure blood cultures are negative. She denies IV drug use. She does have poor dentition. * UDS showed opiates which she is chronically taking for back pain. Follows with pain management. * Mechanical fall? Patient does have a history of low back pain and radiculopathy. Neuropathy contributing to fall? PT/OT consulted, recs appreciated. Started on gabapentin. * Left elbow with pain, erythema, and edema. XR negative for fracture but does show elbow joint effusion. Mild osteoarthritis. * PT/OT are recommending SNF given her poor mobility and pain. She lives at home with her daughter and son-in-law who are not present all of the time. She has 16 stairs to enter her apartment. She is excited about going to [facility]; placement pending. (2) Sacral insufficiency fracture: Code(s): M84.48XA - Pathological fracture, other site, initial encounter for fracture Status: Acute Assessment and Plan: CT pelvis shows insufficiency sacral fracture * Pain control with home regimen [place] 5 mg-325 mg OR [place] 10 mg-325 mg every four hours for moderate to severe pain * Dilaudid for breakthrough pain * Scheduled ibuprofen every 8 hours * Senna for bowel regimen given immobility, fracture, and pain medications. * Having radiculopathy with numbness to posterior right thigh and calf. * Ortho recommended medrol-dose melvin * Thoracic/lumbar spine MRI show chronic T 12 compression fracture with 60% anterior vertebral body height loss and mild central canal stenosis. 9 mm hyperintense lesion in T9. * Neurosurgery is unsure if the pain/numbness is related to compression of her S2 nerve. They do not feel there is any course of acute neurosurgical intervention warranted. Neurosurgery has deferred management of the sacral insufficiency fracture to orthopedic surgery. In regards to her chronic T12 compression fracture there is no neurosurgical intervention necessary. They recommend physical therapy, pain control, and bone health management. * CHANNING Casanova yesterday spoke with Dr. Jacob, orthopedic surgeon [facility] and discussed her radiculopathy and increased muscle weakness to the right lower extremity. Because of her weakness it would be recommended for her to transfer to higher level of care for an evaluation and possible surgical intervention to repair her sacral fracture. She has been accepted for orthopedic transfer. CHANNING Casanova also spoke with Dr. Chaidez, hospitalist at [facility] who has accepted the patient for transfer awaiting bed placement. (3) Right leg weakness: Code(s): R29.898 - Other symptoms and signs involving the musculoskeletal system Status: Acute Assessment and Plan: Patient with sudden numbness and loss of muscle strength to right posterior thigh. Symptoms started this morning. Yesterday she was able to lift both legs off of the bed with pain to her sacrum. She was able to dorsiflex and plantarflex with 4/5 strength. Today she has no response to painful stimuli to her right posterior thigh, with decreased sensation to right posterior calf, and poor effort with plantar and dorsiflexion. * CT head wo/con stat * NIH 4 for decreased sensation and limb ataxia * Thoracic, Lumbar spine MRI wo/con ordered as she has a history of spinal fusion with recent sacral fracture * Ortho recommended CT of right hip to rule out occult fracture. CT shows fracture of right sacral alar with no other definite fracture seen. Severe osteoarthritic changes of the right hip in markedly thickened wall of the urinary bladder. * Consulted neurology--neurology recommended pain control with gabapentin 300 mg t.i.d. and Flexeril 5 mg t.i.d. p.r.n. Plan Patient is awaiting transfer to [facility] for evaluation of her sacral insufficiency fracture. Subjective Date/time seen: 02/05/24 12:14 Interval history: Patient denies chest pain, shortness of breath, or palpitations. Patient reports back pain that is a 5 , constant, and dull. Review of Systems Review of Systems: All systems reviewed & are unremarkable except as noted in HPI and below Exam Const: General: uncomfortable Resp: Effort & Inspection: normal respiratory effort Auscultation: clear to auscultation bilaterally Cardio: Rate: regular rate Rhythm: regular rhythm GI: GI Palp: Yes Soft to palpation Auscultation: normal bowel sounds Neuro: Speech: normal speech Other: A&Ox4 but poor historian. Extrem: General: normal to inspection Psych: Affect: normal affect Objective Data Vital Signs Vital Signs: Vital Signs - 24 hr 02/04/24 14:00 02/04/24 20:09 02/04/24 20:09 Temperature 97.3 F L 99.1 F Pulse Rate 67 62 62 Respiratory Rate 16 18 Blood Pressure 142/67 H 131/70 131/70 Pulse Oximetry 95 95 Oxygen Delivery 02/04/24 20:12 02/04/24 20:15 02/04/24 20:00 Temperature Pulse Rate 79 84 84 Respiratory Rate 18 Blood Pressure 130/76 131/73 Pulse Oximetry 95 Oxygen Delivery Room Air 02/05/24 06:00 02/05/24 11:10 02/05/24 11:12 Temperature 98.1 F Pulse Rate 64 60 71 Respiratory Rate 16 14 18 Blood Pressure 127/68 121/64 127/84 Pulse Oximetry 98 98 99 Oxygen Delivery 02/05/24 11:12 Temperature Pulse Rate 75 Respiratory Rate 22 H Blood Pressure 149/97 H Pulse Oximetry 97 Oxygen Delivery Intake/Output Intake/Output: Intake & Output 02/02/24 02/03/24 02/04/24 02/05/24 23:59 23:59 23:59 23:59 Intake Total 1615 1699.2 2070 440 Output Total 2550 2800 2900 Balance -935 -1100.8 -830 440 Meds/Results Medications: Active Medications Generic Name Dose Route Start Last Admin Trade Name Freq PRN Reason Stop Dose Admin Hydrocodone Bitart/Acetaminophen 1 tab 01/31/24 00:16 02/01/24 08:11 Hydrocodone/Acetaminophen (*Crx) 5-325 Mg Tablet PO 1 tab Q4H PRN Administration Pain Rated 4-6 Hydrocodone Bitart/Acetaminophen 1 tab 01/31/24 09:12 02/05/24 09:18 Hydrocodone/Acetaminophen (*Crx) 10-325 Mg Tablet PO 1 tab Q4H PRN Administration Pain Rated 7-10 Albuterol 2 puff 01/31/24 01:55 Albuterol Sulfate (*Sp) Aerosol 1 Puff INHALATION QID PRN shortness of breath or wheezing Aspirin 81 mg 02/04/24 17:00 02/05/24 09:20 Aspirin 81 Mg Enteric Tablet PO 81 mg BID UBALDO Administration Buspirone HCl 5 mg 01/31/24 09:00 02/05/24 09:20 Buspirone Hcl 5 Mg Tablet PO 5 mg Q12HR UBALDO Administration Buspirone HCl 2.5 mg 01/31/24 09:00 02/05/24 09:20 Buspirone Hcl 2.5 Mg Tablet PO 2.5 mg Q12HR UBALDO Administration Cyclobenzaprine HCl 5 mg 02/03/24 15:07 02/04/24 20:32 Cyclobenzaprine Hcl 5 Mg Tablet PO 5 mg Q8H PRN Administration Muscle Spasm Famotidine 10 mg 02/04/24 12:50 02/05/24 09:21 Famotidine 10 Mg Tablet PO 10 mg Q12HR UBALDO Administration Gabapentin 300 mg 02/03/24 17:00 02/05/24 09:21 Gabapentin 300 Mg Capsule PO 300 mg TID UBALDO Administration Hydromorphone HCl 0.5 mg 01/31/24 09:14 02/01/24 10:30 Hydromorphone Hcl Inj (*Crx) 1 Mg/Ml Syr IV PUSH 0.5 mg Q4H PRN Administration Breakthrough Pain Hydroxyzine HCl 50 mg 01/31/24 09:00 02/05/24 09:20 Hydroxyzine Hcl 25 Mg Tablet PO 50 mg TID UBALDO Administration Ibuprofen 600 mg 01/31/24 09:15 02/05/24 09:20 Ibuprofen 600 Mg Tablet PO 600 mg Q8H UBALDO Administration Lamotrigine 200 mg 01/31/24 09:00 02/05/24 09:20 Lamotrigine 100 Mg Tablet PO 200 mg Q12HR UBALDO Administration Lorazepam 0.5 mg 01/31/24 21:00 02/04/24 20:34 Lorazepam (*Crx) 0.5 Mg Tablet PO 0.5 mg HS UBALDO Administration Methylprednisolone 4 mg 02/03/24 06:30 02/05/24 05:10 Methylprednisolone (Medrol) Dosepack 4 Mg Tablets PO 02/08/24 07:29 4 mg 0630,1200,1700,2100 UBALDO Administration Taper Ondansetron HCl 4 mg 01/31/24 00:16 02/02/24 11:51 Ondansetron Inj 4 Mg/2 Ml Vial IV PUSH 4 mg Q4H PRN Administration Nausea Senna/Docusate Sodium 1 tab 01/31/24 21:00 02/04/24 20:34 Senna/Docusate Sodium Tablet PO 1 tab HS UBALDO Administration Sertraline HCl 100 mg 01/31/24 09:00 02/05/24 09:20 Sertraline Hcl 50 Mg Tablet PO 100 mg DAILY UBALDO Administration Radiology Results: ITS Impressions Hip/Pelvis X-Ray 01/30/24 22:09 IMPRESSION: 1. Severe right hip osteoarthritis and moderate left hip osteoarthritis. Lumbar Spine CT 01/30/24 22:10 IMPRESSION: 1. Acute sacral insufficiency fractures. 2. Severe lumbar spondylosis. 3. Anterior and posterior fusion procedures from L4 to S1. ADDENDUM: 02/04/24 1220 The sacral insufficiency fractures involve the storey of the right S1, S2, and S3 neural foramina without displacement of bone at the margins of the neural foramina. Carotid Doppler Study 01/31/24 15:06 IMPRESSION: 1. 50-69% stenosis in the right internal carotid artery by sonographic criteria. 2. Less than 50% stenosis in the left internal carotid artery by sonographic criteria. Elbow X-Ray 01/31/24 15:10 IMPRESSION: 1. Elbow joint effusion. No fracture identified. 2. Mild elbow joint osteoarthritis. Head CT 02/02/24 11:35 IMPRESSION: 1. Normal head CT. Thoracic Spine MRI 02/02/24 14:37 IMPRESSION: 1. 11 degrees thoracic dextroscoliosis with mild spondylosis. 2. Chronic T12 compression fracture with 60% anterior vertebral body height loss and 3 mm retropulsion resulting in mild central canal stenosis. 3. 9 mm T1 hyperintense lesion in the T9 vertebral body which is nonspecific with differential including benign etiology such as red marrow expansion or atypical hemangioma but could not exclude a malignant/metastatic lesion. Consider further evaluation with either bone scan or pre and postcontrast MRI. Lumbar Spine MRI 02/02/24 15:05 IMPRESSION: 1. Mild lumbar spondylosis with 4 and L5 laminectomies and L4-S1 anterior and instrumented posterior spinal fusion. 2. Chronic T12 burst fracture. Hip CT 02/03/24 18:00 IMPRESSION: Fracture of the right sacral alar. No other definite fractures seen. Severe osteoarthritic changes of the right hip. Markedly thickened wall of the urinary bladder. Further evaluation advised. Labs Labs: Laboratory Results - last 24 hr 02/04/24 02/05/24 13:11 05:56 WBC 5.3 RBC 4.19 L Hgb 12.9 Hct 39.3 MCV 93.8 MCH 30.8 MCHC 32.8 RDW 13.1 Plt Count 366 MPV 8.9 Immature Gran % (Auto) 0.4 Neut % (Auto) 74.6 H Lymph % (Auto) 17.6 L [place] % (Auto) 6.2 Eos % (Auto) 0.6 Baso % (Auto) 0.6 Lymph # (Auto) 0.94 [place] # (Auto) 0.3 Eos # (Auto) 0.0 Baso # (Auto) 0.0 Abs Immat Gran (auto) 0.02 Absolute Neuts (auto) 4.0 Absolute Nucleated RBC 0.000 Nucleated RBC % 0.0 Sodium 137 Potassium 4.4 Chloride 99 Carbon Dioxide 31 H Anion Gap 7 BUN 15 D Creatinine 0.60 L Estim Creat Clear Calc 62 Estimated GFR > 60 Glucose 108 Calcium 9.2 Total Bilirubin 0.5 AST 29 ALT 16 Alkaline Phosphatase 186 H Total Protein 7.0 Albumin 4.0 Vitamin D 25-Hydroxy 16.9 Quality VTE Prophylaxis VTE prophylaxis: mechanical ordered
[2024-02-05] MEDS: HYDROcodone/acetaminophen (*CRX) 5-325 MG TABLET 1 TAB PO (12:55)
[2024-02-05] MEDS: LORazepam (*CRX) 0.5 MG TABLET PO (20:11)
[2024-02-05] MEDS: SENNA/DOCUSATE SODIUM TABLET 1 TAB PO (20:11)
[2024-02-06] VITALS (7 sets, daily range): BP systolic 103–144; BP diastolic 60–85; PULSE 63–98; RESP 18; TEMP 36.4–37; O2SAT 93–99
[2024-02-06] MEDS: methylPREDNISolone (MEDROL) DOSEPACK 4 MG TABLETS PO ×3 (05:39→22:36)
[2024-02-06] MEDS: HYDROcodone/acetaminophen (*CRX) 10-325 MG TABLET 1 TAB PO ×4 (05:42→20:18)
[2024-02-06 07:17] LABS: Basophils Absolute Auto 0.1 K/mm3 (0.0-0.1); Eosinophils Absolute Auto 0.1 K/mm3 (0-0.3); Eosinophils Percent Auto 1.3 % (0-4.4); Hemoglobin 12.4 g/dL (12.0-15.0); Immature Granulocyte Absolute 0.02 K/mm3 (0.00-0.031); Immature Granulocyte Percent A 0.4 % (0-0.5); Lymphocytes Absolute Auto 1.61 K/mm3 (0.9-3.2); Mean Corpuscular HGB Conc 31.8 g/dl (32-36); Mean Corpuscular Hemoglobin 30.2 pg (26-34); Mean Corpuscular Volume 95.1 fl (80-100); Mean Platelet Volume 8.7 fl (7.4-10.4); Monocytes Absolute Auto 0.4 K/mm3 (0.1-0.6); Monocytes Percent Auto 8.3 % (2.6-8.5); Platelet Count Result 372 k/mm3 (150-375); Red Cell Distribution Width 13.3 % (11.5-14.5); White Blood Count 5.2 K/mm3 (4.5-10.0)
[2024-02-06 07:40] LABS: Alanine Aminotransferase 16 U/L (6-35); Albumin Level 3.7 g/dL (3.5-5.1); Alkaline Phosphatase 195 U/L (38-126); Anion Gap 5 mmol/L (4-12); Aspartate Amino Transferase 28 U/L (14-36); Bilirubin,Total 0.4 mg/dL (0.2-1.3); Blood Urea Nitrogen 9 mg/dL (7-17); Calcium 9.3 mg/dL (8.4-10.2); Carbon Dioxide 31 mmol/L (22-30); Chloride 100 mmol/L (98-107); Estimated CRCL calculation 62 ml/min; Estimated Glomerular Filt Rate > 60; Glucose 85 mg/dL (65-110); Potassium 4.2 mmol/L (3.4-5.0); Sodium 136 mmol/L (137-145)
[2024-02-06] MEDS: GABAPENTIN 300 MG CAPSULE PO ×3 (08:20→16:19)
[2024-02-06] MEDS: FAMOTIDINE 10 MG TABLET PO ×2 (08:21→20:17)
[2024-02-06] MEDS: busPIRone HCL 5 MG TABLET PO ×2 (08:21→20:18)
[2024-02-06] MEDS: SERTRALINE HCL 50 MG TABLET 100 MG PO (08:21)
[2024-02-06] MEDS: lamoTRIgine 100 MG TABLET 200 MG PO ×2 (08:21→20:17)
[2024-02-06] MEDS: ASPIRIN 81 MG ENTERIC TABLET PO ×2 (08:21→16:19)
[2024-02-06] MEDS: busPIRone HCL 2.5 MG TABLET PO ×2 (08:21→20:18)
[2024-02-06] MEDS: IBUPROFEN 600 MG TABLET PO ×2 (08:21→16:18)
[2024-02-06] MEDS: hydrOXYzine HCL 25 MG TABLET 50 MG PO ×3 (08:21→16:18)
--- NOTE | 2024-02-06 11:07 | P.PNIM_ITS ---
Progress Note: A&P Assessment and Plan (1) Fall: Qualifiers: Encounter type: initial encounter Qualified Code(s): W19.XXXA - Unspecified fall, initial encounter Code(s): W19.XXXA - Unspecified fall, initial encounter Status: Acute Assessment and Plan: Unwitnessed fall at home. Patient does not remember falling or any precipitating factors. CT head was negative, hip/pelvis x-ray shows severe right hip osteoarthritis and moderate left hip osteoarthritis, and CT lumbar spine shows acute sacral insufficiency fractures with severe spondylosis, and anterior and posterior fusion procedures from L4-S1. * Patient has a history of seizure disorder. She has been complaint with her lamotrigine. EEG ordered to rule out possible break through seizure. * Possible syncopal episode? Carotid Doppler shows 50-69% stenosis in the right internal carotid, less than 50% stenosis in the left ICA. ECHO shows LV mass measuring 1.6 cm as well as patent foramen ovale. LV function is estimated at >70%. * Cardiology was consulted given LV mass. JESUS completed Saturday was negative. Cards signed off. * Blood cultures ordered. She had a slight leukocytosis on arrival but may have been reactive vs elevation from dehydration. WBC improved with fluids and without antibiotics. Afebrile. However, since findings of LV mass will ensure blood cultures are negative. She denies IV drug use. She does have poor dentition. Blood cultures no growth. * UDS showed opiates which she is chronically taking for back pain. Follows with pain management. * Mechanical fall? Patient does have a history of low back pain and radiculopathy. Neuropathy contributing to fall? PT/OT consulted, recs appreciated. Started on gabapentin. * Left elbow with pain, erythema, and edema. XR negative for fracture but does show elbow joint effusion. Mild osteoarthritis. * PT/OT are recommending SNF given her poor mobility and pain. She lives at home with her daughter and son-in-law who are not present all of the time. She has 16 stairs to enter her apartment. She is excited about going to [facility]; placement pending. (2) Sacral insufficiency fracture: Code(s): M84.48XA - Pathological fracture, other site, initial encounter for fracture Status: Acute Assessment and Plan: CT pelvis shows insufficiency sacral fracture * Pain control with home regimen [place] 5 mg-325 mg OR [place] 10 mg-325 mg every four hours for moderate to severe pain * Dilaudid for breakthrough pain * Scheduled ibuprofen every 8 hours * Senna for bowel regimen given immobility, fracture, and pain medications. * Having radiculopathy with numbness to posterior right thigh and calf. * Ortho recommended medrol-dose melvin * Thoracic/lumbar spine MRI show chronic T 12 compression fracture with 60% anterior vertebral body height loss and mild central canal stenosis. 9 mm hyperintense lesion in T9. * Neurosurgery is unsure if the pain/numbness is related to compression of her S2 nerve. They do not feel there is any course of acute neurosurgical intervention warranted. Neurosurgery has deferred management of the sacral insufficiency fracture to orthopedic surgery. In regards to her chronic T12 compression fracture there is no neurosurgical intervention necessary. They recommend physical therapy, pain control, and bone health management. * CHANNING Casanova 02/[address] Jacob, orthopedic surgeon [facility] and discussed her radiculopathy and increased muscle weakness to the right lower extremity. Because of her weakness it would be recommended for her to transfer to higher level of care for an evaluation and possible surgical intervention to repair her sacral fracture. She has been accepted for orthopedic transfer. CHANNING Casanova also spoke with Dr. Chaidez, hospitalist at [facility] who has accepted the patient for transfer awaiting bed placement. (3) Right leg weakness: Code(s): R29.898 - Other symptoms and signs involving the musculoskeletal system Status: Acute Assessment and Plan: Patient with sudden numbness and loss of muscle strength to right posterior thigh. Symptoms started this morning. Yesterday she was able to lift both legs off of the bed with pain to her sacrum. She was able to dorsiflex and plantarflex with 4/5 strength. Today she has no response to painful stimuli to her right posterior thigh, with decreased sensation to right posterior calf, and poor effort with plantar and dorsiflexion. * CT head wo/con stat * NIH 4 for decreased sensation and limb ataxia * Thoracic, Lumbar spine MRI wo/con ordered as she has a history of spinal fusi on with recent sacral fracture * Ortho recommended CT of right hip to rule out occult fracture. CT shows fracture of right sacral alar with no other definite fracture seen. Severe osteoarthritic changes of the right hip in markedly thickened wall of the urinary bladder. * Consulted neurology--neurology recommended pain control with gabapentin 300 mg t.i.d. and Flexeril 5 mg t.i.d. p.r.n. Plan Patient is awaiting transfer to [facility] for evaluation of her sacral insufficiency fracture. Subjective Date/time seen: 02/06/24 11:07 Interval history: Patient denies chest pain, shortness of breath, or palpitations. Patient reports back pain that is a 9 , constant, pressure, and sharp at times. Review of Systems Review of Systems: All systems reviewed & are unremarkable except as noted in HPI and below Exam Const: General: uncomfortable Resp: Effort & Inspection: normal respiratory effort Auscultation: clear to auscultation bilaterally Cardio: Rate: regular rate Rhythm: regular rhythm Neuro: Speech: normal speech Other: A&Ox4 but poor historian. Extrem: General: normal to inspection Psych: Affect: normal affect Objective Data Vital Signs Vital Signs: Vital Signs - 24 hr 02/05/24 11:10 02/05/24 11:12 02/05/24 11:12 Temperature Pulse Rate 60 71 75 Respiratory Rate 14 18 22 H Blood Pressure 121/64 127/84 149/97 H Pulse Oximetry 98 99 97 Oxygen Delivery 02/05/24 14:00 02/05/24 20:00 02/05/24 20:02 Temperature 97.8 F 98.3 F 98.9 F Pulse Rate 72 71 106 H Respiratory Rate 14 18 18 Blood Pressure 140/70 124/57 L 133/70 Pulse Oximetry 97 97 94 Oxygen Delivery 02/05/24 20:02 02/05/24 20:10 02/05/24 22:00 Temperature 97.8 F 98.1 F Pulse Rate 108 H 108 H 66 Respiratory Rate 18 18 18 Blood Pressure 131/83 127/66 Pulse Oximetry 99 99 98 Oxygen Delivery Room Air 02/06/24 06:00 Temperature 97.8 F Pulse Rate 80 Respiratory Rate 18 Blood Pressure 128/69 Pulse Oximetry 97 Oxygen Delivery Intake/Output Intake/Output: Intake & Output 02/03/24 02/04/24 02/05/24 02/06/24 23:59 23:59 23:59 23:59 Intake Total 1699.2 2070 2020 240 Output Total 2800 2900 1300 2000 Balance -1100.8 -830 843 -7940 Meds/Results Medications: Active Medications Generic Name Dose Route Start Last Admin Trade Name Freq PRN Reason Stop Dose Admin Hydrocodone Bitart/Acetaminophen 1 tab 01/31/24 00:16 02/05/24 12:55 Hydrocodone/Acetaminophen (*Crx) 5-325 Mg Tablet PO 1 tab Q4H PRN Administration Pain Rated 4-6 Hydrocodone Bitart/Acetaminophen 1 tab 01/31/24 09:12 02/06/24 09:54 Hydrocodone/Acetaminophen (*Crx) 10-325 Mg Tablet PO 1 tab Q4H PRN Administration Pain Rated 7-10 Albuterol 2 puff 01/31/24 01:55 Albuterol Sulfate (*Sp) Aerosol 1 Puff INHALATION QID PRN shortness of breath or wheezing Aspirin 81 mg 02/04/24 17:00 02/06/24 08:21 Aspirin 81 Mg Enteric Tablet PO 81 mg BID UBALDO Administration Buspirone HCl 5 mg 01/31/24 09:00 02/06/24 08:21 Buspirone Hcl 5 Mg Tablet PO 5 mg Q12HR UBALDO Administration Buspirone HCl 2.5 mg 01/31/24 09:00 02/06/24 08:21 Buspirone Hcl 2.5 Mg Tablet PO 2.5 mg Q12HR UBALDO Administration Cyclobenzaprine HCl 5 mg 02/03/24 15:07 02/04/24 20:32 Cyclobenzaprine Hcl 5 Mg Tablet PO 5 mg Q8H PRN Administration Muscle Spasm Famotidine 10 mg 02/04/24 12:50 02/06/24 08:21 Famotidine 10 Mg Tablet PO 10 mg Q12HR UBALDO Administration Gabapentin 300 mg 02/03/24 17:00 02/06/24 08:20 Gabapentin 300 Mg Capsule PO 300 mg TID UBALDO Administration Hydromorphone HCl 0.5 mg 01/31/24 09:14 02/01/24 10:30 Hydromorphone Hcl Inj (*Crx) 1 Mg/Ml Syr IV PUSH 0.5 mg Q4H PRN Administration Breakthrough Pain Hydroxyzine HCl 50 mg 01/31/24 09:00 02/06/24 08:21 Hydroxyzine Hcl 25 Mg Tablet PO 50 mg TID UBALDO Administration Ibuprofen 600 mg 01/31/24 09:15 02/06/24 08:21 Ibuprofen 600 Mg Tablet PO 600 mg Q8H UBALDO Administration Lamotrigine 200 mg 01/31/24 09:00 02/06/24 08:21 Lamotrigine 100 Mg Tablet PO 200 mg Q12HR UBALDO Administration Lorazepam 0.5 mg 01/31/24 21:00 02/05/24 20:11 Lorazepam (*Crx) 0.5 Mg Tablet PO 0.5 mg HS UBALDO Administration Methylprednisolone 4 mg 02/03/24 06:30 02/06/24 05:39 Methylprednisolone (Medrol) Dosepack 4 Mg Tablets PO 02/08/24 07:29 4 mg 0630,1200,2100 UBALDO Administration Taper Ondansetron HCl 4 mg 01/31/24 00:16 02/02/24 11:51 Ondansetron Inj 4 Mg/2 Ml Vial IV PUSH 4 mg Q4H PRN Administration Nausea Senna/Docusate Sodium 1 tab 01/31/24 21:00 02/05/24 20:11 Senna/Docusate Sodium Tablet PO 1 tab HS UBALDO Administration Sertraline HCl 100 mg 01/31/24 09:00 02/06/24 08:21 Sertraline Hcl 50 Mg Tablet PO 100 mg DAILY UBALDO Administration Radiology Results: ITS Impressions Hip/Pelvis X-Ray 01/30/24 22:09 IMPRESSION: 1. Severe right hip osteoarthritis and moderate left hip osteoarthritis. Lumbar Spine CT 01/30/24 22:10 IMPRESSION: 1. Acute sacral insufficiency fractures. 2. Severe lumbar spondylosis. 3. Anterior and posterior fusion procedures from L4 to S1. ADDENDUM: 02/04/24 1220 The sacral insufficiency fractures involve the storey of the right S1, S2, and S3 neural foramina without displacement of bone at the margins of the neural foramina. Carotid Doppler Study 01/31/24 15:06 IMPRESSION: 1. 50-69% stenosis in the right internal carotid artery by sonographic criteria. 2. Less than 50% stenosis in the left internal carotid artery by sonographic cri teria. Elbow X-Ray 01/31/24 15:10 IMPRESSION: 1. Elbow joint effusion. No fracture identified. 2. Mild elbow joint osteoarthritis. Head CT 02/02/24 11:35 IMPRESSION: 1. Normal head CT. Thoracic Spine MRI 02/02/24 14:37 IMPRESSION: 1. 11 degrees thoracic dextroscoliosis with mild spondylosis. 2. Chronic T12 compression fracture with 60% anterior vertebral body height loss and 3 mm retropulsion resulting in mild central canal stenosis. 3. 9 mm T1 hyperintense lesion in the T9 vertebral body which is nonspecific with differential including benign etiology such as red marrow expansion or atypical hemangioma but could not exclude a malignant/metastatic lesion. Consider further evaluation with either bone scan or pre and postcontrast MRI. Lumbar Spine MRI 02/02/24 15:05 IMPRESSION: 1. Mild lumbar spondylosis with 4 and L5 laminectomies and L4-S1 anterior and instrumented posterior spinal fusion. 2. Chronic T12 burst fracture. Hip CT 02/03/24 18:00 IMPRESSION: Fracture of the right sacral alar. No other definite fractures seen. Severe osteoarthritic changes of the right hip. Markedly thickened wall of the urinary bladder. Further evaluation advised. Labs Labs: Laboratory Results - last 24 hr 02/06/24 07:03 WBC 5.2 RBC 4.10 L Hgb 12.4 Hct 39.0 MCV 95.1 MCH 30.2 MCHC 31.8 L RDW 13.3 Plt Count 372 MPV 8.7 Immature Gran % (Auto) 0.4 Neut % (Auto) 58.0 Lymph % (Auto) 31.0 [place] % (Auto) 8.3 Eos % (Auto) 1.3 Baso % (Auto) 1.0 Lymph # (Auto) 1.61 [place] # (Auto) 0.4 Eos # (Auto) 0.1 Baso # (Auto) 0.1 Abs Immat Gran (auto) 0.02 Absolute Neuts (auto) 3.0 Absolute Nucleated RBC 0.000 Nucleated RBC % 0.0 Sodium 136 L Potassium 4.2 Chloride 100 Carbon Dioxide 31 H Anion Gap 5 BUN 9 D Creatinine 0.60 L Estim Creat Clear Calc 62 Estimated GFR > 60 Glucose 85 Calcium 9.3 Total Bilirubin 0.4 AST 28 ALT 16 Alkaline Phosphatase 195 H Total Protein 7.0 Albumin 3.7 Quality VTE Prophylaxis VTE prophylaxis: mechanical ordered
[2024-02-06] MEDS: CYCLOBENZAPRINE HCL 5 MG TABLET PO (16:19)
[2024-02-06] MEDS: SENNA/DOCUSATE SODIUM TABLET 1 TAB PO (20:17)
[2024-02-06] MEDS: LORazepam (*CRX) 0.5 MG TABLET PO (20:17)
[2024-02-07 04:27] LABS: Basophils Absolute Auto 0.1 K/mm3 (0.0-0.1); Eosinophils Absolute Auto 0.1 K/mm3 (0-0.3); Eosinophils Percent Auto 1.9 % (0-4.4); Hematocrit 42.2 % (37.0-47.0); Hemoglobin 13.2 g/dL (12.0-15.0); Immature Granulocyte Absolute 0.02 K/mm3 (0.00-0.031); Immature Granulocyte Percent A 0.3 % (0-0.5); Lymphocytes Absolute Auto 1.45 K/mm3 (0.9-3.2); Lymphocytes Percent Auto 23.3 % (18.3-44.2); Mean Corpuscular HGB Conc 31.3 g/dl (32-36); Mean Corpuscular Hemoglobin 29.9 pg (26-34); Mean Corpuscular Volume 95.5 fl (80-100); Mean Platelet Volume 8.8 fl (7.4-10.4); Monocytes Absolute Auto 0.5 K/mm3 (0.1-0.6); Monocytes Percent Auto 7.9 % (2.6-8.5); Neutrophils Absolute Auto 4.1 K/mm3 (1.3-6.7); Neutrophils Percent Auto 65.6 % (45.5-73.1); Platelet Count Result 394 k/mm3 (150-375); Red Blood Count 4.42 M/mm3 (4.2-5.4); Red Cell Distribution Width 13.2 % (11.5-14.5); White Blood Count 6.2 K/mm3 (4.5-10.0)
[2024-02-07 04:37] LABS: Alanine Aminotransferase 22 U/L (6-35); Albumin Level 4.1 g/dL (3.5-5.1); Alkaline Phosphatase 242 U/L (38-126); Anion Gap 6 mmol/L (4-12); Aspartate Amino Transferase 36 U/L (14-36); Bilirubin,Total 0.4 mg/dL (0.2-1.3); Blood Urea Nitrogen 13 mg/dL (7-17); Calcium 9.2 mg/dL (8.4-10.2); Carbon Dioxide 33 mmol/L (22-30); Chloride 98 mmol/L (98-107); Estimated CRCL calculation 62 ml/min; Estimated Glomerular Filt Rate > 60; Glucose 107 mg/dL (65-110); Potassium 5.5 mmol/L (3.4-5.0); Sodium 137 mmol/L (137-145)
[2024-02-07 06:00] VITALS: BP 109/60; PULSE 70; RESP 18; TEMP 36.4; O2SAT 98
[2024-02-07] MEDS: CYCLOBENZAPRINE HCL 5 MG TABLET PO (06:21)
[2024-02-07] MEDS: HYDROcodone/acetaminophen (*CRX) 10-325 MG TABLET 1 TAB PO ×3 (06:21→16:55)
[2024-02-07] MEDS: methylPREDNISolone (MEDROL) DOSEPACK 4 MG TABLETS PO (06:21)
[2024-02-07] MEDS: SERTRALINE HCL 50 MG TABLET 100 MG PO (08:51)
[2024-02-07] MEDS: busPIRone HCL 5 MG TABLET PO (08:51)
[2024-02-07] MEDS: IBUPROFEN 600 MG TABLET PO ×2 (08:51→16:56)
[2024-02-07] MEDS: lamoTRIgine 100 MG TABLET 200 MG PO (08:51)
[2024-02-07] MEDS: hydrOXYzine HCL 25 MG TABLET 50 MG PO ×3 (08:51→16:54)
[2024-02-07] MEDS: GABAPENTIN 300 MG CAPSULE PO ×3 (08:51→16:54)
[2024-02-07] MEDS: ASPIRIN 81 MG ENTERIC TABLET PO ×2 (08:52→16:56)
[2024-02-07] MEDS: FAMOTIDINE 10 MG TABLET PO (08:52)
[2024-02-07] MEDS: busPIRone HCL 2.5 MG TABLET PO (08:52)
--- NOTE | 2024-02-07 11:57 | PCOTNOTE ---
Patient refused treatment this session. Patient declined at this time due to being to tired. Patient was observed transferring with the DINING ROOM ATTENDANT CAFETERIA from chair to bed after a sponge bath.
[2024-02-07 12:25] LABS: Anion Gap 5 mmol/L (4-12); Blood Urea Nitrogen 15 mg/dL (7-17); Calcium 9.1 mg/dL (8.4-10.2); Carbon Dioxide 31 mmol/L (22-30); Chloride 98 mmol/L (98-107); Estimated CRCL calculation 73 ml/min; Estimated Glomerular Filt Rate > 60; Glucose 111 mg/dL (65-110); Potassium 4.7 mmol/L (3.4-5.0); Sodium 134 mmol/L (137-145)
--- NOTE | 2024-02-07 13:40 | P.PNIM_ITS ---
Progress Note: A&P Assessment and Plan (1) Fall: Qualifiers: Encounter type: initial encounter Qualified Code(s): W19.XXXA - Unspecified fall, initial encounter Code(s): W19.XXXA - Unspecified fall, initial encounter Status: Acute Assessment and Plan: Unwitnessed fall at home. Patient does not remember falling or any precipitating factors. CT head was negative, hip/pelvis x-ray shows severe right hip osteoarthritis and moderate left hip osteoarthritis, and CT lumbar spine shows acute sacral insufficiency fractures with severe spondylosis, and anterior and posterior fusion procedures from L4-S1. * Patient has a history of seizure disorder. She has been complaint with her lamotrigine. EEG ordered to rule out possible break through seizure. * Possible syncopal episode? Carotid Doppler shows 50-69% stenosis in the right internal carotid, less than 50% stenosis in the left ICA. ECHO shows LV mass measuring 1.6 cm as well as patent foramen ovale. LV function is estimated at >70%. * Cardiology was consulted given LV mass. JESUS completed Saturday was negative. Cards signed off. * Blood cultures ordered. She had a slight leukocytosis on arrival but may have been reactive vs elevation from dehydration. WBC improved with fluids and without antibiotics. Afebrile. However, since findings of LV mass will ensure blood cultures are negative. She denies IV drug use. She does have poor dentition. Blood cultures no growth. * UDS showed opiates which she is chronically taking for back pain. Follows with pain management. * Mechanical fall? Patient does have a history of low back pain and radiculopathy. Neuropathy contributing to fall? PT/OT consulted, recs appreciated. Started on gabapentin. * Left elbow with pain, erythema, and edema. XR negative for fracture but does show elbow joint effusion. Mild osteoarthritis. * PT/OT are recommending SNF given her poor mobility and pain. She lives at home with her daughter and son-in-law who are not present all of the time. She has 16 stairs to enter her apartment. She is excited about going to [facility]; placement pending. (2) Sacral insufficiency fracture: Code(s): M84.48XA - Pathological fracture, other site, initial encounter for fracture Status: Acute Assessment and Plan: CT pelvis shows insufficiency sacral fracture * Pain control with home regimen [place] 5 mg-325 mg OR [place] 10 mg-325 mg every four hours for moderate to severe pain * Dilaudid for breakthrough pain * Scheduled ibuprofen every 8 hours * Senna for bowel regimen given immobility, fracture, and pain medications. * Having radiculopathy with numbness to posterior right thigh and calf. * Ortho recommended medrol-dose melvin * Thoracic/lumbar spine MRI show chronic T 12 compression fracture with 60% anterior vertebral body height loss and mild central canal stenosis. 9 mm hyperintense lesion in T9. * Neurosurgery is unsure if the pain/numbness is related to compression of her S2 nerve. They do not feel there is any course of acute neurosurgical intervention warranted. Neurosurgery has deferred management of the sacral insufficiency fracture to orthopedic surgery. In regards to her chronic T12 compression fracture there is no neurosurgical intervention necessary. They recommend physical therapy, pain control, and bone health management. * CHANNING Casanova 02/[address] Jacob, orthopedic surgeon [facility] and discussed her radiculopathy and increased muscle weakness to the right lower extremity. Because of her weakness it would be recommended for her to transfer to higher level of care for an evaluation and possible surgical intervention to repair her sacral fracture. She has been accepted for orthopedic transfer. CHANNING Casanova also spoke with Dr. Chaidez, hospitalist at [facility] who has accepted the patient for transfer awaiting bed placement. (3) Right leg weakness: Code(s): R29.898 - Other symptoms and signs involving the musculoskeletal system Status: Acute Assessment and Plan: Patient with sudden numbness and loss of muscle strength to right posterior thigh. Symptoms started this morning. Yesterday she was able to lift both legs off of the bed with pain to her sacrum. She was able to dorsiflex and plantarflex with 4/5 strength. Today she has no response to painful stimuli to her right posterior thigh, with decreased sensation to right posterior calf, and poor effort with plantar and dorsiflexion. * CT head wo/con stat * NIH 4 for decreased sensation and limb ataxia * Thoracic, Lumbar spine MRI wo/con ordered as she has a history of spinal fusi on with recent sacral fracture * Ortho recommended CT of right hip to rule out occult fracture. CT shows fracture of right sacral alar with no other definite fracture seen. Severe osteoarthritic changes of the right hip in markedly thickened wall of the urinary bladder. * Consulted neurology--neurology recommended pain control with gabapentin 300 mg t.i.d. and Flexeril 5 mg t.i.d. p.r.n. Plan Patient is awaiting transfer to [facility] for evaluation of her sacral insufficiency fracture. Subjective Date/time seen: 02/07/24 13:40 Interval history: Patient denies chest pain, shortness of breath, or palpitations. Patient reports back pain that is a 9 , constant, pressure, and sharp at times. Patient reports numbness in right leg and up across pelvis. Review of Systems Review of Systems: All systems reviewed & are unremarkable except as noted in HPI and below Exam Const: General: uncomfortable Resp: Effort & Inspection: normal respiratory effort Auscultation: clear to auscultation bilaterally Cardio: Rate: regular rate Rhythm: regular rhythm GI: GI Palp: Yes Soft to palpation Auscultation: normal bowel sounds Other: Last BM 02/06/24. Skin: General skin exam: no rashes or lesions noted Neuro: Speech: normal speech Other: A&Ox4 but poor historian. Extrem: Other: Normal peripheral pulses and equal sensation to touch. BLE warm to touch. Psych: Affect: normal affect Objective Data Vital Signs Vital Signs: Vital Signs - 24 hr 02/06/24 15:01 02/06/24 14:00 02/06/24 15:01 Temperature 98.2 F Pulse Rate 69 69 87 Respiratory Rate 18 Blood Pressure 128/67 128/67 144/79 H Pulse Oximetry 97 97 97 Oxygen Delivery 02/06/24 15:02 02/06/24 20:00 02/06/24 20:25 Temperature 98.6 F 98.4 F Pulse Rate 98 69 83 Respiratory Rate 18 18 Blood Pressure 115/76 120/60 120/85 Pulse Oximetry 93 98 99 Oxygen Delivery 02/06/24 20:25 02/06/24 20:00 02/06/24 22:00 Temperature 98.4 F 97.6 F Pulse Rate 91 63 Respiratory Rate 18 18 Blood Pressure 103/61 109/60 Pulse Oximetry 99 98 Oxygen Delivery Room Air 02/07/24 06:00 Temperature 97.5 F L Pulse Rate 70 Respiratory Rate 18 Blood Pressure 109/60 Pulse Oximetry 98 Oxygen Delivery Intake/Output Intake/Output: Intake & Output 02/04/24 02/05/24 02/06/24 02/07/24 23:59 23:59 23:59 23:59 Intake Total 2069 2020 1320 480 Output Total 2900 1300 2600 2600 Balance -830 431 -[phone] -4642 Meds/Results Medications: Active Medications Generic Name Dose Route Start Last Admin Trade Name Freq PRN Reason Stop Dose Admin Hydrocodone Bitart/Acetaminophen 1 tab 01/31/24 00:16 02/05/24 12:55 Hydrocodone/Acetaminophen (*Crx) 5-325 Mg Tablet PO 1 tab Q4H PRN Administration Pain Rated 4-6 Hydrocodone Bitart/Acetaminophen 1 tab 01/31/24 09:12 02/07/24 12:21 Hydrocodone/Acetaminophen (*Crx) 10-325 Mg Tablet PO 1 tab Q4H PRN Administration Pain Rated 7-10 Albuterol 2 puff 01/31/24 01:55 Albuterol Sulfate (*Sp) Aerosol 1 Puff INHALATION QID PRN shortness of breath or wheezing Aspirin 81 mg 02/04/24 17:00 02/07/24 08:52 Aspirin 81 Mg Enteric Tablet PO 81 mg BID UBALDO Administration Buspirone HCl 5 mg 01/31/24 09:00 02/07/24 08:51 Buspirone Hcl 5 Mg Tablet PO 5 mg Q12HR UBALDO Administration Buspirone HCl 2.5 mg 01/31/24 09:00 02/07/24 08:52 Buspirone Hcl 2.5 Mg Tablet PO 2.5 mg Q12HR UBALDO Administration Cyclobenzaprine HCl 5 mg 02/03/24 15:07 02/07/24 06:21 Cyclobenzaprine Hcl 5 Mg Tablet PO 5 mg Q8H PRN Administration Muscle Spasm Famotidine 10 mg 02/04/24 12:50 02/07/24 08:52 Famotidine 10 Mg Tablet PO 10 mg Q12HR UBALDO Administration Gabapentin 300 mg 02/03/24 17:00 02/07/24 12:21 Gabapentin 300 Mg Capsule PO 300 mg TID UBALDO Administration Hydromorphone HCl 0.5 mg 01/31/24 09:14 02/01/24 10:30 Hydromorphone Hcl Inj (*Crx) 1 Mg/Ml Syr IV PUSH 0.5 mg Q4H PRN Administration Breakthrough Pain Hydroxyzine HCl 50 mg 01/31/24 09:00 02/07/24 12:21 Hydroxyzine Hcl 25 Mg Tablet PO 50 mg TID UBALDO Administration Ibuprofen 600 mg 01/31/24 09:15 02/07/24 08:51 Ibuprofen 600 Mg Tablet PO 600 mg Q8H UBALDO Administration Lamotrigine 200 mg 01/31/24 09:00 02/07/24 08:51 Lamotrigine 100 Mg Tablet PO 200 mg Q12HR UBALDO Administration Lorazepam 0.5 mg 01/31/24 21:00 02/06/24 20:17 Lorazepam (*Crx) 0.5 Mg Tablet PO 0.5 mg HS UBALDO Administration Methylprednisolone 4 mg 02/03/24 06:30 02/07/24 06:21 Methylprednisolone (Medrol) Dosepack 4 Mg Tablets PO 02/08/24 07:29 4 mg 0630,2100 UBALDO Administration Taper Ondansetron HCl 4 mg 01/31/24 00:16 02/02/24 11:51 Ondansetron Inj 4 Mg/2 Ml Vial IV PUSH 4 mg Q4H PRN Administration Nausea Senna/Docusate Sodium 1 tab 01/31/24 21:00 02/06/24 20:17 Senna/Docusate Sodium Tablet PO 1 tab HS UBALDO Administration Sertraline HCl 100 mg 01/31/24 09:00 02/07/24 08:51 Sertraline Hcl 50 Mg Tablet PO 100 mg DAILY UBALDO Administration Radiology Results: ITS Impressions Hip/Pelvis X-Ray 01/30/24 22:09 IMPRESSION: 1. Severe right hip osteoarthritis and moderate left hip osteoarthritis. Lumbar Spine CT 01/30/24 22:10 IMPRESSION: 1. Acute sacral insufficiency fractures. 2. Severe lumbar spondylosis. 3. Anterior and posterior fusion procedures from L4 to S1. ADDENDUM: 02/04/24 1220 The sacral insufficiency fractures involve the storey of the right S1, S2, and S3 neural foramina without displacement of bone at the margins of the neural foramina. Carotid Doppler Study 01/31/24 15:06 IMPRESSION: 1. 50-69% stenosis in the right internal carotid artery by sonographic criteria. 2. Less than 50% stenosis in the left internal carotid artery by sonographic criteria. Elbow X-Ray 01/31/24 15:10 IMPRESSION: 1. Elbow joint effusion. No fracture identified. 2. Mild elbow joint osteoarthritis. Head CT 02/02/24 11:35 IMPRESSION: 1. Normal head CT. Thoracic Spine MRI 02/02/24 14:37 IMPRESSION: 1. 11 degrees thoracic dextroscoliosis with mild spondylosis. 2. Chronic T12 compression fracture with 60% anterior vertebral body height loss and 3 mm retropulsion resulting in mild central canal stenosis. 3. 9 mm T1 hyperintense lesion in the T9 vertebral body which is nonspecific with differential including benign etiology such as red marrow expansion or atypical hemangioma but could not exclude a malignant/metastatic lesion. Consider further evaluation with either bone scan or pre and postcontrast MRI. Lumbar Spine MRI 02/02/24 15:05 IMPRESSION: 1. Mild lumbar spondylosis with 4 and L5 laminectomies and L4-S1 anterior and instrumented posterior spinal fusion. 2. Chronic T12 burst fracture. Hip CT 02/03/24 18:00 IMPRESSION: Fracture of the right sacral alar. No other definite fractures seen. Severe osteoarthritic changes of the right hip. Markedly thickened wall of the urinary bladder. Further evaluation advised. Labs Labs: Laboratory Results - last 24 hr 02/07/24 02/07/24 04:22 12:03 WBC 6.2 RBC 4.42 Hgb 13.2 Hct 42.2 MCV 95.5 MCH 29.9 MCHC 31.3 L RDW 13.2 Plt Count 394 H MPV 8.8 Immature Gran % (Auto) 0.3 Neut % (Auto) 65.6 Lymph % (Auto) 23.3 [place] % (Auto) 7.9 Eos % (Auto) 1.9 Baso % (Auto) 1.0 Lymph # (Auto) 1.45 [place] # (Auto) 0.5 Eos # (Auto) 0.1 Baso # (Auto) 0.1 Abs Immat Gran (auto) 0.02 Absolute Neuts (auto) 4.1 Absolute Nucleated RBC 0.000 Nucleated RBC % 0.0 Sodium 137 134 L Potassium 5.5 H 4.7 Chloride 98 98 Carbon Dioxide 33 H 31 H Anion Gap 6 5 BUN 13 15 Creatinine 0.60 L 0.50 L Estim Creat Clear Calc 62 73 Estimated GFR > 60 > 60 Glucose 107 111 H Calcium 9.2 9.1 Total Bilirubin 0.4 AST 36 ALT 22 Alkaline Phosphatase 242 H Total Protein 7.0 Albumin 4.1 Quality VTE Prophylaxis VTE prophylaxis: mechanical ordered
[2024-02-07 14:00] VITALS: BP 133/65; PULSE 68; RESP 12; TEMP 37; O2SAT 98
[2024-02-07 14:35] VITALS: BP 134/90; PULSE 72; RESP 18; O2SAT 99
[2024-02-07 14:40] VITALS: BP 162/81; PULSE 80; RESP 20; O2SAT 99
--- NOTE | 2024-02-07 16:04 | P.TS_ITS ---
Transfer Discharge Sum: Prov Provider Date of admission: 02/04/24 14:48 Primary care physician: Chandler Benton MD Admitting clinician: Francisco Javier Garcia MD Attending physician on admission: Francisco Javier Garcia Consults: 02/01/24 07:31 Consult to Physician Routine Comment: consulted at 0816 on 02/01/24. FREDIS AVENDANOT. Consulting Provider: Roberto Salvador call center operations manager/MD group to consult: cardiology Reason for consultation: LV mass on ECHO Has provider been notified: Yes 02/02/24 10:50 Consult to Physician Routine Comment: Consulting Provider: Gomez Rosen call center operations manager/MD group to consult: Neurosurgery--Dr Rosen, I already called him Reason for consultation: right leg weakness, numbness to posterior thigh afte r fall Has provider been notified: Yes 02/02/24 17:14 Consult to Physician Routine Comment: Consulting Provider: Loiue Toledo call center operations manager/MD group to consult: Dr Toledo orthopedics---I already called and spoke with him Reason for consultation: Impaired right leg mobility Has provider been notified: Yes 02/02/24 17:17 Consult to Physician Routine Comment: LVM @ 7:4am (-) Consulting Provider: Wander Lima call center operations manager/MD group to consult: neurology Reason for consultation: numbness, jerking Has provider been notified: Yes 02/03/24 Consult to Physician Routine Comment: Per Reports Dr Meza saw pt today() Consulting Provider: Gomez Rosen call center operations manager/MD group to consult: neurosurgery Reason for consultation: Sacral fracture at S2, severe numbness and pain S2 dermatome Has provider been notified: Yes Attending physician on discharge: Derrick Ahumada Discharging clinician: Maria Ines Murillo Anticipated date of transfer: 02/07/24 Receiving physician/facility: [facility] DS: Admitting Diagnosis Discharge Date 02/07/2024 Admitting Diagnosis Fall DS: Discharge Diagnosis Discharge Diagnosis (1) Sacral insufficiency fracture: Code(s): M84.48XA - Pathological fracture, other site, initial encounter for fracture Status: Acute (2) Fall: Code(s): W19.XXXA - Unspecified fall, initial encounter Status: Acute (3) Right leg weakness: Code(s): R29.898 - Other symptoms and signs involving the musculoskeletal system Status: Acute Transfer Discharge Sum: Med Medications Active and Home Medications: Home Medications acetaminophen 650 mg tablet,extended release (Arthritis Pain Relief (acetaminophen) ER) 650 mg PO BID PRN Pain (Scale Score 1-3) 09/08/20 [History Confirmed 01/31/24] buspirone 7.5 mg tablet 7.5 mg PO BID 09/08/20 [History Confirmed 01/31/24] diphenhydramine HCl 25 mg capsule (Allergy Relief (diphenhydramine)) 25 mg PO BID 09/08/20 [History Confirmed 01/31/24] albuterol sulfate 90 mcg/actuation aerosol inhaler 1 inh inhalation QID PRN shortness of breath or wheezing #6.7 grams 01/02/21 [Rx Confirmed 01/31/24] hydrocodone 5 mg-acetaminophen 325 mg tablet 1 tablet PO QID 01/31/24 [History C onfirmed 01/31/24] hydroxyzine HCl 50 mg tablet 50 mg PO TID 01/31/24 [History Confirmed 01/31/24] lamotrigine 200 mg tablet 200 mg PO BID 01/31/24 [History Confirmed 01/31/24] lorazepam 0.5 mg tablet 0.5 mg PO HS 01/31/24 [History Confirmed 01/31/24] sertraline 100 mg tablet 100 mg PO DAILY 01/31/24 [History Confirmed 01/31/24] Active Medications Hydrocodone Bitart/Acetaminophen (Hydrocodone/Acetaminophen (*Crx) 5-325 Mg Tablet) 1 tab PO Q4H PRN PRN Reason: Pain Rated 4-6 Last Admin: 02/05/24 12:55 Dose: 1 tab Hydrocodone Bitart/Acetaminophen (Hydrocodone/Acetaminophen (*Crx) 10-325 Mg Tablet) 1 tab PO Q4H PRN PRN Reason: Pain Rated 7-10 Last Admin: 02/07/24 12:21 Dose: 1 tab Albuterol (Albuterol Sulfate (*Sp) Aerosol 1 Puff) 2 puff INHALATION QID PRN PRN Reason: shortness of breath or wheezing Aspirin (Aspirin 81 Mg Enteric Tablet) 81 mg PO BID UBALDO Last Admin: 02/07/24 08:52 Dose: 81 mg Buspirone HCl (Buspirone Hcl 5 Mg Tablet) 5 mg PO Q12HR [facility] Last Admin: 02/07/24 08:51 Dose: 5 mg Buspirone HCl (Buspirone Hcl 2.5 Mg Tablet) 2.5 mg PO Q12HR [facility] Last Admin: 02/07/24 08:52 Dose: 2.5 mg Cyclobenzaprine HCl (Cyclobenzaprine Hcl 5 Mg Tablet) 5 mg PO Q8H PRN PRN Reason: Muscle Spasm Last Admin: 02/07/24 06:21 Dose: 5 mg Famotidine (Famotidine 10 Mg Tablet) 10 mg PO Q12HR [facility] Last Admin: 02/07/24 08:52 Dose: 10 mg Gabapentin (Gabapentin 300 Mg Capsule) 300 mg PO TID [facility] Last Admin: 02/07/24 12:21 Dose: 300 mg Hydromorphone HCl (Hydromorphone Hcl Inj (*Crx) 1 Mg/Ml Syr) 0.5 mg IV PUSH Q4H PRN PRN Reason: Breakthrough Pain Last Admin: 02/01/24 10:30 Dose: 0.5 mg Hydroxyzine HCl (Hydroxyzine Hcl 25 Mg Tablet) 50 mg PO TID [facility] Last Admin: 02/07/24 12:21 Dose: 50 mg Ibuprofen (Ibuprofen 600 Mg Tablet) 600 mg PO Q8H [facility] Last Admin: 02/07/24 08:51 Dose: 600 mg Lamotrigine (Lamotrigine 100 Mg Tablet) 200 mg PO Q12HR [facility] Last Admin: 02/07/24 08:51 Dose: 200 mg Lorazepam (Lorazepam (*Crx) 0.5 Mg Tablet) 0.5 mg PO [facility] Last Admin: 02/06/24 20:17 Dose: 0.5 mg Methylprednisolone (Methylprednisolone (Medrol) Dosepack 4 Mg Tablets) 4 mg PO 0630,2100 [facility]; Taper Stop: 02/08/24 07:29 Last Admin: 02/07/24 06:21 Dose: 4 mg Ondansetron HCl (Ondansetron Inj 4 Mg/2 Ml Vial) 4 mg IV PUSH Q4H PRN PRN Reason: Nausea Last Admin: 02/02/24 11:51 Dose: 4 mg Senna/Docusate Sodium (Senna/Docusate Sodium Tablet) 1 tab PO [facility] Last Admin: 02/06/24 20:17 Dose: 1 tab Sertraline HCl (Sertraline Hcl 50 Mg Tablet) 100 mg PO DAILY [facility] Last Admin: 02/07/24 08:51 Dose: 100 mg Transfer Discharge Sum: Hosp Hospital Course Hospital course: Per ER Gina Gonzalez is a 63 year old female with PMH of anxiety, COPD, alcoholism who presents to the ED via EMS for chief complaint ground level fall that occurred while at home. Patient reports that she was walking through the hallway after using the bathroom when she suddenly dropped to the ground. She is unsure of what caused this fall. She does not feel that she loss consciousness but cannot tell me why she fell. She is complaining of bilateral lower extremity pain. Denies head injury. States that she has been taking her seizure medication but she is not sure what it is called. Per EMS, patient was face down on the carpeted floor when they arrived was complaining of buttock pain. JESUS negative. She has a positive straight leg raising test On right side. Sensory examination did not reveal any sensory loss and hence the pain appears to predominant issue. MRI of the lumbosacral spine was performed shows mild lumbar spondylosis with L4 and L5 laminectomy and L4 vented posterior spinal fusion. Chronic T12 burst fracture. Lumbar CT showed: IMPRESSION: 1. Acute sacral insufficiency fractures. 2. Severe lumbar spondylosis. 3. Anterior and posterior fusion procedures from L4 to S1. The sacral insufficiency fractures involve the storey of the right S1, S2, and S3 neural foramina without displacement of bone at the margins of the neural foramina. discs for all testing to be sent to [facility] Time Spent with Patient Time attestation: Total time spent providing and/or coordinating transfer services: Total time spent: Greater than 30 minutes Exam Narrative: Const: General: uncomfort able Resp: Effort & Inspectio n: normal respirat ory effort Auscul tation: clear to a uscultation bilate rally Cardio: Rate: regular rate Rhythm: regular rhythm GI: GI Palp: Yes Soft to palpation Ausc ultation: normal b owel sounds Other : Last BM . Skin: General skin exam: no rashes or lesi ons noted Neuro: Speech: normal spe ech Other: A&Ox 4 but poor histori an. Extrem: Other: Normal pe ripheral pulses an d equal sensation to touch. BLE warm to touch. Psych: Affect: normal aff ect DS: Data Data Completed and Pending Labs on day of discharge: Labs from last 24 hours 02/07/24 02/07/24 12:03 04:22 WBC 6.2 RBC 4.42 Hgb 13.2 Hct 42.2 MCV 95.5 MCH 29.9 MCHC 31.3 L RDW 13.2 Plt Count 394 H MPV 8.8 Immature Gran % (Auto) 0.3 Neut % (Auto) 65.6 Lymph % (Auto) 23.3 [place] % (Auto) 7.9 Eos % (Auto) 1.9 Baso % (Auto) 1.0 Lymph # (Auto) 1.45 [place] # (Auto) 0.5 Eos # (Auto) 0.1 Baso # (Auto) 0.1 Abs Immat Gran (auto) 0.02 Absolute Neuts (auto) 4.1 Absolute Nucleated RBC 0.000 Nucleated RBC % 0.0 Sodium 134 L 137 Potassium 4.7 5.5 H Chloride 98 98 Carbon Dioxide 31 H 33 H Anion Gap 5 6 BUN 15 13 Creatinine 0.50 L 0.60 L Estim Creat Clear Calc 73 62 Estimated GFR > 60 > 60 Glucose 111 H 107 Calcium 9.1 9.2 Total Bilirubin 0.4 AST 36 ALT 22 Alkaline Phosphatase 242 H Total Protein 7.0 Albumin 4.1
== END 2024-02-07 19:00 | disposition short-term general hospital (02) | DRG 342 ==
LOC: ANHED 20:40 → ANH2MED 01-31 00:56
PROVIDERS: Nurse Practitioner Acute Care; Orthopaedic Surgery; Specialist; Admitting Provider Internal Medicine; Emergency Provider Physician Assistant; PCP Family Medicine; Visit Provider Nurse Practitioner Family
PROC: B24BZZ4 Ultrasonography of Heart with Aorta, Transesophageal (ICD-10-PCS; CPT 93312; principal; 2024-02-03 11:00)
DX: M84.48XA Pathological fracture, other site, initial encounter for fracture (principal); R20.0 Anesthesia of skin; M62.81 Muscle weakness (generalized); M47.26 Other spondylosis with radiculopathy, lumbar region; M16.0 Bilateral primary osteoarthritis of hip; M25.422 Effusion, left elbow; G89.29 Other chronic pain; G40.909 Epilepsy, unspecified, not intractable, without status epilepticus; J44.9 Chronic obstructive pulmonary disease, unspecified; K21.9 Gastro-esophageal reflux disease without esophagitis; R93.1 Abnormal findings on diagnostic imaging of heart and coronary circulation; F10.21 Alcohol dependence, in remission; F41.9 Anxiety disorder, unspecified; F32.A Depression, unspecified; W19.XXXA Unspecified fall, initial encounter; Q21.12 Patent foramen ovale; Z87.891 Personal history of nicotine dependence; Z87.11 Personal history of peptic ulcer disease; Z98.1 Arthrodesis status; Z79.891 Long term (current) use of opiate analgesic
CPT/HCPCS: 36415; 70450; 72131; 72146; 72148; 73080; 73521; 73700; 80048; 80053; 80307; 81003; 82306; 82550; 83605; 83735; 84100; 85025; 85027; 85610; 85652; 85730; 86140; 87040; 93005; 93312; 93320; 93325; 93880; 95816; 96361; 96372; 96374; 96375; 96376; 97110; 97161; 97165; 97530; 97535; 99285; A9270; C8929; G0378; G0379; J1171; J1650; J2270; J2405; J2704; J7030; J7040; Q9957

== ENCOUNTER 2024-05-11 13:54 | Outpatient (CLI) | payer OTHER, SELFPAY ==
[2024-05-11 15:46] LABS: Basophils Absolute Auto 0.1 K/mm3 (0.0-0.1); Basophils Percent Auto 1.1 % (0.2-1.2); Eosinophils Absolute Auto 0.2 K/mm3 (0-0.3); Eosinophils Percent Auto 3.6 % (0-4.4); Hematocrit 44.1 % (37.0-47.0); Hemoglobin 13.8 g/dL (12.0-15.0); Immature Granulocyte Absolute 0.01 K/mm3 (0.00-0.031); Immature Granulocyte Percent A 0.2 % (0-0.5); Lymphocytes Absolute Auto 1.77 K/mm3 (0.9-3.2); Lymphocytes Percent Auto 37.3 % (18.3-44.2); Mean Corpuscular HGB Conc 31.3 g/dl (32-36); Mean Corpuscular Hemoglobin 30.4 pg (26-34); Mean Corpuscular Volume 97.1 fl (80-100); Mean Platelet Volume 9.3 fl (7.4-10.4); Monocytes Absolute Auto 0.4 K/mm3 (0.1-0.6); Monocytes Percent Auto 8.4 % (2.6-8.5); Neutrophils Absolute Auto 2.4 K/mm3 (1.3-6.7); Neutrophils Percent Auto 49.4 % (45.5-73.1); Platelet Count Result 300 k/mm3 (150-375); Red Blood Count 4.54 M/mm3 (4.2-5.4); Red Cell Distribution Width 12.3 % (11.5-14.5); White Blood Count 4.8 K/mm3 (4.5-10.0)
[2024-05-11 16:01] LABS: Alanine Aminotransferase 22 U/L (6-35); Albumin Level 4.7 g/dL (3.5-5.1); Alkaline Phosphatase 138 U/L (38-126); Anion Gap 8 mmol/L (4-12); Aspartate Amino Transferase 29 U/L (14-36); Bilirubin,Total 0.8 mg/dL (0.2-1.3); Blood Urea Nitrogen 15 mg/dL (7-17); Carbon Dioxide 30 mmol/L (22-30); Chloride 102 mmol/L (98-107); Cholesterol 262 mg/dL (0-200); Estimated Glomerular Filt Rate > 60; Glucose 79 mg/dL (65-110); HDL Direct 101 mg/dL; Sodium 140 mmol/L (137-145); Triglycerides 93 mg/dL (<150)
[2024-05-11 16:12] LABS: LDL Cholesterol Direct 112 mg/dL
[2024-05-11 17:10] LABS: Hepatitis C Virus Antibody Negative (Negative)
== END 2024-05-11 13:55 | disposition home or self-care (01) ==
LOC: ANHLAB 13:58
PROVIDERS: PCP Family Medicine; Visit Provider Registered Nurse
DX: E78.5 Hyperlipidemia, unspecified (principal); Z11.59 Encounter for screening for other viral diseases
CPT/HCPCS: 36415; 80053; 80061; 85025; 86803

== ENCOUNTER 2024-07-23 11:26 | Outpatient (CLI) | payer OTHER, SELFPAY ==
--- NOTE | ~2024-07-23 | MMUS_ITS ---
EXAMINATION: MM diagnostic elissa BI w letty, US breast BI limited HISTORY: 64-year-old woman presents for diagnostic evaluation of bilateral breast pain. The patient d escribes a family history of breast cancer diagnosed in 4 sisters on multiple history sheets, filled out by the patient dating back to 09/28/2022. However, no family history of breast cancer was elicited on direct questioning. No personal history of breast cancer. The patient describes a history of a right-sided excisional breast biopsy many years earlier, yieldin g benign results. TECHNIQUE: Craniocaudal and mediolateral oblique 3-D tomosynthesis images were obtained and synthetic 2-D images were generated. CAD analysis was submitted and interpreted. High resolution focused bilateral breast ultrasound was performed. COMPARISON: Examination was compared with multiple prior mammograms performed most recently on and dating back to 01/10/2016. Reference was made to prior ultrasound examinations dated 12/10/2023, 06/11/2023 and 11/02/2022 (all ult rasound examinations were performed of the right breast only). BREAST PARENCHYMAL COMPOSITION:Not Dense. There are scattered areas of fibroglandular density. FINDINGS: MAMMOGRAPHIC FINDINGS: A large bulky calcification is identified in the upper inner quadrant of the left breast, and was pre sent initially on 10/21/2017 when it was associated with a 5 mm well-circumscribed (likely), fibroaden ana. This area was redemonstrated yearly, and likely now represents a degenerating fibroadenoma with large dystrophic calcifications. Punctate calcifications are detected bilaterally, vascular in origin and benign in appearance. Otherwise stable parenchymal pattern without suspicious microcalcifications, architectural distortion , discrete masses or significant asymmetry. ULTRASOUND: At the 12:00 position of the left breast approximately 4 cm from the nipple is a well-circumscribed f ocus of decreased echogenicity with multiple hyperechoic foci along the anterior and lateral border w ith posterior acoustic shadowing measuring 3.3 x 3.4 x 2.2 mm. This focus is felt to represent the calcified degenerating fibroadenoma located within the upper oute r left breast seen mammographically. Sonographic evaluation of the remainder of the bilateral breast tissue demonstrates benign fibrogland ular elements without a cystic or solid lesion of concern. IMPRESSION: No mammographic/tomographic or sonographic evidence to suggest the presence of malignancy. Findings at the 12:00 position of the left breast felt to represent a degenerating fibroadenoma [facility] is recommended. Targeted ultrasound of the 12:00 position of the left breast in 6 months is recommended. BI-RADS category 3, probably benign findings. Reviewed, dictated and finalized at location A. IMPRESSION: No mammographic/tomographic or sonographic evidence to suggest the presence of malignancy. Findings at the 12:00 position of the left breast felt to represent a degenerat ing fibroadenoma for which short-term ultrasound follow-up is recommended. Targeted ultrasound of the 12:00 position of the left breast in 6 months is rec ommended. BI-RADS category 3, probably benign findings.
--- OUTSIDE RECORDS SUMMARY | 2024-07-23 12:51 | XMS_ITS | Continuity of Care Document ---
Author Organization [facility] Address [address] [place] [address] Phone Care Team Providers Care Director Operating Room Name Role Phone Garcia OD, Owen Unavailable Unavailable Procedures Procedure Date Eye Exam Established Pt Eye Exam, New Patient Advance Directives Directive Yes / No Effective Date File Name No Information Encounters Encounter Description Practice Location Reason(s) For Visit Diagnoses Date Provider Providers Copied on Encounter [facility], [address] [place] [address] [address], [place], [place], [id number], tel:[phone] [facility] [place] No Information 0-201 0 Garcia OD Owen. [address] [facility] , [address], [place], [place], [facility] [place], [place]. tel:[phone] [facility], [address] [place] [address] [address], [place], [place], [id number], tel:[phone] [facility] No Information 3-201 0 Doisy Edward. [address] , [address], [place], [address], [place]. tel:[phone] Family History Family Member Type Diagnosis Age At Onset No Information Payers Payer name Insurance type Covered libertarian ID Authoriza tielda(s) [place] 09 [id number] Social History Type Description Quantity Date Captured [...]
--- OUTSIDE RECORDS SUMMARY | 2024-07-23 12:51 | XMS_ITS | Clinical Summary ---
Author Organization [facility] Address [address] [place] [address] Care Team Providers Care Craft Coordinator Name Role Phone Bam Mclean MD Primary Care Provider [phone] Source Comments [facility],non-owned Affiliates and Associated Physician Practices is amultiple site organization consisting of ambulatory clinics and hospital sitesin [place], [place], [place] and [place]. This disclosure is being madepursuant to the Care Everywhere program and may not contain all information available regarding this patient. Last updated 18.[employer] [facility] Allergies Active Allergy Reactions Criticality Noted Date Comments Penicillins Rash Medium 02/18/2024 HIVES Sulfacetamide Other 02/18/2024 Pt unsure - states she has had a long time allergy to it and does not remember Medications * Be aware that medications may not be up to date on this document. Alwaysverify current medications with the patient. Medication Sig Dispensed Refills Start Date End Date Status busPIRone (Buspar) 7.5 MG tablet Take 1 (one) tablet by mouth 2 times daily Active hydrOXYzine HCl (Atarax) 50 MG tablet Take 1 (one) tablet by mouth 3 times daily Active lamoTRIgine (LaMICtal) 200 MG tablet Take 1 (one) tablet by mouth 2 times daily Active LORazepam (Ativan) 0.5 MG tablet Take 1 (one) tablet by mouth at bedtime Active sertraline (Zoloft) 100 MG tablet Take 1 (one) tablet by mouth once daily Active albuterol HFA (Proventil; Ventolin; Proair) 108 (90 Base) MCG/ACT inhaler Inhale 2 (two) puffs by mouth every 6 hours as needed for Shortness of Breath or Wheezing Active melatonin 3 MG tablet Take 1 (one) tablet by mouth nightly as needed for Insomnia Active Nutritional Supplement LIQD Take 1 container by mouth 3 times daily Low Calorie High Protein Supplement Examples: Ensure High Protein/Boost High Protein/Premier Protein High Calorie High Protein Supplement Examples: Ensure Enlive/Ensure Plus/Boost Plus/Equate Plus Diabetic Supplement Examples: Ensure High Protein/Glucerna/Loomis st Glucose Control/Enterex Diabetic Renal Supplement Examples: Nepro/Novosource Renal Clear Liquid Supplement Examples: Ensure Clear/Premier Protein Clear/Resource Boost Breeze/Prosource High Protein Gelatin Vegan or Milk Free Supplement Examples: Ensure Plant/Orgain 02/17/2024 Active acetaminophen (Tylenol) 500 MG tablet Take 2 (two) tablets by mouth 3 times daily Maximum allowable Acetaminophen amount = 4 Grams (4000 mg) / 24 hours. 02/21/2024 Active oxyCODONE, immediate release, (Roxicodone) 10 MG tabletIndications:Sa cral insufficiency fracture, initial encounter Take 1 (one) tablet by mouth every 4 hours as needed 02/21/2024 Active gabapentin (Neurontin) 300 MG capsule Take 1 (one) capsule by mouth 3 times daily 02/21/2024 Active polyethylene glycol 3350 (Miralax) 17 g packet Take 17 (seventeen) g by mouth once daily as needed for Constipation 02/21/2024 Active cyclobenzaprine (Flexeril) 5 MG tablet Take 1 (one) tablet by mouth 3 times daily as needed 02/21/2024 Active famotidine (Pepcid) 20 MG tablet Take 1 (one) tablet by mouth 2 times daily 02/21/2024 Active vitamin D3 (Cholecalciferol) 25 MCG (1000 UNITS) tablet Take 1 (one) tablet by mouth once daily 02/21/2024 Active apixaban (Eliquis) 2.5 MG tablet Take 1 (one) tablet by mouth 2 times daily for 35 days 02/21/2024 Active Active Problems Problem Noted Date Diagnosed Date Severe protein-calorie malnutrition 02/19/2024 Ambulatory dysfunction 02/07/2024 Anxiety 02/07/2024 Recurrent major depressive disorder, in remissio n 02/07/2024 Seizure 02/07/2024 History of spinal fusion 02/07/2024 History of smoking 02/07/2024 Lumbar spondylolysis 02/07/2024 Sacral insufficiency fracture, initial encounter 02/04/2024 Family History Medical History Relation Name Comments Cancer Father unsure type Cancer Mother unsure type Relation Name Status Comments Father Mother Social History Tobacco Use Types Packs/Day Years Used Date Smoking Tobacco: Former Cigarettes 1.5 45 Tobacco Cessation:Counseling Given: Not Answered Comments:Quit in 2019 approximately Alcohol Use Standard Drinks/Week Comments Not Currently 82 (1 standard drink = 0.6 oz pure alcohol) used to drink 2, 6packs of beer/day, quit in ~2007 AUDIT-C Answer Date Recorded Q1: How often do you have a drink containing alcohol? Never 02/08/2024 Q2: How many drinks containi ng alcohol do you have on a typical day when you are drinking? Patient does not drink Q3: How often do you have si x or more drinks on one occasion? Never 02/08/2024 Overall Financial Resource Strain (CARDIA) Answe r Date Recorded How hard is it for you to pa y for the very basics like food, housing, medical care, and heating? Not hard at all 02/14/2024 [facility] Occupat ional Health - Occupational Stress Questionnaire Answer Date Recorded Do you feel stress - tense, restless, nervous, or anxious, or unable to sleep at night because your mind is troubled all the time - these days? Not at all 02/14/2024 Hunger Vital Sign Answer Date Recorded Within the past 12 months, y ou worried that your food would run out before you got the money to buy more. Never true 02/14/20 24 Within the past 12 months, t he food you bought just didn't last and you didn't have money to get more. Never true 02/14/2024 PRAPARE - Transportation Answer Date Re corded In the past 12 months, has l ack of transportation kept you from medical appointments or from getting medications? No 01/27 In the past 12 months, has l ack of transportation kept you from meetings, work, or from getting things needed for daily living? No 02/14/2024 Housing Stability Vital Sign Answer Mohan e Recorded In the last 12 months, was t here a time when you were not able to pay the mortgage or rent on time? No 02/14/2024 In the past 12 months, how m any times have you moved where you were living? 0 02/14/2024 At any time in the past 12 m [facility], were you homeless or living in a group home (including now)? No 02/14/2024 Sex and Gender Information Value Date Recorded Sex Assigned at Not on file Gender Identity Not on file Sexual Orientation Not on file Last Filed Vital Signs Vital Sign Reading Time Taken Comments Blood Pressure 140/65 02/21/2024 4:44 AM CDT Pulse 62 02/21/2024 4:44 AM CDT Temperature 36.8 C (98.2 F) 02/20/2024 7:48 PM CDT Respiratory Rate 16 02/20/2024 6:51 AM CDT Oxygen Saturation 97% 02/21/2024 4:44 AM CDT Inhaled Oxygen Concentration - - Weight 54.1 kg (119 lb 3.2 oz) 02/21/2024 4:00 A M CDT Height 157.5 cm (5' 2 ) 02/10/2024 1:47 PM CDT Body Mass Index 21.8 02/10/2024 1:47 PM CDT Plan of Treatment Health Maintenance Due Date Last Done Comments BONE DENSITY TESTING 1960 COLOGUARD (AGES 45-75) - COL ON CA SCREENING 1958 COLON MONITORING 1958 COLONOSCOPY - COLON CA SCREENING 1958 CT COLONOGRAPHY - COLON CA SCREENING 1958 Colorectal Cancer Screening 1958 FIT - COLON CA SCREENING 1958 FLEX SIG - COLON CA SCREENING 1958 LIPID TESTING 1958 MAMMOGRAM 1958 HEPATITIS C SCREENING 04/07/1976 DTAP/TDAP/TD VACCINES (1 - Tdap) 1977 PNEUMOCOCCAL VACCINE 50+ (1 of 1 - PCV) 2008 ZOSTER VACCINE (1 of 2) 2008 Respiratory Syncytial Virus (RSV) Vaccine Pt: or over 60 yrs (1 - Risk 60-74 years 1-dose series) 2018 COVID-19 VACCINE (1 - 2023-2 5 season) 2023 INFLUENZA VACCINE (#1) 2023 DEPRESSION SCREENING 04/29/2024 HEPATITIS B VACCINE Aged Out No longe r eligible based on patient's age to complete this topic HIB VACCINE Aged Out No longer eligi ble based on patient's age to complete this topic HPV VACCINE Aged Out No longer eligi ble based on patient's age to complete this topic MENINGOCOCCAL (Group B) VACC INE SHARED DECISION-MAKING Aged Out No longer eligibl e based on patient's age to complete this topic MENINGOCOCCAL GROUPS A/C/Y/W VACCINE Aged Out No longer eligible b ased on patient's age to complete this topic Medical Devices Implanted Type Area Harvest Manager Device Identifier Shelf Expiration Date Model / Serial / Lot 7.3mm Cannulated Screw- Fully Threaded 160mm Implanted:Qty: 1 on 02/18/2024 by Debby Weller MD at [facility] Right: Pelvis [employer] 07/28/2031 [id number] / / [id number] Wshr 13mm Orth Ss 6.5/7/7.3mm Yordan Screw Implanted:Qty: 1 on 02/18/2024 by Debby Weller MD at [facility] Right: Pelvis [employer] [id number] / / Explanted Type Area Harvest Manager Device Identifier Shelf Expiration Date Model / Serial / Lot Wire K 2mm 350mm 1 End Troc Pnt Thrd Ss Explanted:Qty: 1 on 02/18/2024 by Debby Weller MD at [facility] Pelvis [employer] 06/21/2031 [id number] / / Wire K 2mm 350mm 1 End Troc Pnt Thrd Ss Explanted:Qty: 1 on 02/18/2024 by Debby Weller MD at [facility] [employer] 11/01/2031 [id number] / / Advance Directives * DNR - IF PULSELESS NO CPR, NO SHOCK (Latest Code Status on File) Date Activated Date Inactivated Comments 02/07/2024 9:54 PM 02/21/2024 4:19 PM Question Answer Comments : DO NOT discontinue a ny active orders without asking attending physician. Care Teams Craft Coordinator Relationship Specialty Start Date End Date Bam Mclean MD [address] [place] [id number] PCP - General 09/11/19
--- OUTSIDE RECORDS SUMMARY | 2024-07-23 12:51 | XMS_ITS | CONTINUITY OF CARE DOCUMENT ---
Author Name [facility] Address Unknown Organization [facility] Address [address] [place] [address] Phone [phone] Care Team Providers Care Powerhouse Operator Name Role Phone Yordy Ontiveros MD Unavailable [phone] ANTONY MCMULLEN MD Unavailable ED BLOCK MD Unavailable [phone] PROBLEMS Condition Status Date Provider Notes BIPOLAR AFFECTIVE DISORDER active Mayela St ahlschmidt SEIZURE DISORDER active Mayela Stahlschmidt ASTHMA active Mayela Stahlschmidt GERD active Mayela Stahlschmidt ENCOUNTERS Date Type Provider Location Encounter Diagnosis - In-person encounter Office Visit Yordy Ontiveros MD [place] [facility] - In-person encounter Office Visit Yordy Ontiveros MD [place] [facility] VITAL SIGNS Date Observation Value Provider blood pressure, diastolic 65 mm[Hg] Mike Wang RN blood pressure, systolic 115 mm[Hg] Cornel Wang RN pulse rate 70 /min Cornel Wang RN oxygen saturation, oximetry 98 % Cornel Wang RN respiratory rate E&M 16 /min Cornel meadows RN weight E&M 113 [lb_av] Cornel Wang RN blood pressure, diastolic, right arm 84 m m[Hg] Rafita Rizo blood pressure, systolic, right arm 118 m m[Hg] Rafita Rizo blood pressure, diastolic 84 mm[Hg] Chely seph [facility] blood pressure, systolic 118 mm[Hg] Zeferino eph [facility] pulse rate 78 /min [facility] oxygen saturation, oximetry 98 % [facility] respiratory rate E&M 20 /min [facility] weight E&M 133 [lb_av] [facility] RESULTS Date Observation Value Provider Reference Range Interpretation Location anion gap, serum 8.3 [facility] globulins, serum, total 3.3 g/dL [facility] estimated glomerular filtration rate >60 [facility] albumin/globulin ratio, serum 1.2 [facility] protein, total, serum 7.2 g/dL [facility] albumin, serum 3.9 g/dL [facility] bilirubin, serum, total 0.39 mg/dL [facility] alkaline phosphatase, serum 174 1/L [facility] alanine aminotransferase (SGPT), serum 28 1/L [facility] aspartate aminotransferase (SGOT), serum 16 1/L [facility] calcium, serum 9.0 mg/dL [facility] blood glucose, fasting 104 mg/dL [facility] creatinine, serum 0.75 mg/dL [facility] urea nitrogen, blood 5.6 mg/dL [facility] carbon dioxide, serum, total 20 mmol/L [facility] chloride, serum 103 mmol/L [facility] potassium, serum 3.3 mmol/L [facility] sodium, serum 138 mmol/L [facility] thyroxine, serum, total 5.6 ug/dL [facility] thyroid stimulating hormone, serum 0.45 u[IU]/mL [facility] phenytoin level, serum 7.6 ug/mL [facility] B-12, serum 325 pg/mL [facility] folate, serum 6.9 ng/mL [facility] platelet count 242 10*3/uL [facility] red blood cell distribution width 13.2 % [facility] mean corpuscular hemoglobin concentration, RBC 33.3 g/dL [facility] mean corpuscular hemoglobin, RBC 32.1 pg [facility] mean corpuscular volume, RBC 96.6 fL [facility] hematocrit, blood 42.1 % [facility] hemoglobin, blood 14.0 g/dL [facility] erythrocyte (RBC) count 4.36 10*6/mm3 [facility] monocytes as percent of blood leukocytes 7.1 % [facility] lymphocytes as percent of blood leukocytes 36.7 % [facility] leukocyte count, blood 5.3 10*3/mm3 [facility] HISTORY OF MEDICATION USE Medication Status Instructions Dates Provider Indications Com ments NICODERM CQ 21 MG/24HR TRANSDERMAL PATCH 24 HOUR active one tablet daily x 14 days then reduce to 14mg x 21days Chely Tapia WELLBUTRIN TABLET active Cornel Wang RN PEPCID 20 MG ORAL TABLET active ONE TAB. DAILY Mayela Stahlschmidt DILANTIN 100 MG ORAL CAPSULE active 3 capsules by mouth at bedtime Rafita Rizo GEODON 80 MG ORAL CAPSULE active 1 capsule by mouth tiwce daily Rafita Rizo ASPIRIN 81 MG ORAL TABLET completed ONE TAB. DAILY - Cornel Wang RN SOCIAL HISTORY Date Observation Value Provider social history reviewed E&M reviewed Cornel Wang RN quit smoking, stage quit Cornel reynoso RN social history E&M Marital Statu s: Single L brenda alone E thnicity: Cornel Wang RN social history reviewed E&M reviewed Cornel Wang RN physical exercise, f requency, days per week no [employer] caffeine use, averag e drinks per day yes [employer] alcohol use, average drinks per day none [facility] number of years as a smoker 10 years or m ore [facility] smoking status Quit [facility] MENTAL STATUS Date Observation Value Provider assessment of judgme nt and insight E&M Alert and oriented to time, place and person. Mood and affect are normal. Cornel Wang RN assessment of judgme nt and insight E&M Alert and oriented to time, place and person. Mood and affect are normal. Cornel Wang RN INSURANCE PROVIDERS Payer name Policy type / Coverage type Jerry red [employer] [place] [employer] (2) Medicaid [id number] TREATMENT PLAN Date Name Performer routine : H er updated medication list for this problem includes: Pepcid 20 Mg Tabs (Famotidine) ..... One tab. daily BP today: 115/65 Prior BP: 118/84 (07/08/2009) D iscussed lifestyle modifications, diet, antacids/medications, and preventive measures. Handout provided. Yordy Ontiveros MD routine : T he following medications were removed from the medication list: Aspirin 81 Mg Tabs (Aspirin) ..... One tab. daily BP today: 115/65 Prior BP: 118/84 (07/08/2009) N uclear Stress Findings: No scintigraphic evidence of stress induced ischemia or wall motion abnormality. LV EF 67% which is wnl. [facility] (05/27/2009) E chocardiogram: TDS. Normal mitfal valve. Normal Aortic valve. Normal left ventricular systolic function. No pericardial effusion identified. LVEF 66% with normal LV function, RVSP is 20mmHg with mid tricuspid regurgitation. Otherwise Normal Echocardiogram. [facility] (06/16/2008) Yordy Ontiveros MD routine : T he following medications were removed from the medication list: Aspirin 81 Mg Tabs (Aspirin) ..... One tab. daily BP today: 115/65 Prior BP: 118/84 (07/08/2009) N uclear Stress Findings: No scintigraphic evidence of stress induced ischemia or wall motion abnormality. LV EF 67% which is wnl. [facility] (05/27/2009) E chocardiogram: TDS. Normal mitfal valve. Normal Aortic valve. Normal left ventricular systolic function. No pericardial effusion identified. LVEF 66% with normal LV function, RVSP is 20mmHg with mid tricuspid regurgitation. Otherwise Normal Echocardiogram. [facility] (06/16/2008) Yordy Ontiveros MD routine : H er updated medication list for this problem includes: Dilantin 100 Mg Caps (Phenytoin sodium extended) ..... 3 capsules by mouth at bedtime Yordy Ontiveros MD routine Yordynoemí Ontiveros MD Hospital Follow-up: H er updated medication list for this problem includes: Pepcid 20 Mg Tabs (Famotidine) ..... One tab. daily BP today: 118/84 Prior BP: / () D iscussed lifestyle modifications, diet, antacids/medications, and preventive measures. Handout provided. Yordy Ontiveros MD Hospital Follow-up: H er updated medication list for this problem includes: Aspirin 81 Mg Tabs (Aspirin) ..... One tab. daily BP today: 118/84 Prior BP: / () N uclear Stress Findings: No scintigraphic evidence of stress induced ischemia or wall motion abnormality. LV EF 67% which is wnl. [facility] (05/27/2009) E chocardiogram: TDS. Normal mitfal valve. Normal Aortic valve. Normal left ventricular systolic function. No pericardial effusion identified. LVEF 66% with normal LV function, RVSP is 20mmHg with mid tricuspid regurgitation. Otherwise Normal Echocardiogram. [facility] (06/16/2008) Yordy Ontiveros MD Hospital Follow-up: H er updated medication list for this problem includes: Aspirin 81 Mg Tabs (Aspirin) ..... One tab. daily BP today: 118/84 Prior BP: / () N uclear Stress Findings: No scintigraphic evidence of stress induced ischemia or wall motion abnormality. LV EF 67% which is wnl. [facility] (05/27/2009) E chocardiogram: TDS. Normal mitfal valve. Normal Aortic valve. Normal left ventricular systolic function. No pericardial effusion identified. LVEF 66% with normal LV function, RVSP is 20mmHg with mid tricuspid regurgitation. Otherwise Normal Echocardiogram. [facility] (06/16/2008) Yordy Ontiveros MD Hospital Follow-up: P ulmonary Functions Reviewed: O 2 sat: 98 (07/08/2009) Yordy Ontiveros MD Hospital Follow-up: H er updated medication list for this problem includes: Dilantin 100 Mg Caps (Phenytoin sodium extended) ..... 3 capsules by mouth at bedtime Yordy Ontiveros MD Hospital Follow-up Yordy Ontiveros MD Date Name Complete Echo
== END 2024-07-23 11:27 | disposition home or self-care (01) ==
PROVIDERS: Visit Provider Registered Nurse
DX: N63.0 Unspecified lump in unspecified breast (principal); R92.8 Other abnormal and inconclusive findings on diagnostic imaging of breast
CPT/HCPCS: 76642; 77062; 77066; G0279

== ENCOUNTER 2024-07-28 11:20 | Outpatient (CLI) | payer OTHER, SELFPAY ==
--- NOTE | ~2024-07-28 | XR_ITS ---
AP view of the pelvis Clinical history: Pain Findings: No acute fracture or dislocation is seen. Osseous alignment is anatomic. There is moderate degenerative change right hip joint. There is no significant degenerative change of the left hip join t. Orthopedic hardware present at the lumbar spine and SI joints.. Soft tissues are unremarkable. Impression: Moderate right hip joint osteoarthritis. Post surgical changes of the lumbar spine and SI joints. Reviewed, dictated and finalized at location M. Impression: Moderate right hip joint osteoarthritis. Post surgical changes of the lumbar spine and SI joints.
--- NOTE | ~2024-07-28 | XR_ITS ---
Lumbosacral Spine: AP and lateral views Clinical History: Pain COMPARISON: 01/10/2023 Findings: The normal lordotic curve is maintained. Moderate to severe compression fracture of T12 not ed. Posterior fusion from L4 through S1 is unchanged. There is new large orthopedic screw transfixing the bilateral SI joints. There is minimal grade 1 retrolisthesis of L3 over L4. There is moderate de generative disc change in the upper lumbar spine. The sacroiliac joints are normally outlined. Impression: Postoperative changes, as above. Degenerative spondylosis, as above. Moderate to severe T12 compression fracture, stable from prior exam. Reviewed, dictated and finalized at location M. Impression: Postoperative changes, as above. Degenerative spondylosis, as above. Moderate to severe T12 compression fracture, stable from prior exam.
--- OUTSIDE RECORDS SUMMARY | 2024-07-28 12:45 | XMS_ITS | Clinical Summary ---
Author Organization [facility] Address [address] [place] [address] Care Team Providers Care Claims Associate Name Role Phone Bam Mclaen MD Primary Care Provider [phone] Source Comments [facility],non-owned Affiliates and Associated Physician Practices is amultiple site organization consisting of ambulatory clinics and hospital sitesin [place], [place], [place] and [place]. This disclosure is being madepursuant to the Care Everywhere program and may not contain all information available regarding this patient. Last updated 18.[employer] [facility] Allergies Active Allergy Reactions Criticality Noted Date [...] and heating? Not hard at all 02/14/2024 [facility] of Occupat ional Health - Occupational Stress [...] any time in the past 12 m [facility], were you homeless or living in a fdc (including now)? No 02/14/2024 Sex and Gender [...] this topic Medical Devices Implanted Type Area Inspector Canvas Products Device Identifier Shelf Expiration Date Model / Serial / Lot 7.3mm Cannulated Screw- Fully Threaded 160mm Implanted:Qty: 1 on 02/18/2024 by Debby Weller MD at [facility] Right: Pelvis [employer] 07/28/2031 [id number] / / [id number] Wshr 13mm Orth Ss 6.5/7/7.3mm Yordan Screw Implanted:Qty: 1 on 02/18/2024 by Debby Weller MD at [facility] Right: Pelvis [employer] 219.99 / / Explanted Type Area Inspector Can[employer] Products Device Identifier Shelf Expiration Date Model / Serial / Lot Wire K 2mm 350mm 1 End Troc Pnt Thrd Ss Explanted:Qty: 1 on 02/18/2024 by Debby Weller MD at [facility] Pelvis [employer] 06/21/2031 [id number] / / Wire K 2mm 350mm 1 End Troc Pnt Thrd Ss Explanted:Qty: 1 on 02/18/2024 by Debby Weller MD at [facility] [employer] 11/01/2031 [id number] / / Advance Directives * DNR - IF PULSELESS NO CPR, NO SHOCK (Latest Code Status on File) Date Activated Date Inactivated Comments 02/07/2024 9:54 PM 02/21/2024 4:19 PM Question Answer Comments : DO NOT discontinue a ny active orders without asking attending physician. Care Teams Claims Associate Relationship Specialty Start Date End Date Bam Mclean MD [address] [place] [id number] PCP - General 09/11/19
--- OUTSIDE RECORDS SUMMARY | 2024-07-28 12:45 | XMS_ITS | CONTINUITY OF CARE DOCUMENT ---
Author Name morteza pro Address Unknown Organization [facility] Address [address] [place] [address] Phone [phone] Care Team Providers Care Quality Intern Name Role Phone Yordy Ontiveros MD Unavailable [phone] ANTONY MCMULLEN MD Unavailable ED BLOCK MD Unavailable [phone] PROBLEMS Condition Status Date Provider Notes BIPOLAR AFFECTIVE DISORDER active Mayela St ahlschmidt SEIZURE DISORDER active Mayela Stahlschmidt ASTHMA active Mayela Stahlschmidt GERD active Mayela Stahlschmidt ENCOUNTERS Date Type Provider Location Encounter Diagnosis - In-person encounter Office Visit Yordy Ontiveros MD [facility] - In-person encounter Office Visit Yordy Ontiveros MD [facility] VITAL SIGNS Date Observation Value Provider [...] blood pressure, diastolic 84 mm[Hg] Chely seph [facility] blood pressure, systolic 118 mm[Hg] Zeferino eph [facility] pulse rate 78 /min [facility] oxygen saturation, oximetry 98 % [facility] respiratory rate E&M 20 /min [facility] weight E&M 133 [lb_av] [facility] RESULTS Date Observation Value Provider Reference Range Interpretation Location anion gap, serum 8.[address] [facility] globulins, serum, total 3.3 g/dL [facility] estimated glomerular filtration rate >[address] [facility] albumin/globulin ratio, serum 1.[address] [facility] protein, total, serum 7.2 g/dL [facility] albumin, serum 3.9 g/dL [facility] bilirubin, serum, total 0.39 mg/dL [facility] alkaline phosphatase, serum 174 1/L [facility] alanine aminotransferase (SGPT), serum 28 1/L [facility] aspartate aminotransferase (SGOT), serum 16 1/L [facility] calcium, serum 9.0 mg/dL [facility] blood glucose, fasting 104 mg/dL [facility] creatinine, serum 0.75 mg/dL [facility] urea nitrogen, blood 5.6 mg/dL [facility] carbon dioxide, serum, total 20 mmol/L [facility] chloride, serum 103 mmol/L [facility] potassium, serum 3.3 mmol/L [facility] sodium, serum 138 mmol/L [facility] thyroxine, serum, total 5.6 ug/dL [facility] thyroid stimulating hormone, serum 0.45 u[IU]/mL [facility] phenytoin level, serum 7.6 ug/mL [facility] B-12, serum 325 pg/mL Lloyd Urbina folate, [...] a smoker 10 years or m ore [facility] smoking status Quit [facility] MENTAL STATUS Date Observation Value Provider assessment of judgme nt and insight E&M Alert and oriented to time, place and person. Mood and affect are normal. Cornel Wang RN assessment of judgme nt and insight E&M Alert and oriented to time, place and person. Mood and affect are normal. Cornel Wang RN INSURANCE PROVIDERS Payer name Policy type / Coverage type Jerry red alliance party ID [place] [employer] (2) Medicaid [id number] TREATMENT PLAN Date Name Performer routine : [...] abnormality. LV EF 67% which is wnl. [facility] (05/27/2009) E chocardiogram: TDS. Normal mitfal valve. Normal Aortic valve. Normal left ventricular systolic function. No pericardial effusion identified. LVEF 66% with normal LV function, RVSP is 20mmHg with mid tricuspid regurgitation. Otherwise Normal Echocardiogram. [facility] (06/16/2008) Yordy Ontiveros MD routine : T he following medications were removed from the medication list: Aspirin 81 Mg Tabs (Aspirin) ..... One tab. daily BP today: 115/65 Prior BP: 118/84 (07/08/2009) N uclear Stress Findings: No scintigraphic evidence of stress induced ischemia or wall motion abnormality. LV EF 67% which is wnl. [facility] (05/27/2009) E chocardiogram: TDS. Normal mitfal valve. Normal Aortic valve. Normal left ventricular systolic function. No pericardial effusion identified. LVEF 66% with normal LV function, RVSP is 20mmHg with mid tricuspid regurgitation. Otherwise Normal Echocardiogram. [facility] (06/16/2008) Yordy Ontiveros MD routine : H [...] abnormality. LV EF 67% which is wnl. [facility] (05/27/2009) E chocardiogram: TDS. Normal mitfal valve. Normal Aortic valve. Normal left ventricular systolic function. No pericardial effusion identified. LVEF 66% with normal LV function, RVSP is 20mmHg with mid tricuspid regurgitation. Otherwise Normal Echocardiogram. [facility] (06/16/2008) Yordy Ontiveros MD Hospital Follow-up: H er updated medication list for this problem includes: Aspirin 81 Mg Tabs (Aspirin) ..... One tab. daily BP today: 118/84 Prior BP: / () N uclear Stress Findings: No scintigraphic evidence of stress induced ischemia or wall motion abnormality. LV EF 67% which is wnl. [facility] (05/27/2009) E chocardiogram: TDS. Normal mitfal valve. Normal Aortic valve. Normal left ventricular systolic function. No pericardial effusion identified. LVEF 66% with normal LV function, RVSP is 20mmHg with mid tricuspid regurgitation. Otherwise Normal Echocardiogram. [facility] (06/16/2008) Yordy Ontiveros MD Hospital Follow-up: P ulmonary Functions Reviewed: O 2 sat: 98 (07/08/2009) Yordy Ontiveros MD Hospital Follow-up: H er updated medication list for this problem includes: Dilantin 100 Mg Caps (Phenytoin sodium extended) ..... 3 capsules by mouth at bedtime Yordy Ontiveros MD Hospital Follow-up Yordy Ontiveros MD Date Name Complete Echo
== END 2024-07-28 11:21 | disposition home or self-care (01) ==
PROVIDERS: PCP Registered Nurse; Visit Provider Nurse Practitioner Adult Health
DX: M16.11 Unilateral primary osteoarthritis, right hip (principal); S22.080D Wedge compression fracture of T11-T12 vertebra, subsequent encounter for fracture with routine healing; X58.XXXD Exposure to other specified factors, subsequent encounter
CPT/HCPCS: 72100; 72170

== ENCOUNTER 2024-08-21 13:23 | Outpatient (CLI) | payer OTHER, SELFPAY ==
--- NOTE | ~2024-08-21 | CT_ITS ---
Clinical indication:Sacral fracture COMPARISON: 02/03/2024 TECHNIQUE: Multiple contiguous axial images of the pelvis were performed without the administration o f intravenous contrast. FINDINGS: Transverse fixation of the sacrum is visualized, an interval change. Posterior fixation of the lower lumbar spine is redemonstrated. No discrete fracture line is demonstrated in the sacrum, traversed by the metallic screw with streak artifact limiting visualization. Colonic diverticulosis with fecal stasis in the rectum. The bladder is minimally distended. The uterus is atrophic or surgically absent. IMPRESSION: Fixation hardware within the sacrum and lumbar spine. No discrete fracture line is demonstrated in the sacrum, traversed by the metallic screw with streak artifact limiting visualization. Reviewed, dictated and finalized at location A. IMPRESSION: Fixation hardware within the sacrum and lumbar spine. No discrete fracture line is demonstrated in the sacrum, traversed by the metal lic screw with streak artifact limiting visualization.
--- OUTSIDE RECORDS SUMMARY | 2024-08-21 13:29 | XMS_ITS | Continuity of Care Document ---
Author Organization [facility] Address [address] [place] [address] Phone Care Team Providers Care Vehicle Care Specialist Name Role Phone Garcia OD, Owen Unavailable Unavailable Procedures Procedure Date Eye Exam Established Pt Eye Exam, New Patient Advance Directives Directive Yes / No Effective Date File Name No Information Encounters Encounter Description Practice Location Reason(s) For Visit Diagnoses Date Provider Providers Copied on Encounter [facility], [address] [place] [address] [address], [place], [place], [id number], tel:[phone] [facility] [place] No Information 0-201 0 Garcia OD Owen. [address] , [address], [place], [place], [facility], [place]. tel:[phone] [facility], [address] [place] [address] [address], [place], [place], [id number], tel:[phone] SEC [facility] No Information 3-201 0 Doisy Edward. [address] [facility] , [address], [place], [address], [place]. tel:[phone] Family History Family Member Type Diagnosis Age At Onset No Information Payers Payer name Insurance type Covered green party ID Authoriza tielda(s) Medicaid [place] [id number] Social History Type Description Quantity Date Captured [...]
--- OUTSIDE RECORDS SUMMARY | 2024-08-21 13:29 | XMS_ITS | CONTINUITY OF CARE DOCUMENT ---
Author Name morteza pro Address Unknown Organization [facility] Address [address] [place] [address] Phone [phone] Care Team Providers Care Keyboard Action Assembler Name Role Phone Yordy Ontiveros MD Unavailable [phone] ANTONY MCMULLEN MD Unavailable ED BLOCK MD Unavailable [phone] PROBLEMS Condition Status Date Provider Notes BIPOLAR AFFECTIVE DISORDER active Mayela St ahlschmidt SEIZURE DISORDER active Mayela Stahlschmidt ASTHMA active Mayela Stahlschmidt GERD active Mayela Stahlschmidt ENCOUNTERS Date Type Provider Location Encounter Diagnosis - In-person encounter Office Visit Yordy Ontiveros MD [facility] - In-person encounter Office Visit Yordy Ontiveros MD [facility] VITAL SIGNS Date Observation Value Provider [...] blood pressure, diastolic 84 mm[Hg] Chely seph [facility] blood pressure, systolic 118 mm[Hg] Zeferino eph [facility] pulse rate 78 /min [facility] oxygen saturation, oximetry 98 % [facility] respiratory rate E&M 20 /min [facility] weight E&M 133 [lb_av] [facility] RESULTS Date Observation Value Provider Reference Range Interpretation Location anion gap, serum 8.3 [facility] globulins, serum, total 3.3 g/dL [facility] estimated glomerular filtration rate >60 [facility] albumin/globulin ratio, serum 1.2 [facility] protein, total, serum 7.2 g/dL [facility] albumin, serum 3.9 g/dL [facility] bilirubin, serum, total 0.39 mg/dL [facility] alkaline phosphatase, serum 174 1/L [facility] alanine aminotransferase (SGPT), serum 28 1/L [facility] aspartate aminotransferase (SGOT), serum 16 1/L [facility] calcium, serum 9.0 mg/dL [facility] blood glucose, fasting 104 mg/dL [facility] creatinine, serum 0.75 mg/dL [facility] urea nitrogen, blood 5.6 mg/dL [facility] carbon dioxide, serum, total 20 mmol/L [facility] chloride, serum 103 mmol/L [facility] potassium, serum 3.3 mmol/L [facility] sodium, serum 138 mmol/L [facility] thyroxine, serum, total 5.6 ug/dL [facility] thyroid stimulating hormone, serum 0.45 u[IU]/mL [facility] phenytoin level, serum 7.6 ug/mL [facility] B-12, serum 325 pg/mL Lloyd Urbina folate, [...] alcohol use, average drinks per day [facility] years or m ore [facility] smoking status Quit [facility] MENTAL STATUS Date Observation Value Provider [...] Policy type / Coverage type Jerry red green party ID [place] [employer] (2) Medicaid [id number] TREATMENT PLAN Date Name Performer routine : [...] abnormality. LV EF 67% which is wnl. [facility] (05/27/2009) E chocardiogram: TDS. Normal mitfal valve. Normal Aortic valve. Normal left ventricular systolic function. No pericardial effusion identified. LVEF 66% with normal LV function, RVSP is 20mmHg with mid tricuspid regurgitation. Otherwise Normal Echocardiogram. [facility] (06/16/2008) Yordy Ontiveros MD routine : T he following medications were removed from the medication list: Aspirin 81 Mg Tabs (Aspirin) ..... One tab. daily BP today: 115/65 Prior BP: 118/84 (07/08/2009) N uclear Stress Findings: No scintigraphic evidence of stress induced ischemia or wall motion abnormality. LV EF 67% which is wnl. [facility] (05/27/2009) E chocardiogram: TDS. Normal mitfal valve. Normal Aortic valve. Normal left ventricular systolic function. No pericardial effusion identified. LVEF 66% with normal LV function, RVSP is 20mmHg with mid tricuspid regurgitation. Otherwise Normal Echocardiogram. [facility] (06/16/2008) Yordy Ontiveros MD routine : H [...] abnormality. LV EF 67% which is wnl. [facility] (05/27/2009) E chocardiogram: TDS. Normal mitfal valve. Normal Aortic valve. Normal left ventricular systolic function. No pericardial effusion identified. LVEF 66% with normal LV function, RVSP is 20mmHg with mid tricuspid regurgitation. Otherwise Normal Echocardiogram. [facility] (06/16/2008) Yordy Ontiveros MD Hospital Follow-up: H er updated medication list for this problem includes: Aspirin 81 Mg Tabs (Aspirin) ..... One tab. daily BP today: 118/84 Prior BP: / () N uclear Stress Findings: No scintigraphic evidence of stress induced ischemia or wall motion abnormality. LV EF 67% which is wnl. [facility] (05/27/2009) E chocardiogram: TDS. Normal mitfal valve. Normal Aortic valve. Normal left ventricular systolic function. No pericardial effusion identified. LVEF 66% with normal LV function, RVSP is 20mmHg with mid tricuspid regurgitation. Otherwise Normal Echocardiogram. [facility] (06/16/2008) Yordy Ontiveros MD Hospital Follow-up: P ulmonary Functions Reviewed: O 2 sat: 98 (07/08/2009) Yordy Ontiveros MD Hospital Follow-up: H er updated medication list for this problem includes: Dilantin 100 Mg Caps (Phenytoin sodium extended) ..... 3 capsules by mouth at bedtime Yordy Ontiveros MD Hospital Follow-up Yordy Ontiveros MD Date Name Complete Echo
--- OUTSIDE RECORDS SUMMARY | 2024-08-21 13:29 | XMS_ITS | Clinical Summary ---
Author Organization [facility] Address [address] [place] [address] Care Team Providers Care Dry Ice Machine Operator Name Role Phone Bam Mclean MD Primary Care Provider Source Comments [facility],non-owned Affiliates and Associated Physician Practices is amultiple site organization consisting of ambulatory clinics and hospital sitesin [place], [place], [place] and [place]. This disclosure is being madepursuant to the Care Everywhere program and may not contain all information available regarding this patient. Last updated 18.[employer] [facility] Allergies Active Allergy Reactions Criticality Noted Date Comments Penicillins Rash Medium 02/18/2024 HIVES Sulfacetamide Other 02/18/2024 Pt unsure - states she has had a long time allergy to it and does not remember Medications * Be aware that medications may not be up to date on this document. Alwaysverify current medications with the patient. busPIRone (Buspar) 7.5 MG tablet Take 1 [...] Plus/Equate Plus Diabetic Supplement Examples: Ensure High Protein/Glucerna/ Boost Glucose Control/Enterex Diabetic Renal Supplement Examples: Nepro/Novosource Renal Clear Liquid Supplement Examples: Ensure Clear/Premier Protein Clear/Resource Boost Breeze/Prosource High Protein Gelatin Vegan or Milk Free Supplement Examples: Ensure Plant/Orgain 02/17/20 Active acetaminophen (Tylenol) 500 MG tablet Take 2 (two) tablets by mouth 3 times daily Maximum allowable Acetaminophen amount = 4 Grams (4000 mg) / 24 hours. 02/21/20 Active oxyCODONE, immediate release, (Roxicodone) 10 MG tabletIndications :Sacral insufficiency fracture, initial encounter Take 1 (one) tablet by mouth every 4 hours as needed 02/21/20 Active gabapentin (Neurontin) 300 MG capsule Take 1 (one) capsule by mouth 3 times daily 02/21/20 Active polyethylene glycol 3350 (Miralax) 17 g packet Take 17 (seventeen) g by mouth once daily as needed for Constipation 02/21/20 Active cyclobenzaprine (Flexeril) 5 MG tablet Take 1 (one) tablet by mouth 3 times daily as needed 02/21/20 Active famotidine (Pepcid) 20 MG tablet Take 1 (one) tablet by mouth 2 times daily 02/21/20 Active vitamin D3 (Cholecalciferol) 25 MCG (1000 UNITS) tablet Take 1 (one) tablet by mouth once daily 02/21/20 Active apixaban (Eliquis) 2.5 MG tablet Take 1 (one) tablet by mouth 2 times daily for 35 days 02/21/20 Active Active Problems Problem Noted Date Diagnosed [...] and heating? Not hard at all 02/14/2024 [facility] [place] [facility] - Occupational Stress [...] any time in the past 12 m [facility], were you homeless or living in a fpc (including now)? 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 Gender Identity Not on file Sexual Orientation [...] VACCINE (1 - 2023-2 5 season) 2023 DEPRESSION SCREENING 04/29/2024 INFLUENZA VACCINE (Season Ended) 2024 HEPATITIS B VACCINE Aged Out No longe [...] this topic Medical Devices Implanted Type Area Manager Material Device Identifier Shelf Expiration Date Model / Serial / Lot 7.3mm Cannulated Screw- Fully Threaded 160mm Implanted:Qty: 1 on 02/18/2024 by Debby Weller MD at [facility] Right: Pelvis [employer] 07/28/2031 [id number] / / [id number] Wshr 13mm Orth Ss 6.5/7/7.3mm Yordan Screw Implanted:Qty: 1 on 02/18/2024 by Debby Weller MD at [facility] Right: Pelvis [employer] [id number] / / Explanted Type Area Manager Material Device Identifier Shelf Expiration Date Model / Serial / Lot Wire K 2mm 350mm 1 End Troc Pnt Thrd Ss Explanted:Qty: 1 on 02/18/2024 by Debby Weller MD at [facility] Pelvis [employer] 06/21/2031 [id number] / / Wire K 2mm 350mm 1 End Troc Pnt Thrd Ss Explanted:Qty: 1 on 02/18/2024 by Debby Weller MD at [facility] Pelvis [employer] 11/01/2031 [id number] / / Insurance [facility] [place] [address] [facility] Advance Directives * DNR - IF PULSELESS NO CPR, NO SHOCK (Latest Code Status on File) Date Activated Date Inactivated Comments 02/07/2024 9:54 PM 02/21/2024 4:19 PM Question Answer Comments : DO NOT discontinue a ny active orders without asking attending physician. Care Teams Dry Ice Machine Operator Relationship Specialty Start Date End Date Bam Mclean MD [address] [place] [address] PCP - General 09/11/19
== END 2024-08-21 13:24 | disposition home or self-care (01) ==
PROVIDERS: PCP Registered Nurse; Visit Provider Nurse Practitioner Adult Health
DX: M84.48XA Pathological fracture, other site, initial encounter for fracture (principal); M54.17 Radiculopathy, lumbosacral region
CPT/HCPCS: 72192

== ENCOUNTER 2024-11-22 14:48 | Inpatient (IN) | payer OTHER, SELFPAY ==
[2024-11-22] VITALS (41 sets, daily range): BP systolic 119–154; BP diastolic 51–95; PULSE 57–72; RESP 12–21; TEMP 36.2; O2SAT 95–99; BMI 26.2
--- NOTE | ~2024-11-22 | CT_ITS ---
EXAMINATION: CT brain wo con DATE: 11/22/2024 18:25 INDICATION: vertigo . TECHNIQUE: Computed tomography (CT) of the head was performed without intravenous contrast. The mA wa s adjusted according to patient size. Iterative reconstruction technique was employed. The dose-lengt h product was 605.33 mGy-cm. COMPARISON: 02/02/2024. FINDINGS: No acute intracranial hemorrhage or extra-axial fluid collection. No hydrocephalus, mass, or herniation. No acute ischemic infarct. Unremarkable dural venous sinus attenuation. No acute osseous abnormality. The aerated spaces are clear. Atherosclerotic intracranial calcifications. Bilateral lens replacements. IMPRESSION: No acute intracranial process. Reviewed, dictated and finalized at location K.
--- NOTE | ~2024-11-22 | MR_ITS ---
EXAM: MR brain/brain stem wo/w con - 11/23/2024 11:50 CDT HISTORY: 64 years old Female with vertigo TECHNIQUE: Multiplanar and multisequence MRI of the brain without and with contrast. COMPARISON: Reference is made to CTA examination of the brain dated 11/22/2024 which was without larg e vessel occlusion, stenosis or aneurysm. 0% stenosis bilaterally by NASCET criteria. FINDINGS: BRAIN PARENCHYMA: No restricted diffusion to suggest acute cerebral infarction. No abnormal signal intensity on gradient echo imaging to suggest acute or subacute hemorrhage. No mass effect or herniation. Signal intensities are within normal limits for age. No abnormal contrast enhancement No cerebellar tonsillar ectopia. No brainstem sag or other secondary signs of intracranial hypotensio n. No empty sella or additional secondary signs of elevated intracranial pressure. VENTRICLES / EXTRA-AXIAL SPACES: No hydrocephalus or extra-axial fluid collections. CALVARIUM AND SINUSES: No calvarial lesions are visualized. The visualized sinuses and mastoid air ce lls are clear. FLOW VOID: Unremarkable. OTHER EXTRACRANIAL STRUCTURES: Visualized structures are normal. IMPRESSION: No acute cerebral infarction. No acute or subacute hemorrhage. No abnormal contrast enhancement. No significant microvascular ischemic disease detected. Reviewed, dictated and finalized at location A.
--- NOTE | ~2024-11-22 | US_ITS ---
EXAMINATION:US venous doppler UE LT INDICATION:Left upper extremity swelling TECHNIQUE: Multiple grayscale, color flow and Doppler images of the left upper extremity deep venous systems were obtained and reviewed. COMPARISON:None FINDINGS: The left jugular, subclavian, axillary, brachial, basilic, cephalic, radial and ulnar veins demonstrate normal respiratory variation, augmentation and compressibility. Color flow is also seen within the left jugular, subclavian, axillary, brachial, basilic, cephalic an d radial veins. IMPRESSION: No left upper extremity deep venous thrombosis. Reviewed, dictated and finalized at location A.
--- NOTE | ~2024-11-22 | CT_ITS ---
EXAMINATION: CTA brain carotid DATE: 11/22/2024 18:25 INDICATION: vertigo TECHNIQUE: Computed tomographic angiography (CTA) of the head and neck was performed with 100 mL Omni paque-350 intravenous contrast. Automated exposure control and iterative reconstruction technique wer e employed. The dose-length product was 917.44 mGy-cm. Maximum intensity projection and volume render ed 3D-reconstructions were created by the technologist on a separate workstation. COMPARISON: CT brain, same date. FINDINGS: CTA HEAD: No large vessel occlusion, aneurysm, high flow vascular malformation, nidus or extravasation. The the left intradural vertebral artery terminates in a cerebellar artery, a normal variant. Symmetric pare nchymal enhancement. Patent cerebral veins. CTA NECK: Aortic arch and proximal great vessels: Normal arch anatomy. Mild atherosclerotic calcifications at t he visualized aortic arch and proximal great vessels. Right common carotid, carotid bifurcation, and internal carotid artery: No plaque.There is 0% stenosi s of the proximal right internal carotid artery relative to normal distal artery lumen diameter (NASC ET criteria). Left common carotid, carotid bifurcation, and internal carotid artery: Mild calcified atherosclerotic plaque at the carotid bifurcation.There is 0% stenosis of the proximal left internal carotid artery relative to normal distal artery lumen diameter (NASCET criteria). Vertebral arteries: No significant plaque or stenosis. Right vertebral artery is dominant, Other findings: Mild degenerative change in the cervical spine. IMPRESSION: No large vessel intracranial occlusion, high-grade intracranial stenosis, or aneurysm. No carotid or vertebral artery occlusion, dissection, or significant stenosis. Reviewed, dictated and finalized at location K. IMPRESSION: No large vessel intracranial occlusion, high-grade intracranial stenosis, or an eurysm. No carotid or vertebral artery occlusion, dissection, or significant stenosis.
--- NOTE | 2024-11-22 14:50 | ECG_ITS ---
Test Date: 2024-11-22 14:57:05 Measurements Intervals [place] Rate: 65 P: 53 CT: 170 QRS: -3 QRSD: 89 T: 46 QT: 410 QTc: 426 Interpretive Statements SINUS RHYTHM Compared to ECG 01/30/2024 20:46:57 No significant changes Electronically Signed On 11-22-2024 18:06:44 CDT by Ernesto Andrews M.D.
--- OUTSIDE RECORDS SUMMARY | 2024-11-22 14:50 | XMS_ITS | Continuity of Care Document ---
Author Organization [facility] Address [address] [place] [address] Phone Care Team Providers Care Refractory Manager Name Role Phone Garcia OD, Owen Unavailable Unavailable Procedures Procedure Date Eye Exam Established Pt Eye Exam, New Patient Advance Directives Directive Yes / No Effective Date File Name No Information Encounters Encounter Description Practice Location Reason(s) For Visit Diagnoses Date Provider Providers Copied on Encounter [facility], [address] [place] [address] [address], [place], [place], [id number], tel:[phone] [facility] [place] No Information 0-201 0 Garcia OD Owen. [address] , [address], [place], [place], [facility], [place]. tel:[phone] [facility], [address] [place] [address] [address], [place], [place], [id number], tel:[phone] SEC [facility] No Information 3-201 0 Doisy Edward. [address] , [address], [place], [address], [place]. tel:[phone] Family History Family Member Type Diagnosis Age At Onset No Information Payers Payer name Insurance type Covered democrat ID Authoriza tielda(s) Medicaid [place] [id number] Social History Type Description Quantity Date Captured [...]
--- OUTSIDE RECORDS SUMMARY | 2024-11-22 14:50 | XMS_ITS | Clinical Summary ---
Author Organization [facility] [address] Address [address] [place] [address] Care Team Providers Care Hat Conditioner Name Role Phone Bam Mclean MD Primary Care Provider [phone] Source Comments [facility],non-owned Affiliates and Associated Physician Practices is amultiple site organization consisting of ambulatory clinics and hospital sitesin [place], [place], [place] and [place]. This disclosure is being madepursuant to the Care Everywhere program and may not contain all information available regarding this patient. Last updated 18.[facility] Allergies Active Allergy Reactions Criticality Noted Date Comments Grapefruit Extract Swelling 10/16/2024 Penicillins Rash Medium 02/18/2024 HIVES Fluoxetine Psychiatric High 10/16/2024 Sulfacetamide Other 02/18/2024 Pt unsure - states [...] Free Supplement Examples: Ensure Plant/Orgain 02/17/20 Active Additional Information Patient not taking.Reported on 10/16/2024 acetaminophen (Tylenol) 500 MG tablet Take 2 (two) tablets by mouth 3 times daily Maximum allowable Acetaminophen amount = 4 Grams (4000 mg) / 24 hours. 02/21/20 Active oxyCODONE, immediate release, (Roxicodone) 10 MG tabletIndications :Sacral insufficiency fracture, initial encounter Take 1 (one) tablet by mouth every 4 hours as needed 02/21/20 Active Additional Information Patient not taking.Reported on 10/12/2024 gabapentin (Neurontin) 300 MG capsule Take 1 (one) capsule by mouth 3 times daily 02/21/20 Active Additional Information Patient not taking.Reported on 10/16/2024 polyethylene glycol 3350 (Miralax) 17 g packet Take 17 (seventeen) g by mouth once daily as needed for Constipation 02/21/20 Active Additional Information Patient not taking.Reported on 10/16/2024 cyclobenzaprine (Flexeril) 5 MG tablet Take 1 (one) tablet by mouth 3 times daily as needed 02/21/20 Active Additional Information Patient not taking.Reported on 10/16/2024 famotidine (Pepcid) 20 MG tablet Take 1 (one) tablet by mouth 2 times daily 02/21/20 Active Additional Information Patient not taking.Reported on 10/16/2024 vitamin D3 (Cholecalciferol) 25 MCG (1000 UNITS) tablet Take 1 (one) tablet by mouth once daily 02/21/20 Active Additional Information Patient not taking.Reported on 10/16/2024 apixaban (Eliquis) 2.5 MG tablet Take 1 (one) tablet by mouth 2 times daily for 35 days 02/21/20 Active Additional Information Patient not taking.Reported on 10/16/2024 meloxicam (Mobic) 7.5 MG tablet Take 1 (one) tablet by mouth once daily 30 tablet 3 10/13/19 Active HYDROcodone-aceta minophen ([place]) 5-325 MG tablet Take 1 (one) tablet by mouth every 6 hours as needed for Pain Active atorvastatin (Lipitor) 20 MG tablet Take 1 (one) tablet by mouth at bedtime Active Active Problems Problem Noted Date Diagnosed Date Severe protein-calorie malnutrition 02/19/2024 Ambulatory dysfunction 02/07/2024 Anxiety 02/07/2024 Recurrent major depressive disorder, in remissio n 02/07/2024 Seizure 02/07/2024 History of spinal fusion 02/07/2024 History of smoking 02/07/2024 Lumbar spondylolysis 02/07/2024 Sacral insufficiency fracture, initial encounter 02/04/2024 Encounters Date Type Department Care Team Description 10/16/2024 11:10 AM CDT Office Visit [facility] - Orthopedics [address] [place] [phone] Mel Meneses, DIRECTOR OF ASSISTED LIVING-QUALITY REVIEW SPECIALIST Age-related osteoporosis with current pathological fracture, initial encounter (Primary Dx); Low vitamin D level; Sacral insufficiency fracture, initial encounter; Seizure (HCC); History of fracture 10/16/2024 Travel 10/12/2024 10:51 AM CDT - 10/12/2024 11:59 PM CDT Hospital Encounter [facility] [address] [facility] [place] [address] Debby Weller MD Discharge Disposition: Home or Self Care 10/12/2024 10:45 AM CDT Office Visit [facility] - Orthopedics [address] [place] [address], [place] [address] Debby Weller MD Sacral insufficiency fracture with routine healing, subsequent encounter (Primary Dx) 10/12/2024 Travel 10/06/2024 Orders Only [facility] - [facility] [address] [facility] [place] [address] Debby Weller MD Sacral insufficiency fracture with routine healing, subsequent encounter 08/27/2024 Telephone [facility] [address] [facility] [place] [address] Delphine Patel Appointment from Last 3 Months Family History Medical History Relation Name Comments [...] and heating? Not hard at all 02/14/2024 [facility] [place] of Occupat ional Health - Occupational Stress [...] any time in the past 12 m [facility], were you homeless or living in a long term (including now)? No 02/14/2024 Comments Unknown Sex and Gender Information Value Date Recorded Sex Assigned at Not on file Legal Sex Female 6:27 AM HL7 DEVELOPER Gender Identity Not on file Sexual Orientation Not on file Last Filed Vital Signs Vital Sign Reading Time Taken Comments Blood Pressure 140/65 02/21/2024 4:44 AM CDT Pulse 62 02/21/2024 4:44 AM CDT Temperature 36.8 C (98.2 F) 02/20/2024 7:48 PM CDT Respiratory Rate 16 02/20/2024 6:51 AM CDT Oxygen Saturation 97% 02/21/2024 4:44 AM CDT Inhaled Oxygen Concentration - - Weight 60.9 kg (134 lb 3.2 oz) 10/16/2024 10:55 AM CDT Height 156.7 cm (5' 1.7) 10/16/2024 10:55 AM CD T Body Mass Index 24.78 10/16/2024 10:55 AM CDT Plan of Treatment Upcoming Encounters Date Type Department Care Team (Late st Contact Info) Description 01/11/2025 12:45 PM CDT Office Visit [facility] [address] [facility] [place] [address] Debby Weller MD [address] [place] [address] Ayleen Mckeon, DIRECTOR OF ASSISTED LIVING-QUALITY REVIEW SPECIALIST [address] [place] [address] Health Maintenance Due Date Last Done Comments BONE DENSITY TESTING 1960 COLOGUARD (AGES 45-75) - COL ON CA SCREENING 1958 COLON MONITORING 1958 COLONOSCOPY - COLON CA SCREENING 1958 CT COLONOGRAPHY - COLON CA SCREENING 1960 Colorectal Cancer Screening 1958 FIT - COLON CA SCREENING 1958 FLEX SIG - COLON CA SCREENING 1960 MAMMOGRAM 1958 HEPATITIS C SCREENING 04/07/1976 DTAP/TDAP/TD VACCINES (1 - Tdap) 1977 PNEUMOCOCCAL VACCINE 50+ (1 of 1 - PCV) 2008 ZOSTER VACCINE (1 of 2) 2008 Respiratory Syncytial Virus (RSV) Vaccine Pt: or over 60 yrs (1 - Risk 60-74 years 1-dose series) 2018 COVID-19 VACCINE (1 - 2023-2 5 season) 2023 DEPRESSION SCREENING 04/29/2024 INFLUENZA VACCINE (#1) 2024 HEPATITIS B VACCINE Aged Out No [...] on patient's age to complete this topic Goals Goal Patient Goal Type Associated Problems Recent Progress Patient-Stated? Author PAIN General No Ganesh Zhang, RN Note: Expected end date: 10/31/2024 Patient's pain/discomfort is manageable. Interventions: Take pain medication as ordered Medical Devices Implanted Type Area Greenhouse Technician Device Identifier Shelf Expiration Date Model / Serial / Lot 7.3mm Cannulated Screw- Fully Threaded 160mm Implanted:Qty: 1 on 02/18/2024 by Debby Weller MD at [facility] Right: Pelvis [employer] 07/28/2031 [id number] / / [id number] Wshr 13mm Orth Ss 6.5/7/7.3mm Yordan Screw Implanted:Qty: 1 on 02/18/2024 by Debby Weller MD at [facility] Right: Pelvis [employer] 219.99 / / Explanted Type Area Greenhouse Technician Device Identifier Shelf Expiration Date Model / Serial / Lot Wire K 2mm 350mm 1 End Troc Pnt Thrd Ss Explanted:Qty: 1 on 02/18/2024 by Debby Weller MD at [facility] Pelvis [employer] 06/21/2031 [id number] / / Wire K 2mm 350mm 1 End Troc Pnt Thrd Ss Explanted:Qty: 1 on 02/18/2024 by Debby Weller MD at [facility] Pelvis [employer] 11/01/2031 [id number] / / Procedures Procedure Name Priority Date/Time Associated Diagnosis Comments XR PELVIS AP W INLET OUTLET Routine 10/12/2024 11:05 AM CDT Sacral insufficiency fracture with routine healing, subsequent encounter from Last 3 Months Results * XR Pelvis AP W Inlet Outlet (10/12/2024 11:05 AM CDT) Anatomical Region Laterality Modality Pelvis Radiographic Meena ging 10/12/2024 11:1 8 AM CDT Impressions 10/12/2024 11:20 AM CDT IMPRESSION: Unchanged osseous alignment. > Interpreting Provider: Neto Gregory MD on 10/12/2024 11:20 AM Narrative 10/12/2024 11:20 AM CDT PROCEDURE: XR PELVIS AP W INLET OUTLET DATE/TIME OF EXAM: 10/12/2024 11:05 AM CLINICAL INFORMATION: None relevant/not provided if blank. Indication: M84.48XD: Sacral insufficiency fracture with routine healing, subsequent encounter Additional History: COMPARISON: 02/18/2024. TECHNIQUE: FINDINGS: There is again fixation of the sacrum, sacroiliac joints, and bilateral sacral insufficiency fractures with one screw. The screw is intact. The alignment is unchanged. There is moderate right and mild left hip arthritis. There is mild pubic symphysis degenerative change. There is instrumented fusion of the lumbosacral spine at L4-S1 with posterior rods and screws and laminectomy. Procedure Note Neto Gregory MD - 10/12/2024 PROCEDURE: XR PELVIS AP W INLET OUTLET DATE/TIME OF EXAM: 10/12/2024 11:05 AM CLINICAL INFORMATION: None relevant/not provided if blank. Indication: M84.48XD: Sacral insufficiency fracture with routinehealing, subsequent encounter Additional History: COMPARISON: 02/18/2024. TECHNIQUE: FINDINGS: There is again fixation of the sacrum, sacroiliac joints, and bilateral sacral insufficiency fractures with one screw. The screw is intact. The alignment is unchanged. There is moderate right and mild left hip arthritis. There is mild pubic symphysis degenerative change. There is instrumented fusion of the lumbosacral spine at L4-S1 with posteriorrods and screws and laminectomy. IMPRESSION: Unchanged osseous alignment. > Interpreting Provider: Neto Gregory MD on 10/12/2024 11:20 AM Debby Weller MD DIAGNOSTIC IMAGING ORDERABLES Fi nal Result from Last 3 Months Insurance [facility] Advance Directives * DNR - IF PULSELESS NO CPR, NO SHOCK (Latest Code Status on File) Date Activated Date Inactivated Comments 02/07/2024 9:54 PM 02/21/2024 4:19 PM Question Answer Comments : DO NOT discontinue a ny active orders without asking attending physician. Care Teams Hat Conditioner Relationship Specialty Start Date End Date Bam Mclean MD [address] [place] [address] PCP - General 09/11/19
--- OUTSIDE RECORDS SUMMARY | 2024-11-22 15:59 | XMS_ITS | Clinical Summary ---
Author Organization [facility] Address [address] [place] [address] Care Team Providers Care Child Welfare Specialist Name Role Phone Bam Mclean MD Primary Care Provider [phone] Source Comments [facility],non-owned Affiliates and Associated Physician Practices is amultiple site organization consisting of ambulatory clinics and hospital sitesin [place], [place], [place] and [place]. This disclosure is being madepursuant to the Care Everywhere program and may not contain all information available regarding this patient. Last updated 18.[facility] Allergies Active Allergy Reactions Criticality Noted Date [...] 30 tablet 3 10/13/19 Active HYDROcodone-aceta minophen ([place]) 5-325 MG tablet Take 1 (one) tablet [...] Description 10/16/2024 11:10 AM CDT Office Visit [facility] - Orthopedics [address] [place] [address] Mel Meneses, VASCULAR TECH-MANAGER PRIMARY CARE Age-related osteoporosis with current pathological fracture, initial encounter (Primary Dx); Low vitamin D level; Sacral insufficiency fracture, initial encounter; Seizure (HCC); History of fracture 10/16/2024 Travel 10/12/2024 10:51 AM CDT - 10/12/2024 11:59 PM CDT Hospital Encounter [facility] DIAG[facility]STIC RAD CSM [address] [facility] [place] [address] Debby Weller MD Discharge Disposition: Home or Self Care 10/12/2024 10:45 AM CDT Office Visit [facility] - Orthopedics [address] [place] [address], [place] [address] Debby Weller MD Sacral insufficiency fracture with routine healing, subsequent encounter (Primary Dx) 10/12/2024 Travel 10/06/2024 Orders Only [facility] [address] [facility] [place] [address] Debby Weller MD Sacral insufficiency fracture with routine healing, subsequent encounter 08/27/2024 Telephone [facility] [address] [facility] [place] [address] Delphine Patel Appointment from Last [...] and heating? Not hard at all 02/14/2024 [facility] [place] of Occupat ional Health - Occupational Stress [...] any time in the past 12 m [facility], were you homeless or living in a intermediate (including now)? No 02/14/2024 Comments Unknown Sex and Gender Information Value Date Recorded Sex Assigned at Not on file Legal Sex Female 6:27 AM ANDROID ARCHITECT Gender Identity Not on file Sexual Orientation [...] Visit [facility] [address] [facility] [place] [address] Debby Weller MD [address] [place] [address] Ayleen Mckeon, VASCULAR TECH-MANAGER PRIMARY CARE [address] [place] [address] Health Maintenance Due Date Last Done Comments [...] as ordered Medical Devices Implanted Type Area Wig Maker Device Identifier Shelf Expiration Date Model / Serial / Lot 7.3mm Cannulated Screw- Fully Threaded 160mm Implanted:Qty: 1 on 02/18/2024 by Debby Weller MD at [facility] Right: Pelvis [employer] 07/28/2031 [id number] / / [id number] Wshr 13mm Orth Ss 6.5/7/7.3mm Yordan Screw Implanted:Qty: 1 on 02/18/2024 by Debby Weller MD at [facility] Right: Pelvis [employer] 219.99 / / Explanted Type Area Wig Maker Device Identifier Shelf Expiration Date Model / Serial / Lot Wire K 2mm 350mm 1 End Troc Pnt Thrd Ss Explanted:Qty: 1 on 02/18/2024 by Debby Weller MD at [facility] Pelvis [employer] 06/21/2031 [id number] / / Wire K 2mm 350mm 1 End Troc Pnt Thrd Ss Explanted:Qty: 1 on 02/18/2024 by Debby Weller MD at [facility] Pelvis [employer] 11/01/2031 [id number] / / Procedures Procedure Name Priority Date/Time [...] nal Result from Last 3 Months Insurance [facility] Advance Directives * DNR - IF PULSELESS NO CPR, NO SHOCK (Latest Code Status on File) Date Activated Date Inactivated Comments 02/07/2024 9:54 PM 02/21/2024 4:19 PM Question Answer Comments : DO NOT discontinue a ny active orders without asking attending physician. Care Teams Child Welfare Specialist Relationship Specialty Start Date End Date Bam Mclean MD [address] [place] [address] PCP - General 09/11/19
--- OUTSIDE RECORDS SUMMARY | 2024-11-22 15:59 | XMS_ITS | Continuity of Care Document ---
Author Organization [facility] Address [address] [facility] [address] [place] [address] Phone Care Team Providers Care Bead Wire Taper Name Role Phone Garcia OD, Owen Unavailable Unavailable Procedures Procedure Date Eye Exam Established Pt Eye Exam, New Patient Advance Directives Directive Yes / No Effective Date File Name No Information Encounters Encounter Description Practice Location Reason(s) For Visit Diagnoses Date Provider Providers Copied on Encounter [facility], [address] [place] [address] [address], [place], [place], [id number], tel:[phone] [facility] [place] No Information 0-201 0 Garcia OD Owen. [address] [facility] , [address], [place], [place], [facility], [place]. tel:[phone] [facility], [address] [place] [address] [address], [place], [place], [id number], tel:[phone] [facility] No Information 3-201 0 Doisy Edward. [address] [facility] [place] , [address], [place], [address], [place]. tel:[phone] Family History Family Member Type Diagnosis Age At Onset No Information Payers Payer name Insurance type Covered green party ID Authoriza tielda(s) [place] [id number] Social History Type Description Quantity Date Captured [...]
--- NOTE | 2024-11-22 16:30 | ED_ITS ---
HPI - Dizziness General Chief Complaint: Dizziness Stated Complaint: DIZZINESS Time Seen by Provider: 11/22/24 15:32 Source: patient Limitations: no limitations History of Present Illness HPI Narrative: Patient presents with dizziness and near syncope. She noticed symptoms when she stood up but they persisted to the degree that she was stumbling, tripped and nearly fell. States it feels like she is drunk/drugged. History of seizures, on lamotrigine. No vision changes. No hearing changes. Has chronic tinnitus bu tno ear pain. She and her friend believe she may have slurred speech. No chest pain or shortenss of breath. No history CHF. History asthma. Describes it as an issue with equilibrium, lightheadedness, and having gait abnoramltiies. Feels like she is spinning. States she feels like there is a weight at the back of her head Related Data Home Medications ?Medication ?Instructions ?Recorded ?Confirmed ?Last Taken ?Type acetaminophen 650 mg 650 mg PO BID PRN Pain (Scale 09/08/20 11/22/24 04/11/23 History tablet,extended release (Arthritis Score 1-3) Pain Relief (acetaminophen) ER) buspirone 7.5 mg tablet 7.5 mg PO BID 09/08/20 11/22/24 11/21/24 History diphenhydramine HCl 25 mg capsule 25 mg PO BID PRN allergy symptoms 09/08/20 11/22/24 11/21/24 History (Allergy Relief (diphenhydramine)) hydrocodone 5 mg-acetaminophen 325 1 tablet PO QID 01/31/24 11/22/24 11/21/24 History mg tablet hydroxyzine HCl 50 mg tablet 50 mg PO TID 01/31/24 11/22/24 11/21/24 History sertraline 100 mg tablet 100 mg PO DAILY 01/31/24 11/22/24 11/21/24 History atorvastatin 20 mg tablet (Lipitor) 20 mg PO DAILY 07/27/24 11/22/24 11/21/24 History Allergies Allergy/AdvReac Type Severity Reaction Status Date / Time Penicillins Allergy Mild Unknown Verified 11/22/24 21:44 Sulfa (Sulfonamide Allergy Mild Unknown Verified 11/22/24 21:44 Antibiotics) grapefruit Allergy Unknown Verified 11/22/24 21:44 fluoxetine (From Prozac) AdvReac Severe Agitated Verified 11/22/24 21:44 [facility] Past Medical History Medical History Atrial septal defect Mass of left cardiac ventricle Lumbosacral radiculopathy at S1 GERD without esophagitis Anxiety and depression History of alcoholism History of smoking COPD (chronic obstructive pulmonary disease) Seizures (Unknown) Perforated gastric ulcer (~12/27/20) Surgical History Surgical History History of gastric ulcer Exploratory laparotomy with over-sewing of antral gastric ulcer and placement of omental patch, biopsy of antral gastric ulcer, peritoneal washout - 12/28/2020 H/O lumbosacral spine surgery History of appendectomy Hx of tracheostomy Family History Family History Mother Heart disease Cerebrovascular accident Father Heart disease Other Unknown family medical history Social History Social History (Updated 11/23/24 @ 01:05 by Estelle Page MD) Social History: The patient stated that she had 5 children and 1 at . The patient is and she is considered disabled. The patient stated that she is 16 years clean with alcohol and she is recovering alcoholic. The patient stated that she smoked many years ago and no longer smokes. The patient is listed as a full code. And she stated that she does not want any CPR if she has spinal surgery. The patient desires to be a DNR. The patient does not have a durable power workers compensation attorney for healthcare. Smoking status: Never smoker Tobacco type: cigarettes Alcohol intake: former Alcohol use details: RECOVERING , NONE 16 YRS Substance use: current Substance use type: marijuana Other substance usage details: occasional marijuana use Last use: 08/27/24 Do You Feel Safe in your Home?: Yes Lack of Transportation: No Lack of Food: Never True Current Housing: I Have Housing Concerned About Future Housing: No Difficulty Paying Gas/Electric Bills: No Difficulty Paying for Meds: No Currently Unemployed: No Education: Grade School Difficulty w/ Childcare or Family Care: No Living arrangements: with family Additional living arrangements comments: LIVES WITH DAUGHTER JOJO Occupation/Education: retired Gender identity (if verbalized by the patient): Female Sexual Orientation (if Verbalized by the Patient): Straight or Heterosexual Spiritual care concerns: No Agree to blood products: Yes Exam 2 Narrative: GENERAL: Well-appearing, well-nourished, and in no acute distress. HEAD: Normocephalic, atraumatic. EYES: Non injected, non icteric. Unable to assess for nystagmus as patient becomes too dizzy with this. Unable to assess all visual de la cruz but no loss of the ones assessed. ENT: Nares clear, no rhinorrhea or epistaxis. Gross auditory acuity intact. Bilateral tympanic membranes without erythema/effusion/marked cerumen. NECK: Supple. No meningismus. CHEST: Speaking in full sentences. No respiratory distress. HEART: Regular rate and rhythm. . ABDOMEN: Soft, nondistended. No rigidity or guarding. Not peritoneal EXTREMITIES: Normal range of motion. No lower extremity edema. SKIN: Warm, dry, no rash. NEURO: No focal deficits. Alert and oriented. Answering questions. Following commands. Somewhat slurred speech but understandable. No expressive or receptive aphasia. No facial palsy. Sensation intact throughout. Ataxia on FNF bilaterally. No extinction. PSYCH: Normal mood and affect. Course Vital Signs Vital signs: Vital Signs Temperature 97.1 F L 11/22/24 14:50 Pulse Rate 65 11/22/24 14:50 Respiratory Rate 16 11/22/24 14:50 Blood Pressure 145/51 H 11/22/24 14:50 Pulse Oximetry 97 11/22/24 14:50 Oxygen Delivery Room Air 11/22/24 14:50 Temperature 98.2 F 11/23/24 00:39 Pulse Rate 58 L 11/23/24 00:39 Respiratory Rate 18 11/23/24 00:39 Blood Pressure 134/78 11/23/24 00:39 Pulse Oximetry 97 11/23/24 00:39 Oxygen Delivery Room Air 11/22/24 14:50 MDM - Dizziness MDM Narrative Medical decision making narrative: This is a 64 year old female who presents to the emergency department with concern dizziness and near syncope. Symptoms are consistent with vertigo. In the emergency department she is afebrile with vital signs notable for slightly elevated systolic blood pressure and slightly low diastolic blood pressure. MAP >80. The patient is protecting their airway which is patent. An IV is established by nursing staff blood work sent to the lab for evaluation. An EKG will be performed. NIHSS was evaluated per below. NIHSS Level Of consciousness:0 Month and age:0 Follows commands:0 Gaze palsy:Can not assess Visual de la cruz: 0 (though unable to assess all) Facial palsy: 0 Left arm motor drift:0 Right arm motor drift:0 Left leg motor drift:0 Right leg motor drift:0 Limb ataxia: 2 Sensation: 0 Aphasia: 0 Dysarthria: 1 Extinction: 0 Total: 3 DIFFERENTIAL DIAGNOSES Considered Stroke (CVA / TIA) mimics including but not limited to: migraines, hypoglycemia, seizures/Scot's paralysis, sepsis/severe infections in patients with prior strokes (e.g. recrudescence), syncope, brain masses, transient global amnesia, panic attack/hyperventilation, and conversion disorders. DIFFERENTIAL DIAGNOSIS VERTIGO Central causes: infection ( encephalitis, meningitis, cerebritis); vertebrobasilar arterial insufficiency, subclavian steal syndrome, cerebellar or brainstem hemorrhage or infarction, vertebrobasilar migraine, trauma ( temporal bone fracture, post concussive syndrome); tumor (brainstem or cerebellum); MS; temporal lobe epilepsy Peripheral causes: Foreign body, cerumen impaction, acute otitis media, labyrinthitis, benign paroxysmal positional vertigo, Meniere's disease, vestibular neuronitis, perilymphatic fistula, trauma, motion sickness, acoustic neuroma, ototoxic medications Meclizine given as first line agent. Valium ordered as second line agent. She experiences contrast extravasation during CT. Heat applied and limb raised. I did reassess patient and it was noted that the swelling had initially been at the site of the IV but now is moving proximally. It is swollen and prominent but mobile and compartments are soft with palpable distal pulse. Patient is reassessed after Valium administered, states vertigo is improving slightly but still present. Promethazine ordered to suppress vestibular end-organ receptors and inhibit activation of vagal response. Labs : Mild hypokalemia. Elevated alkaline phosphatase which is chronic. UDS positive for opiates; patient is prescribed narcotic medication per med list and confirmed filled in October on review of Prescription MOnitoring Program. Patient continues to be vertiginous and symptomatic on reassessment. Attempted to ambulate but becomes too symptomatic, a fall risk . Discussed with Benitez, neurology who concurs with admitting for MRI and continued management. Discussed with and accepted by Dr Marcelo, med surg telemetry floor. Lab Data Attestation: I reviewed the patient's lab results. Lab results narrative: CBC with mild abnormalities on the differential Normal renal function Urinalysis normal. Troponin normal. Negative ethanol. 11/22/24 16:55 11/22/24 16:55 Labs: Lab Results 11/22/24 11/22/24 Range/Units 16:55 17:22 WBC 6.9 (4.5-10.0) K/mm3 RBC 4.46 (4.2-5.4) M/mm3 Hgb 13.6 (12.0-15.0) g/dL Hct 41.0 (37.0-47.0) % MCV 91.9 (80-100) fl MCH 30.5 (26-34) pg MCHC 33.2 (32-36) g/dl RDW 12.3 (11.5-14.5) % Plt Count 311 (150-375) k/mm3 MPV 9.0 (7.4-10.4) fl Immature Gran % (Auto) 0.3 (0-0.5) % Neut % (Auto) 62.9 (45.5-73.1) % Lymph % (Auto) 22.5 (18.3-44.2) % [place] % (Auto) 7.5 (2.6-8.5) % Eos % (Auto) 5.6 H (0-4.4) % Baso % (Auto) 1.2 (0.2-1.2) % Lymph # (Auto) 1.56 (0.9-3.2) K/mm3 [place] # (Auto) 0.5 (0.1-0.6) K/mm3 Eos # (Auto) 0.4 H (0-0.3) K/mm3 Baso # (Auto) 0.1 (0.0-0.1) K/mm3 Abs Immat Gran (auto) 0.02 (0.00-0.031) K/mm3 Absolute Neuts (auto) 4.4 (1.3-6.7) K/mm3 Absolute Nucleated RBC 0.000 (0.0-0.012) K/mm3 Nucleated RBC % 0.0 (0.0-0.2) % Sodium 136 L (137-145) mmol/L Potassium 3.3 L (3.4-5.0) mmol/L Chloride 101 (98-107) mmol/L Carbon Dioxide 27 (22-30) mmol/L Anion Gap 8 (4-12) mmol/L BUN 14 (7-17) mg/dL Creatinine 0.67 L (0.7-1.0) mg/dL Estim Creat Clear Calc 51 ml/min Estimated GFR > 60 (59 - ) Glucose 96 (65-110) mg/dL Calcium 9.6 (8.4-10.2) mg/dL Magnesium 2.2 (1.6-2.3) mg/dL Total Bilirubin 1.0 (0.2-1.3) mg/dL AST 36 (14-36) U/L ALT 25 (6-35) U/L Alkaline Phosphatase 168 H (38-126) U/L Troponin I < 0.012 (0.000-0.034) ng/mL Total Protein 7.9 (6.3-8.2) g/dL Albumin 4.6 (3.5-5.1) g/dL Urine Color Yellow (Yellow) Urine Appearance Clear (Clear) Urine pH 6.5 (5.0-9.0) Ur Specific [place] 1.012 (1.001-1.035) Urine Protein Negative (Negative) mg/dL Urine Glucose (UA) Negative (Negative) mg/dL Urine Ketones Negative (Negative) mg/dL Ur Blood (Man) Negative (Negative) Urine Nitrate Negative (Negative) Urine Bilirubin Negative (Negative) Urine Urobilinogen 1.0 (<2.0) mg/dL Leukocyte Esterase Rfl Negative (Negative) RICCI/UL Urine Opiates Screen Positive A (Negative) Urine Methadone Screen Negative (Negative) Ur Barbiturates Screen Negative (Negative) Lamotrigine Pending Ur Phencyclidine Scrn Negative (Negative) Ur Amphetamine Screen Negative (Negative) U Benzodiazepines Scrn Negative (Negative) Urine Cocaine Screen Negative (Negative) U Cannabinoids Screen Negative (Negative) Ethyl Alcohol < 10 (<10) mg/dL Imaging Data Radiologist's impression: Impressions Head CT 11/22/24 18:32 IMPRESSION: No acute intracranial process. Head/Neck CTA 11/22/24 18:38 IMPRESSION: No large vessel intracranial occlusion, high-grade intracranial stenosis, or aneurysm. No carotid or vertebral artery occlusion, dissection, or significant stenosis. ECG Data EKG #1: Attestation: I personally reviewed and interpreted this ECG as follows: ECG completion date: 11/22/24 ECG completion time: 14:57 Interpretation: Normal sinus rhythm at a rate of 65 beats per minute. DE interval 170. QRS 89. QT/QTC 410/426. Good R-wave progression across the precordial leads. No T- wave inversion. Discharge Plan Discharge Clinical Impression: Hypokalemia, Alkaline phosphatase elevation, Vertigo Patient Disposition: Still a Patient Condition: Stable
[2024-11-22 17:09] LABS: Hematocrit 41.0 % (37.0-47.0); Hemoglobin 13.6 g/dL (12.0-15.0); Immature Granulocyte Percent A 0.3 % (0-0.5); Lymphocytes Absolute Auto 1.56 K/mm3 (0.9-3.2); Mean Corpuscular HGB Conc 33.2 g/dl (32-36); Mean Corpuscular Hemoglobin 30.5 pg (26-34); Mean Corpuscular Volume 91.9 fl (80-100); Nucleated Red Blood Cells Absolute Auto 0.000 K/mm3 (0.0-0.012); Nucleated Red Blood Cells Perc 0.0 % (0.0-0.2); Platelet Count Result 311 k/mm3 (150-375); Red Blood Count 4.46 M/mm3 (4.2-5.4); White Blood Count 6.9 K/mm3 (4.5-10.0)
[2024-11-22 17:22] LABS: Alanine Aminotransferase 25 U/L (6-35); Albumin Level 4.6 g/dL (3.5-5.1); Alkaline Phosphatase 168 U/L (38-126); Anion Gap 8 mmol/L (4-12); Aspartate Amino Transferase 36 U/L (14-36); Bilirubin,Total 1.0 mg/dL (0.2-1.3); Blood Urea Nitrogen 14 mg/dL (7-17); Carbon Dioxide 27 mmol/L (22-30); Chloride 101 mmol/L (98-107); Estimated CRCL calculation 51 ml/min; Estimated Glomerular Filt Rate > 60; Potassium 3.3 mmol/L (3.4-5.0); Sodium 136 mmol/L (137-145); Total Protein 7.9 g/dL (6.3-8.2)
[2024-11-22 17:28] LABS: Calcium 9.6 mg/dL (8.4-10.2)
[2024-11-22] MEDS: MECLIZINE HCL 25 MG TABLET PO (17:31)
[2024-11-22 17:33] LABS: Add Urine Microscopic? NO; Appearance Urine Clear (Clear); Glucose Urine UA Negative (Negative); Leukocyte Esterase Ur Negative LEU/UL (Negative); Nitrate Urine Negative (Negative); Specific Grav Ur 1.012 (1.001-1.035)
[2024-11-22 17:34] LABS: Troponin I < 0.012 ng/mL (0.000-0.034)
[2024-11-22 17:54] LABS: Cannabinoid Screen Urine Negative (Negative)
[2024-11-22 18:08] LABS: Glucose 96 mg/dL (65-110)
[2024-11-22 18:17] LABS: Magnesium 2.2 mg/dL (1.6-2.3)
[2024-11-22] MEDS: diazePAM INJ (*CRX) 10 MG/2 ML SYRINGE 2.5 MG IV PUSH (19:05)
[2024-11-22] MEDS: POTASSIUM BICARBONATE 25 MEQ TABEF PO (19:09)
[2024-11-22] MEDS: PROMETHAZINE HCL 25 MG/ML AMPUL 6.25 MG IV PUSH (19:57)
--- NOTE | 2024-11-22 20:20 | PC.NURSE ---
This RN was called to CT due to extravasation of CT contrast through IV in left wrist area. radiotelephone technical operator stated approximately 40cc of contrast was injected. Reports it was stopped immediately when pressure was increasing, that there was local swelling right away. Warm compress applied and LUE elevated. Swelling had decreased and was hardly noticeable at that time, not affecting pulses or capillary refill, no numbness/tingling. This RN started new IV in right forearm at approx 18:15. CT was then completed and pt brought back to room by radiotelephone technical operator. RN came to bedside at approx 18:35 to check on pt. Pt still had warm compress to left wrist/forearm, however, LUE was resting at her side and swelling was increased and extended almost to antecubital area. Warm compress had been on for over 20 minutes, so this was removed by RN. Area felt soft to palpate, but still difficult to palpate radial pulse. Normal color to hand/arm, capillary refill less than 2 seconds, no numbness/tingling. Pulses easily found with doppler. LUE elevated over pt's head. Pt educated to notify RN immediately of worsening of pain/numbness/tingling. MD Page made aware and came to bedside to assess. LUE propped up with multiple pillows to assist with keeping elevated, as pt kept moving her arm off of bedside table. Ice pack then applied to left forearm to help with swelling/warmth. Skin integrity remains intact, warm to the touch (not hot). Pt reminded to call out for any worsening symptoms. This RN was checking on pt's swelling approx every 10-15 minutes until 20:15, then Glenn TEJADA updated on status who will be caring for pt this evening. LUE remains edematous but improving at this time, compartments soft to palpate, now able to palpate pulses. Capillary refill less than 2 seconds and pt denies pain or numbness/tingling to extremity.
--- NOTE | 2024-11-22 21:15 | P.HP_ITS ---
H&P: HPI History of Present Illness Date/Time: 11/22/24 21:15 Chief Complaint: Dizziness and room spinning Narrative: 64-year-old female with history of seizure disorder, anxiety and depression, GERD, fall status post lumbar sacral spine surgery, prior tobacco and alcohol use, COPD, presents to [facility] 11/22/2024. She complains 1 day prior she had the onset of dizziness and sensation of room spinning. She can barely walk. This is never happened before. Denies drug use. Denies any sensation changes, weakness, fever, shortness of breath, chest pain, change in vision, nausea or vomiting or diarrhea, fainting. ER evaluation reveals blood pressure 144/69, potassium 3.3, sodium 136, creatinine 0.67, magnesium 2.2, troponin within normal limits, drug screen positive for opiates she takes these chronically, urinalysis unremarkable. Head CT and head and neck CTA unremarkable for acute process. Patient was given Valium 2.5 mg IV x1, potassium replacement, meclizine 25 mg p.o. x1, Phenergan 6.25 mg IV x1. Patient reports these have helped her symptoms only slightly. Neurology consultation adducted from the ER. Review of Systems Review of Systems: All systems reviewed & are unremarkable except as noted in HPI and below (Subjective/HPI) [facility] Past Medical History Medical History Atrial septal defect Mass of left cardiac ventricle Lumbosacral radiculopathy at S1 GERD without esophagitis Depression Anxiety and depression History of alcoholism History of smoking Anxiety COPD (chronic obstructive pulmonary disease) Seizures (Unknown) Perforated gastric ulcer (~12/27/20) Surgical History Surgical History History of gastric ulcer Exploratory laparotomy with over-sewing of antral gastric ulcer and placement of omental patch, biopsy of antral gastric ulcer, peritoneal washout - 12/28/2020 H/O lumbosacral spine surgery History of appendectomy Hx of tracheostomy Family History Family History Mother Heart disease Cerebrovascular accident Father Heart disease Other Unknown family medical history Social History Social History (Reviewed 07/27/24 @ 10:44 by Kiera Moy [facility] Social History: The patient stated that she had 5 children and 1 at . The patient is and she is considered disabled. The patient stated that she is 16 years clean with alcohol and she is recovering alcoholic. The patient stated that she smoked many years ago and no longer smokes. The patient is listed as a full code. And she stated that she does not want any CPR if she has spinal surgery. The patient desires to be a DNR. The patient does not have a durable power grain manager for healthcare. Smoking status: Former smoker Tobacco type: cigarettes Alcohol intake: former Alcohol use details: RECOVERING , NONE 15 YRS Substance use: current Substance use type: marijuana Other substance usage details: edibles - Marijuana Do You Feel Safe in your Home?: Yes Lack of Transportation: No Lack of Food: Never True Current Housing: I Have Housing Concerned About Future Housing: No Difficulty Paying Gas/Electric Bills: No Difficulty Paying for Meds: No Currently Unemployed: No Education: Grade School Difficulty w/ Childcare or Family Care: No Living arrangements: with family Additional living arrangements comments: LIVES WITH DAUGHTER JOJO Occupation/Education: retired Gender identity (if verbalized by the patient): Female Sexual Orientation (if Verbalized by the Patient): Straight or Heterosexual Spiritual care concerns: No Agree to blood products: Yes Meds Home Medications and Allergies Home Medications ?Medication ?Instructions ?Recorded ?Confirmed ?Type acetaminophen 650 mg 650 mg PO BID PRN Pain (Scale 09/08/20 08/05/24 History tablet,extended release (Arthritis Score 1-3) Pain Relief (acetaminophen) ER) buspirone 7.5 mg tablet 7.5 mg PO BID 09/08/20 08/05/24 History diphenhydramine HCl 25 mg capsule 25 mg PO BID 09/08/20 08/05/24 History (Allergy Relief (diphenhydramine)) albuterol sulfate 90 mcg/actuation 1 inh inhalation QID PRN shortness 01/02/21 08/05/24 Rx aerosol inhaler of breath or wheezing #6.7 grams hydrocodone 5 mg-acetaminophen 325 1 tablet PO QID 01/31/24 08/05/24 History mg tablet hydroxyzine HCl 50 mg tablet 50 mg PO TID 01/31/24 08/05/24 History sertraline 100 mg tablet 100 mg PO DAILY 01/31/24 08/05/24 History gabapentin 300 mg capsule 300 mg PO BID #60 caps 07/08/24 08/05/24 Rx lamotrigine 200 mg tablet 200 mg PO BID #180 tabs 07/08/24 08/05/24 Rx atorvastatin 20 mg tablet (Lipitor) 20 mg PO DAILY 07/27/24 08/05/24 History Allergies Allergy/AdvReac Type Severity Reaction Status Date / Time Penicillins Allergy Mild Unknown Verified 07/27/24 10:36 Sulfa (Sulfonamide Allergy Mild Unknown Verified 07/27/24 10:36 Antibiotics) grapefruit Allergy Unknown Verified 07/27/24 10:36 fluoxetine (From Prozac) AdvReac Severe Agitated Verified 07/27/24 10:36 Vital Signs Vital Signs - 24 hr 11/22/24 14:50 11/22/24 15:29 11/22/24 15:30 Temperature 97.1 F L Pulse Rate 65 68 Respiratory Rate 16 16 Blood Pressure 145/51 H 140/67 Pulse Oximetry 97 96 97 Oxygen Delivery Room Air 11/22/24 15:31 11/22/24 15:32 11/22/24 15:45 Temperature Pulse Rate Respiratory Rate 13 Blood Pressure 140/76 Pulse Oximetry 95 98 96 Oxygen Delivery 11/22/24 15:46 11/22/24 16:00 11/22/24 16:01 Temperature Pulse Rate Respiratory Rate Blood Pressure 129/60 144/69 H Pulse Oximetry 96 95 96 Oxygen Delivery 11/22/24 16:15 11/22/24 16:16 11/22/24 16:30 Temperature Pulse Rate 60 60 58 L Respiratory Rate 17 17 14 Blood Pressure 140/78 Pulse Oximetry 96 97 95 Oxygen Delivery 11/22/24 16:31 11/22/24 16:45 11/22/24 16:46 Temperature Pulse Rate 60 59 L 63 Respiratory Rate 12 15 16 Blood Pressure 126/81 142/79 H Pulse Oximetry 97 96 97 Oxygen Delivery 11/22/24 17:00 11/22/24 17:01 11/22/24 17:15 Temperature Pulse Rate 57 L 59 L 59 L Respiratory Rate 13 14 15 Blood Pressure 141/76 H Pulse Oximetry 97 97 98 Oxygen Delivery 11/22/24 17:16 11/22/24 17:27 11/22/24 17:30 Temperature Pulse Rate 60 59 L 59 L Respiratory Rate 18 20 15 Blood Pressure 138/85 142/89 H Pulse Oximetry 98 98 97 Oxygen Delivery 11/22/24 17:31 11/22/24 17:45 11/22/24 18:24 Temperature Pulse Rate 61 59 L 64 Respiratory Rate 20 15 14 Blood Pressure 127/83 Pulse Oximetry 98 99 Oxygen Delivery 11/22/24 18:30 11/22/24 18:45 11/22/24 19:00 Temperature Pulse Rate 61 61 61 Respiratory Rate 13 20 18 Blood Pressure Pulse Oximetry 99 97 98 Oxygen Delivery 11/22/24 19:06 11/22/24 19:12 11/22/24 19:15 Temperature Pulse Rate 62 66 64 Respiratory Rate 17 19 21 H Blood Pressure 146/89 H 146/89 H Pulse Oximetry 98 97 96 Oxygen Delivery 11/22/24 19:16 11/22/24 19:30 11/22/24 19:31 Temperature Pulse Rate 72 65 65 Respiratory Rate 16 15 19 Blood Pressure 154/89 H 147/70 H Pulse Oximetry 96 98 97 Oxygen Delivery 11/22/24 19:45 11/22/24 19:46 11/22/24 20:00 Temperature Pulse Rate 61 63 60 Respiratory Rate 20 18 14 Blood Pressure 143/72 H Pulse Oximetry 97 96 98 Oxygen Delivery 11/22/24 20:01 Temperature Pulse Rate 59 L Respiratory Rate 12 Blood Pressure 135/95 H Pulse Oximetry 98 Oxygen Delivery Exam Const: General: comfortable and no acute distress Other: A&O x3 HENMT: Other: Poor dentition Eyes: Pupils: Equal, round and reactive pupils present Neck: Neck: supple Resp: Effort & Inspection: normal respiratory effort Auscultation: clear to auscultation bilaterally Cardio: Rate: regular rate Rhythm: regular rhythm Heart sounds: no gallops GI: Inspection: non-distended GI Palp: Yes Soft to palpation : General: Yes bladder normal to palpation Neuro: Motor exam (neuro): 5/5 motor strength present throughout Sensory Exam: normal sensation Other: Head impulse test normal. No nystagmus. Gait test deferred. Extrem: General: no edema H&P: Results Labs Labs: Short CBC 11/22/24 Range/Units 16:55 WBC 6.9 (4.5-10.0) K/mm3 Hgb 13.6 (12.0-15.0) g/dL Hct 41.0 (37.0-47.0) % Plt Count 311 (150-375) k/mm3 BMP 11/22/24 16:55 Sodium 136 L Potassium 3.3 L Chloride 101 Carbon Dioxide 27 BUN 14 Creatinine 0.67 L Glucose 96 Calcium 9.6 Cardiac Enzymes 11/22/24 Range/Units 16:55 Troponin I < 0.012 (0.000-0.034) ng/mL Liver Function 11/22/24 Range/Units 16:55 Total Bilirubin 1.0 (0.2-1.3) mg/dL AST 36 (14-36) U/L ALT 25 (6-35) U/L Alkaline Phosphatase 168 H (38-126) U/L Albumin 4.6 (3.5-5.1) g/dL Urine 11/22/24 Range/Units 17:22 Urine Color Yellow (Yellow) Urine Appearance Clear (Clear) Urine pH 6.5 (5.0-9.0) Ur Specific [place] 1.012 (1.001-1.035) Urine Protein Negative (Negative) mg/dL Urine Glucose (UA) Negative (Negative) mg/dL Assessment and Plan Assessment and plan (1) Hypokalemia: Onset Date: ~11/2020 Code(s): E87.6 - Hypokalemia Status: Acute (2) Vertigo: Code(s): R42 - Dizziness and giddiness Status: Acute Plan 64-year-old female with history of seizure disorder, anxiety and depression, GERD, fall status post lumbar sacral spine surgery, prior tobacco and alcohol use, COPD, presents to [facility] 11/22/2024. She complains 1 day prior she had the onset of dizziness and sensation of room spinning. She can barely walk. This is never happened before. Denies drug use. Denies any sensation changes, weakness, fever, shortness of breath, chest pain, change in vision, nausea or vomiting or diarrhea, fainting. ER evaluation reveals blood pressure 144/69, potassium 3.3, sodium 136, creatinine 0.67, magnesium 2.2, troponin within normal limits, drug screen positive for opiates she takes these chronically, urinalysis unremarkable. Head CT and head and neck CTA unremarkable for acute process. Patient was given Valium 2.5 mg IV x1, potassium replacement, meclizine 25 mg p.o. x1, Phenergan 6.25 mg IV x1. Patient reports these have helped her symptoms only slightly. Neurology consultation adducted from the ER. ----- Patient will be admitted to medical floor with telemetry. MRI brain/brain stem ordered. Potassium replaced, continue to cycle along with magnesium. Will try Benadryl p.r.n. and for her symptoms and continue to adjust as needed. Fall precautions. Ambulate with assistance. Patient wishes to be DNR. Regular diet. Lovenox 40 mg subQ q.a.m. Hospitalist [facility] Advance Care Plan I have confirmed that the patient's Advanced Care Plan is present, code status is documented, or surrogate decision maker is listed in patient medical record.: Yes Medication Reconciliation I have utilized all available resources to obtain, update and review the patients current medications (includes all prescriptions, OTC, herbals, cannabis, and nutritional supplements).: Yes
--- NOTE | 2024-11-22 22:32 | ADMGEN ---
This patient, Gina Gonzalez, was admitted to Medical Room 342-01. Patient/family oriented to hospital policies and general routines including ID bracelet, bed and alarms, visiting hours, pain management, procedures, bathroom and other care routines, personal items, smoking policy, room service/diet, and visiting hours. Information on how to activate the Rapid Response Team has been discussed. Patient/Family are encouraged to report perceived risks to care and to ask questions if they do not understand what they are told or what they should do.
[2024-11-23] VITALS (12 sets, daily range): BP systolic 100–137; BP diastolic 56–96; PULSE 57–68; RESP 12–18; TEMP 36.6–36.9; O2SAT 93–100
[2024-11-23] MEDS: ASPIRIN 325 MG TABLET PO (01:17)
[2024-11-23] MEDS: HYDROcodone/acetaminophen (*CRX) 5-325 MG TABLET 1 TAB PO ×5 (01:17→20:55)
[2024-11-23 06:23] LABS: Anion Gap 8 mmol/L (4-12); Blood Urea Nitrogen 11 mg/dL (7-17); Calcium 9.7 mg/dL (8.4-10.2); Carbon Dioxide 26 mmol/L (22-30); Chloride 105 mmol/L (98-107); Estimated CRCL calculation 56 ml/min; Estimated Glomerular Filt Rate > 60; Glucose 89 mg/dL (65-110); Magnesium 2.3 mg/dL (1.6-2.3); Potassium 3.5 mmol/L (3.4-5.0); Sodium 139 mmol/L (137-145)
--- NOTE | 2024-11-23 08:30 | P.PNIM_ITS ---
Progress Note: A&P Assessment and Plan (1) Vertigo: Code(s): R42 - Dizziness and giddiness Status: Acute Assessment and Plan: - CT head no acute process - CTA head and neck with no stenosis or LVO - MRI brain with no acute cerebral infarction - suspect peripheral vertigo. Continue PRN meclizine, headache management - PT/OT, would benefit from vestibular therapy - neuro following (2) Hypokalemia: Onset Date: ~11/2020 Code(s): E87.6 - Hypokalemia Status: Acute Assessment and Plan: - resolved (3) Headache: Code(s): R51.9 - Headache, unspecified Status: Acute Assessment and Plan: - may be migrainous in nature - neuro ordered migraine cocktail (4) Chronic pain associated with significant psychosocial dysfunction: Code(s): G89.4 - Chronic pain syndrome Status: Acute Assessment and Plan: - continue home pain regimen (5) Anxiety and depression: Code(s): F41.9 - Anxiety disorder, unspecified; F32.9 - Major depressive disorder, single episode, unspecified Status: Chronic Assessment and Plan: - continue Zolift, buspar (6) COPD (chronic obstructive pulmonary disease): Code(s): J44.9 - Chronic obstructive pulmonary disease, unspecified Status: Chronic Assessment and Plan: - continue albuterol PRN (7) Seizures: Onset Date: Unknown Code(s): R56.9 - Unspecified convulsions Status: Acute Assessment and Plan: - continue lamictal Subjective Date/time seen: 11/23/24 08:30 Interval history: Patient seen and examined at bedside. Still having dizziness. Review of Systems Review of Systems: All systems reviewed & are unremarkable except as noted in HPI and below Exam Narrative: General: NAD Eyes: EOMI ENT: neck supple Cardiovascular: Regular rate and rhythm Respiratory: Clear to auscultation, respirations even and unlabored on RA Gastrointestinal: Soft, non tender Genitourinary: no suprapubic tenderness Musculoskeletal: No edema, mild swelling of the left hand and forearm without tenderness or erythema. Skin: warm, dry Neuro: Alert and oriented x4. Cranial nerves II-XII intact. Face symmetric. Speech clear. Strength 5/5 in BUEs/BLEs. Sensation to light touch intact face, BUE/BLEs. Ataxia of the BUE. Psych: Mood appropriate Objective Data Vital Signs Vital Signs: Vital Signs - 24 hr 11/22/24 14:50 11/22/24 15:29 11/22/24 15:30 Temperature 97.1 F L Pulse Rate 65 68 Respiratory Rate 16 16 Blood Pressure 145/51 H 140/67 Pulse Oximetry 97 96 97 Oxygen Delivery Room Air 11/22/24 15:31 11/22/24 15:32 11/22/24 15:45 Temperature Pulse Rate Respiratory Rate 13 Blood Pressure 140/76 Pulse Oximetry 95 98 96 Oxygen Delivery 11/22/24 15:46 11/22/24 16:00 11/22/24 16:01 Temperature Pulse Rate Respiratory Rate Blood Pressure 129/60 144/69 H Pulse Oximetry 96 95 96 Oxygen Delivery 11/22/24 16:15 11/22/24 16:16 11/22/24 16:30 Temperature Pulse Rate 60 60 58 L Respiratory Rate 17 17 14 Blood Pressure 140/78 Pulse Oximetry 96 97 95 Oxygen Delivery 11/22/24 16:31 11/22/24 16:45 11/22/24 16:46 Temperature Pulse Rate 60 59 L 63 Respiratory Rate 12 15 16 Blood Pressure 126/81 142/79 H Pulse Oximetry 97 96 97 Oxygen Delivery 11/22/24 17:00 11/22/24 17:01 11/22/24 17:15 Temperature Pulse Rate 57 L 59 L 59 L Respiratory Rate 13 14 15 Blood Pressure 141/76 H Pulse Oximetry 97 97 98 Oxygen Delivery 11/22/24 17:16 11/22/24 17:27 11/22/24 17:30 Temperature Pulse Rate 60 59 L 59 L Respiratory Rate 18 20 15 Blood Pressure 138/85 142/89 H Pulse Oximetry 98 98 97 Oxygen Delivery 11/22/24 17:31 11/22/24 17:45 11/22/24 18:24 Temperature Pulse Rate 61 59 L 64 Respiratory Rate 20 15 14 Blood Pressure 127/83 Pulse Oximetry 98 99 Oxygen Delivery 11/22/24 18:30 11/22/24 18:45 11/22/24 19:00 Temperature Pulse Rate 61 61 61 Respiratory Rate 13 20 18 Blood Pressure Pulse Oximetry 99 97 98 Oxygen Delivery 11/22/24 19:06 11/22/24 19:12 11/22/24 19:15 Temperature Pulse Rate 62 66 64 Respiratory Rate 17 19 21 H Blood Pressure 146/89 H 146/89 H Pulse Oximetry 98 97 96 Oxygen Delivery 11/22/24 19:16 11/22/24 19:30 11/22/24 19:31 Temperature Pulse Rate 72 65 65 Respiratory Rate 16 15 19 Blood Pressure 154/89 H 147/70 H Pulse Oximetry 96 98 97 Oxygen Delivery 11/22/24 19:45 11/22/24 19:46 11/22/24 20:00 Temperature Pulse Rate 61 63 60 Respiratory Rate 20 18 14 Blood Pressure 143/72 H Pulse Oximetry 97 96 98 Oxygen Delivery 11/22/24 20:01 11/22/24 20:50 11/22/24 21:03 Temperature Pulse Rate 59 L 60 63 Respiratory Rate 12 17 14 Blood Pressure 135/95 H 137/73 120/75 Pulse Oximetry 98 97 98 Oxygen Delivery 11/22/24 21:33 11/22/24 22:05 11/23/24 00:30 Temperature 98.2 F Pulse Rate 61 62 58 L Respiratory Rate 19 16 18 Blood Pressure 119/77 126/85 134/78 Pulse Oximetry 98 97 97 Oxygen Delivery 11/23/24 00:31 11/23/24 00:34 11/23/24 00:39 Temperature 97.9 F 97.8 F 98.2 F Pulse Rate 58 L 68 58 L Respiratory Rate 18 18 18 Blood Pressure 100/63 134/96 H 134/78 Pulse Oximetry 100 98 97 Oxygen Delivery 11/23/24 04:00 11/23/24 06:00 Temperature 98.2 F Pulse Rate 58 L 57 L Respiratory Rate 18 Blood Pressure 135/72 Pulse Oximetry 96 Oxygen Delivery Intake/Output Intake/Output: Intake & Output 11/20/24 11/21/24 11/22/24 11/23/24 23:59 23:59 23:59 23:59 Output Total 400 800 Balance -400 -800 Meds/Results Medications: Active Medications Generic Name Dose Route Start Last Admin Trade Name Freq PRN Reason Stop Dose Admin Acetaminophen 650 mg 11/22/24 20:51 Acetaminophen 325 Mg Tablet PO Q4H PRN Mild Pain (1-3) or Fever Hydrocodone Bitart/Acetaminophen 1 tab 11/23/24 09:00 Hydrocodone/Acetaminophen (*Crx) 5-325 Mg Tablet PO QID [facility] Albuterol 1 puff 11/23/24 00:36 Albuterol Sulfate (*Sp) Aerosol 1 Puff INHALATION QID PRN shortness of breath or wheezing Atorvastatin Calcium 20 mg 11/23/24 09:00 Atorvastatin 20 Mg Tablet PO DAILY [facility] Buspirone HCl 5 mg 11/23/24 09:00 Buspirone Hcl 5 Mg Tablet PO BID [facility] Buspirone HCl 2.5 mg 11/23/24 09:00 Buspirone Hcl 2.5 Mg Tablet PO BID [facility] Diphenhydramine HCl 25 mg 11/22/24 21:10 11/23/24 01:17 Diphenhydramine Hcl Inj 50 Mg/Ml Vial IV PUSH 25 mg Q4H PRN Administration Vertigo Enoxaparin Sodium 40 mg 11/23/24 09:00 Enoxaparin 40 Mg/0.4 Ml Syringe SUB-Q DAILY [facility] Gabapentin 300 mg 11/23/24 09:00 Gabapentin 300 Mg Capsule PO BID [facility] Lamotrigine 200 mg 11/23/24 09:00 Lamotrigine 100 Mg Tablet PO Q12HR [facility] Ondansetron HCl 4 mg 11/22/24 20:51 Ondansetron Inj 4 Mg/2 Ml Vial IV PUSH Q4H PRN Nausea Sertraline HCl 100 mg 11/23/24 09:00 Sertraline Hcl 50 Mg Tablet PO DAILY [facility] Radiology Results: ITS Impressions Head CT 11/22/24 18:32 IMPRESSION: No acute intracranial process. Head/Neck CTA 11/22/24 18:38 IMPRESSION: No large vessel intracranial occlusion, high-grade intracranial stenosis, or aneurysm. No carotid or vertebral artery occlusion, dissection, or significant stenosis. Labs Labs: Laboratory Results - last 24 hr 11/22/24 11/22/24 11/23/24 16:55 17:22 05:33 WBC 6.9 RBC 4.46 Hgb 13.6 Hct 41.0 MCV 91.9 MCH 30.5 MCHC 33.2 RDW 12.3 Plt Count 311 MPV 9.0 Immature Gran % (Auto) 0.3 Neut % (Auto) 62.9 Lymph % (Auto) 22.5 [place] % (Auto) 7.5 Eos % (Auto) 5.6 H Baso % (Auto) 1.2 Lymph # (Auto) 1.56 [place] # (Auto) 0.5 Eos # (Auto) 0.4 H Baso # (Auto) 0.1 Abs Immat Gran (auto) 0.02 Absolute Neuts (auto) 4.4 Absolute Nucleated RBC 0.000 Nucleated RBC % 0.0 Sodium 136 L 139 Potassium 3.3 L 3.5 Chloride 101 105 Carbon Dioxide 27 26 Anion Gap 8 8 BUN 14 11 Creatinine 0.67 L 0.69 L Estim Creat Clear Calc 51 56 Estimated GFR > 60 > 60 Glucose 96 89 Calcium 9.6 9.7 Magnesium 2.2 2.3 Total Bilirubin 1.0 AST 36 ALT 25 Alkaline Phosphatase 168 H Troponin I < 0.012 Total Protein 7.9 Albumin 4.6 Urine Color Yellow Urine Appearance Clear Urine pH 6.5 Ur Specific [place] 1.012 Urine Protein Negative Urine Glucose (UA) Negative Urine Ketones Negative Ur Blood (Man) Negative Urine Nitrate Negative Urine Bilirubin Negative Urine Urobilinogen 1.0 Leukocyte Esterase Rfl Negative Urine Opiates Screen Positive A Urine Methadone Screen Negative Ur Barbiturates Screen Negative Ur Phencyclidine Scrn Negative Ur Amphetamine Screen Negative U Benzodiazepines Scrn Negative Urine Cocaine Screen Negative U Cannabinoids Screen Negative Ethyl Alcohol < 10 Quality VTE Prophylaxis VTE prophylaxis: pharmacologic ordered
[2024-11-23] MEDS: GABAPENTIN 300 MG CAPSULE PO ×2 (09:39→17:06)
[2024-11-23] MEDS: ATORVASTATIN 20 MG TABLET PO (09:39)
[2024-11-23] MEDS: ENOXAPARIN 40 MG/0.4 ML SYRINGE SUB-Q (09:39)
[2024-11-23] MEDS: SERTRALINE HCL 50 MG TABLET 100 MG PO (09:39)
[2024-11-23] MEDS: busPIRone HCL 2.5 MG TABLET PO ×2 (09:40→17:06)
--- NOTE | 2024-11-23 10:50 | P.CONNEU_ITS ---
Assessment and Plan Assessment and plan (1) Vertigo: Code(s): R42 - Dizziness and giddiness Status: Acute Assessment and Plan: this appears to be the main reason for her presentation to the emergency room. However this time she is also complaining of left-sided headache. CT scan of brain and CT angiogram of the head and neck were within normal limits. I did not see any nystagmus or any intention tremors or any other significant focal deficit On neurological examination. MRI of the brain is scheduled and we should follow the results of that. (2) Headache: Code(s): R51.9 - Headache, unspecified Status: Acute Assessment and Plan: The patient states that she normally has headache once a month or so and the do not last very long. I have advised the nurse to try Reglan 10 mg or Compazine 10 mg since he already had hydrocodone and our half ago. The patient has headache as well as some nausea and she is tender at the craniocervical junction however this is longstanding. Patient has a from chronic pain and takes years 4 times a day. (3) Chronic pain associated with significant psychosocial dysfunction: Code(s): G89.4 - Chronic pain syndrome Status: Acute (4) Swelling of left upper extremity: Code(s): M79.89 - Other specified soft tissue disorders Status: Acute Assessment and Plan: This is a new problems should be addressed by the hospitalist team. She has history of breast cancer on the right side for which she had surgery 15 years ago no history of tumor in the left breast. (5) History of lumbar fusion: Code(s): Z98.1 - Arthrodesis status Status: Acute (6) Seizures: Onset Date: Unknown Code(s): R56.9 - Unspecified convulsions Status: Acute Assessment and Plan: I noted that she is on Lamictal 200 mg twice a day however she has not had any recent seizures. (7) Low back pain: Onset Date: Unknown Qualifiers: Chronicity: chronic Sciatica laterality: sciatica of right side Code(s): M54.5 - Low back pain Status: Acute (8) History of alcoholism: Code(s): F10.21 - Alcohol dependence, in remission Status: Chronic (9) skilled nursing (current) use of opiate analgesic: Code(s): Z79.891 - skilled nursing (current) use of opiate analgesic Status: Acute (10) COPD (chronic obstructive pulmonary disease): Code(s): J44.9 - Chronic obstructive pulmonary disease, unspecified Status: Chronic Plan We should follow the results of MRI of the brain. In the meanwhile symptomatic treatment of the headache with Reglan 10 mg and if necessary with the Toradol IV 30 mg p.r.n. Q 6 hourly may be offered. if the MRI turns out to be normal she may require vestibular therapy. She has history of tinnitus and a ENT evaluation should be considered. The swelling of the left arm may require further investigation. Apparently she had extravasation of the IV if contrast during the CT angiogram. Are the patient is quite vague about symptoms. There is a history of Tumor on her right breast 15 years ago but she does not have any swelling on the right side. Consult date: 11/23/24 HPI: Gina Gonzalez is a 64 year old femaleInto the emergency room with onset of dizziness and near syncopal feeling. She now is also having pain around the left eye or headache and some degree of nausea. The dizziness started when she stood up and persisted to the degree that she was stumbling tripping had difficulty walking. She states that she felt like she was drunk or drugs. She does have history of seizures and is on lamotrigine. She also has history of chronic tinnitus but no ear pain. She has not had any febrile illness or any recent head trauma however she did have and injury to her both hips due to a fall 9 months ago and she require surgical intervention for those. He also has diagnosis of chronic obstructive pulmonary disease. She used to smoke and heavily and drink alcohol in the past but she no longer does that. In the emergency room a CT scan of the brain and CT angiogram of the head and neck were performed which did not show any significant abnormality. She is scheduled to have an MRI of the brain now. She also complains of swelling of the left arm which she states is new. Her urine was positive for opiates. It was noted that she takes hydrocodone 4 times a day. Looking at her previous records it was noted that there was a suspicion of a mass in the left atrium however a [facility] home last year did not show any such finding. The history of seizure is unclear from the history. She is 16 year clean from the alcohol and is recovering alcoholic. She had spinal surgery. She continues to have problem with the right hip. She lives with her daughter Flor. she had some contrast a sharp sensation during the CT and heat was applied and limb was arranged. She was given meclizine and Valium in the emergency room. She denies any new any history of recent febrile illness. She does not have a history of previous attacks of vertigo. Initial labs including CBC chemistry profile shows serum potassium was slightly low at 3.3. Review of Systems 2 Review of Systems: The patient states that she has headache once a month or so and they only last for a few minutes. She does not suffer from chronic headache. She had surgery in the lumbar spine. No other symptoms. [facility] Past Medical History Medical History (Updated 11/23/24 @ 11:03 by Wander Lima MD) Swelling of left upper extremity Headache Atrial septal defect Mass of left cardiac ventricle Lumbosacral radiculopathy at S1 GERD without esophagitis Anxiety and depression History of alcoholism History of smoking COPD (chronic obstructive pulmonary disease) Seizures (Unknown) Perforated gastric ulcer (~12/27/20) Surgical History Surgical History History of gastric ulcer Exploratory laparotomy with over-sewing of antral gastric ulcer and placement of omental patch, biopsy of antral gastric ulcer, peritoneal washout - 12/28/2020 H/O lumbosacral spine surgery History of appendectomy Hx of tracheostomy Family History Family History Mother Heart disease Cerebrovascular accident Father Heart disease Other Unknown family medical history Social History Social History Social History: The patient stated that she had 5 children and 1 at . The patient is and she is considered disabled. The patient stated that she is 16 years clean with alcohol and she is recovering alcoholic. The patient stated that she smoked many years ago and no longer smokes. The patient is listed as a full code. And she stated that she does not want any CPR if she has spinal surgery. The patient desires to be a DNR. The patient does not have a durable power divorce attorney for healthcare. Smoking status: Never smoker Tobacco type: cigarettes Alcohol intake: former Alcohol use details: RECOVERING , NONE 16 YRS Substance use: current Substance use type: marijuana Other substance usage details: occasional marijuana use Last use: 08/27/24 Do You Feel Safe in your Home?: Yes Lack of Transportation: No Lack of Food: Never True Current Housing: I Have Housing Concerned About Future Housing: No Difficulty Paying Gas/Electric Bills: No Difficulty Paying for Meds: No Currently Unemployed: No Education: Grade School Difficulty w/ Childcare or Family Care: No Living arrangements: with family Additional living arrangements comments: LIVES WITH DAUGHTER JOJO Occupation/Education: retired Gender identity (if verbalized by the patient): Female Sexual Orientation (if Verbalized by the Patient): Straight or Heterosexual Spiritual care concerns: No Agree to blood products: Yes Meds Home Medications and Allergies Home Medications ?Medication ?Instructions ?Recorded ?Confirmed ?Type acetaminophen 650 mg 650 mg PO BID PRN Pain (Scale 09/08/20 11/22/24 History tablet,extended release (Arthritis Score 1-3) Pain Relief (acetaminophen) ER) buspirone 7.5 mg tablet 7.5 mg PO BID 09/08/20 11/22/24 History diphenhydramine HCl 25 mg capsule 25 mg PO BID PRN allergy symptoms 09/08/20 11/22/24 History (Allergy Relief (diphenhydramine)) albuterol sulfate 90 mcg/actuation 1 inh inhalation QID PRN shortness 01/02/21 11/22/24 Rx aerosol inhaler of breath or wheezing #6.7 grams hydrocodone 5 mg-acetaminophen 325 1 tablet PO QID 01/31/24 11/22/24 History mg tablet hydroxyzine HCl 50 mg tablet 50 mg PO TID 01/31/24 11/22/24 History sertraline 100 mg tablet 100 mg PO DAILY 01/31/24 11/22/24 History gabapentin 300 mg capsule 300 mg PO BID #60 caps 07/08/24 11/22/24 Rx lamotrigine 200 mg tablet 200 mg PO BID #180 tabs 07/08/24 11/22/24 Rx atorvastatin 20 mg tablet (Lipitor) 20 mg PO DAILY 07/27/24 11/22/24 History Allergies Allergy/AdvReac Type Severity Reaction Status Date / Time grapefruit Allergy Severe angioedema Verified 11/23/24 01:08 Penicillins Allergy Mild Unknown Verified 11/23/24 01:08 Sulfa (Sulfonamide Allergy Mild Unknown Verified 11/23/24 01:08 Antibiotics) fluoxetine (From Prozac) AdvReac Severe Agitated Verified 11/23/24 01:08 Vital Signs Vital Signs - 24 hr 11/22/24 14:50 11/22/24 15:29 11/22/24 15:30 Temperature 97.1 F L Pulse Rate 65 68 Respiratory Rate 16 16 Blood Pressure 145/51 H 140/67 Pulse Oximetry 97 96 97 Oxygen Delivery Room Air 11/22/24 15:31 11/22/24 15:32 11/22/24 15:45 Temperature Pulse Rate Respiratory Rate 13 Blood Pressure 140/76 Pulse Oximetry 95 98 96 Oxygen Delivery 11/22/24 15:46 11/22/24 16:00 11/22/24 16:01 Temperature Pulse Rate Respiratory Rate Blood Pressure 129/60 144/69 H Pulse Oximetry 96 95 96 Oxygen Delivery 11/22/24 16:15 11/22/24 16:16 11/22/24 16:30 Temperature Pulse Rate 60 60 58 L Respiratory Rate 17 17 14 Blood Pressure 140/78 Pulse Oximetry 96 97 95 Oxygen Delivery 11/22/24 16:31 11/22/24 16:45 11/22/24 16:46 Temperature Pulse Rate 60 59 L 63 Respiratory Rate 12 15 16 Blood Pressure 126/81 142/79 H Pulse Oximetry 97 96 97 Oxygen Delivery 11/22/24 17:00 11/22/24 17:01 11/22/24 17:15 Temperature Pulse Rate 57 L 59 L 59 L Respiratory Rate 13 14 15 Blood Pressure 141/76 H Pulse Oximetry 97 97 98 Oxygen Delivery 11/22/24 17:16 11/22/24 17:27 11/22/24 17:30 Temperature Pulse Rate 60 59 L 59 L Respiratory Rate 18 20 15 Blood Pressure 138/85 142/89 H Pulse Oximetry 98 98 97 Oxygen Delivery 11/22/24 17:31 11/22/24 17:45 11/22/24 18:24 Temperature Pulse Rate 61 59 L 64 Respiratory Rate 20 15 14 Blood Pressure 127/83 Pulse Oximetry 98 99 Oxygen Delivery 11/22/24 18:30 11/22/24 18:45 11/22/24 19:00 Temperature Pulse Rate 61 61 61 Respiratory Rate 13 20 18 Blood Pressure Pulse Oximetry 99 97 98 Oxygen Delivery 11/22/24 19:06 11/22/24 19:12 11/22/24 19:15 Temperature Pulse Rate 62 66 64 Respiratory Rate 17 19 21 H Blood Pressure 146/89 H 146/89 H Pulse Oximetry 98 97 96 Oxygen Delivery 11/22/24 19:16 11/22/24 19:30 11/22/24 19:31 Temperature Pulse Rate 72 65 65 Respiratory Rate 16 15 19 Blood Pressure 154/89 H 147/70 H Pulse Oximetry 96 98 97 Oxygen Delivery 11/22/24 19:45 11/22/24 19:46 11/22/24 20:00 Temperature Pulse Rate 61 63 60 Respiratory Rate 20 18 14 Blood Pressure 143/72 H Pulse Oximetry 97 96 98 Oxygen Delivery 11/22/24 20:01 11/22/24 20:50 11/22/24 21:03 Temperature Pulse Rate 59 L 60 63 Respiratory Rate 12 17 14 Blood Pressure 135/95 H 137/73 120/75 Pulse Oximetry 98 97 98 Oxygen Delivery 11/22/24 21:33 11/22/24 22:05 11/23/24 00:30 Temperature 98.2 F Pulse Rate 61 62 58 L Respiratory Rate 19 16 18 Blood Pressure 119/77 126/85 134/78 Pulse Oximetry 98 97 97 Oxygen Delivery 11/23/24 00:31 11/23/24 00:34 11/23/24 00:39 Temperature 97.9 F 97.8 F 98.2 F Pulse Rate 58 L 68 58 L Respiratory Rate 18 18 18 Blood Pressure 100/63 134/96 H 134/78 Pulse Oximetry 100 98 97 Oxygen Delivery 11/23/24 04:00 11/23/24 06:00 Temperature 98.2 F Pulse Rate 58 L 57 L Respiratory Rate 18 Blood Pressure 135/72 Pulse Oximetry 96 Oxygen Delivery Exam 2 Const: General: cooperative, well developed and alert O rientation/consciousness: oriented to person, oriented to place and oriented to time HENMT: Head: atraumatic Mouth: Yes oropharynx normal Other: Some tenderness in the midline in the occipital area however no tenderness over the occipital nerve. No tenderness over the temporal arteries. She is able to open and close her jaw or and no tenderness over the temporomandibular joint. Eyes: Alignment and Position: position normal Pupils: Equal, round and reactive pupils present EOM: EOMs intact bilaterally Neck: Neck: supple Resp: Effort & Inspection: normal respiratory effort Cardio: Rate: regular rate Rhythm: regular rhythm Skin: General skin exam: normal color Neuro: Cranial nerves: Yes CN's II-XII intact bilaterally, Yes facial sensation intact/muscles of mastication intact, Yes Equal, round and reactive pupils present, Yes Bilaterally intact EOM present, Yes Nystagmus not present, Yes facial symmetry, Yes Midline tongue present and Yes Ability to bilaterally elevate shoulders present Cognition (Neuro): normal cognition Speech: n ormal speech Motor exam (neuro): 5/5 motor strength present throughout, Motor fasciculations not present and Normal motor muscle tone present throughout S ensory Exam: normal sensation Coordination: [id number] test normal and Normal rapid alternating movements of the distal upper extremity present (Neuro) Other: Mild tremor of the outstretched hands were noted. Extrem: Other: There is some edema of the left upper limb. Results Labs 11/22/24 16:55 11/23/24 05:33 Labs: Short CBC 11/22/24 Range/Units 16:55 WBC 6.9 (4.5-10.0) K/mm3 Hgb 13.6 (12.0-15.0) g/dL Hct 41.0 (37.0-47.0) % Plt Count 311 (150-375) k/mm3 BMP 11/22/24 11/23/24 16:55 05:33 Sodium 136 L 139 Potassium 3.3 L 3.5 Chloride 101 105 Carbon Dioxide 27 26 BUN 14 11 Creatinine 0.67 L 0.69 L Glucose 96 89 Calcium 9.6 9.7 Cardiac Enzymes 11/22/24 Range/Units 16:55 Troponin I < 0.012 (0.000-0.034) ng/mL Liver Function 11/22/24 Range/Units 16:55 Total Bilirubin 1.0 (0.2-1.3) mg/dL AST 36 (14-36) U/L ALT 25 (6-35) U/L Alkaline Phosphatase 168 H (38-126) U/L Albumin 4.6 (3.5-5.1) g/dL Urine 11/22/24 Range/Units 17:22 Urine Color Yellow (Yellow) Urine Appearance Clear (Clear) Urine pH 6.5 (5.0-9.0) Ur Specific [place] 1.012 (1.001-1.035) Urine Protein Negative (Negative) mg/dL Urine Glucose (UA) Negative (Negative) mg/dL
[2024-11-23] MEDS: ONDANSETRON INJ 4 MG/2 ML VIAL IV PUSH (10:57)
--- NOTE | 2024-11-23 12:15 | PCPTNOTE ---
Attempted PT evaluation, pt off the unit for testing. Will follow.
[2024-11-23] MEDS: METOCLOPRAMIDE HCL INJ 10 MG/2 ML VIAL IV PUSH (12:59)
[2024-11-23] MEDS: MECLIZINE HCL 12.5 MG TABLET PO (17:06)
[2024-11-23] MEDS: ACETAMINOPHEN 325 MG TABLET 650 MG PO (20:55)
[2024-11-24] VITALS (11 sets, daily range): BP systolic 102–169; BP diastolic 67–95; PULSE 60–85; RESP 12–18; TEMP 36.8–37; O2SAT 93–96
[2024-11-24] MEDS: ACETAMINOPHEN 325 MG TABLET 650 MG PO (06:56)
--- NOTE | 2024-11-24 07:20 | PC.NURSE ---
Pt was on the commode with other RN. RN stated she slumped over and loss consciousness for several seconds then was back to herself. I arrrived in the room and took vitals along w the day RN. BP 147/91 95% 65 heartrate temp 36.5c
[2024-11-24] MEDS: MECLIZINE HCL 12.5 MG TABLET PO ×2 (09:08→12:58)
[2024-11-24] MEDS: ENOXAPARIN 40 MG/0.4 ML SYRINGE SUB-Q (09:08)
[2024-11-24] MEDS: HYDROcodone/acetaminophen (*CRX) 5-325 MG TABLET 1 TAB PO ×4 (09:08→20:52)
[2024-11-24] MEDS: GABAPENTIN 300 MG CAPSULE PO ×2 (09:08→17:16)
[2024-11-24] MEDS: busPIRone HCL 2.5 MG TABLET PO ×2 (09:08→17:16)
[2024-11-24] MEDS: ATORVASTATIN 20 MG TABLET PO (09:08)
[2024-11-24] MEDS: SERTRALINE HCL 50 MG TABLET 100 MG PO (09:08)
--- NOTE | 2024-11-24 09:27 | PCPTNOTE ---
attempted PT eval, per RN hold on therapy for the morning d/t being orthostatic, RN plans to give her fluids and asked to return this afternoon, will follow
[2024-11-24] MEDS: LACTATED RINGERS 1,000 ML 500 ML IV CONT (09:59)
--- NOTE | 2024-11-24 10:19 | PCOTNOTE ---
Attempted OT evaluation; per RN and PT pt. is orthostatic and needs fluids. RN requested to hold this am. Will continue to follow.
--- NOTE | 2024-11-24 14:22 | P.PNIM_ITS ---
Progress Note: A&P Assessment and Plan (1) Vertigo: Code(s): R42 - Dizziness and giddiness Status: Acute Assessment and Plan: - CT head no acute process - CTA head and neck with no stenosis or LVO - MRI brain with no acute cerebral infarction - suspect peripheral vertigo vs. orthostasis. Continue PRN meclizine. - PT/OT, would benefit from vestibular therapy - neuro following (2) Syncope: Code(s): R55 - Syncope and collapse Status: Acute Assessment and Plan: - patient had episode of syncope after walking to commode with prodromal lightheadedness. Nursing reported +orthostatic vital signs - JESUS 02/21/24 with normal EF. - suspect related to orthostasis. Ordered IV fluid bolus and compression stockings. Recheck orthostatic vitals after fluid bolus. - EKG pending, monitor on tele (3) Hypokalemia: Onset Date: ~11/2020 Code(s): E87.6 - Hypokalemia Status: Acute Assessment and Plan: - resolved (4) Headache: Code(s): R51.9 - Headache, unspecified Status: Acute Assessment and Plan: - may be migrainous in nature - resolved with migraine cocktail (5) Chronic pain associated with significant psychosocial dysfunction: Code(s): G89.4 - Chronic pain syndrome Status: Acute Assessment and Plan: - continue home pain regimen (6) Anxiety and depression: Code(s): F41.9 - Anxiety disorder, unspecified; F32.9 - Major depressive disorder, single episode, unspecified Status: Chronic Assessment and Plan: - continue Zolift, buspar (7) COPD (chronic obstructive pulmonary disease): Code(s): J44.9 - Chronic obstructive pulmonary disease, unspecified Status: Chronic Assessment and Plan: - continue albuterol PRN (8) Seizures: Onset Date: Unknown Code(s): R56.9 - Unspecified convulsions Status: Acute Assessment and Plan: - continue lamictal Subjective Date/time seen: 11/24/24 14:22 Interval history: Patient seen and examined at bedside. Patient had syncopal episode on commode this morning. Had prodromal lightheadedness. Patient reports history of orthostasis. Review of Systems Review of Systems: All systems reviewed & are unremarkable except as noted in HPI and below Exam Narrative: General: NAD Eyes: EOMI ENT: neck supple Cardiovascular: Regular rate and rhythm Respiratory: Clear to auscultation, respirations even and unlabored on RA Gastrointestinal: Soft, non tender Genitourinary: no suprapubic tenderness Musculoskeletal: No edema, mild swelling of the left hand and forearm without tenderness or erythema. Skin: warm, dry Neuro: Alert and oriented x4. Cranial nerves II-XII intact. Face symmetric. Speech clear. Strength 5/5 in BUEs/BLEs. Sensation to light touch intact face, BUE/BLEs. Ataxia of the BUE. Psych: Mood appropriate Objective Data Vital Signs Vital Signs: Vital Signs - 24 hr 11/23/24 16:00 11/23/24 20:00 11/23/24 20:00 Temperature Pulse Rate 65 66 Respiratory Rate Blood Pressure Pulse Oximetry Oxygen Delivery Room Air 11/23/24 22:52 11/24/24 00:00 11/24/24 04:00 Temperature 98.4 F Pulse Rate 67 85 61 Respiratory Rate 16 Blood Pressure 137/62 Pulse Oximetry 94 Oxygen Delivery 11/24/24 06:00 11/24/24 08:00 11/24/24 09:20 Temperature 98.6 F Pulse Rate 60 63 Respiratory Rate 16 Blood Pressure 131/70 Pulse Oximetry 95 Oxygen Delivery Room Air 11/24/24 12:05 11/24/24 13:00 11/24/24 13:06 Temperature Pulse Rate 67 63 68 Respiratory Rate Blood Pressure 169/82 H 164/81 H Pulse Oximetry 96 96 Oxygen Delivery 11/24/24 13:06 Temperature Pulse Rate 70 Respiratory Rate Blood Pressure 152/95 H Pulse Oximetry 93 Oxygen Delivery Intake/Output Intake/Output: Intake & Output 07/26/25 07/27/25 07/28/25 07/29/25 23:59 23:59 23:59 23:59 Intake Total 1900 2019 Output Total 400 1100 2049 Balance -400 800 -30 Meds/Results Medications: Active Medications Generic Name Dose Route Start Last Admin Trade Name Freq PRN Reason Stop Dose Admin Acetaminophen 650 mg 11/22/24 20:51 11/24/24 06:56 Acetaminophen 325 Mg Tablet PO 650 mg Q4H PRN Administration Mild Pain (1-3) or Fever Hydrocodone Bitart/Acetaminophen 1 tab 11/23/24 09:00 11/24/24 12:58 Hydrocodone/Acetaminophen (*Crx) 5-325 Mg Tablet PO 1 tab QID UBALDO Administration Albuterol 1 puff 11/23/24 00:36 Albuterol Sulfate (*Sp) Aerosol 1 Puff INHALATION QID PRN shortness of breath or wheezing Atorvastatin Calcium 20 mg 11/23/24 09:00 11/24/24 09:08 Atorvastatin 20 Mg Tablet PO 20 mg DAILY UBALDO Administration Buspirone HCl 5 mg 11/23/24 09:00 11/24/24 09:08 Buspirone Hcl 5 Mg Tablet PO 5 mg BID UBALDO Administration Buspirone HCl 2.5 mg 11/23/24 09:00 11/24/24 09:08 Buspirone Hcl 2.5 Mg Tablet PO 2.5 mg BID UBALDO Administration Enoxaparin Sodium 40 mg 11/23/24 09:00 11/24/24 09:08 Enoxaparin 40 Mg/0.4 Ml Syringe SUB-Q 40 mg DAILY UBALDO Administration Gabapentin 300 mg 11/23/24 09:00 11/24/24 09:08 Gabapentin 300 Mg Capsule PO 300 mg BID UBALDO Administration Lamotrigine 200 mg 11/23/24 09:00 11/24/24 09:08 Lamotrigine 100 Mg Tablet PO 200 mg Q12HR UBALDO Administration Meclizine HCl 12.5 mg 11/23/24 17:00 11/24/24 12:58 Meclizine Hcl 12.5 Mg Tablet PO 12.5 mg TID UBALDO Administration Metoclopramide HCl 10 mg 11/23/24 11:08 11/23/24 12:59 Metoclopramide Hcl Inj 10 Mg/2 Ml Vial IV PUSH 10 mg Q6HR PRN Administration Nausea Ondansetron HCl 4 mg 11/22/24 20:51 11/23/24 10:57 Ondansetron Inj 4 Mg/2 Ml Vial IV PUSH 4 mg Q4H PRN Administration Nausea Sertraline HCl 100 mg 11/23/24 09:00 11/24/24 09:08 Sertraline Hcl 50 Mg Tablet PO 100 mg DAILY UBALDO Administration Radiology Results: ITS Impressions Head CT 11/22/24 18:32 IMPRESSION: No acute intracranial process. Head/Neck CTA 11/22/24 18:38 IMPRESSION: No large vessel intracranial occlusion, high-grade intracranial stenosis, or aneurysm. No carotid or vertebral artery occlusion, dissection, or significant stenosis. Brain MRI 11/23/24 13:05 IMPRESSION: No acute cerebral infarction. No acute or subacute hemorrhage. No abnormal contrast enhancement. No significant microvascular ischemic disease detected. Quality VTE Prophylaxis VTE prophylaxis: pharmacologic ordered
--- NOTE | 2024-11-24 14:23 | ECG_ITS ---
Test Date: 2024-11-24 14:43:19 Measurements Intervals [place] Rate: 62 P: 53 VT: 191 QRS: -8 QRSD: 92 T: 49 QT: 411 QTc: 418 Interpretive Statements SINUS RHYTHM Electronically Signed On 11-24-2024 17:33:10 CDT by Sam Montanez D.O
[2024-11-24 15:04] LABS: Hematocrit 39.2 % (37.0-47.0); Hemoglobin 13.3 g/dL (12.0-15.0); Mean Corpuscular HGB Conc 33.9 g/dl (32-36); Mean Corpuscular Hemoglobin 30.6 pg (26-34); Mean Corpuscular Volume 90.3 fl (80-100); Platelet Count Result 291 k/mm3 (150-375); Red Blood Count 4.34 M/mm3 (4.2-5.4); White Blood Count 6.3 K/mm3 (4.5-10.0)
[2024-11-24] MEDS: FLUTICASONE PROPIONATE 0.05% NA SPR 16 GM BTL (*BKC) 1 SPRAY NASAL (20:53)
[2024-11-25] VITALS: PULSE 60
[2024-11-25 04:00] VITALS: PULSE 60
[2024-11-25 06:00] VITALS: BP 121/63; PULSE 60; RESP 18; TEMP 36.7; O2SAT 96
[2024-11-25 07:13] LABS: Hematocrit 41.7 % (37.0-47.0); Hemoglobin 14.0 g/dL (12.0-15.0); Immature Granulocyte Percent A 0.2 % (0-0.5); Lymphocytes Absolute Auto 1.45 K/mm3 (0.9-3.2); Mean Corpuscular HGB Conc 33.6 g/dl (32-36); Mean Corpuscular Hemoglobin 30.4 pg (26-34); Mean Corpuscular Volume 90.7 fl (80-100); Nucleated Red Blood Cells Absolute Auto 0.000 K/mm3 (0.0-0.012); Nucleated Red Blood Cells Perc 0.0 % (0.0-0.2); Platelet Count Result 291 k/mm3 (150-375); Red Blood Count 4.60 M/mm3 (4.2-5.4); White Blood Count 5.2 K/mm3 (4.5-10.0)
[2024-11-25 07:23] LABS: Anion Gap 5 mmol/L (4-12); Blood Urea Nitrogen 7 mg/dL (7-17); Calcium 9.4 mg/dL (8.4-10.2); Carbon Dioxide 30 mmol/L (22-30); Chloride 98 mmol/L (98-107); Estimated CRCL calculation 57 ml/min; Estimated Glomerular Filt Rate > 60; Glucose 85 mg/dL (65-110); Potassium 3.8 mmol/L (3.4-5.0); Sodium 133 mmol/L (137-145)
[2024-11-25 08:04] VITALS: PULSE 59
[2024-11-25] MEDS: HYDROcodone/acetaminophen (*CRX) 5-325 MG TABLET 1 TAB PO ×2 (08:39→12:57)
[2024-11-25] MEDS: ATORVASTATIN 20 MG TABLET PO (08:39)
[2024-11-25] MEDS: GABAPENTIN 300 MG CAPSULE PO (08:39)
[2024-11-25] MEDS: SERTRALINE HCL 50 MG TABLET 100 MG PO (08:39)
[2024-11-25] MEDS: FLUTICASONE PROPIONATE 0.05% NA SPR 16 GM BTL (*BKC) 1 SPRAY NASAL (08:40)
[2024-11-25] MEDS: busPIRone HCL 2.5 MG TABLET PO (08:40)
[2024-11-25] MEDS: ENOXAPARIN 40 MG/0.4 ML SYRINGE SUB-Q (08:40)
[2024-11-25 12:05] VITALS: PULSE 63
--- NOTE | 2024-11-25 13:30 | P.DS_ITS ---
DS: Admitting Diagnosis Discharge Date 11/25/24 Admitting Diagnosis Dizziness DS: Discharge Diagnosis Discharge Diagnosis (1) Vertigo: Code(s): R42 - Dizziness and giddiness Status: Acute (2) Syncope: Code(s): R55 - Syncope and collapse Status: Acute (3) Hypokalemia: Onset Date: ~11/2020 Code(s): E87.6 - Hypokalemia Status: Acute (4) Headache: Code(s): R51.9 - Headache, unspecified Status: Acute (5) Chronic pain associated with significant psychosocial dysfunction: Code(s): G89.4 - Chronic pain syndrome Status: Acute (6) Anxiety and depression: Code(s): F41.9 - Anxiety disorder, unspecified; F32.9 - Major depressive disorder, single episode, unspecified Status: Chronic (7) COPD (chronic obstructive pulmonary disease): Code(s): J44.9 - Chronic obstructive pulmonary disease, unspecified Status: Chronic (8) Seizures: Onset Date: Unknown Code(s): R56.9 - Unspecified convulsions Status: Acute DS: Summary Hospital Course Reason for hospitalization: 64yo female with seizure disorder, anxiety and depression, GERD, fall status post lumbar sacral spine surgery, prior tobacco and alcohol use, COPD here for dizziness and sensation of room spinning. Please see H&P for details. Hospital Course: In the ER, evaluation revealed normal vital signs. CBC, Mag, CMP, Troponin and UA normal except for potassium 3.3, sodium 136. Urine drug screen positive for opiates which she takes chronically. EKG was normal. CT head showing no acute intracranial process. CTA of the head and neck showing no large vessel intracranial occlusion, high-grade intracranial stenosis or aneurysm. No carotid or vertebral artery occlusion, dissection or significant stenosis. Brain MRI showed no acute findings. Left upper extremity venous Doppler was negative for DVT. Swelling in the left arm possibly related to IV extravasation. Patient was given Valium 2.5 mg IV x1, potassium replacement, meclizine 25 mg p.o. x1, Phenergan 6.25 mg IV x1. Patient reports these have helped her symptoms only slightly. Neurology consulted. Meclizine scheduled. PT/OT ordered. Symptoms resolved. She is up walking in the halls. She overall did well and was able to be discharged on 11/25/24. Status at Discharge Cognitive/behavioral status at discharge: stable Time Spent with Patient Time attestation: Total time spent providing and/or coordinating discharge services: 34 minutes Time spent: Greater than 30 minutes Exam Narrative: AF 98.1 121/63 59 18 96% ra Gen - NARD Chest - CTA bilaterally, nml RR CV - RRR S1/S2 Abd - Soft, NT/ND, Positive BS Ext - No pedal edema. Kaden hose in place. Neuro - Alert and appropriate Psych - Nml mood and affect Skin - Warm and dry DS: Data Data Completed and Pending Labs on day of discharge: Labs from last 24 hours 11/25/24 11/24/24 06:20 14:54 WBC 5.2 6.3 RBC 4.60 4.34 Hgb 14.0 13.3 Hct 41.7 39.2 MCV 90.7 90.3 MCH 30.4 30.6 MCHC 33.6 33.9 RDW 11.9 11.7 Plt Count 291 291 MPV 9.0 8.6 Immature Gran % (Auto) 0.2 Neut % (Auto) 55.9 Lymph % (Auto) 27.7 Ashley % (Auto) 9.2 H Eos % (Auto) 5.9 H Baso % (Auto) 1.1 Lymph # (Auto) 1.45 Ashley # (Auto) 0.5 Eos # (Auto) 0.3 Baso # (Auto) 0.1 Abs Immat Gran (auto) 0.01 Absolute Neuts (auto) 2.9 Absolute Nucleated RBC 0.000 Nucleated RBC % 0.0 Sodium 133 L Potassium 3.8 Chloride 98 Carbon Dioxide 30 Anion Gap 5 BUN 7 Creatinine 0.68 L Estim Creat Clear Calc 57 Estimated GFR > 60 Glucose 85 Calcium 9.4 Discharge Plan Discharge Attending physician on discharge: Kris Trujillo Consulting providers: Wander Lima; Katie Sher Discharging Clinician: Kris Trujillo Anticipated Discharge Date/Time: 11/25/24 13:45 Patient Disposition: Home Activity: as tolerated Diet: regular Discharge Instructions: Wear compression hose on in the morning and off at night. Take precautions to avoid falls. Rise slowly from a lying or sitting position. Pause before standing or walking. Contact your doctor or call 911 and come to the Emergency Room if you have recurrent dizziness or other worrisome symptoms. Follow-up with your primary care provider in 1-2 weeks. Please call for appointment. Follow-up with neurology in 4-6 weeks. Please call for an appointment. Thank you for using [facility] for your health care needs. Patient Instructions: Antibiotic Form Patient Language: Kittitian Sign Language Stand Alone Forms: General Discharge Information Follow-up/Referrals: Chandler Benton MD [Primary Care Provider] - Call for Appointment Wander Lima MD [Physician] - Call for Appointment Discharge Medications: New fluticasone propionate 50 mcg/actuation [place],Suspension 1 spray intranasal Q12HR Qty: 1 0RF meclizine 12.5 mg Tablet 12.5 mg PO TID PRN (Reason: Dizziness) Qty: 10 0RF Continued buspirone 7.5 mg tablet 7.5 mg PO BID acetaminophen [Arthritis Pain Relief (acetam)] 650 mg tablet extended release 650 mg PO BID PRN (Reason: Pain (Scale Score 1-3)) lamotrigine 200 mg tablet 200 mg PO BID Qty: 180 4RF gabapentin 300 mg capsule 300 mg PO BID Qty: 60 5RF Rx Instructions: may start with 1 capsule at bedtime increase to 1 twice a day after 1 or 2 weeks atorvastatin [Lipitor] 20 mg tablet 20 mg PO DAILY hydrocodone-acetaminophen 5-325 mg tablet 1 tablet PO QID Patient Comments: QID UBALDO not PRN per pt sertraline 100 mg tablet 100 mg PO DAILY albuterol sulfate 90 mcg/actuation HFA aerosol inhaler 1 inh inhalation QID PRN (Reason: shortness of breath or wheezing) Qty: 6.7 0RF Discontinued diphenhydramine HCl [Allergy Relief(diphenhydramin)] 25 mg capsule 25 mg PO BID PRN (Reason: allergy symptoms) hydroxyzine HCl 50 mg tablet 50 mg PO TID Date of admission: 11/24/24 10:48 Primary Care Provider: Chandler Benton Admitting Provider: Edith Marcelo Attending physician on admission: Edith Marcelo Condition: Stable Hospitalist MIPS Heart Failure (Exclusion) Patient has history of Heart Transplant or Left Ventricular Assistive Device?: No IF YES, STOP HERE Heart Failure (Qualifier) Patient has current or prior documentation of LVEF less than or equal to 40%, or mod/servere depressed LVSF?: No IF NO, STOP HERE
--- NOTE | 2024-11-27 12:47 | PC.NURSE ---
Lamotrigine level is 9.3. Dr. Cassandra day.
== END 2024-11-25 14:55 | disposition home or self-care (01) | DRG 111 ==
LOC: ANHED 15:58 → ANH3MED 21:29
PROVIDERS: Physician Assistant; Admitting Provider General Practice; Emergency Provider Student in an Organized Health Care Education/Training Program; PCP Family Medicine; Visit Provider Internal Medicine
DX: R42 Dizziness and giddiness (principal); I95.1 Orthostatic hypotension; E87.6 Hypokalemia; G89.4 Chronic pain syndrome; R51.9 Headache, unspecified; J44.9 Chronic obstructive pulmonary disease, unspecified; G40.909 Epilepsy, unspecified, not intractable, without status epilepticus; F41.8 Other specified anxiety disorders; K21.9 Gastro-esophageal reflux disease without esophagitis; M54.17 Radiculopathy, lumbosacral region; M79.89 Other specified soft tissue disorders; Z66 Do not resuscitate; F10.21 Alcohol dependence, in remission; Z87.891 Personal history of nicotine dependence; Z90.49 Acquired absence of other specified parts of digestive tract; Z85.3 Personal history of malignant neoplasm of breast; Z98.1 Arthrodesis status
CPT/HCPCS: 36415; 70450; 70496; 70498; 70553; 80048; 80053; 80175; 80307; 81003; 82077; 83735; 84484; 85025; 85027; 93005; 93971; 96361; 96372; 96374; 96375; 97161; 97165; 99285; A9270; A9577; G0378; G0379; J1200; J1650; J2405; J2550; J2765; J3360; J7120; Q9967

== ENCOUNTER 2024-12-29 11:48 | Outpatient (CLI) | payer OTHER, SELFPAY ==
--- OUTSIDE RECORDS SUMMARY | 2010-03-08 08:30 | XMS_ITS | Continuity of Care Document ---
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 [address] , [address], [place], [place], [facility], [place]. tel:[phone] [facility], [address] [place] [address] [address], [place], [place], [id number], tel:[phone] SEC [facility] [place] [facility] [place] No Information 3-201 0 Doisy Edward. [address] [facility] [place] , [address], [place], [address], [place]. tel:[phone] Family History Family Member Type Diagnosis Age At Onset No Information Payers Payer name Insurance type Covered democrat ID Authoriza tielda(s) Medicaid ID [id number] Social History Type Description Quantity Date Captured Comments Sex Female Smoking Status No Information Chief Complaint And Reason For Visit No Information Reason For Referral Reason For Referral No Information History Of Present Illness Encounter Date Complaint History Of Prese nt Illness No Information Functional Status Date Functional Assessmen t No Information Instructions Date Instruction Additional Infor mation No Information Assessments Type Assessment Date No Information Patient Care Teams Name Effective Dates (start - stop) Status Members No Information
--- OUTSIDE RECORDS SUMMARY | 2024-12-29 12:05 | XMS_ITS | Clinical Summary ---
Author Organization [facility] Address [address] [place] [address] Care Team Providers Care Harmonic Analyst Name Role Phone Bam Mclean MD Primary Care Provider [phone] Source Comments [facility],non-owned Affiliates and Associated Physician Practices is amultiple site organization consisting of ambulatory clinics and hospital sitesin [place], [place], [place] and [place]. This disclosure is being madepursuant to the Care Everywhere program and may not contain all information available regarding this patient. 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 [address] Debby Weller MD Discharge Disposition: Home or Self Care 10/12/2024 10:45 AM CDT Office Visit [facility] - Orthopedics [address] [place] [address], [place] [address] Debby Weller MD Sacral insufficiency fracture with routine healing, subsequent encounter (Primary Dx) 10/12/2024 Travel 10/06/2024 Orders Only [facility] - [facility] [address] [place] [address] Debby Weller MD Sacral insufficiency fracture with routine healing, subsequent encounter from Last 3 Months Family History Medical [...] and heating? Not hard at all 02/14/2024 [facility]vin of Occupat ional Health - Occupational Stress [...] any time in the past 12 m [facility], were you homeless or living in a residential (including now)? 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 Gender Identity Not on file Sexual Orientation [...] Care Team (Late st Contact Info) Description 01/25/2025 1:15 PM CDT Office Visit [facility] - Orthopedics [address], [facility] [place] [address] Debby Weller MD [address] [place] [address] Ayleen Mckeon, MANUFACTURING TECHNOLOGY ANALYST-SEAL MIXING OPERATOR [address] [place] [address] Health Maintenance Due Date Last Done Comments [...] as ordered Medical Devices Implanted Type Area Convict Guard Device Identifier Shelf Expiration Date Model / Serial / Lot 7.3mm Cannulated Screw- Fully Threaded 160mm Implanted:Qty: 1 on 02/18/2024 by Debby Weller MD at [facility] Right: Pelvis [employer] 07/28/2031 [id number] / / [id number] Wshr 13mm Orth Ss 6.5/7/7.3mm Yordan Screw Implanted:Qty: 1 on 02/18/2024 by Debby Weller MD at [facility] Right: Pelvis [employer] [id number] / / Explanted Type Area Convict Guard Device Identifier Shelf Expiration Date Model / Serial / Lot Wire K 2mm 350mm 1 End Troc Pnt Thrd Ss Explanted:Qty: 1 on 02/18/2024 by Debby Weller MD at [facility] [employer]vis [employer] 06/21/2031 [id number] / / Wire K 2mm 350mm 1 End Troc Pnt Thrd Ss Explanted:Qty: 1 on 02/18/2024 by Debby Weller MD at [facility] [employer]vis [employer] 11/01/2031 [id number] / / Procedures Procedure Name Priority Date/Time [...] nal Result from Last 3 Months Insurance [facility] Advance Directives * DNR - IF PULSELESS NO CPR, NO SHOCK (Latest Code Status on File) Date Activated Date Inactivated Comments 02/07/2024 9:54 PM 02/21/2024 4:19 PM Question Answer Comments : DO NOT discontinue a ny active orders without asking attending physician. Care Teams Harmonic Analyst Relationship Specialty Start Date End Date Bam Mclean MD [address] [place] [address] PCP - General 09/11/19
[2024-12-29 12:41] LABS: Hematocrit 39.8 % (37.0-47.0); Hemoglobin 12.8 g/dL (12.0-15.0); Mean Corpuscular HGB Conc 32.2 g/dl (32-36); Mean Corpuscular Hemoglobin 30.6 pg (26-34); Mean Corpuscular Volume 95.2 fl (80-100); Platelet Count Result 336 k/mm3 (150-375); Red Blood Count 4.18 M/mm3 (4.2-5.4); White Blood Count 5.4 K/mm3 (4.5-10.0)
[2024-12-29 12:49] LABS: Hemoglobin A1C 5.2 % (<5.7)
[2024-12-29 13:07] LABS: Alanine Aminotransferase 16 U/L (6-35); Albumin Level 4.4 g/dL (3.5-5.1); Alkaline Phosphatase 163 U/L (38-126); Anion Gap 7 mmol/L (4-12); Aspartate Amino Transferase 32 U/L (14-36); Bilirubin,Total 0.8 mg/dL (0.2-1.3); Blood Urea Nitrogen 22 mg/dL (7-17); Calcium 9.9 mg/dL (8.4-10.2); Carbon Dioxide 26 mmol/L (22-30); Chloride 103 mmol/L (98-107); Cholesterol 170 mg/dL (0-200); Estimated Glomerular Filt Rate > 60; Glucose 78 mg/dL (65-110); HDL Direct 103 mg/dL; Potassium 4.0 mmol/L (3.4-5.0); Sodium 136 mmol/L (137-145); Total Protein 7.5 g/dL (6.3-8.2); Triglycerides 68 mg/dL (<150)
[2024-12-29 13:42] LABS: Thyroid Stimulating Hormone 0.381 uIU/mL (0.465-4.680)
== END 2024-12-29 11:49 | disposition home or self-care (01) ==
LOC: ANHLAB 11:50
PROVIDERS: PCP Family Medicine; Visit Provider Nurse Practitioner Family
DX: Z13.9 Encounter for screening, unspecified (principal); E87.6 Hypokalemia; E78.5 Hyperlipidemia, unspecified; Z13.1 Encounter for screening for diabetes mellitus; F32.A Depression, unspecified; E55.9 Vitamin D deficiency, unspecified
CPT/HCPCS: 36415; 80053; 80061; 82306; 83036; 84443; 85027

== ENCOUNTER 2025-03-31 14:37 | Inpatient (IN) | payer OTHER, SELFPAY ==
--- NOTE | ~2025-03-31 | XR_ITS ---
Examination: XR hip RT 2V w AP pelvis Clinical History: hip pain Comparison: MRI pelvis one day prior Technique: 2 views right hip with AP pelvis Findings/impression: 1. No fracture or dislocation right hip. 2. Severe joint space narrowing right hip, with associated degenerative changes. 3. No pelvic fracture identified, with pedicle screw and jessica fixation L4-S1 and SI joint fixation. Reviewed, dictated and finalized at location R. OW SHADE CUTTER
--- NOTE | ~2025-03-31 | MR_ITS ---
EXAMINATION: MR thoracic spine wo/w con, 04/03/2025 15:20 FOOD SERVICE ATTENDANT HISTORY: Pain COMPARISON: None TECHNIQUE: Multi-planar multi-sequence images were obtained of the thoracic spine without contrast per protocol. FINDINGS: There is a remote appearing fracture of T12 with loss of height 50%. No additional fracture or subluxation identified. Marrow signal appears appropriate. Scattered areas of probable typical and atypical subcentimeter hemangioma formation noted. There is no abnormal signal within the posterior elements. Posterior alignment appears intact There is no abnormal signal within the cord Moderate loss of disc height throughout most marked at T11-T12 and T12-L1 There is no severe canal or foraminal stenosis identified Motion artifact limits evaluation of the visualized soft tissues appear unremarkable. Nonspecific patulous appearance noted of the esophagus Nonspecific mild prominence noted of the central canal The contrast-enhanced images demonstrate no gross abnormal enhancement IMPRESSION: 1. Degenerative changes detailed above Reviewed, dictated and finalized at location P. SERVICE ATTENDANT
--- NOTE | ~2025-03-31 | MR_ITS ---
EXAMINATION: MR lumbar spine wo/w con DATE: 04/03/2025 16:23 INDICATION: Low back pain. TECHNIQUE: Magnetic resonance imaging (MRI) of the lumbar spine was performed without and with 13 mL MultiHance intravenous contrast. COMPARISON: Lumbar spine MRI 02/02/2024, CT lumbar spine 03/31/2025 FINDINGS: There is 3 mm retrolisthesis of L1 on L2, L2 on L3, and L3 on L4. There is a chronic burst fracture of T12 with 3/5 loss of height, retropulsion of bone 3 mm into central spinal canal, and focal kyphosis. There are changes of anterior and posterior fusion procedures from L4 to S1 with healed interbody bone graft and pedicle screws. There are changes of arthrodesis of the sacroiliac joints with a long screw. There is mildly decreased disc height at T12-L1 and L1-L2, moderately decreased disc height at L2-L3, and severely decreased disc height at L3-L4. The distal spinal cord signal intensity is normal. The conus medullaris is at L1. The following disc levels are specifically discussed: L1-L2: The disc is bulging. There is mild bilateral facet joint osteoarthritis. There is mild bilateral neural foraminal stenosis. There is mild central canal stenosis. L2-L3: The disc is bulging and has an annular fissure. There is severe bilateral facet joint osteoarthritis. There is mild bilateral neural foraminal stenosis. There is mild central canal stenosis. L3-L4: The disc is bulging and has an annular fissure. There is severe bilateral facet joint osteoarthritis. There is moderate right and mild left neural foraminal stenosis. There is mild central canal stenosis. L4-L5: There is no facet joint hypertrophy. There is no neural foraminal stenosis. There is no central canal stenosis. There is posterior decompression. L5-S1: There is no facet joint hypertrophy. There is no neural foraminal stenosis. There is no central canal stenosis. There is posterior decompression. IMPRESSION: 1. Severe lumbar spondylosis. 2. Anterior and posterior fusion procedures from L4 to S1. Reviewed, dictated and finalized at location E. SETTER
--- NOTE | ~2025-03-31 | MR_ITS ---
EXAMINATION: MR pelvis wo/w con, MR sacrum wo/w con DATE: 04/02/2025 15:01 INDICATION: Right hip pain with difficulty lifting the right leg and walking TECHNIQUE: 1. Magnetic resonance imaging (MRI) of the pelvis was performed without and with 13 mL Multihance intravenous contrast. Sequences included axial, sagittal and coronal T1-weighted FSE and fluid sensitive FSE STIR and postcontrast axial, sagittal and coronal T1-weighted FSE and coronal T2-weighted FS FSE. 2. MRI of the sacrum and coccyx was performed without and with the identical 13 mm MultiHance intravenous contrast bolus. Sequences included sagittal, oblique axial and oblique coronal fluid sensitive FSE STIR, oblique axial and coronal T1-weighted FSE, sagittal T1-weighted FSE, oblique coronal T2-weighted FSE and postcontrast oblique coronal and sagittal T1-weighted FSE and sagittal T1- weighted FS FSE . COMPARISON: None. FINDINGS: Postoperative change of prior L4 and L5 laminectomies. Metallic magnetic field artifact such with bilateral vertical jessica and pedicle screw fixation for a L4-S1 instrumented posterior spinal fusion. There is also solid anterior fusion at L4- S1. L5 is fused to S1 with 6 mm anterolisthesis. There is old healed and a sacral fracture with increased angulation at the level of S1-S2. A large fixation screw extends across the cephalad aspect of the sacrum and bilateral sacroiliac joints. There is severe osteoarthritis at the right hip with prominent subarticular edema-like and cystlike changes at the anterosuperior right acetabulum and superomedial aspect of the right femoral head with moderate-sized marginal osteophytes about the femoral head neck junction. Marrow signal is otherwise normal throughout the pelvis and visualized lumbar spine and proximal femurs with no acute fracture or pathologic marrow replacing process. Mild left hip osteoarthritis. Small left and moderate-sized right hip joint effusions. No asymmetric muscular atrophy in the pelvis or proximal thighs. Visualized portions of the tendons including the bilateral gluteal, iliopsoas and proximal hamstring tendons appear normal. Bladder is normal. The uterus is not identified and has likely been surgically resected. No pathologically en larged pelvic or inguinal lymphadenopathy. IMPRESSION: 1. Severe osteoarthritis at the right hip with likely reactive moderate sized joint effusion. Mild left hip osteoarthritis with small left hip joint effusion. 2. Postoperative changes in the lower lumbar spine including L4 and L5 laminectomies and combined anterior and instrumented posterior spinal fusion at L4-S1. 3. Fixation spanning the upper sacrum and bilateral sacroiliac joints with old healed sacral fracture. Reviewed, dictated and finalized at location A. HER COVERER IMPRESSION: 1. Severe osteoarthritis at the right hip with likely reactive moderate sized j oint effusion. Mild left hip osteoarthritis with small left hip joint effusion. 2. Postoperative changes in the lower lumbar spine including L4 and L5 laminect omies and combined anterior and instrumented posterior spinal fusion at L4-S1. 3. Fixation spanning the upper sacrum and bilateral sacroiliac joints with old healed sacral fracture.
--- NOTE | ~2025-03-31 | CT_ITS ---
EXAMINATION: CT abd pelvis lumbar w con DATE: 03/31/2025 16:09 INDICATION: Hiatal hernia TECHNIQUE: Computed tomography (CT) of the abdomen, pelvis and lumbar spine was performed with 100 mL Omnipaque-350 intravenous contrast. Automated exposure control and iterative reconstruction technique were employed. The dose-length product was 417.77 mGy-cm. COMPARISON: CT studies dated 12/27/2020, 08/21/2024 and 01/30/2024 FINDINGS: Mild discoid atelectasis in the bilateral lower lobes. Tree-in-bud opacities in the basilar left lower lobe consistent with likely infectious or inflammatory bronchiolitis with endobronchial spread of disease. Heart size is normal. No pericardial or pleural effusion. Small sliding-type hiatal hernia. Liver, gallbladder, spleen, pancreas, bilateral adrenal glands and kidneys are normal. Moderate sigmoid diverticulosis without adjacent from trace stranding to suggest diverticulitis. No bowel obstruction. Bladder is normal. The uterus and left ovary are not identified and have likely been surgically resected. Right ovary is unremarkable. No free intraperitoneal gas or fluid. No pathologically enlarged abdominal or pelvic lymphadenopathy. Chronic T12 burst fracture with 60% anterior vertebral body height loss and mild retropulsion resulting in mild central canal stenosis at this level. Moderate lumbar spondylosis. L4 and L5 laminectomies with instrumented L4-S1 posterior spinal fusion with bilateral vertical jessica and pedicle screw fixation. There is also L4-S1 anterior spinal fusion. Large cancellous screw with washer extending from right to left across the bilateral sacroiliac joints. IMPRESSION: 1. No acute intra-abdominal/pelvic process. 2. Small sliding-type hiatal hernia. 3. Moderate sigmoid diverticulosis. 4. Chronic T12 burst fracture unchanged since 02/19. No acute osseous abnormality. 5. Postoperative changes in the lumbar spine including L4 and L5 laminectomies and alignment anterior and instrumented posterior L4-S1 spinal fusion as well as screw fixation across the bilateral sacroiliac joints. Reviewed, dictated and finalized at location A. S TINTER IMPRESSION: 1. No acute intra-abdominal/pelvic process. 2. Small sliding-type hiatal hernia. 3. Moderate sigmoid diverticulosis. 4. Chronic T12 burst fracture unchanged since 02/19. No acute osseous abnormal ity. 5. Postoperative changes in the lumbar spine including L4 and L5 laminectomies and alignment anterior and instrumented posterior L4-S1 spinal fusion as well a s screw fixation across the bilateral sacroiliac joints.
[2025-03-31 14:52] VITALS: BP 165/106; PULSE 73; RESP 16; TEMP 36.4; O2SAT 97
--- NOTE | 2025-03-31 15:03 | ED.GENADULT ---
HPI - General Adult General Chief complaint: Back Pain/Injury Stated complaint: chronic back pain, lump in stomach Time Seen by Provider: 03/31/25 14:49 History of Present Illness HPI narrative: 64-year-old female with a history of a posterior spinal fusion with instrumentation at L4 through S1 following a sacral fracture secondary to fall and 02/19 presents to the ER complaining of low back pain with radiation to the hips and thighs. Also complaining of a large ?bulge? to her upper abdominal area. Pain to her abdomen is worse with palpation. Endorses nausea, occasional vomiting the past week. States she has noticed the abdominal bulge for 2-3 weeks. Patient is reporting pain radiating into her left inguinal area. Unable to stand or ambulate due to the pain. Denies saddle anesthesia, bowel or bladder dysfunction or fevers. Related Data Home Medications ?Medication ?Instructions ?Recorded ?Confirmed ?Last Taken ?Type acetaminophen 650 mg 650 mg PO BID PRN Pain (Scale 09/08/20 02/26/25 04/11/23 History tablet,extended release (Arthritis Score 1-3) Pain Relief (acetaminophen) ER) buspirone 7.5 mg tablet 7.5 mg PO BID 09/08/20 02/26/25 11/21/24 History hydrocodone 5 mg-acetaminophen 325 1 tablet PO QID 01/31/24 02/26/25 11/21/24 History mg tablet sertraline 100 mg tablet 100 mg PO DAILY 01/31/24 02/26/25 11/21/24 History atorvastatin 20 mg tablet (Lipitor) 20 mg PO DAILY 07/27/24 02/26/25 11/21/24 History famotidine 20 mg tablet (Pepcid) 20 mg PO DAILY 12/23/24 02/26/25 Unknown History hydroxyzine HCl 50 mg tablet 50 mg PO DAILY 12/23/24 02/26/25 Unknown History meloxicam 7.5 mg tablet 7.5 mg PO DAILY 12/23/24 02/26/25 Unknown History ascorbic acid (vitamin C) 1,000 mg 1,000 mg PO DAILY 02/26/25 02/26/25 Unknown History capsule calcium 600 mg-D3 20 mcg-magnesium tablet PO PRN 02/26/25 02/26/25 Unknown History 50 mg-copper 1 [id number] tablet cholecalciferol (vitamin D3) 125 125 mcg PO DAILY 02/26/25 02/26/25 Unknown History mcg (5,000 unit) capsule folic acid 0.8 mg capsule 0.8 mg PO DAILY 02/26/25 02/26/25 Unknown History pantoprazole 40 mg tablet,delayed 40 mg PO DAILY 02/26/25 02/26/25 Unknown History release thiamine HCl (vitamin B1) 250 mg 250 mg PO DAILY 02/26/25 02/26/25 Unknown History tablet Allergies Allergy/AdvReac Type Severity Reaction Status Date / Time grapefruit Allergy Severe angioedema Verified 03/31/25 15:27 Penicillins Allergy Mild Unknown Verified 03/31/25 15:27 Sulfa (Sulfonamide Allergy Mild Unknown Verified 03/31/25 15:27 Antibiotics) fluoxetine (From Prozac) AdvReac Severe Agitated Verified 03/31/25 15:27 Review of Systems Review of Systems: All systems reviewed & are unremarkable except as noted in HPI and below PMFSH Past Medical History Medical History Swelling of left upper extremity Headache Atrial septal defect Mass of left cardiac ventricle Lumbosacral radiculopathy at S1 GERD without esophagitis Anxiety and depression History of alcoholism History of smoking COPD (chronic obstructive pulmonary disease) Seizures (Unknown) Perforated gastric ulcer (~12/27/20) Surgical History Surgical History History of gastric ulcer Exploratory laparotomy with over-sewing of antral gastric ulcer and placement of omental patch, biopsy of antral gastric ulcer, peritoneal washout - 12/28/2020 H/O lumbosacral spine surgery History of appendectomy Hx of tracheostomy Family History Family History Mother Heart disease Cerebrovascular accident Father Heart disease Other Unknown family medical history Social History Social History Social History: The patient stated that she had 5 children and 1 at . The patient is and she is considered disabled. The patient stated that she is 16 years clean with alcohol and she is recovering alcoholic. The patient stated that she smoked many years ago and no longer smokes. The patient is listed as a full code. And she stated that she does not want any CPR if she has spinal surgery. The patient desires to be a DNR. The patient does not have a durable power health care attorney for healthcare. Smoking packs per day: 1 Smoking cigarettes per day: 20.0 Years smoked: 41 Smoking pack-years: 41.00 Smoking status: Former smoker Tobacco type: cigarettes Smoking end date: 04/29/19 Alcohol intake: former Alcohol use details: RECOVERING , NONE 16 YRS Substance use: current Substance use type: marijuana Other substance usage details: occasional marijuana use Last use: 08/27/24 Lack of Transportation: No Lack of Food: Never True Current Housing: I Have Housing Concerned About Future Housing: No Difficulty Paying Gas/Electric Bills: No Difficulty Paying for Meds: No Currently Unemployed: No Education: Grade School Difficulty w/ Childcare or Family Care: No Living arrangements: with family Additional living arrangements comments: LIVES WITH DAUGHTER JOJO Occupation/Education: retired Gender identity (if verbalized by the patient): Female Sexual Orientation (if Verbalized by the Patient): Straight or Heterosexual Spiritual care concerns: No Agree to blood products: Yes Exam Const: General: alert Other: Chronically ill-appearing Resp: Effort & Inspection: normal respiratory effort Auscultation: clear to auscultation bilaterally Cardio: Rate: regular rate Rhythm: regular rhythm GI: Other: Hiatal hernia noted Back/Spine/Pelvis: Other: TTP over the lumbar spine and bilateral SI joints Skin: General skin exam: normal color Neuro: General: patient oriented x3 and moves all extremities Speech: normal speech Extrem: General: normal to inspection and no clubbing, cyanosis or edema Psych: Mental Status: mental status grossly normal Affect: normal affect Attitude: cooperative Course Vital Signs Vital signs: Vital Signs Temperature 36.4 C 03/31/25 14:52 Pulse Rate 73 03/31/25 14:52 Respiratory Rate 16 03/31/25 14:52 Blood Pressure 165/106 H 03/31/25 14:52 Pulse Oximetry 97 03/31/25 14:52 Oxygen Delivery Room Air 03/31/25 14:52 Temperature 36.4 C 03/31/25 14:52 Pulse Rate 73 03/31/25 14:52 Respiratory Rate 18 03/31/25 16:31 Blood Pressure 119/63 03/31/25 16:31 Pulse Oximetry 94 03/31/25 16:31 Oxygen Delivery Room Air 03/31/25 14:52 [facility] MDM Narrative Medical decision making narrative: In summary: 64-year-old female history of chronic back pain with instrumentation from a previous lumbar fracture presented to ER with worsening low back pain. Patient was taking [place] as needed with no improvement. CT of L-spine showed no acute abnormalities. Patient was also complaining of a ?bulge? to her upper abdomen. CT abdomen shows small sliding hiatal hernia without strangulation. Offered patient admission versus his discharge home, patient requested to be admitted for pain management. Differential Diagnosis Differential Diagnosis: Lumbar fracture, hardware malfunction, lumbar strain, chronic back pain, spinal stenosis Lab Data 03/31/25 15:10 03/31/25 15:10 Labs: Lab Results 03/31/25 Range/Units 15:10 WBC 7.9 (4.5-10.0) K/mm3 RBC 4.37 (4.2-5.4) M/mm3 Hgb 13.5 (12.0-15.0) g/dL Hct 41.2 (37.0-47.0) % MCV 94.3 (80-100) fl MCH 30.9 (26-34) pg MCHC 32.8 (32-36) g/dl RDW 12.4 (11.5-14.5) % Plt Count 369 (150-375) k/mm3 MPV 8.8 (7.4-10.4) fl Immature Gran % (Auto) 0.3 (0-0.5) % Neut % (Auto) 63.7 (45.5-73.1) % Lymph % (Auto) 25.5 (18.3-44.2) % Mclean % (Auto) 6.0 (2.6-8.5) % Eos % (Auto) 3.7 (0-4.4) % Baso % (Auto) 0.8 (0.2-1.2) % Lymph # (Auto) 2.01 (0.9-3.2) K/mm3 Mclean # (Auto) 0.5 (0.1-0.6) K/mm3 Eos # (Auto) 0.3 (0-0.3) K/mm3 Baso # (Auto) 0.1 (0.0-0.1) K/mm3 Abs Immat Gran (auto) 0.02 (0.00-0.031) K/mm3 Absolute Neuts (auto) 5.0 (1.3-6.7) K/mm3 Absolute Nucleated RBC 0.000 (0.0-0.012) K/mm3 Nucleated RBC % 0.0 (0.0-0.2) % Sodium 137 (137-145) mmol/L Potassium 3.8 (3.4-5.0) mmol/L Chloride 103 (98-107) mmol/L Carbon Dioxide 29 (22-30) mmol/L Anion Gap 5 (4-12) mmol/L BUN 21 H (7-17) mg/dL Creatinine 0.82 (0.7-1.0) mg/dL Estim Creat Clear Calc 50 ml/min Estimated GFR > 60 (59 - ) Glucose 93 (65-110) mg/dL Calcium 10.1 (8.4-10.2) mg/dL Total Bilirubin 0.9 (0.2-1.3) mg/dL AST 33 (14-36) U/L ALT 18 (6-35) U/L Alkaline Phosphatase 147 H (38-126) U/L Total Protein 8.1 (6.3-8.2) g/dL Albumin 4.8 (3.5-5.1) g/dL Lipase 88 (23-300) U/L Urine Color Yellow (Yellow) Urine Appearance Clear (Clear) Urine pH 5.5 (5.0-9.0) Ur Specific [place] 1.008 (1.001-1.035) Urine Protein Negative (Negative) mg/dL Urine Glucose (UA) Negative (Negative) mg/dL Urine Ketones Negative (Negative) mg/dL Ur Blood (Man) Negative (Negative) Urine Nitrate Negative (Negative) Urine Bilirubin Negative (Negative) Urine Urobilinogen 0.2 (<2.0) mg/dL Leukocyte Esterase Rfl Negative (Negative) RICCI/UL Imaging Data Radiologist's impression: ITS Impressions Miscellaneous CT Procedure 03/31/25 16:53 IMPRESSION: 1. No acute intra-abdominal/pelvic process. 2. Small sliding-type hiatal hernia. 3. Moderate sigmoid diverticulosis. 4. Chronic T12 burst fracture unchanged since 02/19. No acute osseous abnormality. 5. Postoperative changes in the lumbar spine including L4 and L5 laminectomies and alignment anterior and instrumented posterior L4-S1 spinal fusion as well as screw fixation across the bilateral sacroiliac joints. Discharge Plan Discharge Clinical Impression: Intractable low back pain, Hernia, hiatal Patient Disposition: Still a Patient Condition: Stable Patient Language: [place] Prescriptions: No Action buspirone 7.5 mg tablet 7.5 mg PO BID acetaminophen [Arthritis Pain Relief (acetam)] 650 mg tablet extended release 650 mg PO BID PRN (Reason: Pain (Scale Score 1-3)) lamotrigine 200 mg tablet 200 mg PO BID Qty: 180 4RF hydroxyzine HCl 50 mg tablet 50 mg PO DAILY meloxicam 7.5 mg tablet 7.5 mg PO DAILY famotidine [Pepcid] 20 mg tablet 20 mg PO DAILY pantoprazole 40 mg tablet,delayed release (DR/EC) 40 mg PO DAILY thiamine HCl (vitamin B1) 250 mg tablet 250 mg PO DAILY cholecalciferol (vitamin D3) 125 mcg (5,000 unit) capsule 125 mcg PO DAILY folic acid 0.8 mg capsule 0.8 mg PO DAILY ascorbic acid (vitamin C) 1,000 mg capsule 1,000 mg PO DAILY Ca carb-D3-mag [id number]-Zn 600 mg-20 mcg- 50 mg-1 mg tablet PO PRN atorvastatin [Lipitor] 20 mg tablet 20 mg PO DAILY hydrocodone-acetaminophen 5-325 mg tablet 1 tablet PO QID Patient Comments: QID UBALDO not PRN per pt sertraline 100 mg tablet 100 mg PO DAILY albuterol sulfate 90 mcg/actuation HFA aerosol inhaler 1 inh inhalation QID PRN (Reason: shortness of breath or wheezing) Qty: 6.7 0RF meclizine 12.5 mg Tablet 12.5 mg PO TID PRN (Reason: Dizziness) Qty: 10 0RF fluticasone propionate 50 mcg/actuation Robinson,Suspension 1 spray intranasal Q12HR Qty: 1 0RF gabapentin 300 mg capsule 300 mg PO BID Qty: 60 5RF Rx Instructions: may start with 1 capsule at bedtime increase to 1 twice a day after 1 or 2 weeks Follow-up/Referrals: Chandler Benton MD [Primary Care Provider, Family Practice] Time of Disposition: 17:23
[2025-03-31 15:18] LABS: Add Urine Microscopic? NO; Appearance Urine Clear (Clear); Glucose Urine UA Negative (Negative); Hematocrit 41.2 % (37.0-47.0); Hemoglobin 13.5 g/dL (12.0-15.0); Immature Granulocyte Percent A 0.3 % (0-0.5); Leukocyte Esterase Ur Negative LEU/UL (Negative); Lymphocytes Absolute Auto 2.01 K/mm3 (0.9-3.2); Mean Corpuscular HGB Conc 32.8 g/dl (32-36); Mean Corpuscular Hemoglobin 30.9 pg (26-34); Mean Corpuscular Volume 94.3 fl (80-100); Nitrate Urine Negative (Negative); Nucleated Red Blood Cells Absolute Auto 0.000 K/mm3 (0.0-0.012); Nucleated Red Blood Cells Perc 0.0 % (0.0-0.2); Platelet Count Result 369 k/mm3 (150-375); Red Blood Count 4.37 M/mm3 (4.2-5.4); Specific Grav Ur 1.008 (1.001-1.035); White Blood Count 7.9 K/mm3 (4.5-10.0)
[2025-03-31] MEDS: MORPHINE SULFATE (*CRX) 4 MG/ML INJ IV PUSH (15:23)
[2025-03-31] MEDS: ONDANSETRON INJ 4 MG/2 ML VIAL IV PUSH ×2 (15:23→17:49)
[2025-03-31 15:30] LABS: Alanine Aminotransferase 18 U/L (6-35); Albumin Level 4.8 g/dL (3.5-5.1); Alkaline Phosphatase 147 U/L (38-126); Anion Gap 5 mmol/L (4-12); Aspartate Amino Transferase 33 U/L (14-36); Bilirubin,Total 0.9 mg/dL (0.2-1.3); Blood Urea Nitrogen 21 mg/dL (7-17); Calcium 10.1 mg/dL (8.4-10.2); Carbon Dioxide 29 mmol/L (22-30); Chloride 103 mmol/L (98-107); Estimated CRCL calculation 50 ml/min; Estimated Glomerular Filt Rate > 60; Glucose 93 mg/dL (65-110); Lipase 88 U/L (23-300); Potassium 3.8 mmol/L (3.4-5.0); Sodium 137 mmol/L (137-145); Total Protein 8.1 g/dL (6.3-8.2)
--- OUTSIDE RECORDS SUMMARY | 2025-03-31 16:01 | XMS_ITS | Clinical Summary ---
Author Organization [facility] Address [address] [place] [address] Care Team Providers Care Cost Specialist Name Role Phone Bam Mclean MD Primary Care Provider [phone] Source Comments [facility],non-owned Affiliates and Associated Physician Practices is amultiple site organization consisting of ambulatory clinics and hospital sitesin [place], [place], [place] and [place]. This disclosure is being madepursuant to the Care Everywhere program and may not contain all information available regarding this patient. Last updated 18.[facility] Allergies Active Allergy Reactions Criticality Noted Date [...] 30 tablet 3 10/13/19 Active HYDROcodone-aceta minophen ([place]) 5-325 MG tablet Take 1 (one) tablet [...] Encounters Date Type Department Care Team Description 01/21/2025 Telephone [facility] [address], [place] [address] [place] Appointment (Patient called to Cancel appointment) from Last 3 Months Family History Medical [...] and heating? Not hard at all 02/14/2024 [facility] [place] of Occupat ional Health - Occupational Stress [...] any time in the past 12 m onths, were you homeless or living in a assisted (including now)? 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 Gender Identity Not on file Sexual Orientation [...] 10/16/2024 10:55 AM CDT Plan of Treatment Health Maintenance Due [...] 50+ (1 of 1 - PCV) 2008 Respiratory Syncytial Virus (RSV) Vaccine Pt: or over 60 yrs (1 - Risk 50-74 years 1-dose series) 2008 ZOSTER VACCINE (1 of 2) 2008 DEPRESSION SCREENING 04/29/2024 COVID-19 VACCINE (1 - 2024-2 6 season) 2024 INFLUENZA VACCINE (#1) 2024 HEPATITIS B VACCINE [...] as ordered Medical Devices Implanted Type Area Deputy Bailiff Device Identifier Shelf Expiration Date Model / Serial / Lot 7.3mm Cannulated Screw- Fully Threaded 160mm Implanted:Qty: 1 on 02/18/2024 by Debby Weller MD at [facility] Right: Pelvis [employer] 07/28/2031 [id number] / / [id number] Wshr 13mm Orth Ss 6.5/7/7.3mm Yordan Screw Implanted:Qty: 1 on 02/18/2024 by Debby Weller MD at [facility] Right: Pelvis [employer] [id number] / / Explanted Type Area Deputy Bailiff Device Identifier Shelf Expiration Date Model / Serial / Lot Wire K 2mm 350mm 1 End Troc Pnt Thrd Ss Explanted:Qty: 1 on 02/18/2024 by Debby Weller MD at [facility] Pelvis [employer] 06/21/2031 [id number] / / Wire K 2mm 350mm 1 End Troc Pnt Thrd Ss Explanted:Qty: 1 on 02/18/2024 by Debby Weller MD at [facility] Pelvis [employer] 11/01/2031 [id number] / / Insurance [facility] Advance Directives * DNR - IF PULSELESS NO CPR, NO SHOCK (Latest Code Status on File) Date Activated Date Inactivated Comments 02/07/2024 9:54 PM 02/21/2024 4:19 PM Question Answer Comments : DO NOT discontinue a ny active orders without asking attending physician. Care Teams Cost Specialist Relationship Specialty Start Date End Date Bam Mclean MD [address] [place] [id number] PCP - General 09/11/19
[2025-03-31 16:31] VITALS: BP 119/63; RESP 18; O2SAT 94
--- OUTSIDE RECORDS SUMMARY | 2025-03-31 16:50 | XMS_ITS | Clinical Summary ---
Author Organization [facility] Address [address] [place] [address] Care Team Providers Care Regional Engineer Name Role Phone Bam Mclean MD Primary Care Provider [phone] [facility],non-owned Affiliates and Associated Physician Practices is amultiple site organization consisting of ambulatory clinics and hospital sitesin [place], [place], [place] and [place]. This disclosure is being madepursuant to the Care Everywhere program and may not contain all information available regarding this patient. Last updated 18.[facility] Allergies Active Allergy Reactions Criticality Noted Date [...] 30 tablet 3 10/13/19 Active HYDROcodone-aceta minophen ([place]) 5-325 MG tablet Take 1 (one) tablet [...] Telephone [facility] [address], [place] [address] [place] Appointment (Patient called [...] and heating? 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 Gender Identity Not on file Sexual Orientation [...] as ordered Medical Devices Implanted Type Area Senior Client Advisor Device Identifier Shelf Expiration Date Model / Serial / Lot 7.3mm Cannulated Screw- Fully Threaded 160mm Implanted:Qty: 1 on 02/18/2024 by Debby Weller MD at [facility] Right: Pelvis [employer] 07/28/2031 [id number] / / [id number] Wshr 13mm Orth Ss 6.5/7/7.3mm Yordan Screw Implanted:Qty: 1 on 02/18/2024 by Debby Weller MD at [facility] Right: Pelvis [employer] [id number] / / Explanted Type Area Senior Client Advisor Device Identifier Shelf Expiration Date Model / Serial / Lot Wire K 2mm 350mm 1 End Troc Pnt Thrd Ss Explanted:Qty: 1 on 02/18/2024 by Debby Weller MD at [facility] Pelvis [employer] 06/21/2031 [id number] / / Wire K 2mm 350mm 1 End Troc Pnt Thrd Ss Explanted:Qty: 1 on 02/18/2024 by Debby Weller MD at [facility] Pelvis [employer] 11/01/2031 [id number] / / Insurance [facility] Advance Directives * DNR - IF PULSELESS NO CPR, NO SHOCK (Latest Code Status on File) Date Activated Date Inactivated Comments 02/07/2024 9:54 PM 02/21/2024 4:19 PM Question Answer Comments : DO NOT discontinue a ny active orders without asking attending physician. Care Teams Regional Engineer Relationship Specialty Start Date End Date Bam Mclean MD [address] [place] [id number] PCP - General 09/11/19
[2025-03-31 17:16] VITALS: BP 136/69; PULSE 74; RESP 16; O2SAT 98
[2025-03-31] MEDS: MORPHINE SULFATE (*CRX) 4 MG/ML INJ 2 MG IV PUSH (17:50)
[2025-03-31] MEDS: SODIUM CHLORIDE 0.9% IV 1,000 ML 125 ML IV CONT (17:52)
[2025-03-31 18:01] VITALS: BP 123/58; PULSE 80; RESP 20; O2SAT 92
--- NOTE | 2025-03-31 18:24 | WPCEDHO ---
ED Hand Off Checklist All vitals saved:YES IV Site documented:YES All med administrations documented:YES Triage Note Triage Note Pt arrives to the ED from PCP's 03/31/25 14:52 office c/o hip pain as well as abdominal pain. Pt reports pain in both hips that radiates to her lower back and legs. Pt reports that this has been going on for a couple of weeks, however it worsened this morning. Pt has a screw that goes from hip to hip that was placed about a year ago. Pt also reports that she is having abdominal pain that is new for the past 2 weeks. PCP thinks that it is a hiatal hernia. Pain on palpation of the abdomen. Pt also reports a few bouts of vomiting when she wakes up in the morning for the past 2 weeks. PMH chronic back pain, hip surgery, as well as ulcer surgery . Allergies grapefruit Allergy (Severe, Verified 03/31/25 15:27) angioedema Penicillins Allergy (Mild, Verified 03/31/25 15:27) Unknown Sulfa (Sulfonamide Antibiotics) Allergy (Mild, Verified 03/31/25 15:27) Unknown fluoxetine (From Prozac) Adverse Reaction (Severe, Verified 03/31/25 15:27) Agitated Family History (Last Reviewed 03/31/25 @ 15:07 by Brad Conde, GLEN) Mother Heart disease Cerebrovascular accident Father Heart disease Other Unknown family medical history Active Medications including assessments/comments Sodium Chloride (Normal Saline Iv) 1,000 mls @ 125 mls/hr IV CONT .Q8H UBADLO Last Admin: 03/31/25 17:52 Dose: 125 mls/hr Documented By: LENNY Infusion/Titration Document 03/31/25 17:52 LENNY (Rec: 03/31/25 17:52 LENNY [id number]) Intake IV Site Peripheral Access Right Forearm Container Volume 1,000 Waste Amount 0 Dosing Infusion Rate 125 Cumulative Dose Not Applicable Increase/Decrease Started Elapsed Time Elapsed Time ( 0m minutes) Ondansetron HCl (Ondansetron Inj 4 Mg/2 Ml Vial) 4 mg IV PUSH Q4H PRN PRN Reason: Nausea Last Admin: 03/31/25 17:49 Dose: 4 mg Documented By: LENNY Administered/Completed Medications Discontinued Medications Morphine Sulfate (Morphine Sulfate (*Crx) 4 Mg/Ml Inj) 4 mg IV PUSH ONCE STA Stop: 03/31/25 15:00 Last Admin: 03/31/25 15:23 Dose: 4 mg Documented By: LENNY Morphine Sulfate (Morphine Sulfate (*Crx) 4 Mg/Ml Inj) 2 mg IV PUSH ONCE ONE Stop: 03/31/25 17:18 Last Admin: 03/31/25 17:50 Dose: 2 mg Documented By: LENNY Ondansetron HCl (Ondansetron Inj 4 Mg/2 Ml Vial) 4 mg IV PUSH ONCE STA Stop: 03/31/25 15:00 Last Admin: 03/31/25 15:23 Dose: 4 mg Documented By: LENNY Interventions/Assessments IV / Saline Lock, Insert Start: 03/31/25 14:38 Freq: Status: Active Protocol: Document 03/31/25 15:13 LENNY (Rec: 03/31/25 15:13 LENNY [id number]) IV Assessment Peripheral Access Right Forearm IV Catheter Access Initiated IV Insertion Date 03/31/25 IV Insertion Time 15:13 Catheter Gauge 20 IV Insertion 1 Attempts Ultrasound Used for No Placement IV Site Assessment WNL IV Care and WNL Maintenance PA: Musculoskeletal Assessment Start: 03/31/25 14:38 Freq: Status: Active Protocol: Document 03/31/25 15:13 LENNY (Rec: 03/31/25 15:13 LENNY [id number]) Musculoskeletal Assessment Bilateral Hip(s) Musculoskeletal Joint Pain,Joint Pain With Movement Symptoms Able to Dorsiflex Yes Able to Plantar Flex Yes Strength Strong Last Vital Signs Temperature 97.6 F 03/31/25 14:52 Pulse Rate 80 03/31/25 18:01 Respiratory Rate 20 03/31/25 18:01 Pulse Oximetry 92 03/31/25 18:01 Blood Pressure 123/58 L 03/31/25 18:01 Blood Pressure Mean 78 03/31/25 18:01 Blood Pressure Position Sitting 03/31/25 14:52 Oxygen Delivery Room Air 03/31/25 14:52 Weight 65.9 kg 03/31/25 14:52 Last Result - Abnormals Only BUN 21 mg/dL (7-17) H 03/31/25 15:10 Alkaline Phosphatase 147 U/L (38-126) H 03/31/25 15:10 Most Recent Suicide Severity Rating Suicide Severity Rating NO RISK INDICATED 03/31/25 14:52
--- NOTE | 2025-03-31 18:41 | PC.NURSE ---
Per pt. request, this RN phoned pt. friend Cece and notified her of visiting hours, pt. room number on the floor and how to get there.
[2025-03-31 19:05] VITALS: BP 131/86; PULSE 76; RESP 18; TEMP 36.3; O2SAT 98
[2025-03-31 19:18] VITALS: BMI 29.6
--- NOTE | 2025-03-31 19:18 | ADMGEN ---
This patient, Gina Gonzalez, was admitted to Medical Room 246-01. Patient/family oriented to hospital policies and general routines including ID bracelet, bed and alarms, visiting hours, pain management, procedures, bathroom and other care routines, personal items, smoking policy, room service/diet, and visiting hours. Information on how to activate the Rapid Response Team has been discussed. Patient/Family are encouraged to report perceived risks to care and to ask questions if they do not understand what they are told or what they should do.
--- NOTE | 2025-03-31 19:47 | P.HP_ITS ---
H&P: HPI History of Present Illness Date/Time: 03/31/25 19:47 Chief Complaint: Intractable pain Narrative: 64-year-old female history of GERD, anxiety, seizures and COPD and L4 through S1 spinal fusion on 02/19/2025 presents the hospital with intractable back pain. Patient also complains of abdominal pain and cramping. She states that due to her back pain and the abdominal pain she has not been doing much lately. At home she has been taking [place] for the pain however has not been helping. Patient does complain of fullness and some nausea. She denies fevers chills or shortness of breath BNP, CBC within normal limits, UA without infection. CT shows moderate sigmoid diverticulosis, chronic burst fracture of T12, no acute abdominal process. And atelectasis. Upon my review of the CT the patient is full of stool. Which is likely causing her abdominal pain Review of Systems Review of Systems: 12 systems were reviewed and are negativ e except for as per HPI. PMFSH Past Medical History Medical History Swelling of left upper extremity Headache Atrial septal defect Mass of left cardiac ventricle Lumbosacral radiculopathy at S1 GERD without esophagitis Anxiety and depression History of alcoholism History of smoking COPD (chronic obstructive pulmonary disease) Seizures (Unknown) Perforated gastric ulcer (~12/27/20) Surgical History Surgical History History of gastric ulcer Exploratory laparotomy with over-sewing of antral gastric ulcer and placement of omental patch, biopsy of antral gastric ulcer, peritoneal washout - 12/28/2020 H/O lumbosacral spine surgery History of appendectomy Hx of tracheostomy Family History Family History Mother Heart disease Cerebrovascular accident Father Heart disease Other Unknown family medical history Social History Social History Social History: The patient stated that she had 5 children and 1 at . The patient is and she is considered disabled. The patient stated that she is 16 years clean with alcohol and she is recovering alcoholic. The patient stated that she smoked many years ago and no longer smokes. The patient is listed as a full code. And she stated that she does not want any CPR if she has spinal surgery. The patient desires to be a DNR. The patient does not have a durable power home care consultant for healthcare. Smoking packs per day: 1 Smoking cigarettes per day: 20.0 Years smoked: 41 Smoking pack-years: 41.00 Smoking status: Never smoker Tobacco type: cigarettes Smoking end date: 04/29/19 Alcohol intake: former Alcohol use details: RECOVERING , NONE 16 YRS Substance use: former Substance use type: marijuana Other substance usage details: occasional marijuana use Last use: 08/27/24 Lack of Transportation: No Lack of Food: Never True Current Housing: I Have Housing Concerned About Future Housing: No Difficulty Paying Gas/Electric Bills: No Difficulty Paying for Meds: No Currently Unemployed: No Education: Grade School Difficulty w/ Childcare or Family Care: No Living arrangements: with family Additional living arrangements comments: LIVES WITH DAUGHTER JOJO Occupation/Education: retired Gender identity (if verbalized by the patient): Female Sexual Orientation (if Verbalized by the Patient): Straight or Heterosexual Spiritual care concerns: No Agree to blood products: Yes Meds Home Medications and Allergies Home Medications ?Medication ?Instructions ?Recorded ?Confirmed ?Type acetaminophen 650 mg 650 mg PO BID PRN Pain (Scal e 09/08/20 03/31/25 History tablet,extended release (Arthritis Score 1-3) Pain Relief (acetaminophen) ER) buspirone 7.5 mg tablet 7.5 mg PO BID 09/08/2003/31 History albuterol sulfate 90 mcg/actuation 1 inh inhalation QI D PRN shortness 01/02/21 03/31/25 Rx aerosol inhaler of breath or wheezing #6.7 g belkis hydrocodone 5 mg-acetaminophen 325 1 tablet PO QID 08/2003/31/25 History mg tablet sertraline 100 mg tablet 100 mg PO DAILY 01/31/2407/21 History lamotrigine 200 mg tablet 200 mg PO BID #180 tabs 06/2703/31/25 Rx fluticasone propionate 50 1 spray intranasal Q12HR #1 g 11/25/24 03/31/25 Rx mcg/actuation nasal spray,suspension hydroxyzine HCl 50 mg tablet 50 mg PO TID 12/23/2407/21 History meloxicam 7.5 mg tablet 7.5 mg PO BID 12/23/2403/31 History ascorbic acid (vitamin C) 1,000 mg 1,000 mg PO DAILY 03/31/25 History capsule calcium 600 mg-D3 20 mcg-magnesium 1 tablet PO DAILY 1 03/31/25 History 50 mg-copper 1 [id number] tablet cholecalciferol (vitamin D3) 125 125 mcg PO DAILY 01/2903/31/25 History mcg (5,000 unit) capsule folic acid 0.8 mg capsule 0.8 mg PO DAILY 02/26/2507/21 History pantoprazole 40 mg tablet,delayed 40 mg PO DAILY 02/2603/31/25 History release thiamine HCl (vitamin B1) 250 mg 250 mg PO DAILY 02/2603/31/25 History tablet gabapentin 300 mg capsule 300 mg PO BID #60 caps 03/0803/31/25 Rx atorvastatin 40 mg tablet 40 mg PO DAILY 03/31/2507/21 History sertraline 100 mg tablet (Zoloft) 100 mg PO DAILY 07/2103/31/25 History Allergies Allergy/AdvReac Type Severity Reaction Status Date / Time grapefruit Allergy Severe angioedema Verified 03/31/25 20:16 Penicillins Allergy Mild Unknown Verified 03/31/25 20:16 Sulfa (Sulfonamide Allergy Mild Unknown Verified 03/31/25 20:16 Antibiotics) fluoxetine (From Proza) AdvReac Severe Agitated Verified 03/31/25 20:16 Vital Signs Vital Signs - 24 hr 03/31/25 14:52 03/31/25 16:31 03/31/25 17:16 Temperature 97.6 F Pulse Rate 73 74 Respiratory Rate 16 18 16 Blood Pressure 165/106 H 119/63 136/69 Pulse Oximetry 97 94 98 Oxygen Delivery Room Air 03/31/25 18:01 Temperature Pulse Rate 80 Respiratory Rate 20 Blood Pressure 123/58 L Pulse Oximetry 92 Oxygen Delivery Exam Narrative: General: well appearing, appears stated age. HEENT: normocephalic, atraumatic. Mucous membranes moist. EOMI, PERRLA, bilateral sclera anicteric, no conjunctival injection. Neck supple without JVD, lymphadenopathy, or bruit. Respiratory: clear bilaterally. No rales/rhonic/wheezes. Cardiovascular: Regular rate and rhythm, normal S1-S2. No murmurs, rubs, or clicks. PMI is nondisplaced, capillary refill less than 3 second. Abdomen: Firm, round, no pulsatile masses, nondistended . No rebound, no guarding. Bowel sounds present to all four quadrants. No high pitch or tinkling sounds, resonant to percussion. Upper abdominal tenderness however not at her hernia site hernia is soft and reducible Extremities: No cyanosis, clubbing, or edema present. Pulses are palpable 2/2. Active ROM to all four extremities. Neuro: Alert and orientated x 4. PERRLA. Cranial nerves 2-12 intact without focal deficit. Skin: Warm, dry, and intact, without rash, erythema, or lesion. Psych: pleasant, cooperative, normal speech, normal affect, no hallucinations, no dysarthia Results Labs Labs: Short CBC 03/31/25 Range/Units 15:10 WBC 7.9 (4.5-10.0) K/mm3 Hgb 13.5 (12.0-15.0) g/dL Hct 41.2 (37.0-47.0) % Plt Count 369 (150-375) k/mm3 BMP 03/31/25 15:10 Sodium 137 Potassium 3.8 Chloride 103 Carbon Dioxide 29 BUN 21 H Creatinine 0.82 Glucose 93 Calcium 10.1 Liver Function 03/31/25 Range/Units 15:10 Total Bilirubin 0.9 (0.2-1.3) mg/dL AST 33 (14-36) U/L ALT 18 (6-35) U/L Alkaline Phosphatase 147 H (38-126) U/L Albumin 4.8 (3.5-5.1) g/dL Urine 03/31/25 Range/Units 15:10 Urine Color Yellow (Yellow) Urine Appearance Clear (Clear) Urine pH 5.5 (5.0-9.0) Ur Specific [place] 1.008 (1.001-1.035) Urine Protein Negative (Negative) mg/dL Urine Glucose (UA) Negative (Negative) mg/dL Quality VTE Prophylaxis VTE prophylaxis: mechanical ordered and pharmacologic ordered Assessment and Plan Assessment and plan (1) Intractable low back pain: Code(s): M54.59 - Other low back pain Status: Acute Assessment and Plan: Schedule Tylenol, Toradol and Flexeril Lidocaine patch P.r.n. and oxycodone and morphine PT OT eval and treat (2) Constipation: Code(s): K59.00 - Constipation, unspecified Status: Acute Assessment and Plan: Patient has a large stool burden on CT, likely due to narcotic use Lactulose x1 Senna nightly Patient should be sent home on a bowel protocol (3) Anxiety and depression: Code(s): F41.9 - Anxiety disorder, unspecified; F32.9 - Major depressive disorder, single episode, unspecified Status: Chronic Assessment and Plan: Continue Zoloft, lamotrigine, Atarax, BusPar, (4) COPD (chronic obstructive pulmonary disease): Qualifiers: COPD type: unspecified COPD Qualified Code(s): J44.9 - Chronic obstructive pulmonary disease, unspecified Code(s): J44.9 - Chronic obstructive pulmonary disease, unspecified Status: Chronic Assessment and Plan: Continue home inhalers Time Spent with Patient Time with patient: less than 45 minutes Hospitalist MIPS Advance Care Plan I have confirmed that the patient's Advanced Care Plan is present, code status is documented, or surrogate decision maker is listed in patient medical record.: Yes Medication Reconciliation I have utilized all available resources to obtain, update and review the patients current medications (includes all prescriptions, OTC, herbals, cannabis, and nutritional supplements).: Yes
[2025-03-31] MEDS: CYCLOBENZAPRINE HCL 10 MG TABLET PO (20:13)
[2025-03-31] MEDS: SENNA/DOCUSATE SODIUM TABLET 1 TAB PO (20:26)
[2025-03-31] MEDS: ACETAMINOPHEN 325 MG TABLET 650 MG PO (20:26)
[2025-03-31] MEDS: KETOROLAC 15 MG/ML VIAL (*BKC) IV PUSH (20:26)
[2025-04-01] VITALS (7 sets, daily range): BP systolic 112–123; BP diastolic 51–65; PULSE 65–68; RESP 16–20; TEMP 36.1–36.7; O2SAT 93–96
[2025-04-01] MEDS: SODIUM CHLORIDE 0.9% IV 1,000 ML 125 ML IV CONT ×2 (04:42→15:53)
[2025-04-01 05:33] LABS: Hematocrit 34.7 % (37.0-47.0); Hemoglobin 11.2 g/dL (12.0-15.0); Immature Granulocyte Percent A 0.3 % (0-0.5); Lymphocytes Absolute Auto 1.42 K/mm3 (0.9-3.2); Mean Corpuscular HGB Conc 32.3 g/dl (32-36); Mean Corpuscular Hemoglobin 30.9 pg (26-34); Mean Corpuscular Volume 95.9 fl (80-100); Nucleated Red Blood Cells Absolute Auto 0.000 K/mm3 (0.0-0.012); Nucleated Red Blood Cells Perc 0.0 % (0.0-0.2); Platelet Count Result 293 k/mm3 (150-375); Red Blood Count 3.62 M/mm3 (4.2-5.4); White Blood Count 4.0 K/mm3 (4.5-10.0)
[2025-04-01 05:46] LABS: Anion Gap 1 mmol/L (4-12); Blood Urea Nitrogen 17 mg/dL (7-17); Calcium 8.9 mg/dL (8.4-10.2); Carbon Dioxide 28 mmol/L (22-30); Chloride 107 mmol/L (98-107); Estimated Glomerular Filt Rate > 60; Glucose 84 mg/dL (65-110); Potassium 3.6 mmol/L (3.4-5.0); Sodium 136 mmol/L (137-145)
[2025-04-01] MEDS: ACETAMINOPHEN 325 MG TABLET 650 MG PO ×3 (06:03→17:10)
[2025-04-01] MEDS: KETOROLAC 15 MG/ML VIAL (*BKC) IV PUSH (06:03)
[2025-04-01] MEDS: CYCLOBENZAPRINE HCL 10 MG TABLET PO ×3 (06:03→21:39)
[2025-04-01] MEDS: ATORVASTATIN 40 MG TABLET PO (08:21)
[2025-04-01] MEDS: ENOXAPARIN 40 MG/0.4 ML SYRINGE SUB-Q (08:21)
[2025-04-01] MEDS: GABAPENTIN 300 MG CAPSULE PO ×3 (08:22→17:11)
[2025-04-01] MEDS: SERTRALINE HCL 50 MG TABLET 100 MG PO (08:22)
[2025-04-01] MEDS: THIAMINE HCL 100 MG TABLET 200 MG PO (08:22)
[2025-04-01] MEDS: FOLIC ACID 0.4 MG TABLET 0.8 MG PO (08:23)
[2025-04-01] MEDS: PANTOPRAZOLE 40 MG TABLET PO (08:23)
[2025-04-01] MEDS: LACTULOSE 20 GM/30 ML UDC PO (08:24)
[2025-04-01] MEDS: busPIRone HCL 2.5 MG TABLET PO ×2 (08:24→17:10)
[2025-04-01] MEDS: LIDOCAINE 5% PATCH 1 PATCH TRANSDERM (08:24)
[2025-04-01] MEDS: oxyCODONE HCL (*CRX) 5 MG TAB IR 10 MG PO ×3 (08:25→20:27)
[2025-04-01] MEDS: THIAMINE HCL 50 MG TABLET PO (08:26)
[2025-04-01] MEDS: ASCORBIC ACID 500 MG TABLET 1000 MG PO (11:28)
[2025-04-01] MEDS: FLUTICASONE PROPIONATE 0.05% NA SPR 16 GM BTL (*BKC) 1 SPRAY NASAL (11:28)
[2025-04-01] MEDS: MELOXICAM 7.5 MG TABLET PO ×2 (11:29→17:11)
[2025-04-01] MEDS: CHOLECALCIFEROL (VITAMIN D3) 125 MCG (5,000 UNITS) TABLET PO (11:30)
--- NOTE | 2025-04-01 13:13 | PCPTNOTE ---
Waiting for neurosurgery recommendations prior to PT evaluation.
--- NOTE | 2025-04-01 18:27 | P.PNIM_ITS ---
Assessment and Plan Assessment and Plan (1) Intractable low back pain: Code(s): M54.59 - Other low back pain Status: Acute Assessment and Plan: Patient with HX of spinal surgery and [facility] patient attempting to get records developed debilitating severe pain to lower back and BLE with no loss of bowel or urine. * Schedule Tylenol, Meloxicam and Flexeril * Lidocaine patch * P.r.n. and oxycodone and morphine * Added Diazepam PRN for muscle spasms * PT OT eval and treat * Neurosurgery consulted appreciate any recommendations * MRI w/wo contrast thoracic/lumbar/sacrum to R/O anything acute * Neurovascular checks * Has follow-up with a pain specialist outpatient (2) Constipation: Code(s): K59.00 - Constipation, unspecified Status: Acute Assessment and Plan: Patient has a large stool burden on CT, likely due to narcotic use * Lactulose Q6HR resolved BM x 3 * Senna nightly * Patient should be sent home on a bowel protocol * Encourage ambulation as tolerated * encourage oral hydration (3) Anxiety and depression: Code(s): F41.9 - Anxiety disorder, unspecified; F32.9 - Major depressive disorder, single episode, unspecified Status: Chronic Assessment and Plan: * Continue Zoloft, lamotrigine, Atarax, BusPar, (4) COPD (chronic obstructive pulmonary disease): Qualifiers: COPD type: unspecified COPD Qualified Code(s): J44.9 - Chronic obstru ctive pulmonary disease, unspecified Code(s): J44.9 - Chronic obstructive pulmonary disease, unspecified Status: Chronic Assessment and Plan: * Continue home inhalers Plan Code status: Full code per patient DVT prophylaxis: SCD's Stress ulcer prophylaxis: NA PT/OT notes: PT/OT pending Disposition: Patient continues admission to the medical unit has consult to Neurosurgery for any further recommendations will get MRI to rule out any acute findings for patient's moderate to severe back pain PT/OT and pain management to help determine discharge planning needs. Medical Record Review I have reviewed the following patient records and this information was taken into consideration when formulating the assessment and plan.: previous labs, previous ER visits and previous hospitalizations Consultations Consultations: I have discussed the care of this pt with the consulting providers. Time Spent With Patient Time with patient: 15 - 25 minutes Subjective Date/time seen: 04/01/25 18:27 Interval history: Patient is a 64 year old female admitted for severe lower back pain make it difficult to ambulate even with assistive devices and stool burden. 04/01/2025: Assumed Care Patient is still reporting severe pain worse with ambulation and difficulty walking and reports she was ambulatory with walker prior to arrival. Patient did have 3 BM with medication and states ABD pain has improved but pain still present to lower back and BLE. Review of Systems Review of Systems: 12 systems were reviewed and are negativ e except for as per HPI. Exam Const: General: no acute distress and uncomfortable Other: Pleasant female in bed but in pain with movement HENMT: Mouth: Yes moist mucous membranes Eyes: General: appearance normal, both eyes and all related structures Sclera: sclerae normal Pupils: Equal, round and reactive pupils present Neck: Neck: supple Resp: Effort & Inspection: normal respiratory effort Auscultation: clear to auscultation bilaterally Cardio: Rate: regular rate Rhythm: regular rhythm GI: GI Palp: Yes Soft to palpation Auscultation: normal bowel sounds Skin: General skin exam: normal color and no rashes or lesions noted Wounds: no wounds Neuro: General: oriented to person, oriented to place, oriented to time and moves all extremities Cranial nerves: Yes CN's II-XII intact bilaterally Cognition (Neuro): normal cognition Speech: normal speech Gait exam (Neuro): Unable to assess gait and Other gait observations present (Pain with ambulation BLE) Sensory Exam: normal sensation Extrem: General: normal to inspection Psych: Mental Status: mental status grossly normal Affect: normal affect Objective Data Vital Signs Vital Signs: Vital Signs - 24 hr 03/31/25 19:05 04/01/25 00:55 04/01/25 04:40 Temperature 97.4 F L 97.2 F L 96.9 F L Pulse Rate 76 68 65 Respiratory Rate 18 20 20 Blood Pressure 131/86 112/51 L 116/53 L Pulse Oximetry 98 93 95 Oxygen Delivery 04/01/25 08:28 04/01/25 08:45 04/01/25 14:00 Temperature 97 F L 97.6 F Pulse Rate 68 66 Respiratory Rate 20 20 16 Blood Pressure 123/65 Pulse Oximetry 95 96 93 Oxygen Delivery Room Air Intake/Output Intake/Output: Intake & Output 03/29/25 03/30/25 03/31/25 04/01/25 23:59 23:59 23:59 23:59 Intake Total 3042.0 Output Total 500 Balance 2542.0 Meds/Results Medications: Active Medications Generic Name Dose Route Start Last Admin Trade Name Freq PRN Reason Stop Dose Admin Acetaminophen 650 mg 03/31/25 20:00 04/01/25 17:10 Acetaminophen 325 Mg Tablet PO 650 mg Q6HR UBALDO Administration Albuterol 1 puff 03/31/25 20:56 Albuterol Sulfate (*Sp) Aerosol 1 Puff INHALATION QIDRT PRN Shortness Of Breath Or Wheezin Ascorbic Acid 1,000 mg 04/01/25 09:50 04/01/25 11:28 Ascorbic Acid 500 Mg Tablet PO 05/02/25 09:49 1,000 mg DAILY UBALDO Administration Buspirone HCl 2.5 mg 04/01/25 09:00 04/01/25 17:10 Buspirone Hcl 2.5 Mg Tablet PO 2.5 mg BID UBALDO Administration Buspirone HCl 5 mg 04/01/25 09:00 04/01/25 17:10 Buspirone Hcl 5 Mg Tablet PO 5 mg BID UBALDO Administration Cyclobenzaprine HCl 10 mg 03/31/25 19:55 04/01/25 13:05 Cyclobenzaprine Hcl 10 Mg Tablet PO 10 mg Q8HR UBALDO Administration Diazepam 5 mg 04/01/25 09:14 Diazepam Inj (*Crx) 10 Mg/2 Ml Syringe IV PUSH TID PRN Muscle Spasm Enoxaparin Sodium 40 mg 04/01/25 09:00 04/01/25 08:21 Enoxaparin 40 Mg/0.4 Ml Syringe SUB-Q 40 mg DAILY UBALDO Administration Fluticasone Propionate 1 spray 04/01/25 09:50 04/01/25 11:28 Fluticasone Propionate 0.05% Na Spr 16 Gm Btl (*Bkc) NASAL 1 spray Q12HR UBALDO Administration Folic Acid 0.8 mg 04/01/25 09:00 04/01/25 08:23 Folic Acid 0.4 Mg Tablet PO 0.8 mg DAILY UBALDO Administration Gabapentin 300 mg 04/01/25 09:00 04/01/25 17:11 Gabapentin 300 Mg Capsule PO 300 mg TID UBALDO Administration Hydroxyzine HCl 50 mg 04/01/25 09:00 04/01/25 17:10 Hydroxyzine Hcl 25 Mg Tablet PO 50 mg TID UBALDO Administration Sodium Chloride 1,000 mls @ 125 mls/hr 03/31/25 17:30 04/01/25 15:53 Normal Saline Iv IV CONT 125 mls/hr .Q8H UBALDO Administration Lamotrigine 200 mg 04/01/25 09:00 04/01/25 08:23 Lamotrigine 100 Mg Tablet PO 200 mg Q12HR UBALDO Administration Lidocaine 1 patch 04/01/25 09:00 04/01/25 08:24 Lidocaine 5% Patch TRANSDERM 1 patch DAILY UBALDO Administration Meloxicam 7.5 mg 04/01/25 09:55 04/01/25 17:11 Meloxicam 7.5 Mg Tablet PO 7.5 mg BID UBALDO Administration Morphine Sulfate 2 mg 04/01/25 09:15 Morphine Sulfate (*Crx) 4 Mg/Ml Inj IV PUSH Q4H PRN Breakthrough Pain Ondansetron HCl 4 mg 03/31/25 17:30 03/31/25 17:49 Ondansetron Inj 4 Mg/2 Ml Vial IV PUSH 4 mg Q4H PRN Administration Nausea Oxycodone HCl 5 mg 03/31/25 19:54 Oxycodone Hcl (*Crx) 5 Mg Tab Ir PO Q4H PRN Pain Rated 4-6 Oxycodone HCl 10 mg 03/31/25 19:54 04/01/25 13:04 Oxycodone Hcl (*Crx) 5 Mg Tab Ir PO 10 mg Q4H PRN Administration Pain Rated 7-10 Pantoprazole Sodium 40 mg 04/01/25 09:00 04/01/25 08:23 Pantoprazole 40 Mg Tablet PO 40 mg DAILY UBALDO Administration Senna/Docusate Sodium 1 tab 03/31/25 21:00 03/31/25 20:26 Senna/Docusate Sodium Tablet PO 1 tab HS UBALDO Administration Sertraline HCl 100 mg 04/02/25 09:00 Sertraline Hcl 50 Mg Tablet PO DAILY UBALDO Thiamine HCl 50 mg 04/01/25 09:00 04/01/25 08:26 Thiamine Hcl 50 Mg Tablet PO 50 mg QAM UBALDO Administration Vitamin D 125 mcg 04/01/25 09:50 04/01/25 11:30 Cholecalciferol (Vitamin D3) 125 Mcg (5,000 Units) Tablet PO 125 mcg DAILY UBALDO Administration Radiology Results: ITS Impressions Miscellaneous CT Procedure 03/31/25 16:53 IMPRESSION: 1. No acute intra-abdominal/pelvic process. 2. Small sliding-type hiatal hernia. 3. Moderate sigmoid diverticulosis. 4. Chronic T12 burst fracture unchanged since 02/19. No acute osseous abnormality. 5. Postoperative changes in the lumbar spine including L4 and L5 laminectomies and alignment anterior and instrumented posterior L4-S1 spinal fusion as well as screw fixation across the bilateral sacroiliac joints. Labs Labs: Laboratory Results - last 24 hr 04/01/25 04:58 WBC 4.0 L RBC 3.62 L Hgb 11.2 L Hct 34.7 L MCV 95.9 MCH 30.9 MCHC 32.3 RDW 12.5 Plt Count 293 MPV 9.0 Immature Gran % (Auto) 0.3 Neut % (Auto) 45.4 L Lymph % (Auto) 35.5 [place] % (Auto) 9.5 H Eos % (Auto) 7.8 H Baso % (Auto) 1.5 H Lymph # (Auto) 1.42 [place] # (Auto) 0.4 Eos # (Auto) 0.3 Baso # (Auto) 0.1 Abs Immat Gran (auto) 0.01 Absolute Neuts (auto) 1.8 Absolute Nucleated RBC 0.000 Nucleated RBC % 0.0 Sodium 136 L Potassium 3.6 Chloride 107 Carbon Dioxide 28 Anion Gap 1 L BUN 17 Creatinine 0.78 Estim Creat Clear Calc Not Reportable Estimated GFR > 60 Glucose 84 Calcium 8.9 Attestation: I personally reviewed all lab results Imaging Attestation: I personally reviewed this imaging study Quality VTE Prophylaxis VTE prophylaxis: mechanical ordered -Patient's previous records reviewed on admission -ER notes reviewed in detail on admission -discussed all findings and current treatment plan with patient/Family/POA -Consultations reviewed for recommendations -Patient's disposition for safe discharge discussed with immigration case manager -radiology imaging, EKG and test results I have personally reviewed and interpreted unless otherwise specified Dictation performed by [employer] direct speech recognition software, therefore sheet metal technician variants and typographical errors may occur. Hospitalist MIPS Advance Care Plan I have confirmed that the patient's Advanced Care Plan is present, code status is documented, or surrogate decision maker is listed in patient medical record.: Yes Medication Reconciliation I have utilized all available resources to obtain, update and review the patients current medications (includes all prescriptions, OTC, herbals, cannabis, and nutritional supplements).: Yes The patient is not eligible for med reconciliation; the patient is in a emergent medical situation where delaying treatment would jeopardize the patients health.: No
[2025-04-01] MEDS: SENNA/DOCUSATE SODIUM TABLET 1 TAB PO (20:27)
[2025-04-02] MEDS: SODIUM CHLORIDE 0.9% IV 1,000 ML 125 ML IV CONT (02:31)
[2025-04-02 03:47] VITALS: BP 130/66; PULSE 65; RESP 18; TEMP 36.6; O2SAT 90
[2025-04-02] MEDS: ACETAMINOPHEN 325 MG TABLET 650 MG PO ×4 (05:43→22:56)
[2025-04-02] MEDS: CYCLOBENZAPRINE HCL 10 MG TABLET PO ×3 (05:43→22:56)
[2025-04-02] MEDS: ASCORBIC ACID 500 MG TABLET 1000 MG PO (08:14)
[2025-04-02] MEDS: PANTOPRAZOLE 40 MG TABLET PO (08:14)
[2025-04-02] MEDS: FOLIC ACID 0.4 MG TABLET 0.8 MG PO (08:15)
[2025-04-02] MEDS: SERTRALINE HCL 50 MG TABLET 100 MG PO (08:15)
[2025-04-02] MEDS: busPIRone HCL 2.5 MG TABLET PO ×2 (08:15→17:32)
[2025-04-02] MEDS: MELOXICAM 7.5 MG TABLET PO ×2 (08:15→17:32)
[2025-04-02] MEDS: THIAMINE HCL 50 MG TABLET PO (08:15)
[2025-04-02] MEDS: GABAPENTIN 300 MG CAPSULE PO ×3 (08:15→17:32)
[2025-04-02] MEDS: CHOLECALCIFEROL (VITAMIN D3) 125 MCG (5,000 UNITS) TABLET PO (08:15)
[2025-04-02] MEDS: oxyCODONE HCL (*CRX) 5 MG TAB IR 10 MG PO ×2 (08:16→11:56)
[2025-04-02] MEDS: ENOXAPARIN 40 MG/0.4 ML SYRINGE SUB-Q (08:17)
[2025-04-02] MEDS: LIDOCAINE 5% PATCH 1 PATCH TRANSDERM (08:17)
[2025-04-02] MEDS: FLUTICASONE PROPIONATE 0.05% NA SPR 16 GM BTL (*BKC) 1 SPRAY NASAL (08:20)
--- NOTE | 2025-04-02 08:50 | P.PNIM_ITS ---
Assessment and Plan Assessment and Plan (1) Intractable low back pain: Code(s): M54.59 - Other low back pain Status: Acute Assessment and Plan: Patient with HX of spinal surgery and recent [facility] at [facility] patient attempting to get records developed debilitating severe pain to lower back and BLE with no loss of bowel or urine. * Schedule Tylenol, Meloxicam and Flexeril * Lidocaine patch * P.r.n. and oxycodone and morphine * Added Diazepam PRN for muscle spasms * PT OT eval and treat * Neurosurgery consulted appreciate any recommendations * MRI w/wo contrast thoracic/lumbar/pelvis/sacrum to R/O anything acute * Neurovascular checks * Has follow-up with a pain specialist outpatient (2) Constipation: Code(s): K59.00 - Constipation, unspecified Status: Acute Assessment and Plan: Patient has a large stool burden on CT, likely due to narcotic use * Lactulose Q6HR resolved BM x 3 * Senna nightly * Patient should be sent home on a bowel protocol * Encourage ambulation as tolerated * encourage oral hydration (3) Anxiety and depression: Code(s): F41.9 - Anxiety disorder, unspecified; F32.9 - Major depressive disorder, single episode, unspecified Status: Chronic Assessment and Plan: * Continue Zoloft, lamotrigine, Atarax, BusPar, (4) COPD (chronic obstructive pulmonary disease): Qualifiers: COPD type: unspecified COPD Qualified Code(s): J44.9 - Chronic obstructive pulmonary disease, unspecified Code(s): J44.9 - Chronic obstructive pulmonary disease, unspecified Status: Chronic Assessment and Plan: * Continue home inhalers Plan Code status: Full code per patient DVT prophylaxis: SCD's Stress ulcer prophylaxis: NA PT/OT notes: PT/OT pending Disposition: Patient continues admission to the medical unit has consult to Neurosurgery for any further recommendations will get MRI to rule out any acute findings for patient's moderate to severe back pain PT/OT and pain management to help determine discharge planning needs. Medical Record Review I have reviewed the following patient records and this information was taken into consideration when formulating the assessment and plan.: previous labs, previous ER visits, previous hospitalizations and previous clinic visits Consultations Consultations: I have discussed the care of this pt with the consulting providers. Time Spent With Patient Time with patient: 15 - 25 minutes Subjective Date/time seen: 04/02/25 08:50 Interval history: Patient is a 64 year old female admitted for severe lower back pain make it difficult to ambulate even with assistive devices and stool burden. 04/02/2025: Patient assessed walking with walker reporting severe pain that start around lower back extending down her legs very difficult to rise from sitting position and unable to raise BLE on own due to pain. MR today but only partially completed due to availability of time per report from MR kan to nurse. Patient denied CP, SOB, N/V Review of Systems Review of Systems: 12 systems were reviewed and are negativ e except for as per HPI. Exam Const: General: no acute distress and uncomfortable Orientation/consci ousness: oriented to person, oriented to place and oriented to time Other: Pleasant female in bed but in pain with movement HENMT: Mouth: Yes moist mucous membranes Eyes: General: appearance normal, both eyes and all related structures Sclera: sclerae normal Pupils: Equal, round and reactive pupils present Neck: Neck: supple Resp: Effort & Inspection: normal respiratory effort Auscultation: clear to auscultation bilaterally Cardio: Rate: regular rate Rhythm: regular rhythm GI: Auscultation: normal bowel sounds Skin: General skin exam: normal color and no rashes or lesions noted Wounds: no wounds Neuro: General: oriented to person, oriented to place, oriented to time, moves all extremities and Unable to assess gait Cranial nerves: Yes CN's II-XII intact bilaterally and Yes Equal, round and reactive pupils present Cognition (Neuro): normal cognition Speech: normal speech Gait exam (Neuro): Unable to assess gait and Other gait observations present (Pain with ambulation BLE) Sensory Exam: normal sensation Extrem: General: normal to inspection Psych: Mental Status: mental status grossly normal Affect: normal affect Objective Data Vital Signs Vital Signs: Vital Signs - 24 hr 04/01/25 14:00 04/01/25 20:00 04/01/25 20:50 Temperature 97.6 F 98.0 F Pulse Rate 66 67 Respiratory Rate 16 18 Blood Pressure 123/65 119/55 L Pulse Oximetry 93 95 Oxygen Delivery Room Air 04/01/25 23:33 04/02/25 03:47 Temperature 97.9 F Pulse Rate 65 Respiratory Rate 18 Blood Pressure 130/66 Pulse Oximetry 95 90 Oxygen Delivery Room Air Intake/Output Intake/Output: Intake & Output 03/30/25 03/31/25 04/01/25 04/02/25 23:59 23:59 23:59 23:59 Intake Total 4522.0 390 Output Total 500 Balance 4022.0 390 Meds/Results Medications: Active Medications Generic Name Dose Route Start Last Admin Trade Name Freq PRN Reason Stop Dose Admin Acetaminophen 650 mg 03/31/25 20:00 04/02/25 05:43 Acetaminophen 325 Mg Tablet PO 650 mg Q6HR UBALDO Administration Albuterol 1 puff 03/31/25 20:56 Albuterol Sulfate (*Sp) Aerosol 1 Puff INHALATION QIDRT PRN Shortness Of Breath Or Wheezin Ascorbic Acid 1,000 mg 04/01/25 09:50 04/02/25 08:14 Ascorbic Acid 500 Mg Tablet PO 05/02/25 09:49 1,000 mg DAILY UBALDO Administration Buspirone HCl 2.5 mg 04/01/25 09:00 04/02/25 08:15 Buspirone Hcl 2.5 Mg Tablet PO 2.5 mg BID UBALDO Administration Buspirone HCl 5 mg 04/01/25 09:00 04/02/25 08:15 Buspirone Hcl 5 Mg Tablet PO 5 mg BID UBALDO Administration Cyclobenzaprine HCl 10 mg 03/31/25 19:55 04/02/25 05:43 Cyclobenzaprine Hcl 10 Mg Tablet PO 10 mg Q8HR UBALDO Administration Diazepam 5 mg 04/01/25 09:14 Diazepam Inj (*Crx) 10 Mg/2 Ml Syringe IV PUSH TID PRN Muscle Spasm Enoxaparin Sodium 40 mg 04/01/25 09:00 04/02/25 08:17 Enoxaparin 40 Mg/0.4 Ml Syringe SUB-Q 40 mg DAILY UBALDO Administration Fluticasone Propionate 1 spray 04/01/25 09:50 04/02/25 08:20 Fluticasone Propionate 0.05% Na Spr 16 Gm Btl (*Bkc) NASAL 1 spray Q12HR UBALDO Administration Folic Acid 0.8 mg 04/01/25 09:00 04/02/25 08:15 Folic Acid 0.4 Mg Tablet PO 0.8 mg DAILY UBALDO Administration Gabapentin 300 mg 04/01/25 09:00 04/02/25 08:15 Gabapentin 300 Mg Capsule PO 300 mg TID UBALDO Administration Hydroxyzine HCl 50 mg 04/01/25 09:00 04/02/25 08:16 Hydroxyzine Hcl 25 Mg Tablet PO 50 mg TID UBALDO Administration Sodium Chloride 1,000 mls @ 125 mls/hr 03/31/25 17:30 04/02/25 02:31 Normal Saline Iv IV CONT 125 mls/hr .Q8H UBALDO Administration Lamotrigine 200 mg 04/01/25 09:00 04/02/25 08:14 Lamotrigine 100 Mg Tablet PO 200 mg Q12HR UBALDO Administration Lidocaine 1 patch 04/01/25 09:00 04/02/25 08:17 Lidocaine 5% Patch TRANSDERM 1 patch DAILY UBALDO Administration Meloxicam 7.5 mg 04/01/25 09:55 04/02/25 08:15 Meloxicam 7.5 Mg Tablet PO 7.5 mg BID UBALDO Administration Morphine Sulfate 2 mg 04/01/25 09:15 Morphine Sulfate (*Crx) 4 Mg/Ml Inj IV PUSH Q4H PRN Breakthrough Pain Ondansetron HCl 4 mg 03/31/25 17:30 03/31/25 17:49 Ondansetron Inj 4 Mg/2 Ml Vial IV PUSH 4 mg Q4H PRN Administration Nausea Oxycodone HCl 5 mg 03/31/25 19:54 Oxycodone Hcl (*Crx) 5 Mg Tab Ir PO Q4H PRN Pain Rated 4-6 Oxycodone HCl 10 mg 03/31/25 19:54 04/02/25 08:16 Oxycodone Hcl (*Crx) 5 Mg Tab Ir PO 10 mg Q4H PRN Administration Pain Rated 7-10 Pantoprazole Sodium 40 mg 04/01/25 09:00 04/02/25 08:14 Pantoprazole 40 Mg Tablet PO 40 mg DAILY UBALDO Administration Senna/Docusate Sodium 1 tab 03/31/25 21:00 04/01/25 20:27 Senna/Docusate Sodium Tablet PO 1 tab HS UBALDO Administration Sertraline HCl 100 mg 04/02/25 09:00 04/02/25 08:15 Sertraline Hcl 50 Mg Tablet PO 100 mg DAILY UBALDO Administration Thiamine HCl 50 mg 04/01/25 09:00 04/02/25 08:15 Thiamine Hcl 50 Mg Tablet PO 50 mg QAM UBALDO Administration Vitamin D 125 mcg 04/01/25 09:50 04/02/25 08:15 Cholecalciferol (Vitamin D3) 125 Mcg (5,000 Units) Tablet PO 125 mcg DAILY UBALDO Administration Radiology Results: ITS Impressions Miscellaneous CT Procedure 03/31/25 16:53 IMPRESSION: 1. No acute intra-abdominal/pelvic process. 2. Small sliding-type hiatal hernia. 3. Moderate sigmoid diverticulosis. 4. Chronic T12 burst fracture unchanged since 02/19. No acute osseous abnormality. 5. Postoperative changes in the lumbar spine including L4 and L5 laminectomies and alignment anterior and instrumented posterior L4-S1 spinal fusion as well as screw fixation across the bilateral sacroiliac joints. Labs Attestation: I personally reviewed all lab results Quality VTE Prophylaxis VTE prophylaxis: mechanical ordered -Patient's previous records reviewed on admission -ER notes reviewed in detail on admission -discussed all findings and current treatment plan with patient/Family/POA -Consultations reviewed for recommendations -Patient's disposition for safe discharge discussed with porter sample case -radiology imaging, EKG and test results I have personally reviewed and interpreted unless otherwise specified Dictation performed by [employer] direct speech recognition software, therefore digital strategy specialist variants and typographical errors may occur. Hospitalist MIPS Advance Care Plan I have confirmed that the patient's Advanced Care Plan is present, code status is documented, or surrogate decision maker is listed in patient medical record.: Yes Medication Reconciliation I have utilized all available resources to obtain, update and review the patients current medications (includes all prescriptions, OTC, herbals, cannabis, and nutritional supplements).: Yes The patient is not eligible for med reconciliation; the patient is in a emergent medical situation where delaying treatment would jeopardize the patients health.: No
[2025-04-02 09:12] LABS: Hematocrit 34.4 % (37.0-47.0); Hemoglobin 11.2 g/dL (12.0-15.0); Mean Corpuscular HGB Conc 32.6 g/dl (32-36); Mean Corpuscular Hemoglobin 31.1 pg (26-34); Mean Corpuscular Volume 95.6 fl (80-100); Platelet Count Result 271 k/mm3 (150-375); Red Blood Count 3.60 M/mm3 (4.2-5.4); White Blood Count 4.5 K/mm3 (4.5-10.0)
[2025-04-02 09:42] LABS: Alanine Aminotransferase 14 U/L (6-35); Albumin Level 3.6 g/dL (3.5-5.1); Alkaline Phosphatase 96 U/L (38-126); Anion Gap 1 mmol/L (4-12); Aspartate Amino Transferase 30 U/L (14-36); Bilirubin,Total 0.5 mg/dL (0.2-1.3); Blood Urea Nitrogen 11 mg/dL (7-17); Calcium 8.8 mg/dL (8.4-10.2); Carbon Dioxide 27 mmol/L (22-30); Chloride 108 mmol/L (98-107); Estimated Glomerular Filt Rate > 60; Glucose 81 mg/dL (65-110); Magnesium 1.8 mg/dL (1.6-2.3); Potassium 3.8 mmol/L (3.4-5.0); Sodium 136 mmol/L (137-145); Total Protein 6.2 g/dL (6.3-8.2)
[2025-04-02] MEDS: diazePAM INJ (*CRX) 10 MG/2 ML SYRINGE 5 MG IV PUSH (13:47)
[2025-04-02 14:00] VITALS: BP 120/55; PULSE 66; RESP 18; TEMP 37; O2SAT 97
--- NOTE | 2025-04-02 14:24 | PCPTNOTE ---
Attempted PT evaluation. Pt sleeping soundly (arousable, but not safe for OOB activity). Will follow.
[2025-04-02] MEDS: diazePAM (*CRX) 5 MG TABLET PO (20:01)
[2025-04-02] MEDS: SENNA/DOCUSATE SODIUM TABLET 1 TAB PO (20:01)
[2025-04-02 20:44] VITALS: BP 123/55; PULSE 68; RESP 18; TEMP 36.2; O2SAT 94
[2025-04-02 23:39] VITALS: O2SAT 94
[2025-04-03 05:11] LABS: Hematocrit 37.3 % (37.0-47.0); Hemoglobin 11.9 g/dL (12.0-15.0); Mean Corpuscular HGB Conc 31.9 g/dl (32-36); Mean Corpuscular Hemoglobin 30.4 pg (26-34); Mean Corpuscular Volume 95.4 fl (80-100); Platelet Count Result 290 k/mm3 (150-375); Red Blood Count 3.91 M/mm3 (4.2-5.4); White Blood Count 4.5 K/mm3 (4.5-10.0)
[2025-04-03 05:35] LABS: Alanine Aminotransferase 14 U/L (6-35); Albumin Level 3.8 g/dL (3.5-5.1); Alkaline Phosphatase 111 U/L (38-126); Anion Gap 4 mmol/L (4-12); Aspartate Amino Transferase 27 U/L (14-36); Bilirubin,Total 0.6 mg/dL (0.2-1.3); Blood Urea Nitrogen 7 mg/dL (7-17); Calcium 9.7 mg/dL (8.4-10.2); Carbon Dioxide 29 mmol/L (22-30); Chloride 105 mmol/L (98-107); Estimated Glomerular Filt Rate > 60; Glucose 98 mg/dL (65-110); Magnesium 1.7 mg/dL (1.6-2.3); Potassium 3.5 mmol/L (3.4-5.0); Sodium 138 mmol/L (137-145); Total Protein 6.5 g/dL (6.3-8.2)
[2025-04-03 06:00] VITALS: BP 149/81; PULSE 66; RESP 16; TEMP 36.3; O2SAT 95
[2025-04-03] MEDS: ACETAMINOPHEN 325 MG TABLET 650 MG PO ×4 (06:02→23:04)
[2025-04-03] MEDS: CYCLOBENZAPRINE HCL 10 MG TABLET PO ×3 (06:08→23:05)
[2025-04-03] MEDS: CHOLECALCIFEROL (VITAMIN D3) 125 MCG (5,000 UNITS) TABLET PO (07:59)
[2025-04-03] MEDS: GABAPENTIN 300 MG CAPSULE PO ×3 (07:59→17:40)
[2025-04-03] MEDS: THIAMINE HCL 50 MG TABLET PO (07:59)
[2025-04-03] MEDS: MELOXICAM 7.5 MG TABLET PO ×2 (08:00→17:41)
[2025-04-03] MEDS: ASCORBIC ACID 500 MG TABLET 1000 MG PO (08:00)
[2025-04-03] MEDS: PANTOPRAZOLE 40 MG TABLET PO (08:00)
[2025-04-03] MEDS: ENOXAPARIN 40 MG/0.4 ML SYRINGE SUB-Q (08:01)
[2025-04-03] MEDS: busPIRone HCL 2.5 MG TABLET PO ×2 (08:01→17:37)
[2025-04-03] MEDS: SERTRALINE HCL 50 MG TABLET 100 MG PO (08:01)
[2025-04-03] MEDS: FOLIC ACID 0.4 MG TABLET 0.8 MG PO (08:01)
[2025-04-03] MEDS: FLUTICASONE PROPIONATE 0.05% NA SPR 16 GM BTL (*BKC) 1 SPRAY NASAL (08:02)
[2025-04-03] MEDS: LIDOCAINE 5% PATCH 1 PATCH TRANSDERM (08:03)
[2025-04-03] MEDS: oxyCODONE HCL (*CRX) 5 MG TAB IR 10 MG PO (10:26)
--- NOTE | 2025-04-03 13:39 | P.PNIM_ITS ---
Assessment and Plan Assessment and Plan (1) Intractable low back pain: Code(s): M54.59 - Other low back pain Status: Acute Assessment and Plan: Patient with HX of spinal surgery and recent [facility] patient attempting to get records developed debilitating severe pain to lower back and BLE with no loss of bowel or urine. * Schedule Tylenol, Meloxicam and Flexeril * Lidocaine patch * P.r.n. and oxycodone and morphine * Added Diazepam PRN for muscle spasms * PT OT eval and treat * MRI w/wo contrast thoracic/lumbar/pelvis/sacrum to R/O anything acute * Neurovascular checks * Has follow-up with a pain specialist outpatient (2) Right hip joint effusion: Code(s): M25.451 - Effusion, right hip Status: Acute Assessment and Plan: MR of pelvis showed severe osteoarthritis a moderate joint effusion the right hip * Orthopedics consulted * Continue pain management (3) Anxiety and depression: Code(s): F41.9 - Anxiety disorder, unspecified; F32.9 - Major depressive disorder, single episode, unspecified Status: Chronic Assessment and Plan: * Continue Zoloft, lamotrigine, Atarax, BusPar, (4) COPD (chronic obstructive pulmonary disease): Qualifiers: COPD type: unspecified COPD Qualified Code(s): J44.9 - Chronic obstructive pulmonary disease, unspecified Code(s): J44.9 - Chronic obstructive pulmonary disease, unspecified Status: Chronic Assessment and Plan: * Continue home inhalers (5) Constipation: Code(s): K59.00 - Constipation, unspecified Status: Resolved Assessment and Plan: RESOLVED Patient has a large stool burden on CT, likely due to narcotic use * Lactulose Q6HR resolved BM x 3 * Senna nightly * Patient should be sent home on a bowel protocol * Encourage ambulation as tolerated * encourage oral hydration Plan Code status: Full code per patient DVT prophylaxis: SCD's Stress ulcer prophylaxis: NA PT/OT notes: PT/OT pending Disposition: Patient continues admission to the medical unit has consult to Neurosurgery for any further recommendations will get MRI to rule out any acute findings for patient's moderate to severe back pain PT/OT and pain management to help determine discharge planning needs. Medical Record Review I have reviewed the following patient records and this information was taken into consideration when formulating the assessment and plan.: previous labs, previous ER visits and previous hospitalizations Consultations Consultations: I have discussed the care of this pt with the consulting providers. Time Spent With Patient Time with patient: 15 - 25 minutes Subjective Date/time seen: 04/03/25 13:39 Interval history: Patient is a 64 year old female admitted for severe lower back pain make it difficult to ambulate even with assistive devices and stool burden. 04/03/2025: Patient still complaining of moderate to severe lower back, buttock and BLE pain. MR of pelvis did show severe OA and moderate size joint effusion of the right hip consulted ortho. MRI lumbar and thoracic still pending. Spoke with Dr. Del Cid with Neurosurgery regarding current findings did not see a reason that they would need to be consulted at this time but would follow-up or re-consult if anything acute was found on the lumbar/thoracic MRI. Review of Systems Review of Systems: 12 systems were reviewed and are negativ e except for as per HPI. All systems reviewed & are unremarkable except as noted in HPI and below Exam Const: General: no acute distress and uncomfortable Orientation/consciousness: oriented to person, oriented to place and oriented to time Other: Pleasant female in bed but in pain with movement HENMT: Mouth: Yes moist mucous membranes Eyes: General: appearance normal, both eyes and all related structures Sclera: sclerae normal Pupils: Equal, round and reactive pupils present Neck: Neck: supple Resp: Effort & Inspection: normal respiratory effort Auscultation: clear to auscultation bilaterally Cardio: Rate: regular rate Rhythm: regular rhythm GI: Auscultation: normal bowel sounds Skin: General skin exam: normal color and no rashes or lesions noted Wounds: no wounds Neuro: General: oriented to person, oriented to place, oriented to time, moves all extremities and Unable to assess gait Cranial nerves: Yes CN's II-XII intact bilaterally and Yes Equal, round and reactive pupils present Cognition (Neuro): normal cognition Speech: normal speech Gait exam (Neuro): Unable to assess gait and Other gait observations present (Pain with ambulation BLE) Sensory Exam: normal sensation Extrem: General: normal to inspection Psych: Mental Status: mental status grossly normal Affect: normal affect Objective Data Vital Signs Vital Signs: Vital Signs - 24 hr 04/02/25 14:00 04/02/25 20:00 04/02/25 20:44 Temperature 98.6 F 97.1 F L Pulse Rate 66 68 Respiratory Rate 18 18 Blood Pressure 120/55 L 123/55 L Pulse Oximetry 97 94 Oxygen Delivery Room Air 04/02/25 23:39 04/03/25 06:00 04/03/25 08:00 Temperature 97.4 F L Pulse Rate 66 Respiratory Rate 16 Blood Pressure 149/81 H Pulse Oximetry 94 95 Oxygen Delivery Room Air Room Air 04/03/25 08:36 Temperature Pulse Rate Respiratory Rate Blood Pressure Pulse Oximetry Oxygen Delivery Room Air Intake/Output Intake/Output: Intake & Output 03/31/25 04/01/25 04/02/25 04/03/25 23:59 23:59 23:59 23:59 Intake Total 4522.0 1630 1130 Output Total 500 200 Balance 4022.0 1430 1130 Meds/Results Medications: Active Medications Generic Name Dose Route Start Last Admin Trade Name Freq PRN Reason Stop Dose Admin Acetaminophen 650 mg 03/31/25 20:00 04/03/25 12:08 Acetaminophen 325 Mg Tablet PO 650 mg Q6HR UBALDO Administration Albuterol 1 puff 03/31/25 20:56 Albuterol Sulfate (*Sp) Aerosol 1 Puff INHALATION QIDRT PRN Shortness Of Breath Or Wheezin Ascorbic Acid 1,000 mg 04/01/25 09:50 04/03/25 08:00 Ascorbic Acid 500 Mg Tablet PO 05/02/25 09:49 1,000 mg DAILY UBALDO Administration Buspirone HCl 2.5 mg 04/01/25 09:00 04/03/25 08:01 Buspirone Hcl 2.5 Mg Tablet PO 2.5 mg BID UBALDO Administration Buspirone HCl 5 mg 04/01/25 09:00 04/03/25 08:00 Buspirone Hcl 5 Mg Tablet PO 5 mg BID UBALDO Administration Cyclobenzaprine HCl 10 mg 03/31/25 19:55 04/03/25 06:08 Cyclobenzaprine Hcl 10 Mg Tablet PO 10 mg Q8HR UBALDO Administration Diazepam 5 mg 04/01/25 09:14 04/02/25 13:47 Diazepam Inj (*Crx) 10 Mg/2 Ml Syringe IV PUSH 5 mg TID PRN Administration Muscle Spasm Diazepam 5 mg 04/02/25 21:00 04/03/25 08:02 Diazepam (*Crx) 5 Mg Tablet PO Not Given Q12HR [facility] Enoxaparin Sodium 40 mg 04/01/25 09:00 04/03/25 08:01 Enoxaparin 40 Mg/0.4 Ml Syringe SUB-Q 40 mg DAILY UBALDO Administration Fluticasone Propionate 1 spray 04/01/25 09:50 04/03/25 08:02 Fluticasone Propionate 0.05% Na Spr 16 Gm Btl (*Bkc) NASAL 1 spray Q12HR UBALDO Administration Folic Acid 0.8 mg 04/01/25 09:00 04/03/25 08:01 Folic Acid 0.4 Mg Tablet PO 0.8 mg DAILY UBALDO Administration Gabapentin 300 mg 04/01/25 09:00 04/03/25 12:07 Gabapentin 300 Mg Capsule PO 300 mg TID UBALDO Administration Hydroxyzine HCl 50 mg 04/01/25 09:00 04/03/25 12:08 Hydroxyzine Hcl 25 Mg Tablet PO 50 mg TID UBALDO Administration Lamotrigine 200 mg 04/01/25 09:00 04/03/25 08:00 Lamotrigine 100 Mg Tablet PO 200 mg Q12HR UBALDO Administration Lidocaine 1 patch 04/01/25 09:00 04/03/25 08:03 Lidocaine 5% Patch TRANSDERM 1 patch DAILY UBALDO Administration Meloxicam 7.5 mg 04/01/25 09:55 04/03/25 08:00 Meloxicam 7.5 Mg Tablet PO 7.5 mg BID UBALDO Administration Morphine Sulfate 2 mg 04/01/25 09:15 Morphine Sulfate (*Crx) 4 Mg/Ml Inj IV PUSH Q4H PRN Breakthrough Pain Ondansetron HCl 4 mg 03/31/25 17:30 03/31/25 17:49 Ondansetron Inj 4 Mg/2 Ml Vial IV PUSH 4 mg Q4H PRN Administration Nausea Oxycodone HCl 5 mg 03/31/25 19:54 Oxycodone Hcl (*Crx) 5 Mg Tab Ir PO Q4H PRN Pain Rated 4-6 Oxycodone HCl 10 mg 03/31/25 19:54 04/03/25 10:26 Oxycodone Hcl (*Crx) 5 Mg Tab Ir PO 10 mg Q4H PRN Administration Pain Rated 7-10 Pantoprazole Sodium 40 mg 04/01/25 09:00 04/03/25 08:00 Pantoprazole 40 Mg Tablet PO 40 mg DAILY UBALDO Administration Senna/Docusate Sodium 1 tab 03/31/25 21:00 04/02/25 20:01 Senna/Docusate Sodium Tablet PO 1 tab HS UBALDO Administration Sertraline HCl 100 mg 04/02/25 09:00 04/03/25 08:01 Sertraline Hcl 50 Mg Tablet PO 100 mg DAILY UBALDO Administration Thiamine HCl 50 mg 04/01/25 09:00 04/03/25 07:59 Thiamine Hcl 50 Mg Tablet PO 50 mg QAM UBALDO Administration Vitamin D 125 mcg 04/01/25 09:50 04/03/25 07:59 Cholecalciferol (Vitamin D3) 125 Mcg (5,000 Units) Tablet PO 125 mcg DAILY UBALDO Administration Radiology Results: ITS Impressions Miscellaneous CT Procedure 03/31/25 16:53 IMPRESSION: 1. No acute intra-abdominal/pelvic process. 2. Small sliding-type hiatal hernia. 3. Moderate sigmoid diverticulosis. 4. Chronic T12 burst fracture unchanged since 02/19. No acute osseous abnormality. 5. Postoperative changes in the lumbar spine including L4 and L5 laminectomies and alignment anterior and instrumented posterior L4-S1 spinal fusion as well as screw fixation across the bilateral sacroiliac joints. Pelvis MRI 04/02/25 15:40 IMPRESSION: 1. Severe osteoarthritis at the right hip with likely reactive moderate sized joint effusion. Mild left hip osteoarthritis with small left hip joint effusion. 2. Postoperative changes in the lower lumbar spine including L4 and L5 laminectomies and combined anterior and instrumented posterior spinal fusion at L4-S1. 3. Fixation spanning the upper sacrum and bilateral sacroiliac joints with old healed sacral fracture. Sacrum/Coccyx MRI 04/02/25 15:40 IMPRESSION: 1. Severe osteoarthritis at the right hip with likely reactive moderate sized joint effusion. Mild left hip osteoarthritis with small left hip joint effusion. 2. Postoperative changes in the lower lumbar spine including L4 and L5 laminectomies and combined anterior and instrumented posterior spinal fusion at L4-S1. 3. Fixation spanning the upper sacrum and bilateral sacroiliac joints with old healed sacral fracture. Labs Labs: Laboratory Results - last 24 hr 04/03/25 04:51 WBC 4.5 RBC 3.91 L Hgb 11.9 L Hct 37.3 MCV 95.4 MCH 30.4 MCHC 31.9 L RDW 12.0 Plt Count 290 MPV 8.9 Sodium 138 Potassium 3.5 Chloride 105 Carbon Dioxide 29 Anion Gap 4 BUN 7 Creatinine 0.75 Estim Creat Clear Calc Not Reportable Estimated GFR > 60 Glucose 98 Calcium 9.7 Magnesium 1.7 Total Bilirubin 0.6 AST 27 ALT 14 Alkaline Phosphatase 111 Total Protein 6.5 Albumin 3.8 Attestation: I personally reviewed all lab results Imaging Attestation: I personally reviewed this imaging study Quality VTE Prophylaxis VTE prophylaxis: mechanical ordered -Patient's previous records reviewed on admission -ER notes reviewed in detail on admission -discussed all findings and current treatment plan with patient/Family/POA -Consultations reviewed for recommendations -Patient's disposition for safe discharge discussed with case packer -radiology imaging, EKG and test results I have personally reviewed and interpreted unless otherwise specified Dictation performed by [employer] direct speech recognition software, therefore facsimile operator variants and typographical errors may occur. Hospitalist MIPS Advance Care Plan I have confirmed that the patient's Advanced Care Plan is present, code status is documented, or surrogate decision maker is listed in patient medical record.: Yes Medication Reconciliation I have utilized all available resources to obtain, update and review the patients current medications (includes all prescriptions, OTC, herbals, cannabis, and nutritional supplements).: Yes The patient is not eligible for med reconciliation; the patient is in a emergent medical situation where delaying treatment would jeopardize the patients health.: No
[2025-04-03 14:00] VITALS: BP 150/73; PULSE 69; RESP 18; TEMP 36.6; O2SAT 94
[2025-04-03] MEDS: diazePAM (*CRX) 5 MG TABLET PO (20:16)
[2025-04-03] MEDS: SENNA/DOCUSATE SODIUM TABLET 1 TAB PO (20:16)
[2025-04-03 21:50] VITALS: BP 119/58; PULSE 70; RESP 18; TEMP 36.4; O2SAT 92
[2025-04-04 05:04] LABS: Hematocrit 37.1 % (37.0-47.0); Hemoglobin 12.1 g/dL (12.0-15.0); Mean Corpuscular HGB Conc 32.6 g/dl (32-36); Mean Corpuscular Hemoglobin 30.9 pg (26-34); Mean Corpuscular Volume 94.9 fl (80-100); Platelet Count Result 289 k/mm3 (150-375); Red Blood Count 3.91 M/mm3 (4.2-5.4); White Blood Count 4.1 K/mm3 (4.5-10.0)
[2025-04-04] MEDS: ACETAMINOPHEN 325 MG TABLET 650 MG PO ×3 (05:12→17:00)
[2025-04-04] MEDS: CYCLOBENZAPRINE HCL 10 MG TABLET PO ×3 (05:12→21:19)
[2025-04-04 05:28] LABS: Alanine Aminotransferase 13 U/L (6-35); Albumin Level 3.7 g/dL (3.5-5.1); Alkaline Phosphatase 115 U/L (38-126); Anion Gap 3 mmol/L (4-12); Aspartate Amino Transferase 26 U/L (14-36); Bilirubin,Total 0.6 mg/dL (0.2-1.3); Blood Urea Nitrogen 8 mg/dL (7-17); Calcium 9.8 mg/dL (8.4-10.2); Carbon Dioxide 28 mmol/L (22-30); Chloride 105 mmol/L (98-107); Estimated Glomerular Filt Rate > 60; Glucose 86 mg/dL (65-110); Magnesium 1.8 mg/dL (1.6-2.3); Potassium 3.6 mmol/L (3.4-5.0); Sodium 136 mmol/L (137-145); Total Protein 6.3 g/dL (6.3-8.2)
[2025-04-04 06:00] VITALS: BP 149/55; PULSE 67; RESP 18; TEMP 36.6; O2SAT 94
[2025-04-04] MEDS: busPIRone HCL 2.5 MG TABLET PO ×2 (07:59→17:01)
[2025-04-04] MEDS: MELOXICAM 7.5 MG TABLET PO ×2 (07:59→17:06)
[2025-04-04] MEDS: ASCORBIC ACID 500 MG TABLET 1000 MG PO (07:59)
[2025-04-04] MEDS: diazePAM (*CRX) 5 MG TABLET PO ×2 (08:00→21:19)
[2025-04-04] MEDS: CHOLECALCIFEROL (VITAMIN D3) 125 MCG (5,000 UNITS) TABLET PO (08:00)
[2025-04-04] MEDS: FLUTICASONE PROPIONATE 0.05% NA SPR 16 GM BTL (*BKC) 1 SPRAY NASAL ×2 (08:00→21:19)
[2025-04-04] MEDS: ENOXAPARIN 40 MG/0.4 ML SYRINGE SUB-Q (08:00)
[2025-04-04] MEDS: LIDOCAINE 5% PATCH 1 PATCH TRANSDERM (08:01)
[2025-04-04] MEDS: SERTRALINE HCL 50 MG TABLET 100 MG PO (08:01)
[2025-04-04] MEDS: THIAMINE HCL 50 MG TABLET PO (08:01)
[2025-04-04] MEDS: PANTOPRAZOLE 40 MG TABLET PO (08:01)
[2025-04-04 08:02] VITALS: PULSE 67; RESP 18; O2SAT 94
[2025-04-04] MEDS: GABAPENTIN 300 MG CAPSULE PO ×3 (08:02→17:00)
[2025-04-04] MEDS: FOLIC ACID 0.4 MG TABLET 0.8 MG PO (08:02)
--- NOTE | 2025-04-04 10:49 | P.PNIM_ITS ---
Assessment and Plan Assessment and Plan (1) Intractable low back pain: Code(s): M54.59 - Other low back pain Status: Acute Assessment and Plan: Patient with HX of spinal surgery and recent [facility] at [facility] patient attempting to get records developed debilitating severe pain to lower back and BLE with no loss of bowel or urine. * Schedule Tylenol, Meloxicam and Flexeril * Lidocaine patch * P.r.n. and oxycodone and morphine * Added Diazepam PRN for muscle spasms * PT OT eval and treat * MRI w/wo contrast thoracic/lumbar/pelvis/sacrum to R/O No acute findings * Neurovascular checks * Has follow-up with a pain specialist outpatient (2) Right hip joint effusion: Code(s): M25.451 - Effusion, right hip Status: Acute Assessment and Plan: MR of pelvis showed severe osteoarthritis a moderate joint effusion the right hip * Orthopedics consulted * Continue pain management (3) Anxiety and depression: Code(s): F41.9 - Anxiety disorder, unspecified; F32.9 - Major depressive disorder, single episode, unspecified Status: Chronic Assessment and Plan: * Continue Zoloft, lamotrigine, Atarax, BusPar, (4) COPD (chronic obstructive pulmonary disease): Qualifiers: COPD type: unspecified COPD Qualified Code(s): J44.9 - Chronic obstructive pulmonary disease, unspecified Code(s): J44.9 - Chronic obstructive pulmonary disease, unspecified Status: Chronic Assessment and Plan: * Continue home inhalers (5) Constipation: Code(s): K59.00 - Constipation, unspecified Status: Resolved Assessment and Plan: RESOLVED Patient has a large stool burden on CT, likely due to narcotic use * Lactulose Q6HR resolved BM x 3 * Senna nightly * Patient should be sent home on a bowel protocol * Encourage ambulation as tolerated * encourage oral hydration Plan Code status: Full code per patient DVT prophylaxis: SCD's Stress ulcer prophylaxis: NA PT/OT notes: PT/OT pending Disposition: Patient continues admission to the medical unit has consult to Neurosurgery for any further recommendations will get MRI to rule out any acute findings for patient's moderate to severe back pain PT/OT and pain management to help determine discharge planning needs. Medical Record Review I have reviewed the following patient records and this information was taken into consideration when formulating the assessment and plan.: previous labs, previous ER visits and previous hospitalizations Consultations Consultations: I have discussed the care of this pt with the consulting providers. Time Spent With Patient Time with patient: 15 - 25 minutes Subjective Date/time seen: 04/04/25 10:49 Interval history: Patient is a 64 year old female admitted for severe lower back pain make it difficult to ambulate even with assistive devices and stool burden. 04/04/2025: Patient reports mild improvement to pain but still moderate to severe with ambulation, ortho consulted for joint effusion and sever OA of hip to see if aspiration or corticosteroid shot may help. Plan to go to rehab for continued PT/OT. Patient with no other complaints today. Review of Systems Review of Systems: 12 systems were reviewed and are negativ e except for as per HPI. All systems reviewed & are unremarkable except as noted in HPI and below Exam Const: General: no acute distress and uncomfortable Orientation/consciousness: oriented to person, oriented to place and oriented to time Other: Pleasant female in bed but in pain with movement HENMT: Mouth: Yes moist mucous membranes Eyes: General: appearance normal, both eyes and all related structures Sclera: sclerae normal Pupils: Equal, round and reactive pupils present Neck: Neck: supple Resp: Effort & Inspection: normal respiratory effort Auscultation: clear to auscultation bilaterally Cardio: Rate: regular rate Rhythm: regular rhythm GI: Auscultation: normal bowel sounds Skin: General skin exam: normal color and no rashes or lesions noted Wounds: no wounds Neuro: General: oriented to person, oriented to place, oriented to time, moves all extremities and Unable to assess gait Cranial nerves: Yes CN's II-XII intact bilaterally and Yes Equal, round and reactive pupils present Cognition (Neuro): normal cognition Speech: normal speech Gait exam (Neuro): Unable to assess gait and Other gait observations present (Pain with ambulation BLE) Sensory Exam: normal sensation Extrem: General: normal to inspection Psych: Mental Status: mental status grossly normal Affect: normal affect Objective Data Vital Signs Vital Signs: Vital Signs - 24 hr 04/03/25 14:00 04/03/25 20:00 04/03/25 21:50 Temperature 98 F 97.5 F L Pulse Rate 69 70 Respiratory Rate 18 18 Blood Pressure 150/73 H 119/58 L Pulse Oximetry 94 92 Oxygen Delivery Room Air 04/04/25 06:00 04/04/25 08:02 Temperature 97.9 F Pulse Rate 67 67 Respiratory Rate 18 18 Blood Pressure 149/55 H Pulse Oximetry 94 94 Oxygen Delivery Room Air Intake/Output Intake/Output: Intake & Output 04/01/25 04/02/25 04/03/25 04/04/25 23:59 23:59 23:59 23:59 Intake Total 4522.0 1630 3240 490 Output Total 500 200 1 Balance 4022.0 1430 3240 489 Meds/Results Medications: Active Medications Generic Name Dose Route Start Last Admin Trade Name Freq PRN Reason Stop Dose Admin Acetaminophen 650 mg 03/31/25 20:00 04/04/25 05:12 Acetaminophen 325 Mg Tablet PO 650 mg Q6HR UBALDO Administration Albuterol 1 puff 03/31/25 20:56 Albuterol Sulfate (*Sp) Aerosol 1 Puff INHALATION QIDRT PRN Shortness Of Breath Or Wheezin Ascorbic Acid 1,000 mg 04/01/25 09:50 04/04/25 07:59 Ascorbic Acid 500 Mg Tablet PO 05/02/25 09:49 1,000 mg DAILY UBALDO Administration Buspirone HCl 2.5 mg 04/01/25 09:00 04/04/25 07:59 Buspirone Hcl 2.5 Mg Tablet PO 2.5 mg BID UBALDO Administration Buspirone HCl 5 mg 04/01/25 09:00 04/04/25 08:00 Buspirone Hcl 5 Mg Tablet PO 5 mg BID UBALDO Administration Cyclobenzaprine HCl 10 mg 03/31/25 19:55 04/04/25 05:12 Cyclobenzaprine Hcl 10 Mg Tablet PO 10 mg Q8HR UBALDO Administration Diazepam 5 mg 04/01/25 09:14 04/02/25 13:47 Diazepam Inj (*Crx) 10 Mg/2 Ml Syringe IV PUSH 5 mg TID PRN Administration Muscle Spasm Diazepam 5 mg 04/02/25 21:00 04/04/25 08:00 Diazepam (*Crx) 5 Mg Tablet PO 5 mg Q12HR UBALDO Administration Enoxaparin Sodium 40 mg 04/01/25 09:00 04/04/25 08:00 Enoxaparin 40 Mg/0.4 Ml Syringe SUB-Q 40 mg DAILY UBALDO Administration Fluticasone Propionate 1 spray 04/01/25 09:50 04/04/25 08:00 Fluticasone Propionate 0.05% Na Spr 16 Gm Btl (*Bkc) NASAL 1 spray Q12HR UBALDO Administration Folic Acid 0.8 mg 04/01/25 09:00 04/04/25 08:02 Folic Acid 0.4 Mg Tablet PO 0.8 mg DAILY UBALDO Administration Gabapentin 300 mg 04/01/25 09:00 04/04/25 08:02 Gabapentin 300 Mg Capsule PO 300 mg TID UBALDO Administration Hydroxyzine HCl 50 mg 04/01/25 09:00 04/04/25 08:02 Hydroxyzine Hcl 25 Mg Tablet PO 50 mg TID UBALDO Administration Lamotrigine 200 mg 04/01/25 09:00 04/04/25 08:01 Lamotrigine 100 Mg Tablet PO 200 mg Q12HR UBALDO Administration Lidocaine 1 patch 04/01/25 09:00 04/04/25 08:01 Lidocaine 5% Patch TRANSDERM 1 patch DAILY UBALDO Administration Meloxicam 7.5 mg 04/01/25 09:55 04/04/25 07:59 Meloxicam 7.5 Mg Tablet PO 7.5 mg BID UBALDO Administration Morphine Sulfate 2 mg 04/01/25 09:15 Morphine Sulfate (*Crx) 4 Mg/Ml Inj IV PUSH Q4H PRN Breakthrough Pain Ondansetron HCl 4 mg 03/31/25 17:30 03/31/25 17:49 Ondansetron Inj 4 Mg/2 Ml Vial IV PUSH 4 mg Q4H PRN Administration Nausea Oxycodone HCl 5 mg 03/31/25 19:54 Oxycodone Hcl (*Crx) 5 Mg Tab Ir PO Q4H PRN Pain Rated 4-6 Oxycodone HCl 10 mg 03/31/25 19:54 04/03/25 10:26 Oxycodone Hcl (*Crx) 5 Mg Tab Ir PO 10 mg Q4H PRN Administration Pain Rated 7-10 Pantoprazole Sodium 40 mg 04/01/25 09:00 04/04/25 08:01 Pantoprazole 40 Mg Tablet PO 40 mg DAILY UBALDO Administration Senna/Docusate Sodium 1 tab 03/31/25 21:00 04/03/25 20:16 Senna/Docusate Sodium Tablet PO 1 tab HS UBALDO Administration Sertraline HCl 100 mg 04/02/25 09:00 04/04/25 08:01 Sertraline Hcl 50 Mg Tablet PO 100 mg DAILY UBALDO Administration Thiamine HCl 50 mg 04/01/25 09:00 04/04/25 08:01 Thiamine Hcl 50 Mg Tablet PO 50 mg QAM UBALDO Administration Vitamin D 125 mcg 04/01/25 09:50 04/04/25 08:00 Cholecalciferol (Vitamin D3) 125 Mcg (5,000 Units) Tablet PO 125 mcg DAILY UBALDO Administration Radiology Results: ITS Impressions Miscellaneous CT Procedure 03/31/25 16:53 IMPRESSION: 1. No acute intra-abdominal/pelvic process. 2. Small sliding-type hiatal hernia. 3. Moderate sigmoid diverticulosis. 4. Chronic T12 burst fracture unchanged since 02/19. No acute osseous abnormality. 5. Postoperative changes in the lumbar spine including L4 and L5 laminectomies and alignment anterior and instrumented posterior L4-S1 spinal fusion as well as screw fixation across the bilateral sacroiliac joints. Pelvis MRI 04/02/25 15:40 IMPRESSION: 1. Severe osteoarthritis at the right hip with likely reactive moderate sized joint effusion. Mild left hip osteoarthritis with small left hip joint effusion. 2. Postoperative changes in the lower lumbar spine including L4 and L5 laminectomies and combined anterior and instrumented posterior spinal fusion at L4-S1. 3. Fixation spanning the upper sacrum and bilateral sacroiliac joints with old healed sacral fracture. Sacrum/Coccyx MRI 04/02/25 15:40 IMPRESSION: 1. Severe osteoarthritis at the right hip with likely reactive moderate sized joint effusion. Mild left hip osteoarthritis with small left hip joint effusion. 2. Postoperative changes in the lower lumbar spine including L4 and L5 laminectomies and combined anterior and instrumented posterior spinal fusion at L4-S1. 3. Fixation spanning the upper sacrum and bilateral sacroiliac joints with old healed sacral fracture. Thoracic Spine MRI 04/03/25 18:28 IMPRESSION: 1. Degenerative changes detailed above Labs Labs: Laboratory Results - last 24 hr 04/04/25 04:47 WBC 4.1 L RBC 3.91 L Hgb 12.1 Hct 37.1 MCV 94.9 MCH 30.9 MCHC 32.6 RDW 12.1 Plt Count 289 MPV 8.9 Sodium 136 L Potassium 3.6 Chloride 105 Carbon Dioxide 28 Anion Gap 3 L BUN 8 Creatinine 0.72 Estim Creat Clear Calc Not Reportable Estimated GFR > 60 Glucose 86 Calcium 9.8 Magnesium 1.8 Total Bilirubin 0.6 AST 26 ALT 13 Alkaline Phosphatase 115 Total Protein 6.3 Albumin 3.7 Quality VTE Prophylaxis VTE prophylaxis: mechanical ordered -Patient's previous records reviewed on admission -ER notes reviewed in detail on admission -discussed all findings and current treatment plan with patient/Family/POA -Consultations reviewed for recommendations -Patient's disposition for safe discharge discussed with case worker -radiology imaging, EKG and test results I have personally reviewed and interpreted unless otherwise specified Dictation performed by [employer] direct speech recognition software, therefore mucker operator variants and typographical errors may occur. Hospitalist MIPS Advance Care Plan I have confirmed that the patient's Advanced Care Plan is present, code status is documented, or surrogate decision maker is listed in patient medical record.: Yes Medication Reconciliation I have utilized all available resources to obtain, update and review the patients current medications (includes all prescriptions, OTC, herbals, c annabis, and nutritional supplements).: Yes The patient is not eligible for med reconciliation; the patient is in a emergent medical situation where delaying treatment would jeopardize the patients health.: No
[2025-04-04] MEDS: ALBUTEROL SULFATE (*SP) AEROSOL 1 PUFF INHALATION (12:11)
[2025-04-04 13:46] VITALS: BP 135/72; PULSE 77; RESP 18; TEMP 36.8; O2SAT 95
--- NOTE | 2025-04-04 13:57 | PM.CNOR ---
Assessment and Plan Assessment and plan (1) Osteoarthritis of right hip: Qualifiers: Osteoarthritis type: primary Qualified Code(s): M16.11 - Unilateral primary osteoarthritis, right hip Code(s): M16.11 - Unilateral primary osteoarthritis, right hip Status: Acute Plan A 64-year-old female a complex history with regard to significant spine surgery including SI joint fusion that was done January of last year apparently with lumbar spine surgery that was done many years ago. She is unclear as to who performed the procedures. She now presents with findings that are consistent with spinal stenosis as well as right hip arthritis. I informed the patient that cortisone injections into the right hip joint is not advisable secondary to the very low probability of significant pain relief as well as a very short duration of pain relief. I do think that if we address her back pain and see what contribution the back pathology has to right hip pain that this would be the better start. The only option that she has to rid her right hip pain would be a total hip replacement. History of Present Illness HPI Consult date: 04/04/25 Chief complaint: Intractable Back Pain Narrative: the patient is a 64-year-old female who was admitted for intractable lower back pain as well as right hip pain. She has had well documented osteoarthritis of the right hip which is progressively getting worse by x-rays. She had x-rays done earlier this year and comparing it to x-rays that were done more recently and there does appear to be progression of the right hip osteoarthritis. She also has significant amount of back pain that does radiate into her right lower extremity as well as into her buttock area. He is awaiting evaluation by Neurosurgery. She stated that she would like to try it was advisable by the neurosurgeons an epidural injection to see if would help with her right hip as well as buttock pain. I do think this is reasonable. She has a lot of difficulty just putting weight on her right lower extremity. [facility] Past Medical History Medical History Swelling of left upper extremity Headache Atrial septal defect Mass of left cardiac ventricle Lumbosacral radiculopathy at S1 GERD without esophagitis Anxiety and depression History of alcoholism History of smoking COPD (chronic obstructive pulmonary disease) Seizures (Unknown) Perforated gastric ulcer (~12/27/20) Surgical History Surgical History History of gastric ulcer Exploratory laparotomy with over-sewing of antral gastric ulcer and placement of omental patch, biopsy of antral gastric ulcer, peritoneal washout - 12/28/2020 H/O lumbosacral spine surgery History of appendectomy Hx of tracheostomy Family History Family History Mother Heart disease Cerebrovascular accident Father Heart disease Other Unknown family medical history Social History Social History Social History: The patient stated that she had 5 children and 1 at . The patient is and she is considered disabled. The patient stated that she is 16 years clean with alcohol and she is recovering alcoholic. The patient stated that she smoked many years ago and no longer smokes. The patient is listed as a full code. And she stated that she does not want any CPR if she has spinal surgery. The patient desires to be a DNR. The patient does not have a durable power employment law attorney for healthcare. Smoking packs per day: 1 Smoking cigarettes per day: 20.0 Years smoked: 41 Smoking pack-years: 41.00 Smoking status: Never smoker Tobacco type: cigarettes Smoking end date: 04/29/19 Alcohol intake: former Alcohol use details: RECOVERING , NONE 16 YRS Substance use: former Substance use type: marijuana Other substance usage details: occasional marijuana use Last use: 08/27/24 Lack of Transportation: No Lack of Food: Never True Current Housing: I Have Housing Concerned About Future Housing: No Difficulty Paying Gas/Electric Bills: No Difficulty Paying for Meds: No Currently Unemployed: No Education: Grade School Difficulty w/ Childcare or Family Care: No Living arrangements: with family Additional living arrangements comments: LIVES WITH DAUGHTER JOJO Occupation/Education: retired Gender identity (if verbalized by the patient): Female Sexual Orientation (if Verbalized by the Patient): Straight or Heterosexual Spiritual care concerns: No Agree to blood products: Yes Meds Home Medications and Allergies Home Medications ?Medication ?Instructions ?Recorded ?Confirmed ?Type acetaminophen 650 mg 650 mg PO BID PRN Pain (Scale 09/08/20 03/31/25 History tablet,extended release (Arthritis Score 1-3) Pain Relief (acetaminophen) ER) buspirone 7.5 mg tablet 7.5 mg PO BID 09/08/20 03/31/25 History albuterol sulfate 90 mcg/actuation 1 inh inhalation QID PRN shortness 01/02/21 03/31/25 Rx aerosol inhaler of breath or wheezing #6.7 grams hydrocodone 5 mg-acetaminophen 325 1 tablet PO QID 01/31/24 03/31/25 History mg tablet sertraline 100 mg tablet 100 mg PO DAILY 01/31/24 03/31/25 History lamotrigine 200 mg tablet 200 mg PO BID #180 tabs 07/08/24 03/31/25 Rx fluticasone propionate 50 1 spray intranasal Q12HR #1 g 11/25/24 03/31/25 Rx mcg/actuation nasal spray,suspension hydroxyzine HCl 50 mg tablet 50 mg PO TID 12/23/24 03/31/25 History meloxicam 7.5 mg tablet 7.5 mg PO BID 12/23/24 03/31/25 History ascorbic acid (vitamin C) 1,000 mg 1,000 mg PO DAILY 02/26/25 03/31/25 History capsule calcium 600 mg-D3 20 mcg-magnesium 1 tablet PO DAILY 02/26/25 03/31/25 History 50 mg-copper 1 [id number] tablet cholecalciferol (vitamin D3) 125 125 mcg PO DAILY 02/26/25 03/31/25 History mcg (5,000 unit) capsule folic acid 0.8 mg capsule 0.8 mg PO DAILY 02/26/25 03/31/25 History pantoprazole 40 mg tablet,delayed 40 mg PO DAILY 02/26/25 03/31/25 History release thiamine HCl (vitamin B1) 250 mg 250 mg PO DAILY 02/26/25 03/31/25 History tablet gabapentin 300 mg capsule 300 mg PO BID #60 caps 03/08/25 03/31/25 Rx atorvastatin 40 mg tablet 40 mg PO DAILY 03/31/25 03/31/25 History sertraline 100 mg tablet (Zoloft) 100 mg PO DAILY 03/31/25 03/31/25 History Allergies Allergy/AdvReac Type Severity Reaction Status Date / Time grapefruit Allergy Severe angioedema Verified 03/31/25 20:16 Penicillins Allergy Mild Unknown Verified 03/31/25 20:16 Sulfa (Sulfonamide Allergy Mild Unknown Verified 03/31/25 20:16 Antibiotics) fluoxetine (From Prozac) AdvReac Severe Agitated Verified 03/31/25 20:16 Vital Signs Vital Signs - 24 hr 04/03/25 14:00 04/03/25 20:00 04/03/25 21:50 Temperature 36.6 C 36.4 C L Pulse Rate 69 70 Respiratory Rate 18 18 Blood Pressure 150/73 H 119/58 L Pulse Oximetry 94 92 Oxygen Delivery Room Air 04/04/25 06:00 04/04/25 08:02 04/04/25 13:46 Temperature 36.6 C 36.8 C Pulse Rate 67 67 77 Respiratory Rate 18 18 18 Blood Pressure 149/55 H 135/72 Pulse Oximetry 94 94 95 Oxygen Delivery Room Air Exam Narrative: Exam of the patient's right lower extremity shows that she has significant groin pain with any range of motion of the right hip. She has no swelling tenderness or deformity at the knee or the ankles. To was resting in bed comfortably when I walked into the room. Const: General: cooperative and comfortable Orientation/consciousness: oriented to person, oriented to place and oriented to time Results Labs 04/04/25 04:47 04/04/25 04:47 Labs: Abnormal lab results 04/04/25 Range/Units 04:47 WBC 4.1 L (4.5-10.0) K/mm3 RBC 3.91 L (4.2-5.4) M/mm3 Sodium 136 L (137-145) mmol/L Anion Gap 3 L (4-12) mmol/L H & H 03/31/25 04/01/25 04/02/25 Range/Units 15:10 04:58 09:07 Hgb 13.5 11.2 L 11.2 L (12.0-15.0) g/dL Hct 41.2 34.7 L 34.4 L (37.0-47.0) % 04/03/25 04/04/25 Range/Units 04:51 04:47 Hgb 11.9 L 12.1 (12.0-15.0) g/dL Hct 37.3 37.1 (37.0-47.0) % All other labs normal.
[2025-04-04] MEDS: SENNA/DOCUSATE SODIUM TABLET 1 TAB PO (21:19)
[2025-04-04 22:00] VITALS: BP 127/61; PULSE 72; RESP 18; TEMP 36.6; O2SAT 95
[2025-04-05] MEDS: ACETAMINOPHEN 325 MG TABLET 650 MG PO ×4 (00:50→17:17)
[2025-04-05 05:20] LABS: Hematocrit 37.1 % (37.0-47.0); Hemoglobin 12.2 g/dL (12.0-15.0); Mean Corpuscular HGB Conc 32.9 g/dl (32-36); Mean Corpuscular Hemoglobin 30.9 pg (26-34); Mean Corpuscular Volume 93.9 fl (80-100); Platelet Count Result 322 k/mm3 (150-375); Red Blood Count 3.95 M/mm3 (4.2-5.4); White Blood Count 4.0 K/mm3 (4.5-10.0)
[2025-04-05] MEDS: CYCLOBENZAPRINE HCL 10 MG TABLET PO ×3 (05:42→22:20)
[2025-04-05 05:49] LABS: Alanine Aminotransferase 20 U/L (6-35); Albumin Level 3.8 g/dL (3.5-5.1); Alkaline Phosphatase 127 U/L (38-126); Anion Gap 6 mmol/L (4-12); Aspartate Amino Transferase 35 U/L (14-36); Bilirubin,Total 0.4 mg/dL (0.2-1.3); Blood Urea Nitrogen 10 mg/dL (7-17); Calcium 9.3 mg/dL (8.4-10.2); Carbon Dioxide 27 mmol/L (22-30); Chloride 106 mmol/L (98-107); Estimated Glomerular Filt Rate > 60; Glucose 97 mg/dL (65-110); Magnesium 1.9 mg/dL (1.6-2.3); Potassium 3.3 mmol/L (3.4-5.0); Sodium 139 mmol/L (137-145); Total Protein 6.6 g/dL (6.3-8.2)
[2025-04-05 06:00] VITALS: BP 146/76; PULSE 68; RESP 16; TEMP 36.6; O2SAT 93
--- NOTE | 2025-04-05 08:43 | P.PNIM_ITS ---
Assessment and Plan Assessment and Plan (1) Intractable low back pain: Code(s): M54.59 - Other low back pain Status: Acute Assessment and Plan: Patient with HX of spinal surgery and recent sacrum surgery at [facility] per patient attempting to get records developed debilitating severe pain to lower back and BLE with no loss of bowel or urine. * Schedule Tylenol, Meloxicam and Flexeril * Lidocaine patch * P.r.n. and oxycodone and morphine * Added Diazepam PRN for muscle spasms * PT OT eval and treat * MRI w/wo contrast thoracic/lumbar/pelvis/sacrum to R/O spinal stenosis * Neurovascular checks * Has follow-up with a pain specialist outpatient * Consulted Neurosurgery for any further recommendation on back pain only option for right hip pain would total hip replacement (2) Right hip joint effusion: Code(s): M25.451 - Effusion, right hip Status: Acute Assessment and Plan: MR of pelvis showed severe osteoarthritis a moderate joint effusion the right hip * Orthopedics consulted * Continue pain management (3) Anxiety and depression: Code(s): F41.9 - Anxiety disorder, unspecified; F32.9 - Major depressive disorder, single episode, unspecified Status: Chronic Assessment and Plan: * Continue Zoloft, lamotrigine, Atarax, BusPar, (4) COPD (chronic obstructive pulmonary disease): Qualifiers: COPD type: unspecified COPD Qualified Code(s): J44.9 - Chronic obstructive pulmonary disease, unspecified Code(s): J44.9 - Chronic obstructive pulmonary disease, unspecified Status: Chronic Assessment and Plan: * Continue home inhalers (5) Constipation: Code(s): K59.00 - Constipation, unspecified Status: Resolved Assessment and Plan: RESOLVED Patient has a large stool burden on CT, likely due to narcotic use * Lactulose Q6HR resolved BM x 3 * Senna nightly * Patient should be sent home on a bowel protocol * Encourage ambulation as tolerated * encourage oral hydration Plan Code status: Full code per patient DVT prophylaxis: SCD's Stress ulcer prophylaxis: NA PT/OT notes: PT/OT pending Disposition: Patient continues admission to the medical unit has consult to Neurosurgery for any further recommendations will get MRI to rule out any acute findings for patient's moderate to severe back pain PT/OT and pain management to help determine discharge planning needs. Medical Record Review I have reviewed the following patient records and this information was taken into consideration when formulating the assessment and plan.: previous labs, previous ER visits and previous hospitalizations Consultations Consultations: I have discussed the care of this pt with the consulting providers. Time Spent With Patient Time with patient: 15 - 25 minutes Subjective Date/time seen: 04/05/25 08:43 Interval history: Patient is a 64 year old female admitted for severe lower back pain make it difficult to ambulate even with assistive devices and stool burden. 04/05/2025: Ortho recommends consult to neurosurgery for further evaluation of patient spinal stenosis for any recommendations for pain relief, only option for right hip would be a total hip replacement. Patient with no complaints currently still moderate pain which worsens with ambulation and standing. Neurosurgery to see today appreciate recs. Review of Systems Review of Systems: 12 systems were reviewed and are negativ e except for as per HPI. All systems reviewed & are unremarkable except as noted in HPI and below Exam Const: General: no acute distress and uncomfortable Orientation/consciousness: oriented to person, oriented to place and oriented to time Other: Pleasant female in bed but in pain with movement HENMT: Mouth: Yes moist mucous membranes Eyes: General: appearance normal, both eyes and all related structures Sclera: sclerae normal Pupils: Equal, round and reactive pupils present Neck: Neck: supple Resp: Effort & Inspection: normal respiratory effort Auscultation: clear to auscultation bilaterally Cardio: Rate: regular rate Rhythm: regular rhythm GI: Auscultation: normal bowel sounds Back/Spine/Pelvis: Back: back tenderness Thoracic/Lumbar Spine: pain with thoraco-lumbar ROM Skin: General skin exam: normal color and no rashes or lesions noted Wounds: no wounds Neuro: General: oriented to person, oriented to place, oriented to time, moves all extremities and Unable to assess gait Cranial nerves: Yes CN's II-XII intact bilaterally and Yes Equal, round and reactive pupils present Cognition (Neuro): normal cognition Speech: normal speech Gait exam (Neuro): Unable to assess gait and Other gait observations present (Pain with ambulation BLE) Sensory Exam: normal sensation Extrem: General: normal to inspection Other: Pain with movement BLE Psych: Mental Status: mental status grossly normal Affect: normal affect Objective Data Vital Signs Vital Signs: Vital Signs - 24 hr 04/04/25 13:46 04/04/25 20:00 04/04/25 22:00 Temperature 98.3 F 97.8 F Pulse Rate 77 72 Respiratory Rate 18 18 Blood Pressure 135/72 127/61 Pulse Oximetry 95 95 Oxygen Delivery Room Air 04/05/25 06:00 Temperature 97.9 F Pulse Rate 68 Respiratory Rate 16 Blood Pressure 146/76 H Pulse Oximetry 93 Oxygen Delivery Intake/Output Intake/Output: Intake & Output 04/02/25 04/03/25 04/04/25 04/05/25 23:59 23:59 23:59 23:59 Intake Total 1630 3240 970 150 Output Total 200 201 Balance 1430 3240 769 150 Meds/Results Medications: Active Medications Generic Name Dose Route Start Last Admin Trade Name Freq PRN Reason Stop Dose Admin Acetaminophen 650 mg 03/31/25 20:00 04/05/25 05:41 Acetaminophen 325 Mg Tablet PO 650 mg Q6HR UBALDO Administration Albuterol 1 puff 03/31/25 20:56 04/04/25 12:11 Albuterol Sulfate (*Sp) Aerosol 1 Puff INHALATION 1 puff QIDRT PRN Administration Shortness Of Breath Or Wheezin Ascorbic Acid 1,000 mg 04/01/25 09:50 04/04/25 07:59 Ascorbic Acid 500 Mg Tablet PO 05/02/25 09:49 1,000 mg DAILY UBALDO Administration Buspirone HCl 2.5 mg 04/01/25 09:00 04/04/25 17:01 Buspirone Hcl 2.5 Mg Tablet PO 2.5 mg BID UBALDO Administration Buspirone HCl 5 mg 04/01/25 09:00 04/04/25 17:04 Buspirone Hcl 5 Mg Tablet PO 5 mg BID UBALDO Administration Cyclobenzaprine HCl 10 mg 03/31/25 19:55 04/05/25 05:42 Cyclobenzaprine Hcl 10 Mg Tablet PO 10 mg Q8HR UBALDO Administration Diazepam 5 mg 04/01/25 09:14 04/02/25 13:47 Diazepam Inj (*Crx) 10 Mg/2 Ml Syringe IV PUSH 5 mg TID PRN Administration Muscle Spasm Diazepam 5 mg 04/02/25 21:00 04/04/25 21:19 Diazepam (*Crx) 5 Mg Tablet PO 5 mg Q12HR UBALDO Administration Enoxaparin Sodium 40 mg 04/01/25 09:00 04/04/25 08:00 Enoxaparin 40 Mg/0.4 Ml Syringe SUB-Q 40 mg DAILY UBALDO Administration Fluticasone Propionate 1 spray 04/01/25 09:50 04/04/25 21:19 Fluticasone Propionate 0.05% Na Spr 16 Gm Btl (*Bkc) NASAL 1 spray Q12HR UBALDO Administration Folic Acid 0.8 mg 04/01/25 09:00 04/04/25 08:02 Folic Acid 0.4 Mg Tablet PO 0.8 mg DAILY UBALDO Administration Gabapentin 300 mg 04/01/25 09:00 04/04/25 17:00 Gabapentin 300 Mg Capsule PO 300 mg TID UBALDO Administration Hydroxyzine HCl 50 mg 04/01/25 09:00 04/04/25 17:06 Hydroxyzine Hcl 25 Mg Tablet PO 50 mg TID UBALDO Administration Lamotrigine 200 mg 04/01/25 09:00 04/04/25 21:19 Lamotrigine 100 Mg Tablet PO 200 mg Q12HR UBALDO Administration Lidocaine 1 patch 04/01/25 09:00 04/04/25 08:01 Lidocaine 5% Patch TRANSDERM 1 patch DAILY UBALDO Administration Meloxicam 7.5 mg 04/01/25 09:55 04/04/25 17:06 Meloxicam 7.5 Mg Tablet PO 7.5 mg BID UBALDO Administration Morphine Sulfate 2 mg 04/01/25 09:15 Morphine Sulfate (*Crx) 4 Mg/Ml Inj IV PUSH Q4H PRN Breakthrough Pain Ondansetron HCl 4 mg 03/31/25 17:30 03/31/25 17:49 Ondansetron Inj 4 Mg/2 Ml Vial IV PUSH 4 mg Q4H PRN Administration Nausea Oxycodone HCl 5 mg 03/31/25 19:54 Oxycodone Hcl (*Crx) 5 Mg Tab Ir PO Q4H PRN Pain Rated 4-6 Oxycodone HCl 10 mg 03/31/25 19:54 04/03/25 10:26 Oxycodone Hcl (*Crx) 5 Mg Tab Ir PO 10 mg Q4H PRN Administration Pain Rated 7-10 Pantoprazole Sodium 40 mg 04/01/25 09:00 04/04/25 08:01 Pantoprazole 40 Mg Tablet PO 40 mg DAILY UBALDO Administration Senna/Docusate Sodium 1 tab 03/31/25 21:00 04/04/25 21:19 Senna/Docusate Sodium Tablet PO 1 tab HS UBALDO Administration Sertraline HCl 100 mg 04/02/25 09:00 04/04/25 08:01 Sertraline Hcl 50 Mg Tablet PO 100 mg DAILY UBALDO Administration Thiamine HCl 50 mg 04/01/25 09:00 04/04/25 08:01 Thiamine Hcl 50 Mg Tablet PO 50 mg QAM UBALDO Administration Vitamin D 125 mcg 04/01/25 09:50 04/04/25 08:00 Cholecalciferol (Vitamin D3) 125 Mcg (5,000 Units) Tablet PO 125 mcg DAILY UBALDO Administration Radiology Results: ITS Impressions Miscellaneous CT Procedure 03/31/25 16:53 IMPRESSION: 1. No acute intra-abdominal/pelvic process. 2. Small sliding-type hiatal hernia. 3. Moderate sigmoid diverticulosis. 4. Chronic T12 burst fracture unchanged since 02/19. No acute osseous abnormality. 5. Postoperative changes in the lumbar spine including L4 and L5 laminectomies and alignment anterior and instrumented posterior L4-S1 spinal fusion as well as screw fixation across the bilateral sacroiliac joints. Pelvis MRI 04/02/25 15:40 IMPRESSION: 1. Severe osteoarthritis at the right hip with likely reactive moderate sized joint effusion. Mild left hip osteoarthritis with small left hip joint effusion. 2. Postoperative changes in the lower lumbar spine including L4 and L5 laminectomies and combined anterior and instrumented posterior spinal fusion at L4-S1. 3. Fixation spanning the upper sacrum and bilateral sacroiliac joints with old healed sacral fracture. Sacrum/Coccyx MRI 04/02/25 15:40 IMPRESSION: 1. Severe osteoarthritis at the right hip with likely reactive moderate sized joint effusion. Mild left hip osteoarthritis with small left hip joint effusion. 2. Postoperative changes in the lower lumbar spine including L4 and L5 laminectomies and combined anterior and instrumented posterior spinal fusion at L4-S1. 3. Fixation spanning the upper sacrum and bilateral sacroiliac joints with old healed sacral fracture. Thoracic Spine MRI 04/03/25 18:28 IMPRESSION: 1. Degenerative changes detailed above Lumbar Spine MRI 04/04/25 10:56 IMPRESSION: 1. Severe lumbar spondylosis. 2. Anterior and posterior fusion procedures from L4 to S1. Labs Labs: Laboratory Results - last 24 hr 04/05/25 04:46 WBC 4.0 L RBC 3.95 L Hgb 12.2 Hct 37.1 MCV 93.9 MCH 30.9 MCHC 32.9 RDW 12.4 Plt Count 322 MPV 9.0 Sodium 139 Potassium 3.3 L Chloride 106 Carbon Dioxide 27 Anion Gap 6 BUN 10 Creatinine 0.72 Estim Creat Clear Calc Not Reportable Estimated GFR > 60 Glucose 97 Calcium 9.3 Magnesium 1.9 Total Bilirubin 0.4 AST 35 ALT 20 Alkaline Phosphatase 127 H Total Protein 6.6 Albumin 3.8 Attestation: I personally reviewed all lab results Imaging Attestation: I personally reviewed this imaging study Quality VTE Prophylaxis VTE prophylaxis: mechanical ordered -Patient's previous records reviewed on admission -ER notes reviewed in detail on admission -discussed all findings and current treatment plan with patient/Family/POA -Consultations reviewed for recommendations -Patient's disposition for safe discharge discussed with case management director -radiology imaging, EKG and test results I have personally reviewed and interpreted unless otherwise specified Dictation performed by [employer] direct speech recognition software, therefore chief ii dispatcher variants and typographical errors may occur. Hospitalist MIPS Advance Care Plan I have confirmed that the patient's Advanced Care Plan is present, code status is documented, or surrogate decision maker is listed in patient medical record.: Yes Medication Reconciliation I have utilized all available resources to obtain, update and review the patients current medications (includes all prescriptions, OTC, herbals, cannabis, and nutritional supplements).: Yes The patient is not eligible for med reconciliation; the patient is in a emergent medical situation where delaying treatment would jeopardize the patients health.: No
[2025-04-05 09:38] VITALS: PULSE 68; RESP 16; O2SAT 93
[2025-04-05] MEDS: ASCORBIC ACID 500 MG TABLET 1000 MG PO (09:38)
[2025-04-05] MEDS: GABAPENTIN 300 MG CAPSULE PO ×3 (09:38→17:17)
[2025-04-05] MEDS: FOLIC ACID 0.4 MG TABLET 0.8 MG PO (09:38)
[2025-04-05] MEDS: busPIRone HCL 2.5 MG TABLET PO ×2 (09:38→17:17)
[2025-04-05] MEDS: POTASSIUM CHLORIDE 20 MEQ PACKET (FOR LIQUID) 40 MEQ PO (09:39)
[2025-04-05] MEDS: diazePAM (*CRX) 5 MG TABLET PO ×2 (09:39→22:20)
[2025-04-05] MEDS: CHOLECALCIFEROL (VITAMIN D3) 125 MCG (5,000 UNITS) TABLET PO (09:39)
[2025-04-05] MEDS: THIAMINE HCL 50 MG TABLET PO (09:40)
[2025-04-05] MEDS: MELOXICAM 7.5 MG TABLET PO ×2 (09:40→17:17)
[2025-04-05] MEDS: SERTRALINE HCL 50 MG TABLET 100 MG PO (09:40)
[2025-04-05] MEDS: PANTOPRAZOLE 40 MG TABLET PO (09:41)
[2025-04-05] MEDS: ENOXAPARIN 40 MG/0.4 ML SYRINGE SUB-Q (09:42)
[2025-04-05] MEDS: oxyCODONE HCL (*CRX) 5 MG TAB IR PO (11:13)
[2025-04-05] MEDS: LIDOCAINE 5% PATCH 1 PATCH TRANSDERM (11:13)
--- NOTE | 2025-04-05 13:53 | WPDNEUROSGCN ---
Assessment and Plan Assessment and plan (1) Osteoarthritis of right hip: Qualifiers: Osteoarthritis type: primary Qualified Code(s): M16.11 - Unilateral primary osteoarthritis, right hip Code(s): M16.11 - Unilateral primary osteoarthritis, right hip Status: Acute Assessment and Plan: Gina is a very pleasant 64-year-old with low back pain and right lateral hip and thigh pain likely due to combination of severe right hip osteoarthritis and lumbar spondylosis/ stenosis in the setting of a previous fusion L4-S1 in the remote past and ORIF of bilateral sacral insufficiency fractures in January 2024. I think the majority of her symptoms are due to her severe right hip OA as she has replication of her main pain complaints with active/passive hip range of motion. While she does some moderate neuroforaminal stenosis on the right at L3-L4, the majority of her pain complaints would be in a more L5 distribution which I would not expect to cause a problem given her solid bony fusion at that level. - No surgical intervention planned- would require extension of spinal fusion, unclear if patient is a candidate - PT/OT - Pain control - keep outpatient pain management appointment - patient may benefit from right diagnostic/therapeutic intra-articular hip injection - depending on results of hip injection, right L3-L4 RAISA could be considered - can follow-up with me on outpatient basis Discussed patient and case with Dr. Lockwood who is in agreement (2) History of lumbar fusion: Code(s): Z98.1 - Arthrodesis status Status: Acute Consult date: 04/05/25 HPI: Gina Gonzalez is a 64 year old female with prior history of PSF L4-S1 approximately 30 years ago and SIJ fusion in January 2024 at [facility] for sacral insufficiency fractures. She saw me in the office in July 2024 with complaints of low back pain but was lost to follow-up. She states her current pain is a continuation of low back pain and right lower extremity pain that she has had since the SI joint fusion. The pain is across the low back, right lateral thigh and groin, and does not travel below the knee. It is worse with standing and walking. She endorses limited and painful right hip range of motion. There is no numbness or tingling. The right leg feels weak. She denies saddle anesthesia or loss of bowel or bladder control. Orthopedics consulted, does have severe right hip OA but thought symptoms were consistent with spinal pathology. MRI lumbar and thoracic spine demonstrates previous PSF L4-S1 and bilateral SIJ with singular long screw. At L3-L4, there is moderate right neuroforaminal stenosis. There is no more than mild spinal canal or neural foraminal stenosis at any other level. There are no acute fractures. There is a chronic T12 burst fracture which is unchanged. On CT abdomen, pelvis, and lumbar spine from 03/31/2025, patient's spinal fusion appears solid. I do not appreciate a solid fusion of the SI joints. [facility] Past Medical History Medical History Swelling of left upper extremity Headache Atrial septal defect Mass of left cardiac ventricle Lumbosacral radiculopathy at S1 GERD without esophagitis Anxiety and depression History of alcoholism History of smoking COPD (chronic obstructive pulmonary disease) Seizures (Unknown) Perforated gastric ulcer (~12/27/20) Surgical History Surgical History History of gastric ulcer Exploratory laparotomy with over-sewing of antral gastric ulcer and placement of omental patch, biopsy of antral gastric ulcer, peritoneal washout - 12/28/2020 H/O lumbosacral spine surgery History of appendectomy Hx of tracheostomy Family History Family History Mother Heart disease Cerebrovascular accident Father Heart disease Other Unknown family medical history Social History Social History Social History: The patient stated that she had 5 children and 1 at . The patient is and she is considered disabled. The patient stated that she is 16 years clean with alcohol and she is recovering alcoholic. The patient stated that she smoked many years ago and no longer smokes. The patient is listed as a full code. And she stated that she does not want any CPR if she has spinal surgery. The patient desires to be a DNR. The patient does not have a durable power contracts attorney for healthcare. Smoking packs per day: 1 Smoking cigarettes per day: 20.0 Years smoked: 41 Smoking pack-years: 41.00 Smoking status: Never smoker Tobacco type: cigarettes Smoking end date: 04/29/19 Alcohol intake: former Alcohol use details: RECOVERING , NONE 16 YRS Substance use: former Substance use type: marijuana Other substance usage details: occasional marijuana use Last use: 08/27/24 Lack of Transportation: No Lack of Food: Never True Current Housing: I Have Housing Concerned About Future Housing: No Difficulty Paying Gas/Electric Bills: No Difficulty Paying for Meds: No Currently Unemployed: No Education: Grade School Difficulty w/ Childcare or Family Care: No Living arrangements: with family Additional living arrangements comments: LIVES WITH DAUGHTER JOJO Occupation/Education: retired Gender identity (if verbalized by the patient): Female Sexual Orientation (if Verbalized by the Patient): Straight or Heterosexual Spiritual care concerns: No Agree to blood products: Yes Meds Home Medications and Allergies Home Medications ?Medication ?Instructions ?Recorded ?Confirmed ?Type acetaminophen 650 mg 650 mg PO BID PRN Pain (Scale 09/08/20 03/31/25 History tablet,extended release (Arthritis Score 1-3) Pain Relief (acetaminophen) ER) buspirone 7.5 mg tablet 7.5 mg PO BID 09/08/20 03/31/25 History albuterol sulfate 90 mcg/actuation 1 inh inhalation QID PRN shortness 01/02/21 03/31/25 Rx aerosol inhaler of breath or wheezing #6.7 grams hydrocodone 5 mg-acetaminophen 325 1 tablet PO QID 01/31/24 03/31/25 History mg tablet sertraline 100 mg tablet 100 mg PO DAILY 01/31/24 03/31/25 History lamotrigine 200 mg tablet 200 mg PO BID #180 tabs 07/08/24 03/31/25 Rx fluticasone propionate 50 1 spray intranasal Q12HR #1 g 11/25/24 03/31/25 Rx mcg/actuation nasal spray,suspension hydroxyzine HCl 50 mg tablet 50 mg PO TID 12/23/24 03/31/25 History meloxicam 7.5 mg tablet 7.5 mg PO BID 12/23/24 03/31/25 History ascorbic acid (vitamin C) 1,000 mg 1,000 mg PO DAILY 02/26/25 03/31/25 History capsule calcium 600 mg-D3 20 mcg-magnesium 1 tablet PO DAILY 02/26/25 03/31/25 History 50 mg-copper 1 [id number] tablet cholecalciferol (vitamin D3) 125 125 mcg PO DAILY 02/26/25 03/31/25 History mcg (5,000 unit) capsule folic acid 0.8 mg capsule 0.8 mg PO DAILY 02/26/25 03/31/25 History pantoprazole 40 mg tablet,delayed 40 mg PO DAILY 02/26/25 03/31/25 History release thiamine HCl (vitamin B1) 250 mg 250 mg PO DAILY 02/26/25 03/31/25 History tablet gabapentin 300 mg capsule 300 mg PO BID #60 caps 03/08/25 03/31/25 Rx atorvastatin 40 mg tablet 40 mg PO DAILY 03/31/25 03/31/25 History sertraline 100 mg tablet (Zoloft) 100 mg PO DAILY 03/31/25 03/31/25 History Allergies Allergy/AdvReac Type Severity Reaction Status Date / Time grapefruit Allergy Severe angioedema Verified 03/31/25 20:16 Penicillins Allergy Mild Unknown Verified 03/31/25 20:16 Sulfa (Sulfonamide Allergy Mild Unknown Verified 03/31/25 20:16 Antibiotics) fluoxetine (From Proza) AdvReac Severe Agitated Verified 03/31/25 20:16 Vital Signs Vital Signs - 24 hr 04/04/25 20:00 04/04/25 22:00 04/05/25 06:00 Temperature 97.8 F 97.9 F Pulse Rate 72 68 Respiratory Rate 18 16 Blood Pressure 127/61 146/76 H Pulse Oximetry 95 93 Oxygen Delivery Room Air 04/05/25 09:38 Temperature Pulse Rate 68 Respiratory Rate 16 Blood Pressure Pulse Oximetry 93 Oxygen Delivery Room Air Exam Narrative: A&O x4. Calm, cooperative, no acute distress. EOM intact. PERRLA. Facial sensation intact. Facial movements symmetric. Hearing intact to spoken word. Shoulder shrug symmetric. Tongue protrudes at midline. No drift. Tender to palpation over right SI joint and lateral hip. Limited right hip range of motion. Replication of pain with active and passive right hip range of motion. Positive straight leg raise on the right. Ambulates with antalgic gait on the right using wheeled walker. Motor strength 5/5 bilateral lower extremities. Sensation to light touch intact. No ankle clonus. Negative Sigrid's. Results Labs 04/05/25 04:46 04/05/25 04:46 Labs: Short CBC 04/05/25 Range/Units 04:46 WBC 4.0 L (4.5-10.0) K/mm3 Hgb 12.2 (12.0-15.0) g/dL Hct 37.1 (37.0-47.0) % Plt Count 322 (150-375) k/mm3 BMP 04/05/25 04:46 Sodium 139 Potassium 3.3 L Chloride 106 Carbon Dioxide 27 BUN 10 Creatinine 0.72 Glucose 97 Calcium 9.3 Liver Function 04/05/25 Range/Units 04:46 Total Bilirubin 0.4 (0.2-1.3) mg/dL AST 35 (14-36) U/L ALT 20 (6-35) U/L Alkaline Phosphatase 127 H (38-126) U/L Albumin 3.8 (3.5-5.1) g/dL
[2025-04-05 14:00] VITALS: BP 145/71; PULSE 72; RESP 16; TEMP 37; O2SAT 94
[2025-04-05 20:00] VITALS: PULSE 71; RESP 20; O2SAT 93
[2025-04-05 20:27] VITALS: BP 119/107; PULSE 71; RESP 20; TEMP 36.7; O2SAT 93
[2025-04-05] MEDS: SENNA/DOCUSATE SODIUM TABLET 1 TAB PO (22:20)
[2025-04-05] MEDS: FLUTICASONE PROPIONATE 0.05% NA SPR 16 GM BTL (*BKC) 1 SPRAY NASAL (22:20)
[2025-04-06 05:12] LABS: Hematocrit 40.3 % (37.0-47.0); Hemoglobin 13.0 g/dL (12.0-15.0); Mean Corpuscular HGB Conc 32.3 g/dl (32-36); Mean Corpuscular Hemoglobin 30.4 pg (26-34); Mean Corpuscular Volume 94.2 fl (80-100); Platelet Count Result 323 k/mm3 (150-375); Red Blood Count 4.28 M/mm3 (4.2-5.4); White Blood Count 4.6 K/mm3 (4.5-10.0)
[2025-04-06 05:35] LABS: Alanine Aminotransferase 26 U/L (6-35); Albumin Level 4.2 g/dL (3.5-5.1); Alkaline Phosphatase 134 U/L (38-126); Anion Gap 6 mmol/L (4-12); Aspartate Amino Transferase 47 U/L (14-36); Bilirubin,Total 0.5 mg/dL (0.2-1.3); Blood Urea Nitrogen 11 mg/dL (7-17); Calcium 10.1 mg/dL (8.4-10.2); Carbon Dioxide 26 mmol/L (22-30); Chloride 105 mmol/L (98-107); Estimated Glomerular Filt Rate > 60; Glucose 95 mg/dL (65-110); Magnesium 1.9 mg/dL (1.6-2.3); Potassium 3.8 mmol/L (3.4-5.0); Sodium 137 mmol/L (137-145); Total Protein 7.3 g/dL (6.3-8.2)
[2025-04-06 06:00] VITALS: BP 155/71; PULSE 65; RESP 18; TEMP 36.4; O2SAT 95
[2025-04-06] MEDS: ACETAMINOPHEN 325 MG TABLET 650 MG PO ×3 (06:29→17:59)
[2025-04-06] MEDS: CYCLOBENZAPRINE HCL 10 MG TABLET PO ×3 (06:29→22:11)
[2025-04-06] MEDS: LIDOCAINE 5% PATCH 1 PATCH TRANSDERM (09:16)
[2025-04-06] MEDS: ENOXAPARIN 40 MG/0.4 ML SYRINGE SUB-Q (09:16)
[2025-04-06 09:17] VITALS: PULSE 65; RESP 18; O2SAT 95
[2025-04-06] MEDS: ASCORBIC ACID 500 MG TABLET 1000 MG PO (09:17)
[2025-04-06] MEDS: GABAPENTIN 300 MG CAPSULE PO ×3 (09:17→16:04)
[2025-04-06] MEDS: THIAMINE HCL 50 MG TABLET PO (09:17)
[2025-04-06] MEDS: busPIRone HCL 2.5 MG TABLET PO ×2 (09:17→16:03)
[2025-04-06] MEDS: MELOXICAM 7.5 MG TABLET PO ×2 (09:17→16:04)
[2025-04-06] MEDS: FOLIC ACID 0.4 MG TABLET 0.8 MG PO (09:17)
[2025-04-06] MEDS: diazePAM (*CRX) 5 MG TABLET PO ×2 (09:17→22:11)
[2025-04-06] MEDS: SERTRALINE HCL 50 MG TABLET 100 MG PO (09:17)
[2025-04-06] MEDS: PANTOPRAZOLE 40 MG TABLET PO (09:17)
[2025-04-06] MEDS: CHOLECALCIFEROL (VITAMIN D3) 125 MCG (5,000 UNITS) TABLET PO (09:17)
[2025-04-06] MEDS: FLUTICASONE PROPIONATE 0.05% NA SPR 16 GM BTL (*BKC) 1 SPRAY NASAL ×2 (09:18→22:12)
[2025-04-06 14:00] VITALS: BP 161/71; PULSE 76; RESP 18; TEMP 36.8; O2SAT 97
--- NOTE | 2025-04-06 14:03 | P.PNIM_ITS ---
Assessment and Plan Assessment and Plan (1) Intractable low back pain: Code(s): M54.59 - Other low back pain Status: Acute Assessment and Plan: Patient with HX of spinal surgery and recent sacrum surgery at [facility] per patient attempting to get records developed debilitating severe pain to lower back and BLE with no loss of bowel or urine. * Schedule Tylenol, Meloxicam and Flexeril * Lidocaine patch * P.r.n. and oxycodone and morphine * Added Diazepam PRN for muscle spasms * PT OT eval and treat * MRI w/wo contrast thoracic/lumbar/pelvis/sacrum to R/O spinal stenosis * Neurovascular checks * Has follow-up with a pain specialist outpatient * Consulted Neurosurgery for any further recommendation on back pain only option for right hip pain would total hip replacement Neurosurgery recommendations: - No surgical intervention planned- would require extension of spinal fusion, unclear if patient is a candidate - PT/OT - Pain control - keep outpatient pain management appointment - patient may benefit from right diagnostic/therapeutic intra-articular hip injection - depending on results of hip injection, right L3-L4 RAISA could be considered - can follow-up with me on outpatient basis * Will need ortho to follow-up following neurosurgery consult * plan to discharge to home with home (2) Right hip joint effusion: Code(s): M25.451 - Effusion, right hip Status: Acute Assessment and Plan: MR of pelvis showed severe osteoarthritis a moderate joint effusion the right hip * Orthopedics consulted * Continue pain management (3) Anxiety and depression: Code(s): F41.9 - Anxiety disorder, unspecified; F32.9 - Major depressive disorder, single episode, unspecified Status: Chronic Assessment and Plan: * Continue Zoloft, lamotrigine, Atarax, BusPar, (4) COPD (chronic obstructive pulmonary disease): Qualifiers: COPD type: unspecified COPD Qualified Code(s): J44.9 - Chronic obstructive pulmonary disease, unspecified Code(s): J44.9 - Chronic obstructive pulmonary disease, unspecified Status: Chronic Assessment and Plan: * Continue home inhalers (5) Constipation: Code(s): K59.00 - Constipation, unspecified Status: Resolved Assessment and Plan: RESOLVED Patient has a large stool burden on CT, likely due to narcotic use * Lactulose Q6HR resolved BM x 3 * Senna nightly * Patient should be sent home on a bowel protocol * Encourage ambulation as tolerated * encourage oral hydration Plan Code status: Full code per patient DVT prophylaxis: SCD's Stress ulcer prophylaxis: NA PT/OT notes: PT/OT pending Disposition: Patient continues admission to the medical unit has consult to Neurosurgery for any further recommendations will get MRI to rule out any acute findings for patient's moderate to severe back pain PT/OT. Patient wanting to return home with home health has a roommate who helps care for her. Plan for discharge tomorrow if ortho does not plan any interventions. Medical Record Review I have reviewed the following patient records and this information was taken into consideration when formulating the assessment and plan.: previous labs, previous ER visits and previous hospitalizations Time Spent With Patient Time with patient: 15 - 25 minutes Subjective Date/time seen: 04/06/25 14:03 Interval history: Patient is a 64 year old female admitted for severe lower back pain make it difficult to ambulate even with assistive devices and stool burden. 04/06/2025: Patient reports anderson is slowly improved but remains difficult to ambulate without severe pain. Was seen by Neurosurgery who recommended not surgical intervention at this time and diagnostic/therapeutic intra-articular hip injection could be beneficial, patient is wanting to return home with home health. Patient with no other complaints. Review of Systems Review of Systems: 12 systems were reviewed and are negativ e except for as per HPI. All systems reviewed & are unremarkable except as noted in HPI and below Exam Const: General: no acute distress and uncomfortable Orientation/consciousness: oriented to person, oriented to place and oriented to time Other: Pleasant female in bed but in pain with movement HENMT: Mouth: Yes moist mucous membranes Eyes: General: appearance normal, both eyes and all related structures Sclera: sclerae normal Pupils: Equal, round and reactive pupils present Neck: Neck: supple Resp: Effort & Inspection: normal respiratory effort Auscultation: clear to auscultation bilaterally Cardio: Rate: regular rate Rhythm: regular rhythm GI: Auscultation: normal bowel sounds Back/Spine/Pelvis: Back: back tenderness Thoracic/Lumbar Spine: pain with thoraco-lumbar ROM Skin: General skin exam: normal color and no rashes or lesions noted Wounds: no wounds Neuro: General: oriented to person, oriented to place, oriented to time, moves all extremities and Unable to assess gait Cranial nerves: Yes CN's II-XII intact bilaterally and Yes Equal, round and reactive pupils present Cognition (Neuro): normal cognition Speech: normal speech Gait exam (Neuro): Unable to assess gait and Other gait observations present (Pain with ambulation BLE) Sensory Exam: normal sensation Extrem: General: normal to inspection Other: Pain with movement BLE Psych: Mental Status: mental status grossly normal Affect: normal affect Objective Data Vital Signs Vital Signs: Vital Signs - 24 hr 04/05/25 20:00 04/05/25 20:27 04/06/25 06:00 Temperature 98.0 F 97.6 F Pulse Rate 71 71 65 Respiratory Rate 20 20 18 Blood Pressure 119/107 H 155/71 H Pulse Oximetry 93 93 95 Oxygen Delivery Room Air 04/06/25 09:17 Temperature Pulse Rate 65 Respiratory Rate 18 Blood Pressure Pulse Oximetry 95 Oxygen Delivery Room Air Intake/Output Intake/Output: Intake & Output 04/03/25 04/04/25 04/05/25 04/06/25 23:59 23:59 23:59 23:59 Intake Total 3240 970 1030 530 Output Total 201 Balance 3240 769 1030 530 Meds/Results Medications: Active Medications Generic Name Dose Route Start Last Admin Trade Name Freq PRN Reason Stop Dose Admin Acetaminophen 650 mg 03/31/25 20:00 04/06/25 11:25 Acetaminophen 325 Mg Tablet PO 650 mg Q6HR UBALDO Administration Albuterol 1 puff 03/31/25 20:56 04/04/25 12:11 Albuterol Sulfate (*Sp) Aerosol 1 Puff INHALATION 1 puff QIDRT PRN Administration Shortness Of Breath Or Wheezin Ascorbic Acid 1,000 mg 04/01/25 09:50 04/06/25 09:17 Ascorbic Acid 500 Mg Tablet PO 05/02/25 09:49 1,000 mg DAILY UBALDO Administration Buspirone HCl 2.5 mg 04/01/25 09:00 04/06/25 09:17 Buspirone Hcl 2.5 Mg Tablet PO 2.5 mg BID UBALDO Administration Buspirone HCl 5 mg 04/01/25 09:00 04/06/25 09:17 Buspirone Hcl 5 Mg Tablet PO 5 mg BID UBALDO Administration Cyclobenzaprine HCl 10 mg 03/31/25 19:55 04/06/25 13:31 Cyclobenzaprine Hcl 10 Mg Tablet PO 10 mg Q8HR UBALDO Administration Diazepam 5 mg 04/01/25 09:14 12/05/25 13:47 Diazepam Inj (*Crx) 10 Mg/2 Ml Syringe IV PUSH 5 mg TID PRN Administration Muscle Spasm Diazepam 5 mg 04/02/25 21:00 04/06/25 09:17 Diazepam (*Crx) 5 Mg Tablet PO 5 mg Q12HR UBALDO Administration Enoxaparin Sodium 40 mg 04/01/25 09:00 04/06/25 09:16 Enoxaparin 40 Mg/0.4 Ml Syringe SUB-Q 40 mg DAILY UBALDO Administration Fluticasone Propionate 1 spray 04/01/25 09:50 04/06/25 09:18 Fluticasone Propionate 0.05% Na Spr 16 Gm Btl (*Bkc) NASAL 1 spray Q12HR UBALDO Administration Folic Acid 0.8 mg 04/01/25 09:00 04/06/25 09:17 Folic Acid 0.4 Mg Tablet PO 0.8 mg DAILY UBALDO Administration Gabapentin 300 mg 04/01/25 09:00 04/06/25 13:32 Gabapentin 300 Mg Capsule PO 300 mg TID UBALDO Administration Hydroxyzine HCl 50 mg 04/01/25 09:00 04/06/25 13:31 Hydroxyzine Hcl 25 Mg Tablet PO 50 mg TID UBALDO Administration Lamotrigine 200 mg 04/01/25 09:00 04/06/25 09:17 Lamotrigine 100 Mg Tablet PO 200 mg Q12HR UBALDO Administration Lidocaine 1 patch 04/01/25 09:00 04/06/25 09:16 Lidocaine 5% Patch TRANSDERM 1 patch DAILY UBALDO Administration Meloxicam 7.5 mg 04/01/25 09:55 04/06/25 09:17 Meloxicam 7.5 Mg Tablet PO 7.5 mg BID UBALDO Administration Morphine Sulfate 2 mg 04/01/25 09:15 Morphine Sulfate (*Crx) 4 Mg/Ml Inj IV PUSH Q4H PRN Breakthrough Pain Ondansetron HCl 4 mg 03/31/25 17:30 03/31/25 17:49 Ondansetron Inj 4 Mg/2 Ml Vial IV PUSH 4 mg Q4H PRN Administration Nausea Oxycodone HCl 5 mg 03/31/25 19:54 04/05/25 11:13 Oxycodone Hcl (*Crx) 5 Mg Tab Ir PO 5 mg Q4H PRN Administration Pain Rated 4-6 Oxycodone HCl 10 mg 03/31/25 19:54 04/03/25 10:26 Oxycodone Hcl (*Crx) 5 Mg Tab Ir PO 10 mg Q4H PRN Administration Pain Rated 7-10 Pantoprazole Sodium 40 mg 04/01/25 09:00 04/06/25 09:17 Pantoprazole 40 Mg Tablet PO 40 mg DAILY UBALDO Administration Senna/Docusate Sodium 1 tab 03/31/25 21:00 04/05/25 22:20 Senna/Docusate Sodium Tablet PO 1 tab HS UBALDO Administration Sertraline HCl 100 mg 04/02/25 09:00 04/06/25 09:17 Sertraline Hcl 50 Mg Tablet PO 100 mg DAILY UBALDO Administration Thiamine HCl 50 mg 04/01/25 09:00 04/06/25 09:17 Thiamine Hcl 50 Mg Tablet PO 50 mg QAM UBALDO Administration Vitamin D 125 mcg 04/01/25 09:50 04/06/25 09:17 Cholecalciferol (Vitamin D3) 125 Mcg (5,000 Units) Tablet PO 125 mcg DAILY UBALDO Administration Radiology Results: ITS Impressions Miscellaneous CT Procedure 03/31/25 16:53 IMPRESSION: 1. No acute intra-abdominal/pelvic process. 2. Small sliding-type hiatal hernia. 3. Moderate sigmoid diverticulosis. 4. Chronic T12 burst fracture unchanged since 02/19. No acute osseous abnormality. 5. Postoperative changes in the lumbar spine including L4 and L5 laminectomies and alignment anterior and instrumented posterior L4-S1 spinal fusion as well as screw fixation across the bilateral sacroiliac joints. Pelvis MRI 04/02/25 15:40 IMPRESSION: 1. Severe osteoarthritis at the right hip with likely reactive moderate sized joint effusion. Mild left hip osteoarthritis with small left hip joint effusion. 2. Postoperative changes in the lower lumbar spine including L4 and L5 laminectomies and combined anterior and instrumented posterior spinal fusion at L4-S1. 3. Fixation spanning the upper sacrum and bilateral sacroiliac joints with old healed sacral fracture. Sacrum/Coccyx MRI 04/02/25 15:40 IMPRESSION: 1. Severe osteoarthritis at the right hip with likely reactive moderate sized joint effusion. Mild left hip osteoarthritis with small left hip joint effusion. 2. Postoperative changes in the lower lumbar spine including L4 and L5 laminectomies and combined anterior and instrumented posterior spinal fusion at L4-S1. 3. Fixation spanning the upper sacrum and bilateral sacroiliac joints with old healed sacral fracture. Thoracic Spine MRI 04/03/25 18:28 IMPRESSION: 1. Degenerative changes detailed above Lumbar Spine MRI 04/04/25 10:56 IMPRESSION: 1. Severe lumbar spondylosis. 2. Anterior and posterior fusion procedures from L4 to S1. Labs Labs: Laboratory Results - last 24 hr 04/06/25 04:45 WBC 4.6 RBC 4.28 Hgb 13.0 Hct 40.3 MCV 94.2 MCH 30.4 MCHC 32.3 RDW 12.7 Plt Count 323 MPV 9.1 Sodium 137 Potassium 3.8 Chloride 105 Carbon Dioxide 26 Anion Gap 6 BUN 11 Creatinine 0.70 Estim Creat Clear Calc Not Reportable Estimated GFR > 60 Glucose 95 Calcium 10.1 Magnesium 1.9 Total Bilirubin 0.5 AST 47 H ALT 26 Alkaline Phosphatase 134 H Total Protein 7.3 Albumin 4.2 Attestation: I personally reviewed all lab results Quality VTE Prophylaxis VTE prophylaxis: mechanical ordered -Patient's previous records reviewed on admission -ER notes reviewed in detail on admission -discussed all findings and current treatment plan with patient/Family/POA -Consultations reviewed for recommendations -Patient's disposition for safe discharge discussed with business case analyst -radiology imaging, EKG and test results I have personally reviewed and interpreted unless otherwise specified Dictation performed by [employer] direct speech recognition software, therefore bevel operator variants and typographical errors may occur. Hospitalist MIPS Advance Care Plan I have confirmed that the patient's Advanced Care Plan is present, code status is documented, or surrogate decision maker is listed in patient medical record.: Yes Medication Reconciliation I have utilized all available resources to obtain, update and review the patients current medications (includes all prescriptions, OTC, herbals, cannabis, and nutritional supplements).: Yes The patient is not eligible for med reconciliation; the patient is in a emergent medical situation where delaying treatment would jeopardize the patients health.: No
[2025-04-06] MEDS: oxyCODONE HCL (*CRX) 5 MG TAB IR PO ×2 (14:24→22:11)
[2025-04-06 20:44] VITALS: BP 133/61; PULSE 82; RESP 20; TEMP 36.3; O2SAT 94
[2025-04-06] MEDS: SENNA/DOCUSATE SODIUM TABLET 1 TAB PO (22:11)
[2025-04-07 03:50] VITALS: BP 121/57; PULSE 70; RESP 18; TEMP 36.3; O2SAT 95
[2025-04-07] MEDS: CYCLOBENZAPRINE HCL 10 MG TABLET PO ×2 (05:27→13:01)
[2025-04-07] MEDS: ACETAMINOPHEN 325 MG TABLET 650 MG PO ×2 (05:27→12:30)
[2025-04-07 06:07] LABS: Hematocrit 42.0 % (37.0-47.0); Hemoglobin 13.3 g/dL (12.0-15.0); Mean Corpuscular HGB Conc 31.7 g/dl (32-36); Mean Corpuscular Hemoglobin 31.2 pg (26-34); Mean Corpuscular Volume 98.6 fl (80-100); Platelet Count Result 310 k/mm3 (150-375); Red Blood Count 4.26 M/mm3 (4.2-5.4); White Blood Count 5.2 K/mm3 (4.5-10.0)
[2025-04-07 06:39] LABS: Alanine Aminotransferase 31 U/L (6-35); Albumin Level 4.0 g/dL (3.5-5.1); Alkaline Phosphatase 128 U/L (38-126); Anion Gap 5 mmol/L (4-12); Aspartate Amino Transferase 51 U/L (14-36); Bilirubin,Total 0.5 mg/dL (0.2-1.3); Blood Urea Nitrogen 17 mg/dL (7-17); Calcium 9.5 mg/dL (8.4-10.2); Carbon Dioxide 26 mmol/L (22-30); Chloride 103 mmol/L (98-107); Estimated Glomerular Filt Rate > 60; Glucose 89 mg/dL (65-110); Magnesium 2.0 mg/dL (1.6-2.3); Potassium 3.7 mmol/L (3.4-5.0); Sodium 134 mmol/L (137-145); Total Protein 6.8 g/dL (6.3-8.2)
[2025-04-07 08:00] VITALS: PULSE 70; RESP 18; O2SAT 95
[2025-04-07] MEDS: PANTOPRAZOLE 40 MG TABLET PO (09:38)
[2025-04-07] MEDS: SERTRALINE HCL 50 MG TABLET 100 MG PO (09:38)
[2025-04-07] MEDS: MELOXICAM 7.5 MG TABLET PO (09:38)
[2025-04-07] MEDS: THIAMINE HCL 50 MG TABLET PO (09:38)
[2025-04-07] MEDS: diazePAM (*CRX) 5 MG TABLET PO (09:38)
[2025-04-07] MEDS: busPIRone HCL 2.5 MG TABLET PO (09:39)
[2025-04-07] MEDS: GABAPENTIN 300 MG CAPSULE PO ×2 (09:39→12:30)
[2025-04-07] MEDS: ASCORBIC ACID 500 MG TABLET 1000 MG PO (09:39)
[2025-04-07] MEDS: CHOLECALCIFEROL (VITAMIN D3) 125 MCG (5,000 UNITS) TABLET PO (09:39)
[2025-04-07] MEDS: FOLIC ACID 0.4 MG TABLET 0.8 MG PO (09:39)
[2025-04-07] MEDS: FLUTICASONE PROPIONATE 0.05% NA SPR 16 GM BTL (*BKC) 1 SPRAY NASAL (09:40)
[2025-04-07] MEDS: LIDOCAINE 5% PATCH 1 PATCH TRANSDERM (09:41)
[2025-04-07] MEDS: ENOXAPARIN 40 MG/0.4 ML SYRINGE SUB-Q (09:41)
--- NOTE | 2025-04-07 10:32 | PCNWS ---
Weekly nutritional screen. Patient is tolerating current diet with adequate intake. No weight loss reported. No nutritional needs at this time.
[2025-04-07 14:00] VITALS: BP 146/69; PULSE 76; RESP 16; TEMP 36.6; O2SAT 96
--- NOTE | 2025-04-07 14:26 | PM.DS ---
DS: Admitting Diagnosis Discharge Date 04/07/2025 Admitting Diagnosis Intractable low back pain Constipation Anxiety and depression COPD DS: Discharge Diagnosis Discharge Diagnosis (1) Intractable low back pain: Code(s): M54.59 - Other low back pain Status: Acute (2) Right hip joint effusion: Code(s): M25.451 - Effusion, right hip Status: Acute (3) Anxiety and depression: Code(s): F41.9 - Anxiety disorder, unspecified; F32.9 - Major depressive disorder, single episode, unspecified Status: Chronic (4) COPD (chronic obstructive pulmonary disease): Qualifiers: COPD type: unspecified COPD Qualified Code(s): J44.9 - Chronic obstructive pulmonary disease, unspecified Code(s): J44.9 - Chronic obstructive pulmonary disease, unspecified Status: Chronic (5) Constipation: Code(s): K59.00 - Constipation, unspecified Status: Resolved DS: Summary Hospital Course Reason for hospitalization: back pain Hospital Course: The patient is a 64-year-old female with a complex medical history including severe lumbar spondylosis, prior L4-S1 spinal fusion, sacroiliac joint fixation, chronic obstructive pulmonary disease (COPD), anxiety, depression, GERD, and a history of seizures, who was admitted for intractable low back pain with associated right hip pain and difficulty ambulating. On admission, she also reported abdominal pain and fullness, which was attributed to significant stool burden on imaging, likely related to chronic opioid use. Initial evaluation included laboratory studies, which were largely unremarkable except for mild chronic anemia and mild electrolyte abnormalities, and imaging studies, which revealed severe right hip osteoarthritis with moderate joint effusion, chronic T12 burst fracture, and extensive postoperative changes in the lumbar spine and sacrum. Her pain was managed with a multimodal regimen including scheduled acetaminophen, meloxicam, cyclobenzaprine, lidocaine patches, and PRN opioids, as well as diazepam for muscle spasms. Physical and occupational therapy were consulted for mobility and functional assessment. Constipation was addressed with lactulose and senna, resulting in resolution of symptoms. Orthopedic and neurosurgical consultations were obtained; both services agreed that her symptoms were multifactorial, related to both severe right hip osteoarthritis and underlying spinal pathology. Neurosurgery did not recommend surgical intervention at this time and suggested consideration of a diagnostic/therapeutic intra-articular hip injection, with possible L3-L4 epidural steroid injection depending on response. Orthopedics discussed that hip replacement would be the definitive treatment for her right hip pain, but this would be considered on an outpatient basis. During her hospitalization, the patient?s pain improved modestly but she continued to have significant limitations with ambulation. Her constipation resolved, and she remained hemodynamically stable throughout her stay. She was discharged home with home health services, a bowel regimen, and instructions to follow up with her primary care provider, orthopedics, and pain management for further evaluation and management, including consideration of hip injection and ongoing pain control. At discharge, her condition was stable, and she was able to tolerate oral intake and participate in care with assistance. Time Spent with Patient Time attestation: Total time spent providing and/or coordinating discharge services: 35 Minutes Exam Narrative: General: well appearing, appears stated age. HEENT: normocephalic, atraumatic. Mucous membranes moist. EOMI, PERRLA, bilateral sclera anicteric, no conjunctival injection. Neck supple Respiratory: clear bilaterally. No rales/rhonic/wheezes. Cardiovascular: Regular rate and rhythm, normal S1-S2. No murmurs, rubs, or clicks. Abdomen: Firm, round, no pulsatile masses, nondistended . No rebound, no guarding. Bowel sounds present to all four quadrants Upper abdominal tenderness however not at her hernia site hernia is soft and reducible Extremities: No cyanosis, clubbing, or edema present. Pulses are palpable 2/2. Active ROM to all four extremities. Neuro: Alert and orientated x 4. PERRLA. Cranial nerves 2-12 intact without focal deficit. Skin: Warm, dry, and intact, without rash, erythema, or lesion. Psych: pleasant, cooperative, normal speech, normal affect, no hallucinations, no dysarthia DS: Data Data Completed and Pending Labs on day of discharge: Labs from last 24 hours 04/07/25 05:39 WBC 5.2 RBC 4.26 Hgb 13.3 Hct 42.0 MCV 98.6 MCH 31.2 MCHC 31.7 L RDW 13.0 Plt Count 310 MPV 9.2 Sodium 134 L Potassium 3.7 Chloride 103 Carbon Dioxide 26 Anion Gap 5 BUN 17 Creatinine 0.77 Estim Creat Clear Calc Not Reportable Estimated GFR > 60 Glucose 89 Calcium 9.5 Magnesium 2.0 Total Bilirubin 0.5 AST 51 H ALT 31 Alkaline Phosphatase 128 H Total Protein 6.8 Albumin 4.0 Imaging Radiologist's impression: Ordering Physician: Brad Conde APRN Date of Service: 03/31/25 Procedure(s): CT abd pelvis lumbar w con Accession Number(s): [id number] cc: Brad Conde APRN~ EXAMINATION: CT abd pelvis lumbar w con DATE: 03/31/2025 16:09 INDICATION: Hiatal hernia TECHNIQUE: Computed tomography (CT) of the abdomen, pelvis and lumbar spine was performed with 100 mL Omnipaque-350 intravenous contrast. Automated exposure control and iterative reconstruction technique were employed. The dose-length product was 417.77 mGy-cm. COMPARISON: CT studies dated 12/27/2020, 08/21/2024 and 01/30/2024 FINDINGS: Mild discoid atelectasis in the bilateral lower lobes. Tree-in-bud opacities in the basilar left lower lobe consistent with likely infectious or inflammatory bronchiolitis with endobronchial spread of disease. Heart size is normal. No pericardial or pleural effusion. Small sliding-type hiatal hernia. Liver, gallbladder, spleen, pancreas, bilateral adrenal glands and kidneys are normal. Moderate sigmoid diverticulosis without adjacent from trace stranding to suggest diverticulitis. No bowel obstruction. Bladder is normal. The uterus and left ovary are not identified and have likely been surgically resected. Right ovary is unremarkable. No free intraperitoneal gas or fluid. No pathologically enlarged abdominal or pelvic lymphadenopathy. Chronic T12 burst fracture with 60% anterior vertebral body height loss and mild retropulsion resulting in mild central canal stenosis at this level. Moderate lumbar spondylosis. L4 and L5 laminectomies with instrumented L4-S1 posterior spinal fusion with bilateral vertical jessica and pedicle screw fixation. There is also L4-S1 anterior spinal fusion. Large cancellous screw with washer extending from right to left across the bilateral sacroiliac joints. IMPRESSION: 1. No acute intra-abdominal/pelvic process. 2. Small sliding-type hiatal hernia. 3. Moderate sigmoid diverticulosis. 4. Chronic T12 burst fracture unchanged since 02/19. No acute osseous abnormality. 5. Postoperative changes in the lumbar spine including L4 and L5 laminectomies and alignment anterior and instrumented posterior L4-S1 spinal fusion as well as screw fixation across the bilateral sacroiliac joints. Reviewed, dictated and finalized at location A. OLOGY LABORATORY TECHNOLOGIST Ordering Physician: Vee Patel APRN Date of Service: 04/02/25 Procedure(s): MR pelvis wo/w con; MR sacrum wo/w con Accession Number(s): [id number]; [id number] cc: Vee Patel APRN; Ean Talley Oca, MD; Chandler Benton MD~ EXAMINATION: MR pelvis wo/w con, MR sacrum wo/w con DATE: 04/02/2025 15:01 INDICATION: Right hip pain with difficulty lifting the right leg and walking TECHNIQUE: 1. Magnetic resonance imaging (MRI) of the pelvis was performed without and with 13 mL Multihance intravenous contrast. Sequences included axial, sagittal and coronal T1-weighted FSE and fluid sensitive FSE STIR and postcontrast axial, sagittal and coronal T1-weighted FSE and coronal T2-weighted FS FSE. 2. MRI of the sacrum and coccyx was performed without and with the identical 13 mm MultiHance intravenous contrast bolus. Sequences included sagittal, oblique axial and oblique coronal fluid sensitive FSE STIR, oblique axial and coronal T1-weighted FSE, sagittal T1-weighted FSE, oblique coronal T2-weighted FSE and postcontrast oblique coronal and sagittal T1-weighted FSE and sagittal T1-weighted FS FSE . COMPARISON: None. FINDINGS: Postoperative change of prior L4 and L5 laminectomies. Metallic magnetic field artifact such with bilateral vertical jessica and pedicle screw fixation for a L4-S1 instrumented posterior spinal fusion. There is also solid anterior fusion at L4-S1. L5 is fused to S1 with 6 mm anterolisthesis. There is old healed and a sacral fracture with increased angulation at the level of S1-S2. A large fixation screw extends across the cephalad aspect of the sacrum and bilateral sacroiliac joints. There is severe osteoarthritis at the right hip with prominent subarticular edema-like and cystlike changes at the anterosuperior right acetabulum and superomedial aspect of the right femoral head with moderate-sized marginal osteophytes about the femoral head neck junction. Marrow signal is otherwise normal throughout the pelvis and visualized lumbar spine and proximal femurs with no acute fracture or pathologic marrow replacing process. Mild left hip osteoarthritis. Small left and moderate-sized right hip joint effusions. No asymmetric muscular atrophy in the pelvis or proximal thighs. Visualized portions of the tendons including the bilateral gluteal, iliopsoas and proximal hamstring tendons appear normal. Bladder is normal. The uterus is not identified and has likely been surgically resected. No pathologically enlarged pelvic or inguinal lymphadenopathy. IMPRESSION: 1. Severe osteoarthritis at the right hip with likely reactive moderate sized joint effusion. Mild left hip osteoarthritis with small left hip joint effusion. 2. Postoperative changes in the lower lumbar spine including L4 and L5 laminectomies and combined anterior and instrumented posterior spinal fusion at L4-S1. 3. Fixation spanning the upper sacrum and bilateral sacroiliac joints with old healed sacral fracture. Reviewed, dictated and finalized at location A. OLOGY LABORATORY TECHNOLOGIST Ordering Physician: Vee Patel APRN Date of Service: 04/02/25 Procedure(s): MR pelvis wo/w con; MR sacrum wo/w con Accession Number(s): [id number]; [id number] cc: Vee Patel APRN; Ean Talley Oca, MD; Chandler Benton MD~ EXAMINATION: MR pelvis wo/w con, MR sacrum wo/w con DATE: 04/02/2025 15:01 INDICATION: Right hip pain with difficulty lifting the right leg and walking TECHNIQUE: 1. Magnetic resonance imaging (MRI) of the pelvis was performed without and with 13 mL Multihance intravenous contrast. Sequences included axial, sagittal and coronal T1-weighted FSE and fluid sensitive FSE STIR and postcontrast axial, sagittal and coronal T1-weighted FSE and coronal T2-weighted FS FSE. 2. MRI of the sacrum and coccyx was performed without and with the identical 13 mm MultiHance intravenous contrast bolus. Sequences included sagittal, oblique axial and oblique coronal fluid sensitive FSE STIR, oblique axial and coronal T1-weighted FSE, sagittal T1-weighted FSE, oblique coronal T2-weighted FSE and postcontrast oblique coronal and sagittal T1-weighted FSE and sagittal T1-weighted FS FSE . COMPARISON: None. FINDINGS: Postoperative change of prior L4 and L5 laminectomies. Metallic magnetic field artifact such with bilateral vertical jessica and pedicle screw fixation for a L4-S1 instrumented posterior spinal fusion. There is also solid anterior fusion at L4-S1. L5 is fused to S1 with 6 mm anterolisthesis. There is old healed and a sacral fracture with increased angulation at the level of S1-S2. A large fixation screw extends across the cephalad aspect of the sacrum and bilateral sacroiliac joints. There is severe osteoarthritis at the right hip with prominent subarticular edema-like and cystlike changes at the anterosuperior right acetabulum and superomedial aspect of the right femoral head with moderate-sized marginal osteophytes about the femoral head neck junction. Marrow signal is otherwise normal throughout the pelvis and visualized lumbar spine and proximal femurs with no acute fracture or pathologic marrow replacing process. Mild left hip osteoarthritis. Small left and moderate-sized right hip joint effusions. No asymmetric muscular atrophy in the pelvis or proximal thighs. Visualized portions of the tendons including the bilateral gluteal, iliopsoas and proximal hamstring tendons appear normal. Bladder is normal. The uterus is not identified and has likely been surgically resected. No pathologically enlarged pelvic or inguinal lymphadenopathy. IMPRESSION: 1. Severe osteoarthritis at the right hip with likely reactive moderate sized joint effusion. Mild left hip osteoarthritis with small left hip joint effusion. 2. Postoperative changes in the lower lumbar spine including L4 and L5 laminectomies and combined anterior and instrumented posterior spinal fusion at L4-S1. 3. Fixation spanning the upper sacrum and bilateral sacroiliac joints with old healed sacral fracture. Reviewed, dictated and finalized at location A. OLOGY LABORATORY TECHNOLOGIST rdering Physician: Matthew Joyce MD Date of Service: 04/03/25 Procedure(s): XR hip RT 2V w AP pelvis Accession Number(s): [id number] cc: Ean Talley Oca, MD; Chandler Benton MD; Matthew Joyce MD~ Examination: XR hip RT 2V w AP pelvis Clinical History: hip pain Comparison: MRI pelvis one day prior Technique: 2 views right hip with AP pelvis Findings/impression: 1. No fracture or dislocation right hip. 2. Severe joint space narrowing right hip, with associated degenerative changes. 3. No pelvic fracture identified, with pedicle screw and jessica fixation L4-S1 and SI joint fixation. Reviewed, dictated and finalized at location R. OLOGY LABORATORY TECHNOLOGIST Ordering Physician: Vee Patel APRN Date of Service: 04/03/25 Procedure(s): MR thoracic spine wo/w con Accession Number(s): [id number] cc: Vee Patel APRN; Ean Talley Oca, MD; Chandler Benton MD~ EXAMINATION: MR thoracic spine wo/w con, 04/03/2025 15:20 PATHOLOGY LABORATORY TECHNOLOGIST HISTORY: Pain COMPARISON: None TECHNIQUE: Multi-planar multi-sequence images were obtained of the thoracic spine without contrast per protocol. FINDINGS: There is a remote appearing fracture of T12 with loss of height 50%. No additional fracture or subluxation identified. Marrow signal appears appropriate. Scattered areas of probable typical and atypical subcentimeter hemangioma formation noted. There is no abnormal signal within the posterior elements. Posterior alignment appears intact There is no abnormal signal within the cord Moderate loss of disc height throughout most marked at T11-T12 and T12-L1 There is no severe canal or foraminal stenosis identified Motion artifact limits evaluation of the visualized soft tissues appear unremarkable. Nonspecific patulous appearance noted of the esophagus Nonspecific mild prominence noted of the central canal The contrast-enhanced images demonstrate no gross abnormal enhancement IMPRESSION: 1. Degenerative changes detailed above Reviewed, dictated and finalized at location P. OLOGY LABORATORY TECHNOLOGIST Ordering Physician: Vee Patel APRN Date of Service: 04/03/25 Procedure(s): MR lumbar spine wo/w con Accession Number(s): [id number] cc: Vee Patel APRN; Ean Talley Oca, MD; Chandler Benton MD~ EXAMINATION: MR lumbar spine wo/w con DATE: 04/03/2025 16:23 INDICATION: Low back pain. TECHNIQUE: Magnetic resonance imaging (MRI) of the lumbar spine was performed without and with 13 mL MultiHance intravenous contrast. COMPARISON: Lumbar spine MRI 02/02/2024, CT lumbar spine 03/31/2025 FINDINGS: There is 3 mm retrolisthesis of L1 on L2, L2 on L3, and L3 on L4. There is a chronic burst fracture of T12 with 3/5 loss of height, retropulsion of bone 3 mm into central spinal canal, and focal kyphosis. There are changes of anterior and posterior fusion procedures from L4 to S1 with healed interbody bone graft and pedicle screws. There are changes of arthrodesis of the sacroiliac joints with a long screw. There is mildly decreased disc height at T12-L1 and L1-L2, moderately decreased disc height at L2-L3, and severely decreased disc height at L3-L4. The distal spinal cord signal intensity is normal. The conus medullaris is at L1. The following disc levels are specifically discussed: L1-L2: The disc is bulging. There is mild bilateral facet joint osteoarthritis. There is mild bilateral neural foraminal stenosis. There is mild central canal stenosis. L2-L3: The disc is bulging and has an annular fissure. There is severe bilateral facet joint osteoarthritis. There is mild bilateral neural foraminal stenosis. There is mild central canal stenosis. L3-L4: The disc is bulging and has an annular fissure. There is severe bilateral facet joint osteoarthritis. There is moderate right and mild left neural foraminal stenosis. There is mild central canal stenosis. L4-L5: There is no facet joint hypertrophy. There is no neural foraminal stenosis. There is no central canal stenosis. There is posterior decompression. L5-S1: There is no facet joint hypertrophy. There is no neural foraminal stenosis. There is no central canal stenosis. There is posterior decompression. IMPRESSION: 1. Severe lumbar spondylosis. 2. Anterior and posterior fusion procedures from L4 to S1. Reviewed, dictated and finalized at location E. OLOGY LABORATORY TECHNOLOGIST Discharge Plan Discharge Attending physician on discharge: Prabhjot Ryan Consulting providers: Vee Patel; Matthew Joyce; Jocelyne Pierce; Parul Shaw; Louie Beebe; Rafita Eason; Rajendra Ceballos; Tk Hollingsworth V. Discharging Clinician: Alondra Fay Patient Disposition: Home with Home Health Service Activity: as tolerated Diet: regular Discharge Instructions: No driving while taking narcotic pain medications. Please follow up with your pain management doctor for an epidural injection to help the right leg pain. Patient Instructions: Antibiotic Form Patient Language: Tamaz[place] Stand Alone Forms: General Discharge Information Follow-up/Referrals: Chandler Benton MD [Primary Care Provider, Family Practice] Referral Note: Call for an appointment to be see within 1 week of discharge. Please follow up with your PCP to get pain medication refills. Matthew Joyce MD [Physician, Orthopedics] Referral Note: Please follow up after discharge to discuss right hip replacement to be done as an outpatient. Discharge Medications: New cyclobenzaprine 10 mg Tablet 10 mg PO Q8HR Qty: 42 0RF sennosides-docusate sodium [Senokot-S] 8.6-50 mg Tablet 1 tab PO HS Qty: 30 0RF diazepam 5 mg Tablet 5 mg PO Q12HR Qty: 28 0RF Continued buspirone 7.5 mg tablet 7.5 mg PO BID acetaminophen [Arthritis Pain Relief (acetam)] 650 mg tablet extended release 650 mg PO BID PRN (Reason: Pain (Scale Score 1-3)) lamotrigine 200 mg tablet 200 mg PO BID Qty: 180 4RF hydroxyzine HCl 50 mg tablet 50 mg PO TID meloxicam 7.5 mg tablet 7.5 mg PO BID pantoprazole 40 mg tablet,delayed release (DR/EC) 40 mg PO DAILY thiamine HCl (vitamin B1) 250 mg tablet 250 mg PO DAILY cholecalciferol (vitamin D3) 125 mcg (5,000 unit) capsule 125 mcg PO DAILY folic acid 0.8 mg capsule 0.8 mg PO DAILY ascorbic acid (vitamin C) 1,000 mg capsule 1,000 mg PO DAILY Ca carb-D3-mag bs-kum-nnyu-Zn 600 mg-20 mcg- 50 mg-1 mg tablet 1 tablet PO DAILY hydrocodone-acetaminophen 5-325 mg tablet 1 tablet PO QID Patient Comments: QID UBALDO not PRN per pt sertraline 100 mg tablet 100 mg PO DAILY albuterol sulfate 90 mcg/actuation HFA aerosol inhaler 1 inh inhalation QID PRN (Reason: shortness of breath or wheezing) Qty: 6.7 0RF fluticasone propionate 50 mcg/actuation [place],Suspension 1 spray intranasal Q12HR Qty: 1 0RF atorvastatin 40 mg tablet 40 mg PO DAILY sertraline [Zoloft] 100 mg tablet 100 mg PO DAILY gabapentin 300 mg capsule 300 mg PO BID Qty: 60 5RF Rx Instructions: may start with 1 capsule at bedtime increase to 1 twice a day after 1 or 2 weeks Date of admission: 04/04/25 15:44 Primary Care Provider: Chandler Benton Admitting Provider: Ean Talley Oca Attending physician on admission: Alondra Fay Condition: Stable Quality VTE Prophylaxis VTE prophylaxis: mechanical ordered
== END 2025-04-07 16:18 | disposition home or self-care (01) | DRG 351 ==
LOC: ANHED 17:26 → ANH2MED 18:06
PROVIDERS: Nurse Practitioner Family; Nurse Practitioner Gerontology; Admitting Provider Student in an Organized Health Care Education/Training Program; Emergency Provider Nurse Practitioner Family; PCP Family Medicine; Visit Provider Nurse Practitioner Adult Health
DX: M16.11 Unilateral primary osteoarthritis, right hip (principal); M47.816 Spondylosis without myelopathy or radiculopathy, lumbar region; Z98.1 Arthrodesis status; K59.03 Drug induced constipation; T40.2X5A Adverse effect of other opioids, initial encounter; F41.9 Anxiety disorder, unspecified; F32.A Depression, unspecified; J44.9 Chronic obstructive pulmonary disease, unspecified; K21.9 Gastro-esophageal reflux disease without esophagitis; Z88.0 Allergy status to penicillin; Z87.891 Personal history of nicotine dependence; Z66 Do not resuscitate; Z79.891 Long term (current) use of opiate analgesic
CPT/HCPCS: 36415; 72132; 72157; 72158; 72197; 73502; 74177; 80048; 80053; 81003; 83690; 83735; 85025; 85027; 94640; 96361; 96374; 96375; 96376; 97110; 97116; 97161; 97166; 97530; 97535; 99285; A9270; A9577; G0378; G0379; J1650; J1885; J2270; J2405; J3360; J7030; Q9967

== ENCOUNTER 2025-04-08 11:15 | Outpatient (CLI) | payer OTHER, SELFPAY ==
--- NOTE | ~2025-04-08 | DEXA_ITS ---
Bone Density Report Name: JEWEL CASTRO Age: 64 Sex: Female Ethnicity: White Date of : 1960 Indication: postmenopausal; screening for osteoporosis; height loss; prior fracture; seizure disorder; hysterectomy; Referring Provider: ANA, DANNY Schultz Study: Bone densitometry was performed. Exam Date: April 08, 2025 Accession number: [id number] Bone Density: Region BMD T-score Z-score Classification Femoral Neck (Left) 0.518 -3.0 -1.4 Osteoporosis Total Hip (Left) 0.623 -2.6 -1.3 Osteoporosis World Health Organization criteria for BMD impression classify patients as: Normal (T-score at or above -1.0), Osteopenia (T-score between -1.0 and -2.5), or Osteoporosis (T-score at or below -2.5). 10-year Fracture Risk: FRAX not reported because: Some T-score for Spine Total or Hip Total or Femoral Neck at or below -2.5 Prior hip or vertebral fracture Clinical Information Provided by Patient: Have had a previous hip or vertebral fracture Has had a low trauma fracture Has used the following medications: Vitamin D, Calcium Has the following medical conditions: Any Seizure Disorders, Hysterectomy Patient maximum height was 64 Menopause Age: 28 No regular weight bearing exercise Does not regularly consume dairy products Drinks caffeinated beverages Onset of menses at age 7 Number of children 4 Impression: The patient has established osteoporosis, based on the Left Femoral Neck T-score and the existence of a prior fracture. The patient has risk factors, including: previous fracture. Discussion: HIGH RISK OF FRACTURE. BONE DENSITY IS UNDESIRABLY LOW AT ONE OR MORE SKELETAL SITES, CONSISTENT WITH POSTMENOPAUSAL OSTEOPOROSIS. This patient's lowest T-score, in a patient who has previously fractured, meets the World Health Organization's (WHO) criteria for severe osteoporosis. In untreated patients, the risk of osteoporotic fracture increases approximately two-fold for each 1.0 SD decrease in T-score. Low bone density is not the only risk factor for fracture; also consider factors such as patient's age, frailty or poor health, risk of falling, risk of injury, previous osteoporotic fracture, family history of osteoporosis, cigarette smoking, low body weight, etc. Not everyone with low bone mineral density has osteoporosis; osteomalacia and other metabolic bone disorders should also be considered. Patients who have osteoporosis should be evaluated for specific diseases and conditions (secondary causes) that may cause or contribute to bone loss. The [place] [employer]ocrin[employer] (AACE) and National Osteoporosis Foundation (NOF) recommend pharmacologic intervention for all postmenopausal women with a previous hip or vertebral fracture and a T-score in this range. The patient should follow a healthful lifestyle (good nutrition with adequate calcium and vitamin D, and appropriate weight-bearing exercise). Follow-Up: Consider a repeat BMD and Vertebral Fracture Assessment (VFA) exam in 2 years or sooner if medically necessary, to reassess this patient's status. Reported by: BRITTON on 04/08/2025 12:03:00 PM. Reviewed, dictated and finalized at location A.
== END 2025-04-08 11:16 | disposition home or self-care (01) ==
LOC: ANHFOHIMG 11:17
PROVIDERS: PCP Family Medicine; Visit Provider Nurse Practitioner Family
DX: Z13.820 Encounter for screening for osteoporosis (principal); M81.0 Age-related osteoporosis without current pathological fracture; M84.48XD Pathological fracture, other site, subsequent encounter for fracture with routine healing
CPT/HCPCS: 77080

== ENCOUNTER 2025-04-09 11:03 | Outpatient (CLI) | payer OTHER, SELFPAY ==
--- NOTE | ~2025-04-09 | CT_ITS ---
EXAMINATION: CT lung screening DATE: 04/09/2025 11:33 INDICATION: Z87.891 - Personal history of nicotine dependence TECHNIQUE: Computed tomography (CT) of the chest was performed without intravenous contrast. Additional 3D reconstructions utilizing coronal maximum intensity projection (MIP) were performed. Automated exposure control and iterative reconstruction technique were employed. The dose-length product was 71 .64 mGy-cm. COMPARISON: CT abdomen and pelvis dated 03/31/2025 FINDINGS: Linear bands of discoid atelectasis/scarring in the bilateral lower lobes. Extensive tree-in-bud opacities with mild patchy groundglass opacity and numerous small centrilobular nodules in the left lower lobe most consistent with age-bronchiolitis/pneumonia related to endobronchial spread of disease. This appears to progressed since the relatively recent study from 04/17/2025 which further supports and infectious etiology. Calcified nodules in the bilateral lower lobes and along the right minor fissure consistent with old granulomatous disease. No pulmonary edema or pleural effusion. Heart size is normal. Small pericardial effusion. Thoracic aorta is normal in caliber. No pathologically enlarged thoracic lymphadenopathy. Visualized upper abdomen is unremarkable. Chronic T12 burst fracture with 60% anterior vertebral body height loss and with 4-5 mm retropulsion resulting in mild central canal stenosis. IMPRESSION: 1. . Lung-RADS category 0: Incomplete with findings suggesting inflammation or infection. Recommend repeat low-dose noncontrast chest CT in one-3 months. Reviewed, dictated and finalized at location A. [facility]
== END 2025-04-09 11:04 | disposition home or self-care (01) ==
PROVIDERS: PCP Family Medicine; Visit Provider Nurse Practitioner Family
DX: Z12.2 Encounter for screening for malignant neoplasm of respiratory organs (principal); Z87.891 Personal history of nicotine dependence; R91.8 Other nonspecific abnormal finding of lung field
CPT/HCPCS: 71271